=== PATIENT | female | born 1970 | race Caucasian/White ===

== ENCOUNTER 2016-11-05 10:06 | Inpatient (IN) | payer OTHER ==
[2016-11-05 10:55] LABS: Hematocrit 45 % (35-47); Hemoglobin 14.8 g/dl (12.0-16.0); Mean Corpuscular HGB Conc 33 g/dl (31-36); Mean Corpuscular Hemoglobin 28 pg (27-31); Mean Corpuscular Volume 84 fL (80-97); Mean Platelet Volume 9 um3 (7.4-10.4); Red Blood Count 5.38 10^6/ul (4.0-5.4); Red Cell Distribution Width 14 % (10.5-15); White Blood Count 7.6 10^3/ul (3.5-10.8)
[2016-11-05 11:10] LABS: Albumin 3.9 g/dL (3.2-5.2); BUN/Creatinine Ratio 14.3 (8-20); EGFR African American 115.4 (>60); EGFR Non-African American 89.7 (>60); Potassium 4.4 mmol/L (3.5-5.0); Total Bilirubin 0.4 mg/dL (0.2-1.0); Total Protein 6.9 g/dL (6.4-8.9)
[2016-11-05] MEDS: NS 0.9% 1000 ML* 2,000 ML IV ONE ×2 (11:30→15:43)
--- NOTE | 2016-11-05 12:58 | RAD ---
INDICATION: Right facial droop and right lower extremity weakness. COMPARISON: There are no prior studies available for comparison. TECHNIQUE: Sagittal T1, axial T1, T2, susceptibility, FLAIR and diffusion weighted images were obtained. FINDINGS: The ventricles, cisterns and sulci appear to be within normal limits. No significant focal abnormality or mass effect is seen. No areas of restricted diffusion are present. There is no evidence for infarct or hemorrhage. The visualized portion of the paranasal sinuses and mastoid air cells appear clear with the exception of a small 8 mm mucous retention cyst or polyp within the right maxillary sinus. IMPRESSION: NEGATIVE EXAM.
[2016-11-05] MEDS ORDERED: Artificial Tear OPHTH.OINT* 3.5 GM RIGHT EYE PRN (13:56)
[2016-11-05 14:22] LABS: C Reactive Protein 1.36 mg/L (< 5.00)
--- NOTE | 2016-11-05 14:49 | ED ---
Samira Pepe Rebecca, scribed for Hiram Alicea MD on 11/05/16 at 1029 . Neurological HPI - HPI Summary HPI Summary: Pt is a 46 y/o F who presents to ED c/o R-sided facial drooping and numbness. 1.5 days ago she began experiencing tongue numbness and yesterday evening the L- side of her face became "funky". This morning, the R side of her face began drooping. Sx have been constant since onset. Sx aggravated and alleviated by nothing. She additionally c/o difficulty winking the R eye, slight difficulty articulating words and trouble eating (dribbling). States that her R eye was watering this morning which she attributed to allergies. 30 minutes prior to arrival she began experiencing RLE weakness, stating it feels as thought she doesn't "have as good of control of it" as compared to the LLE. Denies DU, loss of vision, eye dryness, ear pain, throat pain and abdominal pain. No Hx of tick bites. Pt is L-hand dominant. PMHx fibromyalgia and migraines. SHx no smoking. FHx stroke (grandfather). PCP is Dr. earl. - History of Current Complaint Stated Complaint: FACIAL DROOPING/NUMBNESS Time Seen by Provider: 11/05/16 10:12 Hx Obtained From: Patient Hx Last Menstrual Period: 02/25/15 Onset/Duration: Sudden Onset, Started days ago - yesterday Timing: Constant Neurological Deficit Location: Facial - R-sided drooping and numbness Character: Impaired Speech - difficulty articulating words Aggravating: Nothing Alleviating: Nothing Associated Signs and Symptoms: Positive: Unsteady Gait - RLE weakness, Impaired Speech - Difficulty articulating words. Negative: Visual Changes, Headache - Allergy/Home Medications Allergies/Adverse Reactions: Allergies Allergy/AdvReac Type Severity Reaction Status Date / Time Sulfa Drugs Allergy Intermediate Rash And Verified 09/03/16 16:45 Itching Flurbiprofen [From Ansaid] Allergy See Comment Verified 09/03/16 16:45 PMH/Surg Hx/FS Hx/Imm Hx Endocrine/Hematology History: Denies: Hx Diabetes, Hx Thyroid Disease Cardiovascular History: Reports: Hx Hypertension - off and on Denies: Hx Pacemaker/ICD Respiratory History: Reports: Hx Asthma Denies: Hx Chronic Obstructive Pulmonary Disease (COPD) GI History: Reports: Hx Ulcer Musculoskeletal History: Reports: Hx Fibromyalgia Sensory History: Denies: Hx Hearing Aid Neurological History: Reports: Hx Migraine Psychiatric History: Denies: Hx Panic Disorder - Cancer History Hx Chemotherapy: No Hx Radiation Therapy: No - Surgical History Surgery Procedure, Year, and Place: Bilateral Breast Reduction 2000, Laparotomy for PID at age 16, Laparoscopies for endometriosis and scar tissue from prior surgery; Infectious Disease History: Denies: Hx Hepatitis, Hx Human Immunodeficiency Virus (HIV), History Other Infectious Disease - Family History Known Family History: Positive: Diabetes, Other - Stroke (grandfather) Negative: Cardiac Disease - Social History Alcohol Use: None Substance Use Type: Reports: None Smoking Status (MU): Never Smoked Tobacco Review of Systems Positive: Other - eye watering (secondary to allergies); denies eye dryness Positive: Other - Tongue numbness. Negative: Sore Throat, Ear Ache Negative: Abdominal Pain Positive: Other - RLE weakness Neurological: Other - R-sided facial droop, difficulty articulating words and winking the R eye, difficulty eating (dribbling) Negative: Headache All Other Systems Reviewed And Are Negative: Yes Physical Exam - Summary Physical Exam Summary: The patient is well-nourished in no acute distress and in no acute pain. The skin is warm and dry and skin color reflects adequate perfusion. HEENT: The head is normocephalic and atraumatic. Ptosis of the R eye. The pupils are equal and reactive. Weakness in the R eyelid. Visual acuity intact. The conjunctivae are clear and without drainage. Nares are patent and without drainage. Mouth reveals moist mucous membranes and the throat is without erythema and exudate. Tongue is midline. The external ears are intact. The ear canals are patent and without drainage. The tympanic membranes are intact. Neck is supple with full range of motion and non-tender. There are no carotid bruits. There is no neck vein distension. Respiratory: Chest is non-tender. Lungs are clear to auscultation and breath sounds are symmetrical and equal. Cardiovascular: Hear is regular rate and rhythm. There is no murmur or rub auscultated. There is no peripheral edema and pulses are symmetrical and equal. Abdomen: The abdomen is soft and non-tender. There are normal bowel sounds heard in all four quadrants and there is no organomegaly palpated. Musculoskeletal: There is no back pain noted. Extremities are non-tender with full range of motion. There is good capillary refill. There is no peripheral edema or calf tenderness elicited. Questionable weakness in the RLE compared to the LLE. Negative Babinski. Difficulty walking heel to toe. Neurological: Patient is alert and oriented to person, place and time. The patient has symmetrical motor strength in all four extremities. Cranial nerves are grossly intact. Deep tendon reflexes are symmetrical and equal in all four extremities. R facial droop. Unfurling of the R forehead. No pronator drift of the upper extremities. No drifting of the lower extremities. Heel to sharma test was good. No sensory deficits. Psychiatric: The patient has an appropriate affect and does not exhibit any anxiety or depression. Triage Information Reviewed: Yes Vital Signs On Initial Exam: Initial Vitals Temp Pulse Resp BP Pulse Ox 98.0 F 85 16 141/93 97 11/05/16 10:17 11/05/16 10:17 11/05/16 10:17 11/05/16 10:17 11/05/16 10:17 Vital Signs Reviewed: Yes Diagnostics - Vital Signs Vital Signs Temp Pulse Resp BP Pulse Ox 11/05/16 11:08 79 20 161/113 96 11/05/16 10:17 98.0 F 85 16 141/93 97 - Laboratory Lab Results: Lab Results 11/05/16 11/05/16 11/05/16 Range/Units 10:45 10:45 10:45 WBC 7.6 (3.5-10.8) 10^3/ul RBC 5.38 (4.0-5.4) 10^6/ul Hgb 14.8 (12.0-16.0) g/dl Hct 45 (35-47) % MCV 84 (80-97) fL MCH 28 (27-31) pg MCHC 33 (31-36) g/dl RDW 14 (10.5-15) % Plt Count 299 (150-450) 10^3/ul MPV 9 (7.4-10.4) um3 Neut % (Auto) 59.3 (38-83) % Lymph % (Auto) 26.1 (25-47) % Mcduffie % (Auto) 8.7 (1-9) % Eos % (Auto) 4.5 (0-6) % Baso % (Auto) 1.4 (0-2) % Absolute Neuts (auto) 4.5 (1.5-7.7) 10^3/ul Absolute Lymphs (auto) 2.0 (1.0-4.8) 10^3/ul Absolute Monos (auto) 0.7 (0-0.8) 10^3/ul Absolute Eos (auto) 0.3 (0-0.6) 10^3/ul Absolute Basos (auto) 0.1 (0-0.2) 10^3/ul Absolute Nucleated RBC 0 10^3/ul Nucleated RBC % 0.1 INR (Anticoag Therapy) 0.89 (0.89-1.11) Sodium 136 (133-145) mmol/L Potassium 4.4 (3.5-5.0) mmol/L Chloride 106 (101-111) mmol/L Carbon Dioxide 24 (22-32) mmol/L Anion Gap 6 (2-11) mmol/L BUN 10 (6-24) mg/dL Creatinine 0.70 (0.51-0.95) mg/dL Est GFR ( Amer) 115.4 (>60) Est GFR (Non-Af Amer) 89.7 (>60) BUN/Creatinine Ratio 14.3 (8-20) Glucose 119 H (70-100) mg/dL Lactic Acid (0.5-2.0) mmol/L Calcium 9.0 (8.6-10.3) mg/dL Total Bilirubin 0.40 (0.2-1.0) mg/dL AST 18 (13-39) U/L ALT 11 (7-52) U/L Alkaline Phosphatase 82 (34-104) U/L Troponin I 0.00 (<0.04) ng/mL C-Reactive Protein 1.36 (< 5.00) mg/L Total Protein 6.9 (6.4-8.9) g/dL Albumin 3.9 (3.2-5.2) g/dL Globulin 3.0 (2-4) g/dL Albumin/Globulin Ratio 1.3 (1-3) 11/05/16 Range/Units 10:45 WBC (3.5-10.8) 10^3/ul RBC (4.0-5.4) 10^6/ul Hgb (12.0-16.0) g/dl Hct (35-47) % MCV (80-97) fL MCH (27-31) pg MCHC (31-36) g/dl RDW (10.5-15) % Plt Count (150-450) 10^3/ul MPV (7.4-10.4) um3 Neut % (Auto) (38-83) % Lymph % (Auto) (25-47) % Mcduffie % (Auto) (1-9) % Eos % (Auto) (0-6) % Baso % (Auto) (0-2) % Absolute Neuts (auto) (1.5-7.7) 10^3/ul Absolute Lymphs (auto) (1.0-4.8) 10^3/ul Absolute Monos (auto) (0-0.8) 10^3/ul Absolute Eos (auto) (0-0.6) 10^3/ul Absolute Basos (auto) (0-0.2) 10^3/ul Absolute Nucleated RBC 10^3/ul Nucleated RBC % INR (Anticoag Therapy) (0.89-1.11) Sodium (133-145) mmol/L Potassium (3.5-5.0) mmol/L Chloride (101-111) mmol/L Carbon Dioxide (22-32) mmol/L Anion Gap (2-11) mmol/L BUN (6-24) mg/dL Creatinine (0.51-0.95) mg/dL Est GFR ( Amer) (>60) Est GFR (Non-Af Amer) (>60) BUN/Creatinine Ratio (8-20) Glucose (70-100) mg/dL Lactic Acid 2.1 H* (0.5-2.0) mmol/L Calcium (8.6-10.3) mg/dL Total Bilirubin (0.2-1.0) mg/dL AST (13-39) U/L ALT (7-52) U/L Alkaline Phosphatase (34-104) U/L Troponin I (<0.04) ng/mL C-Reactive Protein (< 5.00) mg/L Total Protein (6.4-8.9) g/dL Albumin (3.2-5.2) g/dL Globulin (2-4) g/dL Albumin/Globulin Ratio (1-3) Result Diagrams: 11/05/16 10:45 11/05/16 10:45 Lab Statement: Any lab studies that have been ordered have been reviewed, and results considered in the medical decision making process. - Radiology Brain MRI Xray Interpretation: No Acute Changes Radiology Interpretation Completed By: Radiologist - EKG 1257 Cardiac Rate: NL - 84 bpm EKG Rhythm: Sinus Rhythm - Normal axis EKG Interpretation: Poor R-wave progression, no STEMI NIH Scale - NIH Scale Level of Consciousness: Alert/Keenly Responsive Ask Patient the Month and His/Her Age: Both Correct Ask Pt to Open/Close Eyes and Facility Maintenance Manager/Release Non-Paretic Hand: Both Correctly Best Gaze (Only Horizontal Eye Movement): Normal Visual Field Testing: No Visual Loss Facial Paresis-Pt to Smile & Close Eyes or Grimace Symmetry: Normal/Symmetrical Motor Function - Right Arm: No Drift-Holds 10 Seconds Motor Function - Left Arm: No Drift-Holds 10 Seconds Motor Function - Right Leg: No Drift-Holds 10 Seconds Motor Function - Left Leg: No Drift-Holds 10 Seconds Limb Ataxia-Must be out of Proportion to Weakness Present: Absent Sensory (Use Pinprick to Test Arms/Legs/Trunk/Face): Normal Best Language (Describe Picture, Name Items): Some Loss Dysarthria (Read Several Words): Normal Extinction and Inattention: No Abnormality Total Score: 1 Re-Evaluation - Re-Evaluation First Eval Re-Evaluation Time: 10:43 Change: Unchanged Comment: Told her that we are doing an MRI. Course/Dx - Course Assessment/Plan: MDM: Pt is a 46 y/o F who presents to ED with a CC of R-sided facial droop for 1 day. She additionally c/o difficulty articulating words, difficulty eating and winking the R eye, tongue numbness and RLE weakness. Denies DU, loss of vision, eye dryness, ear pain, throat pain and abdominal pain. Discussed pt care with Dr. Smith, neurologist, who advised that an MRI be done to r/o stroke and MS. MRI reveals a negative exam. EKG at [address] Smith evaluated pt in the ED at 1345 and stated that pt needs to be admitted. Discussed care of pt with Dr. Khushboo Trevino who advised that the pt be admitted by the hospitalist. Talked to Dr. Sevilla at 1445 who agrees to evaluate pt for admission. Pt will be admitted. She is agreeable to this plan. - Differential Dx Differential Diagnoses Neuro: Positive: John's Palsy, Cerebrovascular Accident, Transient Ischemic Attack, Other - Multiple Sclerosis, Guillan [place] syndrome - Diagnoses Provider Diagnoses: Weakness Is Visit Related: No - Physician Notifications Discussed Care of Patient With: Dr. Smith, neurologist, who advised that pt have MRI to r/o stroke and MS. Dr. Smith evaluated the pt in the ED at 1345 who advised that pt be admitted. Dr. Khushboo Trevino who advised that the pt be admitted by the hospitalist. Talked to Dr. Sevilla at 1445 who agrees to evaluate pt for admission. Time Discussed With Above Provider: 10:34 Discharge - Discharge Plan Condition: Good Disposition: ADMITTED TO [facility] Referrals: Eitan Earl MD [Primary Care Provider] - The documentation as recorded by the Samira peters Rebecca accurately reflects the service I personally performed and the decisions made by me, Hiram Alicea MD.
[2016-11-05 15:59] LABS: Urine Bilirubin Negative (Negative); Urine Glucose Negative (Negative); Urine Nitrite Negative (Negative)
[2016-11-05] MEDS ORDERED: NS 0.9% 1000 ML* 1,000 ML IV SCH (16:30)
[2016-11-05] MEDS ORDERED: Acetaminophen TAB* 325 MG PO PRN (17:27)
[2016-11-05] MEDS ORDERED: diPHENhydraMINE PO* 25 MG PO ONE (18:00)
[2016-11-05 18:16] LABS: HDL Cholesterol 59.5 mg/dL
[2016-11-05] MEDS ORDERED: IMMUNE GLOBULIN IV SCH (18:30)
[2016-11-05] MEDS ORDERED: OCTAGAM IV SCH (18:30)
[2016-11-05] MEDS: NS 0.9% 1000 ML* 1,000 ML IV SCH (18:40)
--- NOTE | 2016-11-05 21:28 | CONS ---
CONSULTATION REPORT: DATE OF CONSULT: 11/05/2016. PATIENT OF: Dr. Alicea and Dr. Eitan Dejesus. HISTORY OF PRESENT ILLNESS: This is a 46-year-old woman I am asked to evaluate for John's palsy and possible gait disturbance. 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 She has had no recent flu or fevers or exposure to Lyme disease. Two days ago, she developed some decreased taste in the right side of her tongue, which is now on both sides. Yesterday, she developed right-sided facial weakness. This morning, she developed little bit of weakness in the right leg and slight unsteadiness, which has been stable throughout today. There has been no sensory changes, no back problems, no headaches, no visual symptoms. PAST SURGICAL HISTORY: There is no surgical history. MEDICATIONS: Medicines at home include: 1. Cymbalta possibly 90 mg a day. 2. She is not taking Flexeril currently. FAMILY HISTORY: Noncontributory other than in an aunt who has Guillain-[place]. SOCIAL HISTORY: She does not smoke, drink, or use drugs. REVIEW OF SYSTEMS: Negative in all 14 spheres as in HPI. PHYSICAL EXAM: Temperature 98, pulse 79, respirations 20, blood pressure 161/ 113. She is alert and oriented with normal speech and comprehension. Cranial nerves II through XII are intact other than a right upper motor neuron facial weakness. She could not wrinkle her forehead as well on the right as on the left. She could close both eyes, but the right less slow than left and she had some tearing. Facial sensation was intact. Fundi were benign. Motor exam revealed normal tone. Strength was 5/5 other than trace to -5/5 strength in the right dorsiflexion. She had a slightly unsteady gait and her Romberg was slightly unsteady, but did not fall with feet close together. Sensation was intact to light touch. Vibration and reflexes were 1 and equal with clearly present ankle jerks. Toes were downgoing. Neck was supple. Chest clear. Cardiovascular: Regular rate and rhythm. Abdomen: Soft with positive bowel sounds. DIAGNOSTIC STUDIES/LAB DATA: I reviewed her MRI scan, which was normal. Her EKG was normal. Her CBC was normal. INR was normal. CMP was normal other than a glucose of 119 , lactate of 2.1. PLAN: I discussed with the patient and her family as well as Dr. Alicea that it is too soon to be sure what her diagnosis is. 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 Her reflexes are still intact and her symptoms affect predominantly the right leg and she has no sensory findings. At this point, it is too early that EMG and LP would be unlikely to be abnormal even if this was Guillain-[place], so we will be admitting for observation. She should have VERONICA, Lyme titers checked as well and she should be on neuro checks and a cardiac rn. If there is progression, depending on how she progresses, if it is in the near future, we may empirically need to treat her with IVIG. I discussed this with her. If it evolves over longer period of time, we might be able to document objectively with lab findings on nerve conduction and LP that she has an inflammatory polyneuropathy. Thank you for sharing her case. [id number]/[facility] #: [id number] DILLAN
[2016-11-05] MEDS: Heparin VIAL(*) 5000 UNITS/ML VIAL (FIVE THOUSAND) SUBCUT SCH (22:29)
--- NOTE | 2016-11-06 00:21 | HP ---
HISTORY AND PHYSICAL: DATE OF ADMISSION: 11/05/16 PROVIDER: Nithin Saez NP ATTENDING PHYSICIAN: Dr. Gala Fernandes* (report dictated by Nithin Saez NP). PRIMARY CARE PROVIDER: Dr. Dejesus. CHIEF COMPLAINT: Right-sided facial droop and right lower extremity weakness. HISTORY OF PRESENT ILLNESS: Ms. Elizabeth is a 46-year-old female with a past medical history of fibromyalgia and migraines who presents to the emergency department with complaints of right-sided facial droop, numbness. She reports a day and a half ago, she began experiencing tongue numbness and last night noted her left face became "funny." This morning, she noted right-sided facial droop and difficulty closing her right eye, some difficulty eating, and felt to have trouble articulating her words. Approximately 30 to 45 minutes before she came to the emergency department, she noted that her right lower extremity felt "weak." She denies numbness or tingling in her left lower extremity but just states that she is having difficulty controlling her right lower extremity. The patient was seen in consultation by neurologist, Dr. Smith, in the emergency department, who recommended that the patient undergo a brain MRI and which she did, which showed a negative MRI of the brain. Due to the patient's John's palsy in combination with right lower extremity and noted right footdrop , Dr. 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 Hospitalist service was asked to evaluate the patient for admission. On evaluation of the patient in the emergency department, which was approximately 2 hours after the neurologist saw the patient, the patient's symptoms had increased with increased right lower extremity weakness and per the patient, she felt that her right-sided facial droop was worse. I ambulated the patient in the emergency department and she could not ambulate without holding on to me which was a change from when Dr. Smith saw the patient. There is a concern for Gutierrez Fuentes variant of Guillain-[place] and the patient will be admitted to the ICU. The patient reports approximately a week ago, she had a "GI bug" with diarrhea but no nausea or vomiting. The patient reports these symptoms have resolved, and she has been feeling better but has continued to feel weak the last several days. She currently denies any difficulty swallowing, shortness of breath, chest pain. Denies vision changes, headache. The patient reports that at her baseline, she is very functional. 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 She reports due to her fibromyalgia, she is gluten free. She denies tobacco abuse or alcohol use. PAST MEDICAL HISTORY: 1. Fibromyalgia. 2. Migraines. 3. Depression. HOME MEDICATIONS: 1. Valerian root 1 capsule daily. 2. Cymbalta 90 mg p.o. daily. 3. Flexeril 10 mg p.o. b.i.d. p.r.n. Medications need to be confirmed. ALLERGIES: SULFA DRUGS and FLURBIPROFEN. FAMILY HISTORY: The patient's grandfather has a history of CVA. She reports strong family history of breast cancer. SOCIAL HISTORY: Denies history of tobacco abuse. No alcohol use in 7 years. 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 She lives with her boyfriend, José Lizama , who is her healthcare proxy. She has two teenage sons. REVIEW OF SYSTEMS: A 14-point review of systems was performed. All the pertinent positives and negatives are mentioned in the history of present illness. All remaining systems are negative. PHYSICAL EXAMINATION GENERAL: A 46-year-old obese female, sitting up in the emergency department stretcher, in no acute distress. Alert and oriented x3. Appropriate to situation. VITAL SIGNS: Temperature 98.0, heart rate 95, respirations 18, O2 sat 97% on room air, blood pressure 141/93. HEENT: Head is normocephalic, atraumatic. Pupils are equal and reactive to light. Oropharynx is clear. Moist mucous membranes. Good dentition. No oropharyngeal edema or erythema noted. NECK: No cervical or supraclavicular lymphadenopathy. Neck is supple. RESPIRATORY: No accessory muscle use. Lungs are clear to auscultation bilaterally. Good aeration throughout. CARDIAC: S1, S2. No murmurs, rubs, or gallops appreciated. No lower extremity edema noted, 2+ DP pulses bilaterally. ABDOMEN: Soft, nontender, nondistended. Normal bowel sounds x4. MUSCULOSKELETAL: No clubbing or cyanosis is noted. Full range of motion in all extremities, but right lower extremity has limited range of motion due to how the patient is able to control her lower leg. NEURO: The patient has noted right facial droop. Tongue is midline. No pronator drift. Extraocular movements intact. Hand hospice clinical manager are equal bilaterally. Right lower extremity strength is 2/5 and left lower extremity strength is 3/5. Reflexes are intact. On ambulation, the patient has noted right lower extremity weakness and difficulty controlling her right leg as well as bearing weight on her right leg. Noted right footdrop. PSYCH: Alert and oriented x3, appropriate to situation. SKIN: No rashes, lesions, or open wounds noted. DIAGNOSTIC STUDIES/LAB DATA: WBC is 7.6, Hgb 14.8, Hct 45, MCV 84, MCH 28, MCHC 33, RDW 14, platelet count 299. INR 0.89. Sodium 136, potassium 4.4, chloride 106, carbon dioxide 24, anion gap 6, BUN 10, creatinine 0.70, glucose 119, lactic acid 2.1, calcium 9.0. Total bilirubin 0.40, AST 18, ALT 11, alkaline phosphatase 82. Troponin 0.01. C-reactive protein 1.36., albumin 3.9. Urinalysis: Negative. Brain MRI, impression: Negative exam. EKG: Sinus rhythm with a rate of 84. No acute ischemic changes noted. ASSESSMENT AND PLAN: Ms. Elizabeth is a 46-year-old female with a past medical history of fibromyalgia and migraines, who presents to the emergency department with complaints of right-sided facial droop and facial numbness along with right lower extremity weakness. 1. Right lower extremity weakness and right facial droop. There is concern for Gutierrez Fuentes variant of Guillain-[place]rest[place]. The patient was seen earlier in the emergency department by the neurologist and when I evaluated the patient in the emergency department, it was evident that she had an increase in right lower extremity weakness. I spoke with Dr. Smith who returned to the emergency department and reevaluated the patient and has concern for an increase in her right lower extremity weakness and now has some left-sided lower extremity weakness as well. Recommendation from Dr. Smith, neurologist , is to give IVIG and the patient will be in to the ICU. The patient will be premedicated with Benadryl and Tylenol prior to the IVIG. Lyme serology and VERONICA had been sent. Neuro checks. Tele monitoring for arrhythmias, close monitoring in the ICU for concern for decompensation. The patient may benefit from a spinal tap in a couple of days, per Neurology, it is too early at this time. Brain MRI was negative, ruling out cerebrovascular accident or demyelinating disease. Neurology will continue to follow. Bedside swallowing eval. Bladder scan q.8 hours. 2. Depression. Continue Cymbalta. 3. DVT prophylaxis. Heparin subcu. 4. Code status. Full code. The patient's boyfriend, José Lizama, is the healthcare proxy. His number is [phone]. 5. Disposition. Inpatient to ICU. TIME SPENT: Approximately 75 minutes was spent on this admission. This case was discussed with neurologist, Dr. Smith, as well as attending physician, Dr. Fernandes, who agree with the plan of care. NITHIN SAEZ, JUANITO [id number]/[facility] #: [id number] DILLAN
[2016-11-06] MEDS ORDERED: Ibuprofen TAB* 600 MG PO ONE (02:15)
[2016-11-06] MEDS ORDERED: Ibuprofen TAB* 600 MG ONE (02:30)
[2016-11-06] MEDS: Heparin VIAL(*) 5000 UNITS/ML VIAL (FIVE THOUSAND) SUBCUT SCH ×4 (05:16→21:57)
[2016-11-06 05:44] LABS: Hematocrit 39 % (35-47); Mean Corpuscular HGB Conc 34 g/dl (31-36); Mean Corpuscular Hemoglobin 28 pg (27-31); Mean Corpuscular Volume 83 fL (80-97); Mean Platelet Volume 9 um3 (7.4-10.4); Red Blood Count 4.66 10^6/ul (4.0-5.4); Red Cell Distribution Width 15 % (10.5-15); White Blood Count 6.6 10^3/ul (3.5-10.8)
[2016-11-06 05:58] LABS: BUN/Creatinine Ratio 12.1 (8-20); Calcium 7.5 mg/dL (8.6-10.3); EGFR African American 143.3 (>60); EGFR Non-African American 111.4 (>60); Potassium 3.6 mmol/L (3.5-5.0)
[2016-11-06] MEDS: NS 0.9% 1000 ML* 1,000 ML IV SCH (06:28)
--- NOTE | 2016-11-06 08:47 | PN ---
Subjective - Subjective Reason for Note: Progress Note History: History from the patient, Dr. Smith and the admitting H and P. Netite Terry is a 46 year left handed white female. 3 week ago she had some sweats at night for 2 - 3 nights 2 weeks ago her had severe gastroenteritis, and the patient also had a milder case that was self limiting 3 days ago her felipe felt "weird" as if she had burned it 2 days ago left side of her face felt as though it was in spasm and worsened during the morning. She noted right sided facial palsy \\yesterday: Right leg weaker - dragging behind her and felt instability Legs wanted to buckle. She had a headache last night - occipital to temples 5/10. No photophobia/ phonophobia. Some nausea. Different from her usual migraine. No neck stiffness Numbness right face. No travel history. Lyme - she [place] in [place]. She had a dog tick bite. No rashes. 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 Uses well water Pets - goats/sheep. Active Problems: Active Problems Progressive focal motor weakness (Acute) M62.81 Right-sided John's palsy (Acute) G51.0 Dysthymia (Chronic) F34.1 Fibromyalgia (Chronic) M79.7 History of gastric ulcer (Chronic) Z87.19 Hypermobility syndrome (Chronic) M35.7 Left handedness (Chronic) [id number] Obesity (BMI 35.0-39.9 without comorbidity) (Chronic) E66.9 Polycystic ovary syndrome (Chronic) E28.2 Current Medications: Current Medications Acetaminophen (Tylenol Tab*) 650 mg PO Q6H PRN PRN Reason: FEVER/PAIN Artificial Tears (Lacrilube Oint*) 1 applic RIGHT EYE Q4H PRN PRN Reason: DRY EYE Heparin Sodium (Porcine) (Heparin Vial(*)) 5,000 units SUBCUT Q8HR CHAD Last Admin: 11/06/16 05:16 Dose: Not Given Immune Globulin 40 gm/ IV (Solution) 800 mls @ 0 mls/hr IV Q24H CHAD; Per Protocol PRN Reason: Protocol Stop: 11/09/16 18:31 Last Admin: 11/05/16 19:48 Dose: 60 mls/hr Sodium Chloride (Ns 0.9% 1000 Ml*) 1,000 mls @ 75 mls/hr IV PER RATE CHAD Last Admin: 11/06/16 06:28 Dose: 75 mls/hr - Review of Systems Constitutional Symptoms: No: Fever, Night Sweats Dermatology: Rash: No Eyes: Negative: Change in Vision, Double Vision, Eye Pain Pulmonary: Negative: Cough, Sputum, Hemoptysis, Respiratory Distress Cardiology: Negative: Chest Pain, Shortness of Breath, Palpitations, Swelling of Ankles Gastroenterology: Positive: Nausea - yesterday evening/resolved Negative: Constipation, Change in Bowel Habits Genital - Urinary: Positive: Polyuria Neurology: Positive: Headache, Change in Walking, Numbness\\Paresthesiae - right face, Unexplained Weakness Negative: Change in Vision, Diplopia, Dizziness, Change in Balancing, Change in Coordination, Change in Memory, Hx of Stroke\\TIA, Hx of Seizures Home Medications: Home Medications Medication Instructions Recorded Confirmed Type DULoxetine DR CAP* [Cymbalta CAP*] 90 mg PO DAILY 03/20/15 11/05/16 History Cyclobenzaprine TAB* [Flexeril 10 mg PO BID PRN 09/21/16 11/05/16 History TAB*] Valerian Root (Bulk) [Valerian 1 pow XX 09/21/16 History Root] Allergies: Allergies Allergy/AdvReac Type Severity Reaction Status Date / Time Sulfa Drugs Allergy Intermediate Rash And Verified 09/03/16 16:45 Itching Flurbiprofen [From Ansaid] Allergy See Comment Verified 09/03/16 16:45 Objective - Vital Signs Vital Signs: Vital Signs 11/05/16 11/05/16 11/05/16 17:50 18:15 18:18 Temperature 100.1 F Pulse Rate 89 84 86 Respiratory 18 17 19 Rate Blood Pressure 160/90 160/105 (mmHg) O2 Sat by Pulse 95 96 97 Oximetry 11/05/16 11/05/16 11/05/16 18:30 18:45 19:00 Temperature Pulse Rate 87 85 91 Respiratory 14 21 20 Rate Blood Pressure 150/84 158/96 152/88 (mmHg) O2 Sat by Pulse 96 96 96 Oximetry 11/05/16 11/05/16 11/05/16 19:15 19:30 19:37 Temperature 99.2 F Pulse Rate 90 84 Respiratory 21 16 Rate Blood Pressure 137/112 143/90 (mmHg) O2 Sat by Pulse 97 98 Oximetry 11/05/16 11/05/16 11/05/16 19:45 20:00 20:15 Temperature Pulse Rate 85 86 88 Respiratory 19 18 18 Rate Blood Pressure 148/101 152/90 148/85 (mmHg) O2 Sat by Pulse 98 97 98 Oximetry 11/05/16 11/05/16 11/05/16 20:30 20:45 21:00 Temperature Pulse Rate 86 86 94 Respiratory 19 17 19 Rate Blood Pressure 147/88 126/76 149/88 (mmHg) O2 Sat by Pulse 96 97 97 Oximetry 11/05/16 11/05/16 11/05/16 21:15 21:30 21:45 Temperature Pulse Rate 89 100 99 Respiratory 20 21 19 Rate Blood Pressure 139/83 158/87 154/83 (mmHg) O2 Sat by Pulse 96 96 96 Oximetry 11/05/16 11/05/16 11/05/16 22:00 22:15 22:29 Temperature Pulse Rate 94 91 Respiratory 21 21 20 Rate Blood Pressure 146/85 140/84 (mmHg) O2 Sat by Pulse 95 96 Oximetry 11/05/16 11/05/16 11/05/16 22:30 22:45 23:00 Temperature Pulse Rate 89 88 88 Respiratory 19 19 20 Rate Blood Pressure 140/83 137/83 140/77 (mmHg) O2 Sat by Pulse 96 96 96 Oximetry 11/05/16 11/05/16 11/05/16 23:15 23:30 23:45 Temperature 98.5 F Pulse Rate 91 91 85 Respiratory 19 20 9 Rate Blood Pressure 139/80 128/84 142/79 (mmHg) O2 Sat by Pulse 95 96 98 Oximetry 11/06/16 11/06/16 11/06/16 00:00 00:01 00:15 Temperature Pulse Rate 89 87 84 Respiratory 17 19 17 Rate Blood Pressure 155/92 157/89 (mmHg) O2 Sat by Pulse 97 97 96 Oximetry 11/06/16 11/06/16 11/06/16 00:30 00:45 01:00 Temperature Pulse Rate 89 91 91 Respiratory 16 17 18 Rate Blood Pressure 151/95 136/75 156/87 (mmHg) O2 Sat by Pulse 96 95 96 Oximetry 11/06/16 11/06/16 11/06/16 02:00 03:00 03:43 Temperature 99.6 F Pulse Rate 95 85 Respiratory 25 18 Rate Blood Pressure 154/106 151/86 (mmHg) O2 Sat by Pulse 97 96 Oximetry 11/06/16 11/06/16 11/06/16 04:00 05:00 05:10 Temperature Pulse Rate 82 93 83 Respiratory 17 21 19 Rate Blood Pressure 152/98 162/99 (mmHg) O2 Sat by Pulse 96 97 96 Oximetry 11/06/16 11/06/16 06:00 08:00 Temperature 98.0 F Pulse Rate 83 Respiratory 19 Rate Blood Pressure 156/97 (mmHg) O2 Sat by Pulse 95 Oximetry - Intake and Output Intake and Output: Intake & Output 11/03/16 11/04/16 11/05/16 11/06/16 11:59 11:59 11:59 11:59 Intake Total 1923 Output Total 1475 Balance 448 Weight 241 lb 6.499 oz Intake: IVPB 873 NS (0.9%) 873 Medicated IV 800 IGG 800 Oral 250 Output: Urine 1475 ADLs: Meal Record Start: 11/05/16 17: 18 Freq: 09,13,18 Status: Active Document 11/05/16 21:00 [id number] (Rec: 11/05/16 21:08 [id number] ICU-C16) Intake and Output Start: 11/05/16 17: 18 Freq: 06,14,22 Status: Active Document 11/05/16 19:45 [id number] (Rec: 11/05/16 22:27 [id number] ICU-C16) Document 11/05/16 21:30 [id number] (Rec: 11/05/16 21:31 [id number] [facility] [place]) Document 11/05/16 22:15 [id number] (Rec: 11/05/16 22:28 [id number] ICU-C16) Document 11/06/16 01:17 [id number] (Rec: 11/06/16 01:17 [id number] ICU-C16) Document 11/06/16 05:20 [id number] (Rec: 11/06/16 05:20 [id number] [facility] [place]DC[facility]) Document 11/06/16 07:07 [id number] (Rec: 11/06/16 07:07 [id number] ICU-C16) - Physical Exam General: No Anemia, No Jaundice, No Clubbing Eye Exam: bilateral: PERRLA - no dilatation. Reduced direct/consensual light response, Normal Fundi, EOMI Skin: Normal: Rash Throat/Oropharyx Exam: Bilateral: Normal -: No Tremor, No Goiter Endocrine: Yes Central Obesity, No Acromegaly, No Vitiligo, No Acanthosis nigricans, No Violaceious striae, No Ralston Syndrome, No Buccal pigmenatation Lungs and Chest: Yes: Chest Expansion Full, Chest Expansion Symetrica, Percussion Note Resonant, Vessicular Breath Sounds. No: Crackles, Wheezes Heart Rate and Rhythm: Regular JVP: Not Elevated Additional Cardiovascular: Yes: Normal Heart Sounds. No: Heart Murmur, Pedal Edema Abdominal Exam: Yes: Soft, Bowel Sounds Present. No: Distention, Abdominal Mass , Splenomegaly - Extremities Posterior Tibial Pulse: Bilateral Normal Dorsalis Pedis Pulses: Bilateral Normal Cranial Nerves II-XII Intact: No - right John's palsy. Normal sensation to tissue Limbs: Normal Tone, Normal Coordination, Normal Sensation - to tissue, Abnormal Power - right elbow flexion/extension, paleontological helper 4/5. 4/5 right hip flexion, normal extension. right knee flexion extension 4/5, bilateral ankle dorsiflexion 3/6, eversion right 3/6. , Abnormal Gait - Can't weight bear on right leg. Reflexes: Bilateral: Biceps - reduced, Triceps - reduced, Supinator - reduced, Knee - normal, Ankle - normal, Plantar - downgoing - Neuro Orientation: A/O x3 Psychiatric: Normal Speech: Normal Results - Results Lab Results: Laboratory Results - last 24 hr 11/06/16 11/06/16 05:19 05:19 WBC 6.6 RBC 4.66 Hgb 13.0 Hct 39 MCV 83 MCH 28 MCHC 34 RDW 15 Plt Count 269 MPV 9 Neut % (Auto) 61.8 Lymph % (Auto) 22.1 L Ritchie % (Auto) 10.4 H Eos % (Auto) 4.4 Baso % (Auto) 1.3 Absolute Neuts (auto) 4.1 Absolute Lymphs (auto) 1.5 Absolute Monos (auto) 0.7 Absolute Eos (auto) 0.3 Absolute Basos (auto) 0.1 Absolute Nucleated RBC 0 Nucleated RBC % 0 Sodium 132 L Potassium 3.6 Chloride 108 Carbon Dioxide 22 Anion Gap 2 BUN 7 Creatinine 0.58 Est GFR ( Amer) 143.3 Est GFR (Non-Af Amer) 111.4 BUN/Creatinine Ratio 12.1 Glucose 96 Calcium 7.5 L Radiology Results: Patient Name: NETTIE TERRY Medical Record#: [id number] Ordering Physician: Hiram Alicea DO Acct. #: [id number] : 1970 Age: 46 Sex: F Location: EMERGENCY DEPARTMENT Exam Date: 11/05/16 1032 ADM Status: REG ER Order Information: MRI BRAIN W/O Accession Number: [id number] CPT: 85117 INDICATION: Right facial droop and right lower extremity weakness. COMPARISON: There are no prior studies available for comparison. TECHNIQUE: Sagittal T1, axial T1, T2, susceptibility, FLAIR and diffusion weighted images were obtained. FINDINGS: The ventricles, cisterns and sulci appear to be within normal limits. No significant focal abnormality or mass effect is seen. No areas of restricted diffusion are present. There is no evidence for infarct or hemorrhage. The visualized portion of the paranasal sinuses and mastoid air cells appear clear with the exception of a small 8 mm mucous retention cyst or polyp within the right maxillary sinus. IMPRESSION: NEGATIVE EXAM. <Electronically signed by Vidal Wick MD in OV> 11/05/16 1255 Dictated By: Vidal Wick MD Dictated Date/Time: 11/05/16 1255 Transcribed Date/Time: 11/05/16 1231 Copy to: CC:Eitan Dejesus MD; Hiram Alicea DO Imaging - [facility] - [place] [facility] - [facility] [address] [address] ph [phone]) ph ([phone]) ph ([phone]) 1 of 1 Assessment - Problem List Assessment: Patient Problems Progressive focal motor weakness (Acute) Right-sided John's palsy (Acute) Dysthymia (Chronic) Fibromyalgia (Chronic) History of gastric ulcer (Chronic) Hypermobility syndrome (Chronic) Left handedness (Chronic) Obesity (BMI 35.0-39.9 without comorbidity) (Chronic) Polycystic ovary syndrome (Chronic) Plan: Progressive focal motor weakness (Acute)/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 Other possibilities in the differential diagnosis discussed with Dr. Smith: Lyme, botulinism. I will treat with IV ceftriaxone 2 gram IV qdaily whilst awaiting results of Lyme serology. No steroids at the moment per Dr. Smith. She has progressed less rapidly overnight than over yesterday afternoon. She requires an ICU bed to avoid missing progression to involve respiratory muscles. I will order a LP - she is needle phobic. Dysthymia (Chronic) treat as per usual with duloxetine 120 mg qhs Fibromyalgia (Chronic) not exacerbated History of gastric ulcer (Chronic) secondary diagnosis Hypermobility syndrome (Chronic) secondary diagnosis Left handedness (Chronic) noted Obesity (BMI 35.0-39.9 without comorbidity) (Chronic) secondary diagnosis Polycystic ovary syndrome (Chronic) secondary diagnosis 1 hour of face-face with patient and organization of care.
[2016-11-06] MEDS ORDERED: fentaNYL* 50 MCG/ML 5 ML VIAL (250 MCG VIAL) ONE (11:10)
[2016-11-06] MEDS ORDERED: KETAMINE HCL* 50 MG/ML 10 ML VIAL ONE (11:10)
[2016-11-06] MEDS ORDERED: Lidocaine 2% PF* 10 ML AMP ONE (11:10)
[2016-11-06] MEDS ORDERED: Midazolam* 1 MG/ML 10 ML VIAL (10 MG) ONE (11:10)
[2016-11-06] MEDS: cefTRIAXone(*) 2 GM in NS 0.9% 100 ML* 100 ML IVPB SCH (11:44)
[2016-11-06] MEDS: Ondansetron INJ* 2 MG/ML VIAL IV PRN (11:45)
--- NOTE | 2016-11-06 11:53 | PN ---
Progress Note - Progress Note Note: Anesthesia LUMBAR PUNCTURE. We were asked to do LP for r/o Guillan-Archbold. Progressive weakness following viral infection. MRI of brain nl. PMH of fibromyalgia and opiod abuse in remission ALL: sula flurbiprofen Alert, obvious right facial drop with weakness in legs especially right. BP elevated diastolic about 100. patient VERY anxious has severe needle phobia. Obese Given pt's phobia and body habitus along with nl brain MRI I feel it is best/ easiest to do her sitting, thus no opening pressure. I described the LP, risks and benefits along with IV sedation with pt. All questions answered no promises made. The EMR and MAR were reviewed. Consent, sitting chloroprep airdry. Versed 7mg IV. At about L 3-4 skin local 25 gauge pencan to SAS first try, clear CSF, no paresthesia. 20ml fluid to lab. no complications.
[2016-11-06 12:44] LABS: CSF Glucose 64 mg/dL (40-70)
[2016-11-06 13:20] LABS: Body Fluid Appearance Clear; Body Fluid Total Cells Counted 25
[2016-11-06 13:21] LABS: BF RBC Count #1 0; BF RBC Count #2 0; BF WBC Count #1 1; BF WBC Count #2 0; Body Fluid WBC 1 /mcL; RBC counts within 6%? Yes; WBC counts within 15%? Yes
--- NOTE | 2016-11-06 15:24 | RAD ---
INDICATION: Worsening right lower extremity weakness COMPARISON: None TECHNIQUE: Coronal hair preparer, sagittal T1, inversion recovery, T2, and axial T1, T2 images were acquired. FINDINGS: The spinal cord terminates at the L1 level. There are no intrinsic abnormalities of the visualized cord. The lower thoracic and lumbar vertebrae are normally aligned. Vertebral body height is adequately maintained and bony signal is within normal limits. There is reduction of normal fluid signal intensity in L3/L4 intervertebral disc. The remaining visualized discs are appropriate in signal and all levels maintain adequate height. Axial view images: Less otherwise specified below there is no significant central canal stenosis or neural foraminal stenosis. L3-L4: Mild broad-based intervertebral disc protrusion combines with facet arthropathy and mild thickening of the ligamentum flavum causing mild right neural foraminal stenosis. L4-L5: Very mild disc protrusion eccentric towards the left combines with mild facet arthropathy to cause very mild left-sided neural foraminal stenosis. L5-S1: There is no significant central canal or neural foraminal stenoses. IMPRESSION: Mild degenerative changes as described above.
[2016-11-06] MEDS: Naproxen TAB* 250 MG PO PRN ×2 (15:26→22:29)
[2016-11-06] MEDS: OCTAGAM IV SCH (16:07)
[2016-11-06] MEDS: IMMUNE GLOBULIN IV SCH (16:07)
[2016-11-06] MEDS: DULoxetine DR CAP* 60 MG CAP.DR PO SCH (20:29)
[2016-11-06] MEDS: LORazepam INJ* 2 MG/ML 1 ML VIAL IV PRN (23:03)
[2016-11-07] MEDS ORDERED: LORazepam INJ* 2 MG/ML 1 ML VIAL IV PUSH ONE (00:09)
[2016-11-07] MEDS: LORazepam INJ* 2 MG/ML 1 ML VIAL IV PRN ×3 (00:25→20:11)
--- NOTE | 2016-11-07 02:06 | PN ---
PROGRESS NOTE FOLLOWUP: DATE OF FOLLOWUP/DICTATION: 11/06/16 PATIENT OF: Dr. Dejesus. HISTORY: I saw Perla last evening at around 5:00 and reevaluated. She continued to have intact reflexes in her ankles, but her gait was substantially changed. She needed 2-person assist and was more unsteady. She also had slight weakness in her left foot. Because of this, I discussed the pros and cons beginning empiric treatment for presumed Guillain-Union with her and we started that along with the Hospitalist and she was admitted to the ICU. She had a slight headache with the IVIG, but otherwise tolerated it well and she says she feels a little numb on the right side of her face today, but has no double vision. There is no numbness or tingling in her feet. She says she feels slightly more off balance, but no clear change in strength. She is having Lacri-Lube as well as the IVIG. PHYSICAL EXAMINATION: Temperature 98, pulse 83, respirations 19, blood pressure 156/97. She is alert and oriented with normal speech and comprehension. Cranial nerves II through XII were intact other than a right facial weakness, which is unchanged since yesterday. Left side of her face may be slightly weak. She closes her left eye firmly, but I can meet slightly less resistance when I try to open it than I did yesterday. Strength in her upper extremities is 5/5 in her legs. She has 4/5 dorsiflexion in the right foot and 5/-5 in the left foot. This is similar to what she had last evening. She needs more assistance in walking at this point. She needs 2-person assist and can walk just a few steps and moves her right leg worse than her left. Sensation intact to light touch. Vibration reflexes were 1 with one ankle jerks , downgoing toes. Neck was supple. Chest: Clear. Cardiovascular: Regular rate and rhythm. Abdomen is soft with positive bowel sounds. LABORATORY DATA: CBC from today was normal. BNP was normal other than a sodium of 132, calcium was 7.5 today. IMPRESSION: I asked her about sonny and whether she could have exposure to botulism. She has had home prepared canned goods in the past, but nothing in the past month or two. I discussed with her and Dr. Dejesus that the rate of progression and for weakness in her gait disorder is much slower over the past 18 hours since I have last seen her then from the first 3 or 4 hours when I had seen her initially in the ER. However, there is still worsening. I will be sending off studies for botulinum, but I do not think that this is an issue. Her speech is intact, there are no visual symptoms and I think that most likely this is still an early Guillain-Union without clear sensory symptoms or true reflex changes at this point. I will check a lumbar MRI scan as well and I discussed getting a spinal tap in the near future with her and Dr. Dejesus. I would prefer to get it even if it meant repeating after a few days as this could be negative early on. However, she is extremely reluctant to have a spinal tap and says that she has a needle phobia, but appears to be agreeable to have it on a one-time basis. We may need to reevaluate depending on her clinical course and the plan is to continue the IVIG. Dr. Dejesus will be managing her medically and will be observing for cardiac issues as well as bladder dysfunction. [id number] #: [id number] MTDD
[2016-11-07 05:45] LABS: Hematocrit 41 % (35-47); Hemoglobin 13.4 g/dl (12.0-16.0); Mean Corpuscular HGB Conc 33 g/dl (31-36); Mean Corpuscular Hemoglobin 28 pg (27-31); Mean Corpuscular Volume 84 fL (80-97); Mean Platelet Volume 9 um3 (7.4-10.4); Red Blood Count 4.82 10^6/ul (4.0-5.4); Red Cell Distribution Width 14 % (10.5-15); White Blood Count 5.7 10^3/ul (3.5-10.8)
[2016-11-07 05:58] LABS: BUN/Creatinine Ratio 9.5 (8-20); C Reactive Protein 1.37 mg/L (< 5.00); Calcium 8.1 mg/dL (8.6-10.3); EGFR African American 130.3 (>60); EGFR Non-African American 101.3 (>60); Potassium 3.6 mmol/L (3.5-5.0)
[2016-11-07] MEDS: cefTRIAXone(*) 2 GM in NS 0.9% 100 ML* 100 ML IVPB SCH (10:13)
[2016-11-07] MEDS: Ondansetron INJ* 2 MG/ML VIAL IV PRN (10:24)
--- NOTE | 2016-11-07 10:41 | PN ---
Subjective - Subjective Reason for Note: Progress Note History: She continues to have a 5/10 headache that was not relieved by oral naproxen, she is avoiding opioids. Her right side facial weakness if anything is greater. She tried sitting in a chair, but felt unstable. Her weakness is either the same, or slightly greater. No problems with aspiration or coughing. Active Problems: Active Problems Headache (Acute) R51 Progressive focal motor weakness (Acute) M62.81 Right-sided John's palsy (Acute) G51.0 Dysthymia (Chronic) F34.1 Fibromyalgia (Chronic) M79.7 History of gastric ulcer (Chronic) Z87.19 Hypermobility syndrome (Chronic) M35.7 Left handedness (Chronic) [id number] Obesity (BMI 35.0-39.9 without comorbidity) (Chronic) E66.9 Polycystic ovary syndrome (Chronic) E28.2 Current Medications: Current Medications Acetaminophen (Tylenol Tab*) 650 mg PO Q6H PRN PRN Reason: FEVER/PAIN Artificial Tears (Lacrilube Oint*) 1 applic RIGHT EYE Q4H PRN PRN Reason: DRY EYE Duloxetine HCl (Cymbalta Cap*) 120 mg PO 2000 CHAD Last Admin: 11/06/16 20:29 Dose: 120 mg Heparin Sodium (Porcine) (Heparin Vial(*)) 5,000 units SUBCUT Q8HR CHAD Last Admin: 11/06/16 21:57 Dose: Not Given Ceftriaxone Sodium 2 gm/ (Sodium Chloride) 100 mls @ 200 mls/hr IVPB Q24H CHAD Last Admin: 11/07/16 10:13 Dose: 200 mls/hr Immune Globulin 40 gm/ IV (Solution) 800 mls @ 0 mls/hr IV Q22H CHAD; Per Protocol PRN Reason: Protocol Stop: 11/09/16 10:31 Last Admin: 11/06/16 16:07 Dose: 60 mls/hr Lorazepam (Ativan Inj*) 0.5 mg IV Q4H PRN PRN Reason: AGITATION/ANXIETY Last Admin: 11/07/16 00:25 Dose: 0.5 mg Naproxen (Naprosyn Tab*) 500 mg PO BID PRN PRN Reason: HEADACHE Last Admin: 11/06/16 22:29 Dose: 500 mg Ondansetron HCl (Zofran Inj*) 4 mg IV Q6H PRN PRN Reason: NAUSEA Last Admin: 11/07/16 10:24 Dose: 4 mg Home Medications: Home Medications Medication Instructions Recorded Confirmed Type DULoxetine CAP* [Cymbalta CAP*] 90 mg PO DAILY 03/20/15 11/05/16 History Cyclobenzaprine TAB* [Flexeril 10 mg PO BID PRN 09/21/16 11/05/16 History TAB*] Valerian Root (Bulk) [Valerian 1 pow XX 09/21/16 History Root] Allergies: Allergies Allergy/AdvReac Type Severity Reaction Status Date / Time Sulfa Drugs Allergy Intermediate Rash And Verified 09/03/16 16:45 Itching Flurbiprofen [From Ansaid] Allergy See Comment Verified 09/03/16 16:45 Objective - Vital Signs Vital Signs: Vital Signs 11/06/16 11/06/16 11/06/16 11:00 11:27 11:30 Temperature Pulse Rate 92 99 94 Respiratory 16 16 21 Rate Blood Pressure 166/106 157/103 164/113 (mmHg) O2 Sat by Pulse 95 96 92 Oximetry 11/06/16 11/06/16 11/06/16 11:40 11:50 11:52 Temperature 98.4 F Pulse Rate 94 90 Respiratory 22 16 Rate Blood Pressure 138/91 151/81 (mmHg) O2 Sat by Pulse 97 93 Oximetry 11/06/16 11/06/16 11/06/16 12:00 12:15 12:30 Temperature Pulse Rate 90 90 82 Respiratory 17 13 21 Rate Blood Pressure 139/92 145/100 134/82 (mmHg) O2 Sat by Pulse 97 97 95 Oximetry 11/06/16 11/06/16 11/06/16 12:45 13:00 13:02 Temperature Pulse Rate 83 Respiratory 18 18 Rate Blood Pressure 106/55 119/100 (mmHg) O2 Sat by Pulse 96 Oximetry 11/06/16 11/06/16 11/06/16 13:16 14:00 14:49 Temperature Pulse Rate 90 Respiratory 15 17 Rate Blood Pressure 148/86 141/92 (mmHg) O2 Sat by Pulse 96 Oximetry 11/06/16 11/06/16 11/06/16 14:51 15:00 15:15 Temperature Pulse Rate 83 85 87 Respiratory 20 15 16 Rate Blood Pressure 160/91 140/95 (mmHg) O2 Sat by Pulse 95 99 98 Oximetry 11/06/16 11/06/16 11/06/16 15:18 15:30 15:45 Temperature 98.0 F Pulse Rate 86 80 Respiratory 18 17 Rate Blood Pressure 155/88 156/99 (mmHg) O2 Sat by Pulse 97 98 Oximetry 11/06/16 11/06/16 11/06/16 16:00 16:15 16:44 Temperature Pulse Rate 80 78 Respiratory 18 16 18 Rate Blood Pressure 158/129 146/93 (mmHg) O2 Sat by Pulse 96 96 Oximetry 11/06/16 11/06/16 11/06/16 17:00 18:00 19:00 Temperature Pulse Rate 80 87 86 Respiratory 18 17 17 Rate Blood Pressure 152/103 130/99 148/88 (mmHg) O2 Sat by Pulse 95 95 98 Oximetry 11/06/16 11/06/16 11/06/16 20:00 21:00 22:00 Temperature 99.1 F Pulse Rate 85 81 80 Respiratory 18 17 21 Rate Blood Pressure 146/89 147/82 130/99 (mmHg) O2 Sat by Pulse 98 96 95 Oximetry 11/06/16 11/06/16 11/06/16 22:17 23:00 23:03 Temperature Pulse Rate 80 79 Respiratory 20 18 20 Rate Blood Pressure 145/83 (mmHg) O2 Sat by Pulse 96 96 Oximetry 11/06/16 11/07/16 11/07/16 23:53 00:00 00:01 Temperature 98.2 F Pulse Rate 84 83 Respiratory 18 18 Rate Blood Pressure 160/121 (mmHg) O2 Sat by Pulse 95 95 Oximetry 11/07/16 11/07/16 11/07/16 00:25 01:00 01:30 Temperature Pulse Rate 86 86 Respiratory 20 17 16 Rate Blood Pressure 137/77 (mmHg) O2 Sat by Pulse 94 94 Oximetry 11/07/16 11/07/16 11/07/16 02:00 02:30 03:00 Temperature Pulse Rate 81 83 Respiratory 18 16 Rate Blood Pressure 143/83 144/84 (mmHg) O2 Sat by Pulse 95 94 Oximetry 11/07/16 11/07/16 11/07/16 03:30 03:45 03:58 Temperature 97.9 F Pulse Rate 81 Respiratory 16 16 Rate Blood Pressure (mmHg) O2 Sat by Pulse 95 Oximetry 11/07/16 11/07/16 11/07/16 04:00 04:30 05:00 Temperature Pulse Rate 86 83 81 Respiratory 16 14 16 Rate Blood Pressure 151/87 140/90 (mmHg) O2 Sat by Pulse 95 95 94 Oximetry 11/07/16 11/07/16 11/07/16 05:30 06:00 06:30 Temperature Pulse Rate 86 79 75 Respiratory 18 16 Rate Blood Pressure 148/83 (mmHg) O2 Sat by Pulse 95 97 94 Oximetry 11/07/16 11/07/16 11/07/16 07:00 07:18 07:30 Temperature 98.1 F Pulse Rate 81 81 Respiratory 19 15 Rate Blood Pressure 146/93 (mmHg) O2 Sat by Pulse 96 95 Oximetry 11/07/16 11/07/16 11/07/16 08:00 08:30 09:00 Temperature Pulse Rate 88 80 89 Respiratory 18 17 18 Rate Blood Pressure 167/90 124/87 (mmHg) O2 Sat by Pulse 95 96 96 Oximetry 11/07/16 11/07/16 09:30 10:00 Temperature Pulse Rate 85 80 Respiratory 16 16 Rate Blood Pressure 109/94 (mmHg) O2 Sat by Pulse 96 95 Oximetry - Intake and Output Intake and Output: Intake & Output 11/04/16 11/05/16 11/06/16 11/07/16 11:59 11:59 11:59 11:59 Intake Total 2243 3200 Output Total 1975 4275 Balance 268 -1075 Weight 241 lb 6.499 oz 230 lb 2.601 oz Intake: IV Fluids 314 NS (0.9%) 314 IVPB 873 NS (0.9%) 873 Medicated IV 800 796 IGG 800 796 Oral 570 2090 Output: Urine 1974 4275 Other: Estimated Stool Amount Small ADLs: Meal Record Start: 11/05/16 17: 18 Freq: 09,13,18 Status: Active Document 11/05/16 21:00 [id number] (Rec: 11/05/16 21:08 [id number] ICU-C16) Document 11/06/16 09:38 [id number] (Rec: 11/06/16 09:38 [id number] ICU-C16) Document 11/06/16 13:00 [id number] (Rec: 11/06/16 14:06 [id number] ICU-C16) Document 11/06/16 18:00 [id number] (Rec: 11/06/16 19:25 [id number] ICU-C25) Document 11/07/16 09:00 [id number] (Rec: 11/07/16 09:07 [id number] ICU-C10) Intake and Output Start: 11/05/16 17: 18 Freq: 06,14,22 Status: Active Document 11/05/16 19:45 [id number] (Rec: 11/05/16 22:27 [id number] ICU-C16) Document 11/05/16 21:30 [id number] (Rec: 11/05/16 21:31 [id number] CMC-RDC2) Document 11/05/16 22:15 [id number] (Rec: 11/05/16 22:28 [id number] ICU-C16) Document 11/06/16 01:17 [id number] (Rec: 11/06/16 01:17 [id number] ICU-C16) Document 11/06/16 05:20 [id number] (Rec: 11/06/16 05:20 [id number] CMC-RDC2) Document 11/06/16 07:07 [id number] (Rec: 11/06/16 07:07 [id number] ICU-C16) Document 11/06/16 09:38 [id number] (Rec: 11/06/16 09:38 [id number] ICU-C16) Document 11/06/16 14:00 [id number] (Rec: 11/06/16 14:07 [id number] ICU-C16) Document 11/06/16 14:39 [id number] (Rec: 11/06/16 14:39 [id number] ICU-C11) Document 11/06/16 16:37 [id number] (Rec: 11/06/16 16:38 [id number] ICU-C11) Document 11/06/16 18:08 [id number] (Rec: 11/06/16 18:08 [id number] ICU-C16) Document 11/06/16 19:25 [id number] (Rec: 11/06/16 19:25 [id number] ICU-C25) Document 11/06/16 22:00 [id number] (Rec: 11/06/16 22:16 [id number] ICU-C12) Document 11/07/16 05:00 [id number] (Rec: 11/07/16 05:49 [id number] ICU-C15) - Physical Exam General Physical Exam Comment: Complete right John's palsy, left face no palsy. Arms: Right arm elbow flexion, extension, director of academic support 4/5, left 5/5. Legs: right left. hip extension 4/5 4.5/5. knee flexion 4/5 4.5/5. Knee extension 4/5 4.5/5. ankle dorsiflexion 3/5 3.5/5. eversion ankle 4/5 4/5 General: No Cyanosis, No Anemia, No Jaundice, No Lymphadenopathy, No Clubbing Eye Exam: bilateral: EOMI Skin: Normal: Rash Lungs and Chest: Yes: Chest Expansion Full, Chest Expansion Symetrica, Percussion Note Resonant, Vessicular Breath Sounds. No: Crackles, Wheezes Heart Rate and Rhythm: Regular JVP: Not Elevated Additional Cardiovascular: Yes: Normal Heart Sounds. No: Heart Murmur, Pedal Edema Abdominal Exam: Yes: Soft, Bowel Sounds Present. No: Distention, Abdominal Mass , Hepatomegaly, Splenomegaly - Extremities Cranial Nerves II-XII Intact: No - Right John's palsy Limbs: Normal Power - see above, Normal Tone - Neuro Orientation: A/O x3 Speech: Normal Results - Results Lab Results: Laboratory Results - last 24 hr 11/06/16 11/06/16 11/07/16 11:40 11:40 05:15 WBC 5.7 RBC 4.82 Hgb 13.4 Hct 41 MCV 84 MCH 28 MCHC 33 RDW 14 Plt Count 262 MPV 9 Neut % (Auto) 62.6 Lymph % (Auto) 20.1 L [place] % (Auto) 9.6 H Eos % (Auto) 6.6 H Baso % (Auto) 1.1 Absolute Neuts (auto) 3.6 Absolute Lymphs (auto) 1.1 Absolute Monos (auto) 0.5 Absolute Eos (auto) 0.4 Absolute Basos (auto) 0.1 Absolute Nucleated RBC 0 Nucleated RBC % 0 Sodium Potassium Chloride Carbon Dioxide Anion Gap BUN Creatinine Est GFR ( Amer) Est GFR (Non-Af Amer) BUN/Creatinine Ratio Glucose Calcium C-Reactive Protein Fluid Source Cerebral spinal Fluid Volume 4 Fluid Color Colorless Fluid Appearance Clear Fluid WBC 1 Fluid RBC 0 Fluid Tot Cell Count 25 Fluid Neutrophils Not Reportable Fluid Lymphocytes 88 Fluid Monocytes 12 Fluid Other Cells 1 Fluid Cell Count Rvw By CSF Cell Count Tube # 4 CSF Glucose 64 CSF Total Protein 35 11/07/16 05:15 WBC RBC Hgb Hct MCV MCH MCHC RDW Plt Count MPV Neut % (Auto) Lymph % (Auto) [place] % (Auto) Eos % (Auto) Baso % (Auto) Absolute Neuts (auto) Absolute Lymphs (auto) Absolute Monos (auto) Absolute Eos (auto) Absolute Basos (auto) Absolute Nucleated RBC Nucleated RBC % Sodium 132 L Potassium 3.6 Chloride 103 Carbon Dioxide 26 Anion Gap 3 BUN 6 Creatinine 0.63 Est GFR ( Amer) 130.3 Est GFR (Non-Af Amer) 101.3 BUN/Creatinine Ratio 9.5 Glucose 94 Calcium 8.1 L C-Reactive Protein 1.37 Fluid Source Fluid Volume Fluid Color Fluid Appearance Fluid WBC Fluid RBC Fluid Tot Cell Count Fluid Neutrophils Fluid Lymphocytes Fluid Monocytes Fluid Other Cells Fluid Cell Count Rvw By CSF Cell Count Tube # CSF Glucose CSF Total Protein Assessment - Problem List Assessment: Patient Problems Headache (Acute) Progressive focal motor weakness (Acute) Right-sided John's palsy (Acute) Dysthymia (Chronic) Fibromyalgia (Chronic) History of gastric ulcer (Chronic) Hypermobility syndrome (Chronic) Left handedness (Chronic) Obesity (BMI 35.0-39.9 without comorbidity) (Chronic) Polycystic ovary syndrome (Chronic) Plan: Progressive focal motor weakness (Acute)Right-sided John's palsy (Acute) Lyme negative - d/c ceftriaxone. The CSF was not revealing. 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 She is either the same or subtly more weak today - not much difference. Her airway is fine. I think we need to progress her PT/OT. Headache - this is ongoing. No nuchal stiffness. I will try IV toradol Dysthymia (Chronic) in good humor Fibromyalgia (Chronic) not a problem at present History of gastric ulcer (Chronic) inactive Hypermobility syndrome (Chronic) secondary diagnosis Left handedness (Chronic) Obesity (BMI 35.0-39.9 without comorbidity) (Chronic) secondary diagnosis Polycystic ovary syndrome (Chronic) secondary diagnosis. I discussed the above with the patient and she agrees with the management
[2016-11-07] MEDS ORDERED: Ketorolac INJ* 30 MG/ML 1 ML VIAL IV PUSH ONE (11:02)
[2016-11-07] MEDS: Naproxen TAB* 250 MG PO PRN ×2 (13:31→20:16)
[2016-11-07] MEDS: Heparin VIAL(*) 5000 UNITS/ML VIAL (FIVE THOUSAND) SUBCUT SCH ×2 (13:34→23:15)
[2016-11-07] MEDS: IMMUNE GLOBULIN IV SCH (14:36)
[2016-11-07] MEDS: OCTAGAM IV SCH (14:36)
--- NOTE | 2016-11-07 14:56 | PN ---
PROGRESS NOTE: DATE OF SERVICE/DICTATION: 11/06/16 Perla feels her strength is unchanged this afternoon. Her spinal tap did have minimal protein cell counts. MRI scan did not show any abnormality, showed some disk disease, but no explanations for her leg symptoms. Her exam remains unchanged from this morning other than her reflexes on her right ankle is trace at this point. The weakness in her feet, as described previously, is unchanged. She will continue to get her IVIG for presumed Guillain-[place] and i have called Dr. Finley, at [facility] to review the case due to its atypical features and he feels, based on the history and my description of the exam, that a presumptive treatment for Guillain [place] is the most appropriate course at this time, that is what will happen. [id number]/[facility] #: [id number] DILLAN
[2016-11-07 15:40] LABS: HSV 1 PCR, CSF Negative (Negative); HSV 2 PCR, CSF Negative (Negative)
[2016-11-07 17:41] LABS: CSF VDRL Negative (Negative)
[2016-11-07] MEDS: DULoxetine DR CAP* 60 MG CAP.DR PO SCH (20:10)
[2016-11-08] MEDS: LORazepam INJ* 2 MG/ML 1 ML VIAL IV PRN ×3 (00:26→17:47)
[2016-11-08] MEDS: Heparin VIAL(*) 5000 UNITS/ML VIAL (FIVE THOUSAND) SUBCUT SCH (05:14)
[2016-11-08] MEDS ORDERED: SUMAtriptan TAB* 50 MG PO ONE (11:00)
[2016-11-08] MEDS: IMMUNE GLOBULIN IV SCH (12:09)
[2016-11-08] MEDS: OCTAGAM IV SCH (12:09)
[2016-11-08] MEDS ORDERED: SUMAtriptan TAB* 50 MG PO PRN (13:00)
[2016-11-08] MEDS: Naproxen TAB* 250 MG PO PRN (19:30)
[2016-11-08] MEDS: DULoxetine DR CAP* 60 MG CAP.DR PO SCH (21:08)
[2016-11-09] MEDS: LORazepam INJ* 2 MG/ML 1 ML VIAL IV PRN ×2 (03:21→11:42)
--- NOTE | 2016-11-09 09:41 | PN ---
Subjective - Subjective Reason for Note: Progress Note History: She continues to have a 5/10 occipital/posterior cranial headache. This is associated with mild nausea. So far, naproxen, ibuprofen, ketorolac, sumatriptan, acetaminophen have failred. Lorazepam has worked - but this is not a solution. She doesn't want opioids. Her weakness has remained the same. She has no respiratory symptoms. Swallowing has been fine aside from one occasion when her throat seemed to tighten. She has had a bowel movement last night. She had polyuria at first and some double micturition, however, this has stopped when we stopped the IVF. I spoke with the PT - she is limited by her fibromyalgia and hypermobility syndrome, but she is walking a little better. The PT thinks she is a great candidate for PMRU. 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 Dysthymia (Chronic) F34.1 Fibromyalgia (Chronic) M79.7 History of gastric ulcer (Chronic) Z87.19 Hypermobility syndrome (Chronic) M35.7 Left handedness (Chronic) [id number] Obesity (BMI 35.0-39.9 without comorbidity) (Chronic) E66.9 Polycystic ovary syndrome (Chronic) E28.2 Current Medications: Current Medications Artificial Tears (Lacrilube Oint*) 1 applic RIGHT EYE Q4H PRN PRN Reason: DRY EYE Last Admin: 11/07/16 22:56 Dose: 1 top.gel Duloxetine HCl (Cymbalta Cap*) 120 mg PO 2000 CHAD Last Admin: 11/08/16 21:08 Dose: 120 mg Immune Globulin 40 gm/ IV (Solution) 800 mls @ 0 mls/hr IV Q22H CHAD; Per Protocol PRN Reason: Protocol Stop: 11/09/16 10:31 Last Admin: 11/08/16 12:09 Dose: 60 mls/hr Lorazepam (Ativan Inj*) 0.5 mg IV Q4H PRN PRN Reason: AGITATION/ANXIETY Last Admin: 11/09/16 03:21 Dose: 0.5 mg Naproxen (Naprosyn Tab*) 500 mg PO BID PRN PRN Reason: HEADACHE Last Admin: 11/08/16 19:30 Dose: 500 mg Ondansetron HCl (Zofran Inj*) 4 mg IV Q6H PRN PRN Reason: NAUSEA Last Admin: 11/07/16 10:24 Dose: 4 mg Home Medications: Home Medications Medication Instructions Recorded Confirmed Type DULoxetine DR CAP* [Cymbalta CAP*] 90 mg PO DAILY 03/20/15 11/05/16 History Cyclobenzaprine TAB* [Flexeril 10 mg PO BID PRN 09/21/16 11/05/16 History TAB*] Valerian Root (Bulk) [Valerian 1 pow XX 09/21/16 History Root] Allergies: Allergies Allergy/AdvReac Type Severity Reaction Status Date / Time Sulfa Drugs Allergy Intermediate Rash And Verified 09/03/16 16:45 Itching Flurbiprofen [From Ansaid] Allergy See Comment Verified 09/03/16 16:45 Objective - Vital Signs Vital Signs: Vital Signs 11/08/16 11/08/16 11/08/16 10:00 10:30 11:00 Temperature Pulse Rate 92 88 92 Respiratory 15 17 20 Rate Blood Pressure 139/88 142/100 (mmHg) O2 Sat by Pulse 97 96 96 Oximetry 11/08/16 11/08/16 11/08/16 11:08 11:30 12:00 Temperature 99 F Pulse Rate 91 87 Respiratory 16 16 Rate Blood Pressure 146/85 (mmHg) O2 Sat by Pulse 95 94 Oximetry 11/08/16 11/08/16 11/08/16 12:17 12:30 13:00 Temperature Pulse Rate 89 Respiratory 18 19 16 Rate Blood Pressure 135/101 (mmHg) O2 Sat by Pulse 96 Oximetry 11/08/16 11/08/16 11/08/16 13:30 14:00 14:58 Temperature Pulse Rate 95 95 Respiratory 22 16 16 Rate Blood Pressure (mmHg) O2 Sat by Pulse 97 98 Oximetry 11/08/16 11/08/16 11/08/16 15:00 15:30 16:00 Temperature 98.5 F Pulse Rate 85 88 90 Respiratory 16 15 20 Rate Blood Pressure (mmHg) O2 Sat by Pulse 95 95 97 Oximetry 11/08/16 11/08/16 11/08/16 16:22 16:26 16:30 Temperature Pulse Rate 88 87 Respiratory 18 20 19 Rate Blood Pressure 132/88 (mmHg) O2 Sat by Pulse 96 96 Oximetry 11/08/16 11/08/16 11/08/16 17:00 17:06 17:30 Temperature Pulse Rate 96 Respiratory 16 20 21 Rate Blood Pressure (mmHg) O2 Sat by Pulse 97 Oximetry 11/08/16 11/08/16 11/08/16 17:42 17:47 18:00 Temperature Pulse Rate 95 91 Respiratory 15 17 18 Rate Blood Pressure 146/89 125/86 (mmHg) O2 Sat by Pulse 96 96 Oximetry 11/08/16 11/08/16 11/08/16 19:00 19:37 20:00 Temperature 100.9 F Pulse Rate 88 87 Respiratory 17 18 Rate Blood Pressure 139/89 141/96 (mmHg) O2 Sat by Pulse 96 96 Oximetry 11/08/16 11/08/16 11/08/16 21:00 22:00 23:00 Temperature Pulse Rate 88 81 81 Respiratory 18 16 19 Rate Blood Pressure 142/95 143/92 145/91 (mmHg) O2 Sat by Pulse 96 95 96 Oximetry 11/09/16 11/09/16 11/09/16 00:00 00:01 01:00 Temperature 99 F Pulse Rate 80 80 Respiratory 14 15 15 Rate Blood Pressure 139/82 140/83 (mmHg) O2 Sat by Pulse 95 95 Oximetry 11/09/16 11/09/16 11/09/16 02:00 03:00 03:21 Temperature Pulse Rate 72 89 Respiratory 18 18 16 Rate Blood Pressure 137/89 123/92 (mmHg) O2 Sat by Pulse 96 98 Oximetry 11/09/16 11/09/16 11/09/16 03:43 04:00 05:00 Temperature 98.6 F Pulse Rate 78 Respiratory 15 16 Rate Blood Pressure 125/90 (mmHg) O2 Sat by Pulse 96 Oximetry 11/09/16 11/09/16 11/09/16 05:01 06:00 07:00 Temperature Pulse Rate 81 81 89 Respiratory 15 16 18 Rate Blood Pressure 141/80 127/84 144/92 (mmHg) O2 Sat by Pulse 97 96 95 Oximetry 11/09/16 11/09/16 11/09/16 07:24 08:00 08:05 Temperature 99.3 F Pulse Rate 89 Respiratory 16 17 Rate Blood Pressure (mmHg) O2 Sat by Pulse 96 Oximetry - Intake and Output Intake and Output: Intake & Output 11/06/16 11/07/16 11/08/16 11/09/16 11:59 11:59 11:59 11:59 Intake Total 2243 3200 1060 1696 Output Total 19745 1765 1650 Balance 881 -7607 -438 46 Weight 241 lb 6.499 oz 230 lb 2.601 oz 238 lb 15.697 oz 232 lb 2.348 oz Intake: IV Fluids 314 NS (0.9%) 314 IVPB 873 NS (0.9%) 873 Medicated IV 800 796 716 IGG 800 796 716 Oral 570 2090 1060 980 Output: Urine 1974 4274 1765 1650 Other: Estimated Stool Amount Small # Voids 1 ADLs: Meal Record Start: 11/05/16 17: 18 Freq: ,13,18 Status: Active Document 11/05/16 21:00 [id number] (Rec: 11/05/16 21:08 [id number] ICU-C16) Document 11/06/16 09:38 [id number] (Rec: 11/06/16 09:38 [id number] ICU-C16) Document 11/06/16 13:00 [id number] (Rec: 11/06/16 14:06 NYZ3503 ICU-C16) Document 11/06/16 18:00 [id number] (Rec: 11/06/16 19:25 [id number] ICU-C25) Document 11/07/16 09:00 [id number] (Rec: 11/07/16 09:07 [id number] ICU-C10) Document 11/07/16 13:00 [id number] (Rec: 11/07/16 13:40 [id number] ICU-C10) Document 11/07/16 18:00 [id number] (Rec: 11/07/16 18:34 [id number] ICU-C16) Document 11/08/16 09:00 [id number] (Rec: 11/08/16 10:00 HHL7793 ICU-C14) Document 11/08/16 13:00 [id number] (Rec: 11/08/16 13:52 [id number] ICU-C14) Document 11/08/16 18:57 [id number] (Rec: 11/08/16 18:58 WIG8599 ICU-C16) Document 11/09/16 09:00 [id number] (Rec: 11/09/16 09:32 [id number] ICU-C14) Intake and Output Start: 11/05/16 17: 18 Freq: 06,14,22 Status: Active Document 11/05/16 19:45 [id number] (Rec: 11/05/16 22:27 QKJ5199 ICU-C16) Document 11/05/16 21:30 [id number] (Rec: 11/05/16 21:31 [id number] CMC-RDC2) Document 11/05/16 22:15 [id number] (Rec: 11/05/16 22:28 HYO0556 ICU-C16) Document 11/06/16 01:17 [id number] (Rec: 11/06/16 01:17 ZSL2595 ICU-C16) Document 11/06/16 05:20 [id number] (Rec: 11/06/16 05:20 ICW9910 CMC-RDC2) Document 11/06/16 07:07 [id number] (Rec: 11/06/16 07:07 [id number] ICU-C16) Document 11/06/16 09:38 [id number] (Rec: 11/06/16 09:38 KDA6505 ICU-C16) Document 11/06/16 14:00 [id number] (Rec: 11/06/16 14:07 [id number] ICU-C16) Document 11/06/16 14:39 [id number] (Rec: 11/06/16 14:39 [id number] ICU-C11) Document 11/06/16 16:37 UYL1909 (Rec: 11/06/16 16:38 [id number] ICU-C11) Document 11/06/16 18:08 [id number] (Rec: 11/06/16 18:08 [id number] ICU-C16) Document 11/06/16 19:25 [id number] (Rec: 11/06/16 19:25 MSL8416 ICU-C25) Document 11/06/16 22:00 YKC6148 (Rec: 11/06/16 22:16 KAQ0640 ICU-C12) Document 11/07/16 05:00 [id number] (Rec: 11/07/16 05:49 [id number] ICU-C15) Document 11/07/16 17:30 ZDP9305 (Rec: 11/07/16 17:30 [id number] ICU-C16) Document 11/07/16 18:55 [id number] (Rec: 11/07/16 18:55 RPU0067 ICU-C16) Document 11/07/16 19:00 [id number] (Rec: 11/08/16 01:33 [id number] ICU-C10) Document 11/08/16 06:00 [id number] (Rec: 11/08/16 06:08 [id number] ICU-C14) Document 11/08/16 07:09 [id number] (Rec: 11/08/16 07:10 HEE7572 ICU-C10) Document 11/08/16 10:54 YFE0514 (Rec: 11/08/16 10:54 IND0179 ICU-C15) Document 11/08/16 14:00 GXA1199 (Rec: 11/08/16 14:06 JKV5528 ICU-C16) Document 11/08/16 18:58 HWF1950 (Rec: 11/08/16 18:59 [id number] ICU-C16) Document 11/08/16 19:20 KHU1966 (Rec: 11/08/16 19:20 LCR6702 ICU-C16) Document 11/08/16 21:26 [id number] (Rec: 11/08/16 21:26 [id number] ICU-C16) Document 11/09/16 03:04 [id number] (Rec: 11/09/16 03:05 [id number] ICU-C10) - Physical Exam General: No Cyanosis, No Anemia, No Jaundice, No Lymphadenopathy, No Clubbing Eye Exam: bilateral: EOMI - normal Lungs and Chest: Yes: Chest Expansion Full, Chest Expansion Symetrica, Percussion Note Resonant, Vessicular Breath Sounds. No: Wheezes Heart Rate and Rhythm: Regular Additional Cardiovascular: Yes: Normal Heart Sounds. No: Heart Murmur, Pedal Edema Abdominal Exam: Yes: Soft. No: Distention, Abdominal Mass, Abdominal Tenderness - Extremities Cranial Nerves II-XII Intact: No - Right John's palsy Limbs: Normal Tone, Normal Coordination, Abnormal Power - right arm and leg weaker than left, Both ankles weak. Assessment - Problem List Assessment: Patient Problems Guillain Law syndrome (Acute) Headache (Acute) Progressive focal motor weakness (Acute) Right-sided John's palsy (Acute) Dysthymia (Chronic) Fibromyalgia (Chronic) History of gastric ulcer (Chronic) Hypermobility syndrome (Chronic) Left handedness (Chronic) Obesity (BMI 35.0-39.9 without comorbidity) (Chronic) Polycystic ovary syndrome (Chronic) Plan: Guillain Law syndrome (Acute) Progressive focal motor weakness (Acute) Right- sided John's palsy (Acute) She is receiving her last dose of IVIG. She has not had any further progression of weakness. Her respiratory function is conserved. Headache (Acute) This continues and defies all treatment aside from benzodiazepines. She states it is different from her chronic migraines. She is prepared to put up with it as she declines opioids and muscle relaxants are contraindicated with GBS Dysthymia (Chronic) She is coping well Fibromyalgia (Chronic) Hypermobility syndrome (Chronic) She is limited by her shoulders/knees and hips. She states they sublux and also cause her pain. History of gastric ulcer (Chronic) inactive Left handedness (Chronic) Obesity (BMI 35.0-39.9 without comorbidity) (Chronic) Polycystic ovary syndrome (Chronic) secondary diagnosis I recommend that we transfer her to a general medical bed after her last dose of IVIG. I will ask for a PMRU consult as I think she is a good candidate for inpatient rehab given her complex comorbidities (hypermobility syndrome/ fibromyalgia). I discussed the plan with the patient and she agrees with this plan
[2016-11-09] MEDS: Naproxen TAB* 250 MG PO PRN ×2 (10:12→20:43)
[2016-11-09] MEDS: OCTAGAM IV SCH (10:15)
[2016-11-09] MEDS: IMMUNE GLOBULIN IV SCH (10:15)
--- NOTE | 2016-11-09 11:14 | PN ---
Progress Note - Progress Note Note: Discussion of anticoagulation to prevent DVT/PE. She declines injections of heparin. I discussed the rationale. She would accept oral anticoagulant. I will give her the regimen given for xarelto post hip or knee surgery: 10 mg qdaily. She agrees to this.
[2016-11-09] MEDS: Rivaroxaban TAB(*) 10 MG PO SCH (12:15)
[2016-11-09] MEDS ORDERED: SUMAtriptan TAB* 50 MG PO ONE (14:00)
[2016-11-09] MEDS: DULoxetine DR CAP* 60 MG CAP.DR PO SCH (20:38)
--- NOTE | 2016-11-09 23:08 | PN ---
PROGRESS NOTE: DATE OF FOLLOWUP/DICTATION: 11/09/15 PATIENT OF: Dr. Dejesus. 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 Dr. Ocasio was covering this weekend and since we last saw her on Wednesday, she has not had any major worsening in any of her symptoms. She still has no sensory impairment other than in her face and her John's palsy is unchanged. She is still able to walk with assistance. She has had no bladder complaints, no headache and is tolerating the IVIG well. She is on her last day of IVIG and she remains on her Cymbalta and she is getting Lacri-Lube to her right eye. PHYSICAL EXAMINATION: Temperature 97.7, pulse 92, respirations 15, blood pressure 148/99. She is alert and oriented with normal speech and comprehension. Cranial nerves II through XII are intact other than her right lower motor neuron facial weakness, which is unchanged. Strength in her arms 5/ 5 today, her legs are 5/5 other than dorsiflexion 4/5 in her right foot, 5-/5 in her left. She is able to get up out of bed and she is able to sit up in bed and move her legs in bed much easier than she did on Wednesday. She is able to stand and take some steps with one person assist, but drags her right leg. This is slightly better than on Wednesday. Chest: Clear. Cardiovascular: Regular rate and rhythm. Abdomen is soft. LABORATORY DATA: Her botulinum toxin never got done because I spoke to the [facility] and they would have had to open up the lab and it was an unlikely process. Her Lyme titers were negative. 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 She is on her last day and she may still get further improvement from the treatments but will most likely need rehab. She is refusing shots for DVT prophylaxis and Dr. Dejesus is going to prescribe stockings. If she is willing in the next few days' time may obtain baseline nerve conduction EMG on her and I discussed the overall prognosis with her. [id number]/[facility] #: [id number] MTDD
[2016-11-10] MEDS: Naproxen TAB* 250 MG PO PRN ×2 (05:06→22:40)
[2016-11-10] MEDS: Rivaroxaban TAB(*) 10 MG PO SCH (08:29)
--- NOTE | 2016-11-10 08:31 | PN ---
Subjective - Subjective Reason for Note: Discharge Note History: She continues to have pain. Now it is on the side of her John's palsy over the ear and surrounding that area. She was able to use the commode twice in the night - she requires assistance. She has had no breathing problems or bladder problems 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 Dysthymia (Chronic) F34.1 Fibromyalgia (Chronic) M79.7 History of gastric ulcer (Chronic) Z87.19 Hypermobility syndrome (Chronic) M35.7 Left handedness (Chronic) [id number] Obesity (BMI 35.0-39.9 without comorbidity) (Chronic) E66.9 Polycystic ovary syndrome (Chronic) E28.2 Current Medications: Current Medications Artificial Tears (Lacrilube Oint*) 1 applic RIGHT EYE Q4H PRN PRN Reason: DRY EYE Last Admin: 11/07/16 22:56 Dose: 1 top.gel Duloxetine HCl (Cymbalta Cap*) 120 mg PO 1999 [facility] Last Admin: 11/09/16 20:38 Dose: 120 mg Lorazepam (Ativan Inj*) 0.5 mg IV Q4H PRN PRN Reason: AGITATION/ANXIETY Last Admin: 11/09/16 11:42 Dose: 0.5 mg Naproxen (Naprosyn Tab*) 500 mg PO BID PRN PRN Reason: HEADACHE Last Admin: 11/10/16 05:06 Dose: 500 mg Ondansetron HCl (Zofran Inj*) 4 mg IV Q6H PRN PRN Reason: NAUSEA Last Admin: 11/07/16 10:24 Dose: 4 mg Rivaroxaban (Xarelto(*)) 10 mg PO DAILY [facility] Last Admin: 11/09/16 12:15 Dose: 10 mg Home Medications: Home Medications Medication Instructions Recorded Confirmed Type DULoxetine DR HIGHTOWER* [Cymbalta CAP*] 90 mg PO DAILY 03/20/15 11/05/16 History Cyclobenzaprine TAB* [Flexeril 10 mg PO BID PRN 09/21/16 11/05/16 History TAB*] Valerian Root (Bulk) [Valerian 1 pow XX 09/21/16 History Root] Allergies: Allergies Allergy/AdvReac Type Severity Reaction Status Date / Time Sulfa Drugs Allergy Intermediate Rash And Verified 09/03/16 16:45 Itching Flurbiprofen [From Ansaid] Allergy See Comment Verified 09/03/16 16:45 Objective - Vital Signs Vital Signs: Vital Signs 11/09/16 11/09/16 11/09/16 09:00 09:53 10:00 Temperature Pulse Rate 100 93 Respiratory 18 15 Rate Blood Pressure 148/99 138/88 (mmHg) O2 Sat by Pulse 96 96 Oximetry 11/09/16 11/09/16 11/09/16 10:20 10:22 10:30 Temperature 97.7 F Pulse Rate 96 Respiratory Rate Blood Pressure 139/90 149/95 (mmHg) O2 Sat by Pulse 97 Oximetry 11/09/16 11/09/16 11/09/16 10:45 11:00 11:12 Temperature 98.1 F 97.9 F 98 F Pulse Rate 92 89 Respiratory 15 Rate Blood Pressure 134/87 143/94 (mmHg) O2 Sat by Pulse 96 96 Oximetry 11/09/16 11/09/16 11/09/16 11:15 11:17 11:30 Temperature 97.9 F 98 F Pulse Rate 89 88 Respiratory Rate Blood Pressure 142/95 148/96 (mmHg) O2 Sat by Pulse 97 96 Oximetry 11/09/16 11/09/16 11/09/16 11:42 11:45 12:00 Temperature 97.9 F Pulse Rate 92 93 Respiratory 18 16 Rate Blood Pressure 150/99 150/101 (mmHg) O2 Sat by Pulse 96 96 Oximetry 11/09/16 11/09/16 11/09/16 12:15 12:30 12:45 Temperature Pulse Rate 93 91 95 Respiratory Rate Blood Pressure 149/86 147/101 142/106 (mmHg) O2 Sat by Pulse 95 96 96 Oximetry 11/09/16 11/09/16 11/09/16 13:00 13:15 13:30 Temperature Pulse Rate 98 100 95 Respiratory Rate Blood Pressure 146/94 163/94 141/86 (mmHg) O2 Sat by Pulse 96 96 95 Oximetry 11/09/16 11/09/16 11/09/16 13:38 13:45 14:00 Temperature Pulse Rate 97 93 Respiratory 18 Rate Blood Pressure 143/94 146/100 (mmHg) O2 Sat by Pulse 96 97 Oximetry 11/09/16 11/09/16 11/09/16 14:14 14:15 14:30 Temperature Pulse Rate 101 99 Respiratory 16 Rate Blood Pressure 154/95 141/98 (mmHg) O2 Sat by Pulse 97 98 Oximetry 11/09/16 11/09/16 11/09/16 15:08 15:22 19:37 Temperature 97.0 F 97 F 98.1 F Pulse Rate 93 93 91 Respiratory 18 18 18 Rate Blood Pressure 143/96 143/96 138/96 (mmHg) O2 Sat by Pulse 96 98 97 Oximetry 11/09/16 11/09/16 11/10/16 20:00 23:33 04:24 Temperature 97.6 F 97.6 F Pulse Rate 89 86 Respiratory 16 16 16 Rate Blood Pressure 149/85 138/62 (mmHg) O2 Sat by Pulse 97 97 Oximetry 11/10/16 08:10 Temperature 97.2 F Pulse Rate 84 Respiratory 17 Rate Blood Pressure 148/94 (mmHg) O2 Sat by Pulse 93 Oximetry - Intake and Output Intake and Output: Intake & Output 11/07/16 11/08/16 11/09/16 11/10/16 11:59 11:59 11:59 11:59 Intake Total 3200 1060 1696 1533 Output Total 4275 1765 1650 1100 Balance -1075 -705 46 433 Weight 230 lb 2.601 oz 238 lb 15.697 oz 232 lb 2.348 oz Intake: IV Fluids 314 NS (0.9%) 314 Medicated IV 796 716 783 IGG 796 716 783 Oral 2090 1060 980 750 Output: Urine 4275 1765 1650 1100 Other: Estimated Void Medium # Bowel Movements 0 Estimated Stool Amount Small # Voids 1 1 ADLs: Meal Record Start: 11/05/16 17: 18 Freq: 09,13,18 Status: Complete Document 11/05/16 21:00 [id number] (Rec: 11/05/16 21:08 [id number] ICU-C16) Document 11/06/16 09:38 BPJ1714 (Rec: 11/06/16 09:38 [id number] ICU-C16) Document 11/06/16 13:00 [id number] (Rec: 11/06/16 14:06 [id number] ICU-C16) Document 11/06/16 18:00 [id number] (Rec: 11/06/16 19:25 CRU4040 ICU-C25) Document 11/07/16 09:00 [id number] (Rec: 11/07/16 09:07 XRI2262 ICU-C10) Document 11/07/16 13:00 JGQ1594 (Rec: 11/07/16 13:40 SHR2069 ICU-C10) Document 11/07/16 18:00 OSM3755 (Rec: 11/07/16 18:34 RMG3115 ICU-C16) Document 11/08/16 09:00 ZOI6969 (Rec: 11/08/16 10:00 VHB2033 ICU-C14) Document 11/08/16 13:00 MHV2053 (Rec: 11/08/16 13:52 MMH6938 ICU-C14) Document 11/08/16 18:57 [id number] (Rec: 11/08/16 18:58 LBE7521 ICU-C16) Document 11/09/16 09:00 MQR3794 (Rec: 11/09/16 09:32 OBO5994 ICU-C14) ADLs: Meal Record Start: 11/09/16 12: 02 Freq: DAILY@0900,1400,1800 Status: Active Created 11/09/16 12:02 [id number] (Rec: 11/09/16 12:02 AXQ0514 ICU-M02) Document 11/09/16 18:00 GDO1422 (Rec: 11/09/16 19:41 GVY1178 MED-C11) Intake and Output Start: 11/05/16 17: 18 Freq: 06,14,22 Status: Complete Document 11/05/16 19:45 [id number] (Rec: 11/05/16 22:27 UME2823 ICU-C16) Document 11/05/16 21:30 KLI6654 (Rec: 11/05/16 21:31 HHC5223 [facility]-RDC2) Document 11/05/16 22:15 YCM4118 (Rec: 11/05/16 22:28 PWX3445 ICU-C16) Document 11/06/16 01:17 IPX1158 (Rec: 11/06/16 01:17 XOP4212 ICU-C16) Document 11/06/16 05:20 VZL9030 (Rec: 11/06/16 05:20 LSQ5802 [facility]-RDC2) Document 11/06/16 07:07 GHZ7550 (Rec: 11/06/16 07:07 RYZ6109 ICU-C16) Document 11/06/16 09:38 WXC0950 (Rec: 11/06/16 09:38 [id number] ICU-C16) Document 11/06/16 14:00 OLM7384 (Rec: 11/06/16 14:07 MXB5934 ICU-C16) Document 11/06/16 14:39 RTW6257 (Rec: 11/06/16 14:39 GVI6776 ICU-C11) Document 11/06/16 16:37 GBR9887 (Rec: 11/06/16 16:38 ENO5986 ICU-C11) Document 11/06/16 18:08 OPH9185 (Rec: 11/06/16 18:08 GYF0146 ICU-C16) Document 11/06/16 19:25 DZR7623 (Rec: 11/06/16 19:25 TQF8904 ICU-C25) Document 11/06/16 22:00 HYS1045 (Rec: 11/06/16 22:16 EWD7853 ICU-C12) Document 11/07/16 05:00 GRX5830 (Rec: 11/07/16 05:49 LKD0245 ICU-C15) Document 11/07/16 17:30 MJX0636 (Rec: 11/07/16 17:30 [id number] ICU-C16) Document 11/07/16 18:55 BPY9672 (Rec: 11/07/16 18:55 WMH8555 ICU-C16) Document 11/07/16 19:00 CPD8598 (Rec: 11/08/16 01:33 RVF2394 ICU-C10) Document 11/08/16 06:00 KVC7814 (Rec: 11/08/16 06:08 ZPQ4045 ICU-C14) Document 11/08/16 07:09 LCJ8673 (Rec: 11/08/16 07:10 FYQ4708 ICU-C10) Document 11/08/16 10:54 RFM9440 (Rec: 11/08/16 10:54 BGD5124 ICU-C15) Document 11/08/16 14:00 QGK1123 (Rec: 11/08/16 14:06 KVI1257 ICU-C16) Document 11/08/16 18:58 EEJ3826 (Rec: 11/08/16 18:59 IWE5657 ICU-C16) Document 11/08/16 19:20 CRG5193 (Rec: 11/08/16 19:20 GJZ2897 ICU-C16) Document 11/08/16 21:26 COG3424 (Rec: 11/08/16 21:26 EPO6659 ICU-C16) Document 11/09/16 03:04 MSW6893 (Rec: 11/09/16 03:05 MLU6108 ICU-C10) Intake and Output Start: 11/09/16 12: 02 Freq: DAILY@0600,1400,2200 Status: Active Created 11/09/16 12:02 RYC1615 (Rec: 11/09/16 12:02 LKB8890 ICU-M02) Document 11/09/16 22:00 KPQ8698 (Rec: 11/09/16 22:54 BSD0034 MED-C11) Document 11/09/16 22:55 [id number] (Rec: 11/09/16 22:56 JOS9616 MED-C11) Document 11/10/16 06:00 VNS8985 (Rec: 11/10/16 06:12 EIQ4059 MEDL-C01) - Physical Exam General: No Cyanosis, No Anemia, No Jaundice, No Clubbing Eye Exam: bilateral: EOMI Skin: Normal: Rash Lungs and Chest: Yes: Chest Expansion Full, Chest Expansion Symetrica, Percussion Note Resonant, Vessicular Breath Sounds. No: Crackles, Wheezes Heart Rate and Rhythm: Regular [place] Beat: Non Displaced Additional Cardiovascular: Yes: Normal Heart Sounds. No: Heart Murmur, Pedal Edema Abdominal Exam: Yes: Soft, Bowel Sounds Present. No: Distention, Abdominal Tenderness - Extremities Cranial Nerves II-XII Intact: No - right John's palsy Limbs: Abnormal Power - no change from yesterday, Abnormal Tone - Neuro Orientation: A/O x3 Speech: Normal Assessment - Problem List Assessment: Patient Problems Guillain Law syndrome (Acute) Headache (Acute) Progressive focal motor weakness (Acute) Right-sided John's palsy (Acute) Dysthymia (Chronic) Fibromyalgia (Chronic) History of gastric ulcer (Chronic) Hypermobility syndrome (Chronic) Left handedness (Chronic) Obesity (BMI 35.0-39.9 without comorbidity) (Chronic) Polycystic ovary syndrome (Chronic) Plan: Guillain Law syndrome (Acute) This has stabilized. She requires rehabilitation. She has completed her 5 days of IVIG Headache (Acute) I examined her right ear - TM is fine. This may be due to her inflammed facial nerve. Trial of gabapentin 100 mg qid Progressive focal motor weakness (Acute) ongoing Right-sided John's palsy (Acute) ongoing Dysthymia (Chronic) stable Fibromyalgia (Chronic) a complicating factor for rehab History of gastric ulcer (Chronic) Hypermobility syndrome (Chronic) a complicating factor for rehab Left handedness (Chronic) Obesity (BMI 35.0-39.9 without comorbidity) (Chronic) Polycystic ovary syndrome (Chronic) She will be accepted by [facility] if her insurance agrees to coverage
[2016-11-10] MEDS ORDERED: diPHENhydraMINE PO* 50 MG PO PRN (09:40)
[2016-11-10] MEDS: Gabapentin CAP(*) 100 MG PO SCH ×3 (09:45→20:33)
[2016-11-10] MEDS: DULoxetine DR CAP* 60 MG CAP.DR PO SCH (20:08)
--- NOTE | 2016-11-10 23:42 | DS ---
DISCHARGE SUMMARY: DATE OF ADMISSION: 11/05/16 DATE OF DISCHARGE: Contingent on acceptance by [facility], most likely 11/10/16. DISCHARGE DIAGNOSES: 1. Guillain-Davenport syndrome. 2. Right John's palsy. 3. Weakness in the limbs and trunk. 4. Headache. COMORBIDITIES: 1. Fibromyalgia and hypermobility syndrome. 2. Obesity. 3. Dysthymia. 4. Polycystic ovary syndrome. HISTORY: Perla Elizabeth is a 46-year-old left-handed white female. Her presentation is documented in Zofia Mitchell's admitting history and physical and also an initial consultation by Dr. Jasiel Smith both of which are part of the electronic medical record. In short, she presented to the emergency room with right-sided facial droop, some numbness in her face, and increasing difficulty controlling her legs. PHYSICAL EXAMINATION: Temperature 98 degrees Fahrenheit, heart rate 95, respirations 18, oxygen saturation 97%, blood pressure 141/93. Cardiovascular System: Pulse is regular. Heart sounds are normal. No added sounds or murmurs. No edema. Respiratory System: Her chest was clear. Abdomen: Benign. Nervous System: Right facial nerve palsy. Tongue midline. No pronator drift. Extraocular movements intact and tamper operator were equal. Right upper extremity strength 2/5. Left lower extremity 3/5. Reflex is intact. She had a right lower extremity weakness and difficulty controlling her right leg. INITIAL INVESTIGATION: White count 7.6, hemoglobin 14.8, hematocrit 45, MCV 84 , platelets 299. INR 0.89. Chemistry was within normal limits. LFTs within normal limits. Troponin I 0.01. CRP 1.836. There was progression of her neurological status over the period of time she was observed in the emergency room and hence was admitted to the ICU. CONSULTATION: Jasiel Smith's neurological consultation on 11/05/16 and subsequent progress notes are part of the electronic medical record. His initial concern was for Guillain-Davenport syndrome with John's palsy on the right and some gait abnormalities. In view of the progression, he suggested treating with IVIG. She was checked for Lyme and also for SLE. She was managed from the ICU in case of any problems with respiration. INVESTIGATIONS: Imagin11/05/16, brain MRI, negative exam. 11/06/16, lumbar spinal MRI, mild degenerative changes. Lumbar puncture, 11/06/16, total cells 25, lymphocytes 88%, monocytes 12%, CSF, glucose 64, total protein 35, VDRL negative. HSV-1 by PCR negative; herpes virus 2 negative by PCR. Lyme serology was negative. Culture and Gram stain were both negative. HOSPITAL COURSE: She had a developed a headache during her hospital stay. We were unable to control this despite the use of different forms of NSAIDs, sumatriptan given that she has a history of migraines. She declined opioids. Lorazepam appeared to help. Her neurological status stabilized. She never developed compromise of her respiration and her forced vital capacity remained stable. We were able to transfer to her regular medical bed on the penultimate day in the hospital. On the day of discharge, the headache now focuses over the right side of the head particularly around her ear. She states it is a 5/10, but can go up to 8/ 10. She has no other major symptoms aside from her weakness and her right John's palsy. REVIEW OF SYSTEMS: She has had no fevers or sweats. Cardiovascular System: No chest pain, shortness of breath, palpitations or ankle swelling. Respiratory System: No productive cough or hemoptysis, no aspiration. Gastrointestinal System: No anorexia, nausea, vomiting, problems with swallowing. She has had no bowel problems. Genitourinary System: No problems with urinary retention, hesitancy or urgency. Nervous System: Headache as above. No vision. No diplopia. No other changes. Weakness, she is still having problems with weakness in her legs and transferring. She also has weakness of her right arm, greater than her left arm. PHYSICAL EXAMINATION: On the day of discharge, vital signs: Temperature 97.2, heart rate 84, respirations 17, oxygen saturation on room air 93%, blood pressure 148/94. She is warm and well-perfused. She is alert and oriented. Cardiovascular System: Pulses regular. Normal character and volume. Venous pressure not elevated. Heart sounds normal. No added sounds. No murmurs. No pedal edema. No carotid bruits. Respiratory system: Her chest is clear. Abdomen: No distension, masses, tenderness or organomegaly. Nervous System: Cranial nerves II through XII, she has a right John's palsy. Speech is normal. Arms and legs: She is left- handed. She has weakness of the right arm greater than her left arm when she is approximately on the right side 4/5. Legs : Some variable effort; however, she has weakness both sides, greater on the right than the left. Again, 4 to 4+ for hip flexion, knee flexion and extension and bilaterally, ankle dorsiflexion was 4. Eversion was 3+ on the right and 4 on the left. She has no sensory changes. ASSESSMENT AND PLAN: 1. Guillain-Davenport syndrome presenting with right John's palsy and progressive weakness in her legs and arms. This appears to have stabilized. The underlying diagnosis is clinical. She has not yet had any nerve conduction studies. The John's palsy on the right side remain dense. We have ruled out usual infectious causes. The CSF was obtained early with the problem and was negative , which is often the case with Guillain-Davenport syndrome. She has been followed for this by Dr. Smith. At this point, she is stable enough for rehab. However, she is not yet safe for discharge home. 2. Headache. I have started on the therapeutic trial of gabapentin 100 mg 3 times a day. She declines opioids. 3. Anticoagulation during hospitalization. She declined subcutaneous heparin. I have therefore treated with Xarelto 10 mg daily, which is the same protocol used for prevention of deep venous thromboses after hip or knee surgery. 4. Hypermobility syndrome/fibromyalgia. These are both potential barriers that require special attention during her rehabilitation. 5. Obesity. This is a longstanding issue. DISCHARGE MEDICATIONS: 1. Artificial Tears right eye every 4 hours as needed. 2. Duloxetine 120 mg q.h.s. 3. Gabapentin 100 mg t.i.d. 4. Naproxen 500 mg p.o. b.i.d. p.r.n. for pain. 5. Rivaroxaban 10 mg daily while she is mostly staying in bed, this could be stopped as needed. CC: Dr. Jasiel Smith; RU* [id number]/[facility] #: [id number] [facility]
--- NOTE | 2016-11-11 02:21 | PN ---
NEUROLOGICAL FOLLOWUP: DATE OF VISIT/DICTATION: 11/10/16 PATIENT OF: Dr. Dejesus.* HISTORY: Perla feels stronger today and she is moving better. There has been no change in her face. She is status post completion of her IVIG as of yesterday. In addition to her Cymbalta, she is now on Neurontin 100 t.i.d. for some facial pain and on Xarelto for DVT prophylaxis. PHYSICAL EXAMINATION: On exam, temperature 98, pulse 89, respirations 16, blood pressure 144/100. She is alert and oriented with normal speech and comprehension. Cranial nerves II through XII are abnormal for her right facial weakness. Strength in her upper extremities is full and her legs, she has 5-/5 dorsiflexion bilaterally with good strength elsewhere. Reflexes were intact. She was able to get out of bed on her own. She needed just light touch of her left hand to steady herself and she took a few steps. She led with her left foot and had decreased right leg strength on gait testing. Chest clear. Cardiovascular: Regular rate and rhythm. Abdomen: Soft and positive bowel sounds. IMPRESSION: Perla continues to improve following her probable Guillain-Bradshaw and I agree with rehab course and the Neurontin. We will be checking nerve conduction study and EMG discussed this with her. [id number]/[facility] #: [id number] DILLAN
--- NOTE | 2016-11-11 07:54 | PN ---
Subjective - Subjective Reason for Note: Discharge Note History: She is waiting for [employer] to approve her stay on [facility] for rehabilitation. She continues to have pain over her right ear/face. She has had a slight response to gabapentin, but would like to increase the dose. She had an allergic reaction on the palms of her hands yesterday - she thinks it is a contact dermatitis, but is unable to identify the allergen. Benadryl helped and it has mostly gone today. Her stability has improved, but "I walk like Eric". She doesn't feel safe. 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 Dysthymia (Chronic) F34.1 Fibromyalgia (Chronic) M79.7 History of gastric ulcer (Chronic) Z87.19 Hypermobility syndrome (Chronic) M35.7 Left handedness (Chronic) [id number] Obesity (BMI 35.0-39.9 without comorbidity) (Chronic) E66.9 Polycystic ovary syndrome (Chronic) E28.2 Current Medications: Current Medications Artificial Tears (Lacrilube Oint*) 1 applic RIGHT EYE Q4H PRN PRN Reason: DRY EYE Last Admin: 11/07/16 22:56 Dose: 1 top.gel Diphenhydramine HCl (Benadryl Po*) 50 mg PO Q12H PRN PRN Reason: ITCHING, ALLERGIC RXN Last Admin: 11/10/16 09:46 Dose: 50 mg Duloxetine HCl (Cymbalta Cap*) 120 mg PO 2000 [facility] Last Admin: 11/10/16 20:08 Dose: 120 mg Gabapentin (Neurontin Cap(*)) 100 mg PO TID [facility] Last Admin: 11/10/16 20:33 Dose: 100 mg Naproxen (Naprosyn Tab*) 500 mg PO BID PRN PRN Reason: HEADACHE Last Admin: 11/10/16 22:40 Dose: 500 mg Rivaroxaban (Xarelto(*)) 10 mg PO DAILY [facility] Last Admin: 11/10/16 08:29 Dose: 10 mg Home Medications: Home Medications Medication Instructions Recorded Confirmed Type DULoxetine DR CAP* [Cymbalta CAP*] 90 mg PO DAILY 03/20/15 11/05/16 History Cyclobenzaprine TAB* [Flexeril 10 mg PO BID PRN 09/21/16 11/05/16 History TAB*] Valerian Root (Bulk) [Valerian 1 pow XX 09/21/16 History Root] Allergies: Allergies Allergy/AdvReac Type Severity Reaction Status Date / Time Sulfa Drugs Allergy Intermediate Rash And Verified 09/03/16 16:45 Itching Flurbiprofen [From Ansaid] Allergy See Comment Verified 09/03/16 16:45 Objective - Vital Signs Vital Signs: Vital Signs 11/10/16 11/10/16 11/10/16 08:00 08:10 09:45 Temperature 97.2 F Pulse Rate 84 Respiratory 18 17 16 Rate Blood Pressure 148/94 (mmHg) O2 Sat by Pulse 93 Oximetry 11/10/16 11/10/16 11/10/16 09:46 11:15 11:45 Temperature 98.0 F Pulse Rate 89 Respiratory 16 17 16 Rate Blood Pressure 144/100 (mmHg) O2 Sat by Pulse 93 Oximetry 11/10/16 11/10/16 11/10/16 14:58 15:29 16:58 Temperature 97.8 F Pulse Rate 95 Respiratory 16 18 16 Rate Blood Pressure 105/62 (mmHg) O2 Sat by Pulse 98 Oximetry 11/10/16 11/10/16 11/10/16 19:10 20:00 20:33 Temperature 98.1 F Pulse Rate 88 Respiratory 16 16 16 Rate Blood Pressure 134/81 (mmHg) O2 Sat by Pulse 93 Oximetry 11/10/16 11/11/16 11/11/16 22:33 00:09 06:40 Temperature 98.3 F 97.6 F Pulse Rate 90 78 Respiratory 17 18 18 Rate Blood Pressure 130/83 140/71 (mmHg) O2 Sat by Pulse 99 98 Oximetry - Intake and Output Intake and Output: Intake & Output 11/08/16 11/09/16 11/10/16 11/11/16 11:59 11:59 11:59 11:59 Intake Total 1060 1696 2413 400 Output Total 1765 1650 1400 1400 Balance -584 78 4656 -1000 Weight 238 lb 15.697 oz 232 lb 2.348 oz Intake: Medicated IV 716 783 IGG 716 783 Oral 8216 736 3464 400 Output: Urine 1765 1650 1400 1400 Other: Estimated Void Medium # Bowel Movements 0 0 # Voids 1 1 0 ADLs: Meal Record Start: 11/05/16 17: 18 Freq: 09,13,18 Status: Complete Document 11/05/16 21:00 [id number] (Rec: 11/05/16 21:08 [id number] ICU-C16) Document 11/06/16 09:38 [id number] (Rec: 11/06/16 09:38 [id number] ICU-C16) Document 11/06/16 13:00 QBK1304 (Rec: 11/06/16 14:06 OLW0710 ICU-C16) Document 11/06/16 18:00 EJQ9529 (Rec: 11/06/16 19:25 CZP0048 ICU-C25) Document 11/07/16 09:00 CXK6631 (Rec: 11/07/16 09:07 UWM9517 ICU-C10) Document 11/07/16 13:00 BSA1726 (Rec: 11/07/16 13:40 NMZ8557 ICU-C10) Document 11/07/16 18:00 GWR2702 (Rec: 11/07/16 18:34 CGG5975 ICU-C16) Document 11/08/16 09:00 FPH6227 (Rec: 11/08/16 10:00 ZEM8774 ICU-C14) Document 11/08/16 13:00 BKS8714 (Rec: 11/08/16 13:52 QHM7405 ICU-C14) Document 11/08/16 18:57 GUT0551 (Rec: 11/08/16 18:58 XVO6002 ICU-C16) Document 11/09/16 09:00 RYC5015 (Rec: 11/09/16 09:32 JXA3830 ICU-C14) ADLs: Meal Record Start: 11/09/16 12: 02 Freq: DAILY@0900,1400,1800 Status: Active Created 11/09/16 12:02 KOV9785 (Rec: 11/09/16 12:02 PKO5588 ICU-M02) Document 11/09/16 18:00 DFA6654 (Rec: 11/09/16 19:41 QJM3006 MED-C11) Document 11/10/16 09:00 EWK1845 (Rec: 01/03/17 09:18 XOH1732 MED-C09) Document 11/10/16 13:39 OEW3500 (Rec: 11/10/16 13:42 DWP2493 MED-C09) Document 11/10/16 18:00 CSO5435 (Rec: 11/10/16 18:24 IZP9888 MED-C09) Intake and Output Start: 11/05/16 17: 18 Freq: 06,14,22 Status: Complete Document 11/05/16 19:45 OEA3044 (Rec: 11/05/16 22:27 WVH1819 ICU-C16) Document 11/05/16 21:30 YMW6638 (Rec: 11/05/16 21:31 BQY1419 [facility]-RDC2) Document 11/05/16 22:15 XDS0380 (Rec: 11/05/16 22:28 RTT6615 ICU-C16) Document 11/06/16 01:17 FEN6113 (Rec: 11/06/16 01:17 ZPZ7622 ICU-C16) Document 11/06/16 05:20 IOY9633 (Rec: 11/06/16 05:20 [id number] [facility]-RDC2) Document 11/06/16 07:07 ATN8623 (Rec: 11/06/16 07:07 [id number] ICU-C16) Document 11/06/16 09:38 GFZ3673 (Rec: 11/06/16 09:38 SOO2668 ICU-C16) Document 11/06/16 14:00 VJC2554 (Rec: 11/06/16 14:07 GUR8449 ICU-C16) Document 11/06/16 14:39 TZV0883 (Rec: 11/06/16 14:39 KGV4686 ICU-C11) Document 11/06/16 16:37 FPQ4862 (Rec: 11/06/16 16:38 TGT3760 ICU-C11) Document 11/06/16 18:08 IAQ1305 (Rec: 11/06/16 18:08 QMX0447 ICU-C16) Document 11/06/16 19:25 ENO8085 (Rec: 11/06/16 19:25 WMS4631 ICU-C25) Document 11/06/16 22:00 OUH1508 (Rec: 11/06/16 22:16 NPM9029 ICU-C12) Document 11/07/16 05:00 QXA0208 (Rec: 11/07/16 05:49 KLD7494 ICU-C15) Document 11/07/16 17:30 RXQ6276 (Rec: 11/07/16 17:30 ZVH8979 ICU-C16) Document 11/07/16 18:55 WPX1717 (Rec: 11/07/16 18:55 UOE5311 ICU-C16) Document 11/07/16 19:00 XYS8398 (Rec: 11/08/16 01:33 SKN2877 ICU-C10) Document 11/08/16 06:00 CWG6575 (Rec: 11/08/16 06:08 NWV5309 ICU-C14) Document 11/08/16 07:09 IJW2423 (Rec: 11/08/16 07:10 MLB8061 ICU-C10) Document 11/08/16 10:54 VYW0649 (Rec: 11/08/16 10:54 OVI2410 ICU-C15) Document 11/08/16 14:00 UPU8241 (Rec: 11/08/16 14:06 YUZ6924 ICU-C16) Document 11/08/16 18:58 ZHO6942 (Rec: 11/08/16 18:59 FJG4262 ICU-C16) Document 11/08/16 19:20 QUP0198 (Rec: 11/08/16 19:20 CKF2655 ICU-C16) Document 11/08/16 21:26 SUM4310 (Rec: 11/08/16 21:26 CMK8564 ICU-C16) Document 11/09/16 03:04 MXX0577 (Rec: 11/09/16 03:05 KFB6173 ICU-C10) Intake and Output Start: 11/09/16 12: 02 Freq: DAILY@0600,1400,2200 Status: Active Created 11/09/16 12:02 SFA3711 (Rec: 11/09/16 12:02 HXW6848 ICU-M02) Document 11/09/16 22:00 EFF4062 (Rec: 11/09/16 22:54 OBV0664 MED-C11) Document 11/09/16 22:55 CYX9282 (Rec: 11/09/16 22:56 PZO7774 MED-C11) Document 11/10/16 06:00 HYC8269 (Rec: 11/10/16 06:12 BYC8963 MEDL-C01) Document 11/10/16 10:41 DVV7119 (Rec: 11/10/16 10:41 CDW8292 MED-C09) Document 11/10/16 22:00 WOZ2342 (Rec: 11/10/16 22:23 VLY1858 MED-C09) Document 11/11/16 06:00 XCT9615 (Rec: 11/11/16 06:06 TIO3702 MEDL-C01) - Physical Exam General: No Cyanosis, No Anemia, No Jaundice, No Lymphadenopathy, No Clubbing Lungs and Chest: Yes: Chest Expansion Full, Chest Expansion Symetrica, Percussion Note Resonant, Vessicular Breath Sounds. No: Crackles, Wheezes Heart Rate and Rhythm: Normal Additional Cardiovascular: Yes: Normal Heart Sounds. No: Heart Murmur, Pedal Edema Abdominal Exam: Yes: Soft, Bowel Sounds Present. No: Distention, Abdominal Tenderness - Extremities Cranial Nerves II-XII Intact: No - right John's palsy Limbs: Abnormal Power - Slight improvement in arms and legs, Abnormal Tone - Neuro Orientation: A/O x3 Speech: Normal Assessment - Problem List Assessment: Patient Problems Guillain Law syndrome (Acute) Headache (Acute) Progressive focal motor weakness (Acute) Right-sided John's palsy (Acute) Dysthymia (Chronic) Fibromyalgia (Chronic) History of gastric ulcer (Chronic) Hypermobility syndrome (Chronic) Left handedness (Chronic) Obesity (BMI 35.0-39.9 without comorbidity) (Chronic) Polycystic ovary syndrome (Chronic) Plan: Guillain Law syndrome (Acute) She is improving, but very slowly. She requires rehabilitation. Headache (Acute) I discussed pain control. She found some benefit with gabapentin. She would like to increase gabapentin to 200 mg qid. I note that she previously took pregabilin and this made her "high" - she is very wary about potential addictive adverse effects. Progressive focal motor weakness (Acute) This is now stable Right-sided John's palsy (Acute) Remains dense Dysthymia (Chronic) stable mood Fibromyalgia (Chronic) This may be the cause of her right sided facial/head pain. She is also using a TENS unit History of gastric ulcer (Chronic) inactive Hypermobility syndrome (Chronic) secondary diagnosis Left handedness (Chronic) Obesity (BMI 35.0-39.9 without comorbidity) (Chronic) secondary diagnosis Polycystic ovary syndrome (Chronic) Secondary diagnosis She is ready for discharge to either [facility] or SNF for acute rehab
[2016-11-11] MEDS: Gabapentin CAP(*) 100 MG PO SCH ×4 (09:04→20:17)
[2016-11-11] MEDS: Rivaroxaban TAB(*) 10 MG PO SCH (09:04)
[2016-11-11] MEDS: Naproxen TAB* 250 MG PO PRN (19:40)
[2016-11-11] MEDS: DULoxetine DR CAP* 60 MG CAP.DR PO SCH (20:16)
[2016-11-12] MEDS: Naproxen TAB* 250 MG PO PRN (04:46)
[2016-11-12] MEDS: Gabapentin CAP(*) 100 MG PO SCH (08:00)
--- NOTE | 2016-11-12 08:02 | PN ---
Subjective - Subjective Reason for Note: Discharge Note History: She continues to have right sided, luis manuel-auricular pain. This was severe and she is requiring gabapentin. She also had some massage and this helped her get some sleep last night. She has some small, painful ulcers on the inside of her lower lip. She made progress with PT yesterday and was able to walk to the bathroom and back with a RW. 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 Dysthymia (Chronic) F34.1 Fibromyalgia (Chronic) M79.7 History of gastric ulcer (Chronic) Z87.19 Hypermobility syndrome (Chronic) M35.7 Left handedness (Chronic) [id number] Obesity (BMI 35.0-39.9 without comorbidity) (Chronic) E66.9 Polycystic ovary syndrome (Chronic) E28.2 Current Medications: Current Medications Artificial Tears (Lacrilube Oint*) 1 applic RIGHT EYE Q4H PRN PRN Reason: DRY EYE Last Admin: 11/07/16 22:56 Dose: 1 top.gel Diphenhydramine HCl (Benadryl Po*) 50 mg PO Q12H PRN PRN Reason: ITCHING, ALLERGIC RXN Last Admin: 11/10/16 09:46 Dose: 50 mg Duloxetine HCl (Cymbalta Cap*) 120 mg PO 2000 [facility] Last Admin: 11/11/16 20:16 Dose: 120 mg Gabapentin (Neurontin Cap(*)) 200 mg PO QID [facility] Last Admin: 11/11/16 20:17 Dose: 200 mg Naproxen (Naprosyn Tab*) 500 mg PO BID PRN PRN Reason: HEADACHE Last Admin: 11/12/16 04:46 Dose: 500 mg Rivaroxaban (Xarelto(*)) 10 mg PO DAILY [facility] Last Admin: 11/11/16 09:04 Dose: 10 mg Home Medications: Home Medications Medication Instructions Recorded Confirmed Type DULoxetine DR CAP* [Cymbalta CAP*] 90 mg PO DAILY 03/20/15 11/05/16 History Cyclobenzaprine TAB* [Flexeril 10 mg PO BID PRN 09/21/16 11/05/16 History TAB*] Valerian Root (Bulk) [Valerian 1 pow XX 09/21/16 History Root] Allergies: Allergies Allergy/AdvReac Type Severity Reaction Status Date / Time Sulfa Drugs Allergy Intermediate Rash And Verified 09/03/16 16:45 Itching Flurbiprofen [From Ansaid] Allergy See Comment Verified 09/03/16 16:45 Objective - Vital Signs Vital Signs: Vital Signs 11/11/16 11/11/16 11/11/16 08:00 09:04 11:04 Temperature Pulse Rate Respiratory 16 18 18 Rate Blood Pressure (mmHg) O2 Sat by Pulse Oximetry 11/11/16 11/11/16 11/11/16 13:49 15:47 15:49 Temperature 98.8 F Pulse Rate 85 Respiratory 16 16 18 Rate Blood Pressure 140/81 (mmHg) O2 Sat by Pulse 96 Oximetry 11/11/16 11/11/16 11/11/16 17:37 19:37 19:54 Temperature Pulse Rate Respiratory 18 17 17 Rate Blood Pressure (mmHg) O2 Sat by Pulse Oximetry 11/11/16 11/11/16 11/11/16 20:17 22:17 23:53 Temperature 97.8 F Pulse Rate 83 Respiratory 17 16 16 Rate Blood Pressure 143/84 (mmHg) O2 Sat by Pulse 97 Oximetry - Intake and Output Intake and Output: Intake & Output 11/09/16 11/10/16 11/11/16 11/12/16 11:59 11:59 11:59 11:59 Intake Total 1696 2413 400 880 Output Total 1650 1400 1400 2700 Balance 46 1013 -1000 -1820 Weight 232 lb 2.348 oz Intake: Medicated IV 716 783 IGG 716 783 Oral 980 1630 400 880 Output: Urine 1650 1400 1400 2700 Other: Estimated Void Medium Large # Bowel Movements 0 0 0 # Voids 1 0 4 ADLs: Meal Record Start: 11/05/16 17: 18 Freq: ,, Status: Complete Document 11/05/16 21:00 [id number] (Rec: 11/05/16 21:08 [id number] ICU-C16) Document 11/06/16 09:38 COE2382 (Rec: 11/06/16 09:38 KZB2145 ICU-C16) Document 11/06/16 13:00 CBZ7594 (Rec: 11/06/16 14:06 KJN0948 ICU-C16) Document 11/06/16 18:00 FLA2846 (Rec: 11/06/16 19:25 EXD0292 ICU-C25) Document 11/07/16 09:00 PWK9589 (Rec: 11/07/16 09:07 KJY9764 ICU-C10) Document 11/07/16 13:00 DRE6122 (Rec: 11/07/16 13:40 KZW5267 ICU-C10) Document 11/07/16 18:00 RPU6267 (Rec: 11/07/16 18:34 MOO8469 ICU-C16) Document 11/08/16 09:00 EIA1084 (Rec: 11/08/16 10:00 DXL8743 ICU-C14) Document 11/08/16 13:00 RMM1222 (Rec: 11/08/16 13:52 SIN9269 ICU-C14) Document 11/08/16 18:57 CDN6206 (Rec: 11/08/16 18:58 VBT2497 ICU-C16) Document 11/09/16 09:00 WMG2870 (Rec: 11/09/16 09:32 BPJ5153 ICU-C14) ADLs: Meal Record Start: 11/09/16 12: 02 Freq: DAILY@0900,1400,1800 Status: Active Created 11/09/16 12:02 IDD7832 (Rec: 11/09/16 12:02 ZXJ8305 ICU-M02) Document 11/09/16 18:00 ATD2820 (Rec: 11/09/16 19:41 NSZ9704 MED-C11) Document 11/10/16 09:00 SOK8084 (Rec: 11/10/16 09:18 ZQN6511 MED-C09) Document 11/10/16 13:39 RPX1836 (Rec: 11/10/16 13:42 DHI8930 MED-C09) Document 11/10/16 18:00 UMS2827 (Rec: 11/10/16 18:24 APE3015 MED-C09) Document 11/11/16 09:00 OFN1184 (Rec: 11/11/16 10:56 QZQ5946 MED-C11) Document 11/11/16 13:56 PYZ5284 (Rec: 11/11/16 13:57 IWU5335 MED-C11) Document 11/11/16 18:00 UUX0436 (Rec: 11/11/16 19:15 MYA1962 MED-C09) Intake and Output Start: 11/05/16 17: 18 Freq: 06,14,22 Status: Complete Document 11/05/16 19:45 IDR1842 (Rec: 11/05/16 22:27 DZW1638 ICU-C16) Document 11/05/16 21:30 UZB0013 (Rec: 11/05/16 21:31 DLR6340 [facility]-RDC2) Document 11/05/16 22:15 YBX7493 (Rec: 11/05/16 22:28 JXN6017 ICU-C16) Document 11/06/16 01:17 ZVD7971 (Rec: 11/06/16 01:17 RKD6078 ICU-C16) Document 11/06/16 05:20 WNT6687 (Rec: 11/06/16 05:20 BUT8633 [facility]-RDC2) Document 11/06/16 07:07 WHG2641 (Rec: 11/06/16 07:07 KTY3057 ICU-C16) Document 11/06/16 09:38 UPW3067 (Rec: 11/06/16 09:38 QFM6890 ICU-C16) Document 11/06/16 14:00 UKC9600 (Rec: 11/06/16 14:07 SRS4342 ICU-C16) Document 11/06/16 14:39 FVM8073 (Rec: 11/06/16 14:39 NHA8094 ICU-C11) Document 11/06/16 16:37 FVK6741 (Rec: 11/06/16 16:38 OEE5815 ICU-C11) Document 11/06/16 18:08 LJH4985 (Rec: 11/06/16 18:08 OXX3497 ICU-C16) Document 11/06/16 19:25 JZS3434 (Rec: 11/06/16 19:25 FNA7535 ICU-C25) Document 11/06/16 22:00 ISA5019 (Rec: 11/06/16 22:16 EKW4769 ICU-C12) Document 11/07/16 05:00 GGS1227 (Rec: 11/07/16 05:49 CTI4981 ICU-C15) Document 11/07/16 17:30 HYF7637 (Rec: 11/07/16 17:30 DWZ6020 ICU-C16) Document 11/07/16 18:55 FVC3601 (Rec: 11/07/16 18:55 ITL5803 ICU-C16) Document 11/07/16 19:00 FXP4303 (Rec: 11/08/16 01:33 RVJ5225 ICU-C10) Document 11/08/16 06:00 BJT3402 (Rec: 11/08/16 06:08 PEL8190 ICU-C14) Document 11/08/16 07:09 RLO8716 (Rec: 11/08/16 07:10 BXE0498 ICU-C10) Document 11/08/16 10:54 XOR1052 (Rec: 11/08/16 10:54 UQL1614 ICU-C15) Document 11/08/16 14:00 WTB9552 (Rec: 11/08/16 14:06 BNU8976 ICU-C16) Document 11/08/16 18:58 ZZW7180 (Rec: 11/08/16 18:59 QCC4507 ICU-C16) Document 11/08/16 19:20 IKI6850 (Rec: 11/08/16 19:20 RNA3210 ICU-C16) Document 11/08/16 21:26 ACJ8264 (Rec: 11/08/16 21:26 WBC0312 ICU-C16) Document 11/09/16 03:04 JEP2945 (Rec: 11/09/16 03:05 CLO3551 ICU-C10) Intake and Output Start: 11/09/16 12: 02 Freq: DAILY@0600,1400,2200 Status: Active Created 11/09/16 12:02 ZHW7064 (Rec: 11/09/16 12:02 SDY5750 ICU-M02) Document 11/09/16 22:00 HJN0579 (Rec: 11/09/16 22:54 MDV1748 MED-C11) Document 11/09/16 22:55 OMA9897 (Rec: 11/09/16 22:56 LOV2664 MED-C11) Document 11/10/16 06:00 DCQ7314 (Rec: 11/10/16 06:12 ZYA3304 MEDL-C01) Document 11/10/16 10:41 DVA2025 (Rec: 11/10/16 10:41 PCJ9644 MED-C09) Document 11/10/16 22:00 KUL8000 (Rec: 11/10/16 22:23 QSZ9348 MED-C09) Document 11/11/16 06:00 XYZ1147 (Rec: 11/11/16 06:06 KGL8785 MEDL-C01) Document 11/11/16 13:56 ZOR0834 (Rec: 11/11/16 13:57 RFJ2341 MED-C11) Document 11/11/16 21:44 MKF8038 (Rec: 11/11/16 21:44 HCP8134 MED-C09) Document 11/12/16 05:32 DFL0356 (Rec: 11/12/16 05:34 EFS5346 MED-C42) - Physical Exam General Physical Exam Comment: She has 2 aphthous ulcers on her inner lower lip. General: No Cyanosis, No Anemia, No Jaundice, No Clubbing Lungs and Chest: Yes: Chest Expansion Full, Chest Expansion Symetrica, Percussion Note Resonant, Vessicular Breath Sounds. No: Crackles, Wheezes Heart Rate and Rhythm: Regular JVP: Not Elevated Additional Cardiovascular: Yes: Normal Heart Sounds. No: Heart Murmur, Pedal Edema Abdominal Exam: Yes: Soft, Bowel Sounds Present. No: Distention, Abdominal Tenderness - Extremities Cranial Nerves II-XII Intact: No - complete right John's palsy Limbs: Normal Tone, Normal Coordination, Abnormal Power - She has variable effort, but her strength is a little improved - Neuro Orientation: A/O x3 Speech: Normal Assessment - Problem List Assessment: Patient Problems Aphthous ulcer (Acute) Guillain Law syndrome (Acute) Headache (Acute) Progressive focal motor weakness (Acute) Right-sided John's palsy (Acute) Dysthymia (Chronic) Fibromyalgia (Chronic) History of gastric ulcer (Chronic) Hypermobility syndrome (Chronic) Left handedness (Chronic) Obesity (BMI 35.0-39.9 without comorbidity) (Chronic) Polycystic ovary syndrome (Chronic) Plan: Guillain Law syndrome (Acute) Progressive focal motor weakness (Acute)Right- sided John's palsy (Acute) Her condition has stabilized and she may be making some gains in strength. Her PT report was positive yesterday. Headache (Acute) She continues to have right facial pain. I will increase the gabapentin to 300 mg tid and 600 mg qhs Aphthous ulcer (Acute) She was concerned these were cold sores, but they have a typical appearance of canker sores. I will prescribe topical triamcinolone Dysthymia (Chronic) secondary diagnosis Fibromyalgia (Chronic) secondary diagnosis History of gastric ulcer (Chronic) secondary diagnosis Hypermobility syndrome (Chronic) secondary diagnosis Left handedness (Chronic) Obesity (BMI 35.0-39.9 without comorbidity) (Chronic) Polycystic ovary syndrome (Chronic) secondary diagnosis She is ready for discharge to [facility] when [employer] makes a decision on insurance.
[2016-11-12] MEDS: Rivaroxaban TAB(*) 10 MG PO SCH (08:04)
[2016-11-12] MEDS: Gabapentin CAP(*) 300 MG PO SCH ×2 (08:22→12:13)
[2016-11-12] MEDS: TRIAMCINOLONE 0.1% TOPICAL SCH ×2 (11:11→12:13)
[2016-11-12 14:44] VITALS: BP 141/94
--- NOTE | 2016-11-12 15:59 | PN ---
PROGRESS NOTE: DATE: 11/11/2016. PATIENT OF: Dr. Dejesus.* HISTORY: Perla has no new complaints and she feels her walking is somewhat steady and she is able to use a walker to get the bathroom. They are figuring out whether she should go to rehab inpatient here or to a [place] [facility]. PHYSICAL EXAMINATION: Temperature 97.6, pulse 78, respirations 16, blood pressure 140/71. Her facial palsy on the right is unchanged. Chest: Clear. Cardiovascular: Regular rate and rhythm. Abdomen: Soft, positive bowel sounds. She is able to stand unsurely but independently for brief periods and she can take steps one-person assist and is able to move her right leg more independently than she has recently and looks better today than she has. ASSESSMENT AND PLAN: She is also very apprehensive about getting nerve conduction study. I have spoken to the microbiological lab technician in front of her and we will attempt this but we will go slow and stop immediately if she is unable to tolerate and she is aware of that and aware that it will be useful to get baseline study of her nerves. I am pleased with how she is progressing. [id number]/CPS #: [id number] MTDD
[2016-11-12] MEDS ORDERED: Gabapentin CAP(*) 300 MG PO SCH (21:00)
--- NOTE | 2016-11-13 09:40 | PN ---
NEUROLOGIC FOLLOWUP: DATE: 11/12/2016. PATIENT OF: Dr. Dejesus.* HISTORY: This is a 46-year-old woman who has presumed Guillain-[place]. Clinically, she feels she is moving better and is regaining strength. She has no headaches or other symptoms. She will be going to rehab soon. MEDICATIONS: Unchanged and include: 1. Lacri-Lube. 2. Cymbalta 120 a day. 3. Neurontin 300 three times a day with 600 mg at bedtime. 4. Xarelto 10 mg daily. PHYSICAL EXAMINATION: Temperature of 97.8, pulse 83, respirations 18, blood pressure 143/84. She is alert and oriented with normal speech and comprehension. Cranial nerves II through XII are intact other than her right facial palsy, which is unchanged. Strength is 5/5 other than dorsiflexion in both feet at 5-/5. There is some collapsing weakness in her right leg today. Gait is improved. She seems more steady on her feet, although still unsteady, needed a walker. She is able to lead with her right a leg little bit better than yesterday. Reflexes are 2 and equal. DIAGNOSTIC STUDIES: EMG nerve conduction study is being done. IMPRESSION AND PLAN: This is a patient with presumed Guillain-[place], slowly improving, and will be going to rehab and the EMG will be completed. [id number]/CPS #: [id number] MTDD
== END 2016-11-12 15:10 | DRG 96 ==
LOC: ED 10:06 → ICU 16:56 → MED 11-09 09:46
PROVIDERS: ADMIT Internal Medicine; ATTEND Internal Medicine
DX: G61.0 Guillain-Barre syndrome (principal); F32.9 Major depressive disorder, single episode, unspecified; M79.7 Fibromyalgia; G43.909 Migraine, unspecified, not intractable, without status migrainosus; Z82.3 Family history of stroke; Z88.2 Allergy status to sulfonamides; Z88.8 Allergy status to other drugs, medicaments and biological substances; Z83.3 Family history of diabetes mellitus; G51.0 Bell's palsy; Z87.19 Personal history of other diseases of the digestive system; E66.9 Obesity, unspecified; Z68.35 Body mass index [BMI] 35.0-35.9, adult; E28.2 Polycystic ovarian syndrome; F34.1 Dysthymic disorder; M35.7 Hypermobility syndrome; R51 Headache; L23.9 Allergic contact dermatitis, unspecified cause; K12.0 Recurrent oral aphthae; M51.26 Other intervertebral disc displacement, lumbar region
CPT/HCPCS: 36415; 70551; 72148; 80048; 80053; 80061; 81003; 82945; 83516; 83605; 83615; 84157; 84484; 85025; 85610; 86038; 86140; 86592; 86618; 87070; 87205; 87529; 89051; 93005; 94150; 94760; 95912; A9270-GY; J0696; J1568; J1644; J1885; J2001; J2060; J2250; J2405; J3010

== ENCOUNTER 2016-11-12 14:38 | Inpatient (IN) | payer OTHER ==
[2016-11-12] MEDS ORDERED: Acetaminophen TAB* 325 MG PO PRN (16:33)
[2016-11-12] MEDS ORDERED: Magnesium Hydroxide LIQ* 30 ML UDC PO PRN (16:33)
[2016-11-12] MEDS ORDERED: Senna TAB PO PRN (16:33)
[2016-11-12] MEDS ORDERED: Artificial Tear OPHTH.OINT* 3.5 GM RIGHT EYE PRN (16:47)
[2016-11-12] MEDS ORDERED: Gabapentin CAP(*) 300 MG PO ONE (18:45)
[2016-11-12] MEDS: Methocarbamol TAB* 500 MG PO PRN (20:07)
[2016-11-12] MEDS: DULoxetine DR CAP* 60 MG CAP.DR PO SCH (20:09)
[2016-11-12] MEDS: Docusate CAP* 100 MG PO SCH (20:12)
[2016-11-12] MEDS: diPHENhydraMINE PO* 25 MG PO PRN (20:15)
[2016-11-12] MEDS: Gabapentin CAP(*) 300 MG PO SCH (21:25)
--- NOTE | 2016-11-13 02:24 | HP ---
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 HISTORY OF ILLNESS: Perla Elizabeth is a 46-year-old female. She has a past medical history significant for fibromyalgia. In the past, she was treated with high-dose opioids and Lyrica for that. She became addicted to both the opioids and the Lyrica. She does not take either one. She tries to avoid both opioids as well as Lyrica. She will not take tramadol. About 2-1/2 to 3 weeks ago, her partner had a GI bug. She also suffered from the GI bug, but did not have symptoms as severe. On November 03, she felt that her tongue felt funny. She felt like she had burnt her tongue on something. Over the course of the next 36 hours, the patient felt like her face was spasming and then she began to have trouble moving her right leg. When she had trouble moving the right leg , she came to the emergency room. In the emergency room, she had what appeared to be a John palsy. She had an MRI of her brain, which was negative. She was seen by the neurologist, Dr. Smith. Due to the combination of her right leg weakness and the John palsy, he was concerned that she might have Guillain- [place]. While in the emergency room, the patient's weakness seemed to progress. Dr. Smith saw her again and ordered IVIG treatments. The patient was admitted to the Intensive care unit. She was checked for Lyme and also for lupus. She did not develop any problems with respiration. She did have a spinal tap, which was not consistent with Guillain-[place]. Her herpes virus was negative by PCR. The patient developed significant facial pain during her rehab stay. She was tried on NSAIDs and migraine medication. She did not wish to take opioid. She was put on Neurontin. The patient had a persistent right- sided facial weakness and right leg weakness. It was felt that she had physical therapy and occupational therapy needs. She did not have swallowing difficulties. She is now being admitted for inpatient rehab, so she might return to independent living. Of note, the patient did not wish to get DVT prophylaxis with a needle, so she was started on Xarelto. PAST MEDICAL HISTORY: Significant for the aforementioned fibromyalgia. She has a history of opioid addiction as well. She had migraine headaches, but has not had one in many many years. CURRENT MEDICATIONS: Include: 1. Gabapentin. 2. She is also on Lacri-Lube as needed. 3. Xarelto for DVT prophylaxis. 4. Bowel medications. 5. NSAIDs. ALLERGIES: SULFA DRUGS and FLURBIPROFEN. SOCIAL HISTORY: She is a nonsmoker and nondrinker. She lives with her significant other in a one-blue house. 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 REVIEW OF SYSTEMS: The patient reports no current shortness of breath or chest pain. PHYSICAL EXAMINATION VITAL SIGNS: The patient's temperature is 97.9, blood pressure is 156/95, pulse is 88, and respirations are 18. HEENT: She has a noticeable right VII nerve palsy. Her extraocular movements appear to be intact. She had some nystagmus with upward gaze. NECK: Supple. LUNGS: Sounded clear to auscultation bilaterally. HEART: Sounds regular. S1 and S2 are audible. ABDOMEN: Soft and nontender. EXTREMITIES: She may have had slightly decreased tone in her lower extremities. Given her history of hypomobility; however, this was slightly difficult to test. NEUROLOGIC: She is awake, alert, and oriented. Her speech was slightly dysarthric. Her muscle strength appeared to be 5/5 in the upper extremities. Right lower extremity was about 3+/5. Left lower extremity appeared to be 4+/5. FUNCTIONAL EXAM: She transferred with contact-guard to min assist. ASSESSMENT: Guillain-[place] syndrome, status post IVIG. PLAN: Integrate her into a comprehensive and therapeutic rehab program with the following goals: 1. Physical Therapy will work with the patient. They are going to work on functional transfer training and ambulation training with a walker. Wheelchair mobility as necessary. 2. Occupational Therapy will see the patient and work on her activities of daily living including toileting and toilet transfers. 3. Xarelto for DVT prophylaxis. 4. For her facial pain, we may consider stopping her Neurontin as it does not seem to be effective. We may try her on carbamazepine or oxcarbazepine. We are also going to try a muscle relaxer as the symptoms she is describing are muscle tension- type symptoms. She does not like Flexeril, so we will try Robaxin. She might require baclofen. 5. Her bowels will be regulated. 6. Advanced directives: She is a full code. 7. Social Service will be closely involved to make sure that any services and equipment that the patient requires are in place prior to discharge. 8. Continue Cymbalta for fibromyalgia. 9. Continue Lacri-Lube to right eye as needed. 10. Home with appropriate services. ESTIMATED LENGTH OF STAY: Two weeks. [id number]/CPS #: [id number] DILLAN
[2016-11-13 06:40] LABS: Hematocrit 42 % (35-47); Mean Corpuscular HGB Conc 33 g/dl (31-36); Mean Corpuscular Hemoglobin 28 pg (27-31); Mean Corpuscular Volume 84 fL (80-97); Mean Platelet Volume 9 um3 (7.4-10.4); Red Blood Count 5.01 10^6/ul (4.0-5.4); Red Cell Distribution Width 14 % (10.5-15); White Blood Count 5.7 10^3/ul (3.5-10.8)
[2016-11-13 06:53] LABS: Albumin 3.2 g/dL (3.2-5.2); BUN/Creatinine Ratio 22.4 (8-20); EGFR African American 104.9 (>60); EGFR Non-African American 81.6 (>60); Globulin 5.4 g/dL (2-4); Potassium 4.3 mmol/L (3.5-5.0); Total Bilirubin 0.3 mg/dL (0.2-1.0); Total Protein 8.6 g/dL (6.4-8.9)
[2016-11-13] MEDS: diPHENhydraMINE PO* 25 MG PO PRN ×2 (07:01→17:51)
[2016-11-13] MEDS: Rivaroxaban TAB(*) 10 MG PO SCH (08:56)
[2016-11-13] MEDS: Gabapentin CAP(*) 300 MG PO SCH ×4 (08:56→20:16)
[2016-11-13] MEDS: Docusate CAP* 100 MG PO SCH ×2 (08:59→20:17)
--- NOTE | 2016-11-13 12:39 | PMRUTEAM ---
PMRU: Goals Current Status: Nursing: Current Status Skin Deviations [mouth] Wound Skin Deviations [Bilateral Rash - possible scabies Hand] Skin Deviation Description [ bit inside lower lip, multiple mouth sores inside mouth] cheeks Skin Deviation Description [ palms of hands. benadryl for itching Bilateral Hand] Physical Therapy: Current Status Bed Mobility Assistance Supervision Transfer Moblility Assistance Contact Guard Assist,Min Assist Ambulation Assistance Min Assist Ambulation Assistive Devices Rolling Walker 10ft Occupational Therapy: Current Status Upper Body Dressing Independent Lower Body Dressing Supervision,Contact Guard Assist Bathing Contact Guard Assist Toileting Supervision,Contact Guard Assist Toilet Transfer Contact Guard Assist Shower Transfer Contact Guard Assist Eating Independent Goals: Occupational Therapy: Initial Goals Goals to be Completed in (Days 3-5 ) Upper Body Bathing Routine Independent Lower Body Bathing Routine Modified Independent with Upper Body Dressing Routine Independent Lower Body Dressing Routine Modified Independent with Toilet Hygeine and Clothing Modified Independent with Management Routine Toilet Transfer Routine Modified Independent with Step-In Shower Transfer Independent Routine Functional Transfers for ADL Modified Independent with Grooming Routine Independent Feeding Routine Independent PHYSICAL THERAPY GOALS - MODIFIED INDEPENDENT BED MOBILITY, TRANSFERS, AMBULATION 150FT WITH ROLLING WALKER, 10 STAIRS WITH HAND RAIL Care Plan: Care Plan Coping/Psych-Improve/Maintain Start: 11/13/16 09:55 Freq: QSHIFT Status: Active Target: Activity Type Activity Date Activity User E-Sign Co-Sign Detail Recorded Client Recorded Date Recorded By Document 11/13/16 09:57 [id number] 11/13/16 10:01 [id number] 11/13/16 09:57 PMRU Outcome: Coping/Psychosocial Coping Outcome/Goals Verbalization of Acceptance of Rehab Admit Verbalization of Sense of Control Over Health Status Utilization of Appropriate Problem Solving Techniques Willingness to Participate in Treatment Plan and Basic Needs Psychosocial Outcome/Goals Maintain/ Improve Emotional Health Demonstrates Knowledge of Healthy Coping Mechanisms Available Cooperate/ Participate in Plan Progression Toward Outcome/Goals - Progressing Coping Progression Toward Outcome/Goals - Progressing Psychosocial DVT Prophylaxis- Improve/Maintain Start: 11/13/16 09:55 Freq: QSHIFT Status: Active Target: Activity Type Activity Date Activity User E-Sign Co-Sign Detail Recorded Client Recorded Date Recorded By Document 11/13/16 09:57 [id number] 11/13/16 10:01 [id number] 11/13/16 09:57 PMRU Outcome: DVT Prophylaxis Outcome/Goals Remains Free of DVT Complies with DVT Prophylaxis /Treatment Demonstrates Knowledge of DVT Prevention/ Treatment Progression Toward Outcome/Goals Progressing Discharge Planning - Improve/Maintain Start: 11/12/16 20:22 Freq: QSHIFT Status: Active Target: Activity Type Activity Date Activity User E-Sign Co-Sign Detail Recorded Client Recorded Date Recorded By Document 11/13/16 04:00 [id number] 11/13/16 06:31 [id number] 11/13/16 04:00 PMRU Outcome: Discharge Planning Update Patient Family No Outcome/Goals Demonstrates Understanding of Discharge Plan Progression Toward Outcome/Goals Progressing Education-Improve/Maintain Start: 11/13/16 09:55 Freq: QSHIFT Status: Active Target: Activity Type Activity Date Activity User E-Sign Co-Sign Detail Recorded Client Recorded Date Recorded By Document 11/13/16 09:57 [id number] 11/13/16 10:01 [id number] 11/13/16 09:57 PMRU Outcome: Education Outcome/Goals Demonstrate/ Verbalize Understanding of Written Discharge Instructions Demonstrates Skills Encourage Questions Progression Toward Outcome/Goals Progressing /GI-Improve/Maintain Start: 11/12/16 20:22 Freq: QSHIFT Status: Active Target: Activity Type Activity Date Activity User E-Sign Co-Sign Detail Recorded Client Recorded Date Recorded By Document 11/13/16 09:57 [id number] 11/13/16 10:01 [id number] 11/13/16 09:57 PMRU Outcome: Genitourinary/ Gastrointestinal Genitourinary- Outcome/Goals Maintain/ Achieve Urinary Continence Maintain/ Achieve Adequate Urinary Output Remain Free of Hospital- Acquired UTI Gastrointestinal-Outcome/Goals Maintain/ Achieve Bowel Regularity in Accordance with Pt's Baseline Prevent Constipation Laxatives as Ordered Progression Toward Outcome/Goals - Progressing Progression Toward Outcome/Goals - GI Progressing Genitourinary- Outcome/Goals Met Maintain/ Achieve Urinary Continence Remain Free of Hospital- Acquired UTI Medication Administration Start: 11/13/16 09:55 Freq: QSHIFT Status: Active Target: Activity Type Activity Date Activity User E-Sign Co-Sign Detail Recorded Client Recorded Date Recorded By Document 11/13/16 09:57 [id number] 11/13/16 10:01 [id number] 11/13/16 09:57 PMRU Outcome: Medication Administration Assess Patient Knowledge/Teach Med Yes Education for all Meds Outcome/Goals Patient Independent with Medication Administration at Home Demonstrates Understanding Progression Towards Outcome/Goals Progressing Is Patient Going Home on Lovenox? No Pain/Comfort- Improve/Maintain Start: 11/12/16 20:22 Freq: QSHIFT Status: Active Target: Activity Type Activity Date Activity User E-Sign Co-Sign Detail Recorded Client Recorded Date Recorded By Document 11/13/16 09:57 [id number] 11/13/16 10:01 [id number] 11/13/16 09:57 PMRU Outcome: Pain/Comfort Outcome/Goals Demonstrates Knowledge and Use of Available Comfort Measures Achieves Acceptable Comfort/Pain Level as Determined by Patient/Condit Maintain Comfort Level Allowing Patient to Fully Participate in Rehab Progression Toward Outcome/Goals Progressing Outcome/Goals Met Demonstrates Knowledge and Use of Available Comfort Measures Achieves Acceptable Comfort/Pain Level as Determined by Patient/Condit Safety- Improve/Maintain Start: 11/12/16 20:22 Freq: QSHIFT Status: Active Target: Activity Type Activity Date Activity User E-Sign Co-Sign Detail Recorded Client Recorded Date Recorded By Document 11/13/16 09:57 [id number] 11/13/16 10:01 [id number] 11/13/16 09:57 PMRU Outcome: Safety Outcome/Goals Remain Free of Injury or Harm Cooperates with Safety Measures for Least Restrictive Environment Prevent Falls/ Injury Progression Toward Outcome/Goals Progressing Outcome/Goals Met Cooperates with Safety Measures for Least Restrictive Environment Medicine Note: Length of Stay: [1 WEEK] Anticipated Discharge Destination: HOME Tentative Discharge Date: [11/20/16] Discharged to: [HOME]
[2016-11-13] MEDS: Methocarbamol TAB* 500 MG PO PRN ×2 (14:18→20:14)
--- NOTE | 2016-11-13 20:04 | CONS ---
CONSULTATION REPORT: DATE OF CONSULT: 11/13/16 REQUESTING PHYSICIAN: Dr. Guajardo. CONSULTING SERVICE: Infectious Disease. REASON FOR CONSULT: Hand rash. IMPRESSION: 1. Three days of pruritic rash on bilateral palms of the hands that includes the interspace of the fingers. There is no linear burrows I see, but the differential diagnosis does include scabies, drug reaction has been considered, as has a viral exanthem. She did have a viral illness a couple of weeks before admission, which was due to a Guillain-[place] syndrome. It seems a little bit unusual to have the viral exanthem so far after the viral illness, though that is possible. I think a drug rash is less likely as it is rather focal and it does not look like a typical fixed drug reaction. 2. Guillain-[place] syndrome. RECOMMENDATIONS: Ivermectin 21 mg x1, to see if he is improving. That would also confirm the diagnosis. I discussed a punch biopsy with her but she is adamant that she would not have that due to her fear of needles and procedures. HISTORY OF PRESENT ILLNESS: This is a 46-year-old woman with a recent viral illness that included diarrhea and then admitted to the hospital with weakness and a John's palsy, she came to the hospital on 11/05/16. 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 She had a lumbar puncture on 11/06/16 that showed 1 white cell, 90% lymphocytes, glucose 64, protein 35, VDRL negative, HSV 1 and 2 PCR negative, Lyme serology was negative. She had IVIG treatment. She is on the rehab floor, on physical therapy. For the last 3 days she has had rash on bilateral hands. It has been itchy, there is a number of pin points. She has had some Benadryl which helps the itching a little bit, but still quite impressive itching. It has not been on other parts of her body. She has had ulcer on her right lower lip and soreness of her tongue. The rash is between the digits as well. Has not noticed anything on the soles of her feet. She has had no fevers, chills or sweats in the last few days. She had no travel or sick contacts. No one at home has had the same rash. There are goats and other animals at home. PAST MEDICAL HISTORY: 1. Fibromyalgia. 2. Migraine headaches. 3. Depression. MEDICATIONS: 1. Tylenol. 2. Duloxetine. 3. Docusate. 4. Gabapentin. 5. Methocarbamol. 6. Naproxen. 7. Rivaroxaban. 8. Senna. 9. Benadryl. ALLERGIES: SULFA and FLURBIPROFEN. FAMILY HISTORY: No recurrent infections. SOCIAL HISTORY: She lives outside [place] with her family. Number of animals at home include goats and sheep. No travel, no sick contacts. REVIEW OF SYSTEMS: All negative except as noted above. PHYSICAL EXAM: Vital Signs: Temperature is 98.3, heart rate 60, respiratory rate 16, blood pressure 143/92. General: She is awake and in no distress. HEENT: Pupils equal and reactive to light without conjunctival hemorrhage. Oropharynx: She has mild erythema of the tongue. There is a mild angular cheilosis. There is a 2 mm right lower inner lip ulcer with mild surrounding erythema. Neck: Supple without nuchal rigidity. Skin: There is no rash except for the bilateral palms and between the fingers, where there are erythematous papules less than a millimeter in size, multiple, nonblanching. There is crusting on a couple of them. No burrows. Abdomen: Soft, nontender, nondistended. Heart: Regular rate and rhythm. Lungs: Clear to auscultation bilaterally. Neurologically, she has bilateral lower extremities weakness and is currently having physical therapy. DIAGNOSTIC STUDIES/LAB DATA: White blood cell count 5, hemoglobin 14, platelets 290, creatinine 0.7, ALT 13. Please see impressions and recommendations outlined above, which I have discussed with Dr. Guajardo. Thanks for asking me to see Ms. Elizabeth in consultation. [id number]/[facility] #: [id number] DILLAN
[2016-11-13] MEDS: Ramipril CAP* 5 MG PO SCH (20:16)
[2016-11-13] MEDS: DULoxetine DR CAP* 60 MG CAP.DR PO SCH (20:16)
[2016-11-14] MEDS: Naproxen TAB* 250 MG PO PRN ×2 (00:01→23:15)
[2016-11-14] MEDS: Gabapentin CAP(*) 300 MG PO SCH ×4 (07:57→20:55)
[2016-11-14] MEDS: Ramipril CAP* 5 MG PO SCH (07:57)
[2016-11-14] MEDS: Rivaroxaban TAB(*) 10 MG PO SCH (07:57)
[2016-11-14] MEDS: diPHENhydraMINE PO* 25 MG PO PRN ×2 (07:57→16:17)
[2016-11-14] MEDS: Docusate CAP* 100 MG PO SCH ×2 (08:06→20:56)
[2016-11-14] MEDS ORDERED: Chlorhexidine MOUTHWASH 0.12%* 15 ML UDC SWISH SPIT ONE (10:30)
[2016-11-14] MEDS ORDERED: IVERMECTIN 3 MG PO ONE (12:00)
[2016-11-14] MEDS: Methocarbamol TAB* 500 MG PO PRN ×2 (14:03→20:59)
[2016-11-14] MEDS: DULoxetine DR CAP* 60 MG CAP.DR PO SCH (20:55)
[2016-11-15] MEDS: Methocarbamol TAB* 500 MG PO PRN ×2 (06:01→20:55)
[2016-11-15] MEDS: Gabapentin CAP(*) 300 MG PO SCH ×4 (08:55→20:56)
[2016-11-15] MEDS: Ramipril CAP* 5 MG PO SCH (08:56)
[2016-11-15] MEDS: Rivaroxaban TAB(*) 10 MG PO SCH (08:56)
[2016-11-15] MEDS: Docusate CAP* 100 MG PO SCH ×2 (08:56→21:22)
[2016-11-15] MEDS: Naproxen TAB* 250 MG PO PRN ×2 (11:51→23:49)
[2016-11-15] MEDS ORDERED: Calcium Carbonate CHEW TAB* 500 MG (TUMS) PO PRN (17:44)
[2016-11-15] MEDS: DULoxetine DR CAP* 60 MG CAP.DR PO SCH (20:55)
[2016-11-16] MEDS: Methocarbamol TAB* 500 MG PO PRN ×3 (04:48→20:59)
[2016-11-16] MEDS: Rivaroxaban TAB(*) 10 MG PO SCH (08:09)
[2016-11-16] MEDS: Ramipril CAP* 5 MG PO SCH (08:09)
[2016-11-16] MEDS: Gabapentin CAP(*) 300 MG PO SCH ×3 (08:09→20:58)
[2016-11-16] MEDS: Docusate CAP* 100 MG PO SCH ×2 (08:10→19:41)
--- NOTE | 2016-11-16 10:30 | PN ---
Progress Note - Progress Note SOAP: Subjective: DOS: 11/16/16 CC: rash HPI: 46 yo woman admitted with GB syndrome now on PMRU for physical therapy. Mid last week developed itchy rash on hands included space between fingers and palms, then couple patches behind ears. Very itchy. Benadryl did not help. She declined a punch biopsy. Had ivermectin on Wednesday. Itching and rash much improved. Objective: [] Vital Signs Temp 36.6 C 11/16/16 04:52 Pulse 73 11/16/16 04:52 Resp 20 11/16/16 08:09 BP 138/92 11/16/16 04:52 Pulse Ox 99 11/16/16 04:52 Intake & Output 11/15/16 11/16/16 11/16/16 18:59 06:59 18:59 Intake Total 600 Output Total 0 Balance 600 0 Intake: Oral 600 Output: # Incontinent Voids 0 Other: Estimated Void Medium Medium Estimated Stool Amount Medium # Voids 1 2 Gen:AAOx3 HEENT:PERRL, MMM NEck:Supple Heart:RRR no murmur Lungs:CTA BL Abd:+ BS NTND soft Skin: both palms 1-2 pinpoint macules on each hand Assessment: 1. rash, bilateral hands including between fingers; response to ivermectin, suspect scabies Plan: 1. follow symptoms, will sign off, please call if return of rash
[2016-11-16] MEDS: Naproxen TAB* 250 MG PO PRN (12:09)
[2016-11-16] MEDS ORDERED: Gabapentin CAP(*) 300 MG PO SCH ×2 (14:00→20:00)
[2016-11-16] MEDS: DULoxetine DR CAP* 60 MG CAP.DR PO SCH (20:58)
[2016-11-17] MEDS: Methocarbamol TAB* 500 MG PO PRN ×3 (01:23→16:48)
[2016-11-17] MEDS: Naproxen TAB* 250 MG PO PRN ×2 (06:13→21:08)
[2016-11-17] MEDS: Ramipril CAP* 5 MG PO SCH (09:32)
[2016-11-17] MEDS: Gabapentin CAP(*) 300 MG PO SCH ×3 (09:33→21:07)
[2016-11-17] MEDS: Rivaroxaban TAB(*) 10 MG PO SCH (09:34)
[2016-11-17] MEDS: Docusate CAP* 100 MG PO SCH ×2 (09:34→19:05)
--- NOTE | 2016-11-17 13:04 | PMRUTEAM ---
PMRU: Goals Current Status: Nursing: Current Status Skin Deviations [mouth] Blister Skin Deviations [Bilateral Rash Posterior Ear] Skin Deviations [Right Rash Anterior Hip] Skin Deviations [Bilateral Rash Hand] Skin Deviation Description [ cancer sore mouth] Skin Deviation Description [ Healing Bilateral Posterior Ear] Skin Deviation Description [ healing Right Anterior Hip] Skin Deviation Description [ healing Bilateral Hand] Bladder Current Status Independent, continent Bowel Current Status Independent, continent, refuses Bowel medications Last BM 11/15/2016 Nutrition Current Status Adequate Medication Current Status Routine Neurontin, PRN Robaxin and Naproxen given per MD order for pain/spasms- pain/spasms do not get worse but pt states she does not get much relief from medications Aware of medications she is taking Physical Therapy: Current Status Bed Mobility Assistance Independent Transfer Moblility Assistance Supervision Transfer/Bed Mobility None Recommended Devices Ambulation Assistance Supervision,Contact Guard Assist Ambulation Assistive Devices Platform Walker Number of Feet Patient 90' Ambulated Stairs Assistance Not Tested Manual Wheelchair Control/ Bilateral UE's Technique Wheelchair Propulsion Ability Independent Wheelchair Distance (ft) 150' Occupational Therapy: Current Status Upper Body Dressing Independent Lower Body Dressing Ind with Adaptive Equip Bathing Ind with Adaptive Equip,Supervision Toileting Ind with Adaptive Equip Toilet Transfer Ind with Adaptive Equip Shower Transfer Ind with Adaptive Equip,Supervision Eating Independent Rec Therapy: Current Status Summary of Assessment and Patient is euthymic and bright during our Clinical Impression interactions. Patient typically has visitors during RT time and has multiple leisure activities in her room - games, cards, felting activity. Patient endorsed struggling with "depression and anxiety for the last 5 years." Information on coping skills and relaxation techniques were offered but patient politely declined stating "I feel I do pretty well with coping." Treatment Goals Patient will engage in recreation and leisure activities while on the unit. Treatment Plan Provide and encourage involvement in RT services. Social Work: Current Status Discharge Plan Return home with home care svs and family support Potential for Family Training pt's is supportive and involved Anticipated Discharge Home Destination Discharge With home care svs and family support Nutrition: Current Status Monitoring nutrition assessment pending. She appears to be eating well (100% of meals); prefers a gluten-free , dairy-free diet. Initial goals as outlined below. Goals: Physical Therapy: Initial Goals Bed Mobility Assistance Independent Transfer Mobility Assistance Independent Transfer/Bed Mobility Rolling Walker Recommended Devices Ambulation Independent Ambulation Recommended Devices Rolling Walker Ambulation Distance 150 Stairs Assistance Independent Stair Recommended Devices Two Rails Number of Stairs 10 Physical Therapy: Updated Goals Bed Mobility Assistance Independent Transfer Mobility Assistance Independent Transfer/Bed Mobility None,Platform Walker Recommended Devices Ambulation Assistance Independent Ambulation Assistive Devices Platform Walker Ambulation Distance (ft) 150' Wheelchair Propulsion Ability Independent Wheelchair Distance (ft) 150' Stairs Assistance Independent Stairs Recommended Devices Two Rails Number of Stairs 10 Home Exercise Program Independent Assistance Occupational Therapy: Initial Goals Goals to be Completed in (Days 3-5 ) Upper Body Bathing Routine Independent Lower Body Bathing Routine Modified Independent with Upper Body Dressing Routine Independent Lower Body Dressing Routine Modified Independent with Toilet Hygeine and Clothing Modified Independent with Management Routine Toilet Transfer Routine Modified Independent with Step-In Shower Transfer Independent Routine Functional Transfers for ADL Modified Independent with Grooming Routine Independent Feeding Routine Independent Nursing: Goals Bladder Goal Independent, continent Nutrition Goal Adequate Medication Goal Independent Nutrition: Goals Intervention Goals 1. adequate po intake to preserve lean body mass without add'l wt gain 2. pt will be served menu items appropriate for her self-imposed limitations 3. regulated bowel pattern; no c/o constipation or diarrhea Social Work: Goals Discharge Plan Return home with home care svs and family support Potential for Family Training pt's is supportive and involved Anticipated Discharge Home Destination Discharge With home care svs and family support Occupational Therapy: Updated Goals Light Housekeeping Tasks Minimal Contact Assist Care Plan: Care Plan Coping/Psych-Improve/Maintain Start: 11/13/16 09:55 Freq: DAILY Status: Active Target: Activity Type Activity Date Activity User E-Sign Co-Sign Detail Recorded Client Recorded Date Recorded By Document 11/17/16 00:39 [id number] 11/17/16 00:41 [id number] 11/17/16 00:39 PMRU Outcome: Coping/Psychosocial Coping Outcome/Goals Verbalization of Acceptance of Rehab Admit Verbalization of Sense of Control Over Health Status Utilization of Appropriate Problem Solving Techniques Willingness to Participate in Treatment Plan and Basic Needs Psychosocial Outcome/Goals Maintain/ Improve Emotional Health Demonstrates Knowledge of Healthy Coping Mechanisms Available Cooperate/ Participate in Plan Progression Toward Outcome/Goals - Progressing Coping Progression Toward Outcome/Goals - Progressing Psychosocial DVT Prophylaxis- Improve/Maintain Start: 11/13/16 09:55 Freq: DAILY Status: Active Target: Activity Type Activity Date Activity User E-Sign Co-Sign Detail Recorded Client Recorded Date Recorded By Document 11/17/16 00:39 [id number] 11/17/16 00:41 [id number] 11/17/16 00:39 PMRU Outcome: DVT Prophylaxis Outcome/Goals Remains Free of DVT Complies with DVT Prophylaxis /Treatment Demonstrates Knowledge of DVT Prevention/ Treatment Progression Toward Outcome/Goals Progressing Discharge Planning - Improve/Maintain Start: 11/12/16 20:22 Freq: DAILY Status: Active Target: Activity Type Activity Date Activity User E-Sign Co-Sign Detail Recorded Client Recorded Date Recorded By Document 11/15/16 22:20 [id number] 11/15/16 22:22 [id number] 11/15/16 22:20 PMRU Outcome: Discharge Planning Update Patient Family No Outcome/Goals Demonstrates Understanding of Discharge Plan Progression Toward Outcome/Goals Progressing Education-Improve/Maintain Start: 11/13/16 09:55 Freq: DAILY Status: Active Target: Activity Type Activity Date Activity User E-Sign Co-Sign Detail Recorded Client Recorded Date Recorded By Document 11/17/16 00:39 [id number] 11/17/16 00:41 [id number] 11/17/16 00:39 PMRU Outcome: Education Outcome/Goals Demonstrate/ Verbalize Understanding of Written Discharge Instructions Demonstrates Skills Encourage Questions Progression Toward Outcome/Goals Progressing /GI-Improve/Maintain Start: 11/12/16 20:22 Freq: DAILY Status: Active Target: Activity Type Activity Date Activity User E-Sign Co-Sign Detail Recorded Client Recorded Date Recorded By Document 11/17/16 00:39 [id number] 11/17/16 00:41 [id number] 11/17/16 00:39 PMRU Outcome: Genitourinary/ Gastrointestinal Genitourinary- Outcome/Goals Maintain/ Achieve Urinary Continence Maintain/ Achieve Adequate Urinary Output Remain Free of Hospital- Acquired UTI Gastrointestinal-Outcome/Goals Maintain/ Achieve Bowel Regularity in Accordance with Pt's Baseline Remain Free of Emesis Prevent Constipation Laxatives as Ordered Progression Toward Outcome/Goals - Progressing Progression Toward Outcome/Goals - GI Progressing Genitourinary- Outcome/Goals Met Maintain/ Achieve Urinary Continence Remain Free of Hospital- Acquired UTI Medication Administration Start: 11/13/16 09:55 Freq: DAILY Status: Complete Target: Activity Type Activity Date Activity User E-Sign Co-Sign Detail Recorded Client Recorded Date Recorded By Document 11/17/16 00:39 [id number] 11/17/16 00:41 [id number] 11/17/16 00:39 PMRU Outcome: Medication Administration Assess Patient Knowledge/Teach Med Yes Education for all Meds Outcome/Goals Patient Independent with Medication Administration at Home Demonstrates Understanding Progression Towards Outcome/Goals Progressing Outcome/Goals Met Patient Independent with Medication Administration at Home Demonstrates Understanding Is Patient Going Home on Lovenox? No Mobility- Improve/Maintain Start: 11/12/16 20:22 Freq: DAILY Status: Active Target: Activity Type Activity Date Activity User E-Sign Co-Sign Detail Recorded Client Recorded Date Recorded By Document 11/16/16 12:17 [id number] 11/16/16 12:17 [id number] 11/16/16 12:17 PMRU Outcome: Mobility Physical Therapy Evaluation and Yes Treatment Activity OOB with Assistance Yes WBAT Yes Assistance Yes Patient to be seen 5x/wk for 60-120 min/ Therex day for: Mobility Training Gait Training W/C Mobility Balance Outcome/Goals Maintain/ Achieve Baseline Mobility Status Improve Mobility Status Demonstrates Proper Use of Assistive Devices Free from Complications of Immobility Progression Toward Outcome/Goals Progressing Bed Mobility Yes: Independent Transfers Yes: independent with RW Gait x ft Yes: independent with RW 150' W/C Mobility x ft Yes: independent 150 ' Up/Down Stairs Yes: independent ascent/descent 10 stairs with 2 rail Pain/Comfort- Improve/Maintain Start: 11/12/16 20:22 Freq: DAILY Status: Active Target: Activity Type Activity Date Activity User E-Sign Co-Sign Detail Recorded Client Recorded Date Recorded By Document 11/17/16 00:39 [id number] 11/17/16 00:41 [id number] 11/17/16 00:39 PMRU Outcome: Pain/Comfort Outcome/Goals Demonstrates Knowledge and Use of Available Comfort Measures Achieves Acceptable Comfort/Pain Level as Determined by Patient/Condit Maintain Comfort Level Allowing Patient to Fully Participate in Rehab Progression Toward Outcome/Goals Progressing Outcome/Goals Met Demonstrates Knowledge and Use of Available Comfort Measures Achieves Acceptable Comfort/Pain Level as Determined by Patient/Condit Safety- Improve/Maintain Start: 11/12/16 20:22 Freq: DAILY Status: Complete Target: Activity Type Activity Date Activity User E-Sign Co-Sign Detail Recorded Client Recorded Date Recorded By Document 11/17/16 00:39 [id number] 11/17/16 00:41 [id number] 11/17/16 00:39 PMRU Outcome: Safety Outcome/Goals Remain Free of Injury or Harm Cooperates with Safety Measures for Least Restrictive Environment Prevent Falls/ Injury Progression Toward Outcome/Goals Progressing Medicine Note: Length of Stay: 3 days Anticipated Discharge Destination: Home Tentative Discharge Date: 11/20/16 Discharged to: Home
[2016-11-17] MEDS: DULoxetine DR CAP* 60 MG CAP.DR PO SCH (21:07)
[2016-11-18] MEDS: Methocarbamol TAB* 500 MG PO PRN ×2 (06:45→16:05)
[2016-11-18] MEDS: Ramipril CAP* 5 MG PO SCH (08:41)
[2016-11-18] MEDS: Rivaroxaban TAB(*) 10 MG PO SCH (08:42)
[2016-11-18] MEDS: Gabapentin CAP(*) 300 MG PO SCH ×3 (08:42→20:53)
[2016-11-18] MEDS: Naproxen TAB* 250 MG PO PRN ×2 (08:57→20:53)
[2016-11-18] MEDS: Docusate CAP* 100 MG PO SCH ×2 (08:57→20:48)
[2016-11-18] MEDS ORDERED: LORazepam TAB(*) 0.5 MG PO ONE (18:01)
[2016-11-18] MEDS: DULoxetine DR CAP* 60 MG CAP.DR PO SCH (20:53)
[2016-11-19] MEDS: Docusate CAP* 100 MG PO SCH ×2 (09:08→20:15)
[2016-11-19] MEDS: Gabapentin CAP(*) 300 MG PO SCH ×3 (09:09→20:30)
[2016-11-19] MEDS: Ramipril CAP* 5 MG PO SCH (09:10)
[2016-11-19] MEDS: Rivaroxaban TAB(*) 10 MG PO SCH (09:11)
[2016-11-19] MEDS: Methocarbamol TAB* 500 MG PO PRN ×2 (14:15→20:30)
[2016-11-19] MEDS: LORazepam TAB(*) 0.5 MG PO PRN (17:45)
[2016-11-19 19:51] LABS: Hematocrit 43 % (35-47); Hemoglobin 13.9 g/dl (12.0-16.0); Mean Corpuscular HGB Conc 33 g/dl (31-36); Mean Corpuscular Hemoglobin 28 pg (27-31); Mean Corpuscular Volume 84 fL (80-97); Mean Platelet Volume 9 um3 (7.4-10.4); Red Blood Count 5.07 10^6/ul (4.0-5.4); Red Cell Distribution Width 14 % (10.5-15); White Blood Count 7.5 10^3/ul (3.5-10.8)
[2016-11-19 20:05] LABS: Albumin 3.5 g/dL (3.2-5.2); EGFR African American 106.5 (>60); EGFR Non-African American 82.8 (>60); Globulin 4.2 g/dL (2-4); Potassium 4.2 mmol/L (3.5-5.0); Total Bilirubin 0.3 mg/dL (0.2-1.0); Total Protein 7.7 g/dL (6.4-8.9)
[2016-11-19] MEDS: DULoxetine DR CAP* 60 MG CAP.DR PO SCH (20:14)
--- NOTE | 2016-11-19 21:45 | CONS ---
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 Broussard called me because she was having more discomfort in her right side of her face last night. Discharge is planned for tomorrow and she feels stressed and her walking has been worse today according to the physical therapist. She was doing quite well yesterday. MEDICATIONS: Include: 1. Lacri-Lube. 2. Xarelto 10 mg daily. 3. Altace 5 mg daily. 4. Naprosyn 500 q.12 hours p.r.n. 5. Robaxin 750 t.i.d. p.r.n. 6. Gabapentin 600 t.i.d. 7. Cymbalta 120 daily. PHYSICAL EXAM: Vital signs: Temperature 98.5, pulse 84, respirations 16, blood pressure 136/85. She is alert and oriented with normal speech and comprehension. She appeared somewhat cheerful. Cranial nerves II through XII are intact other than her right John's palsy, which is unchanged from before. Strength in the upper extremity is 5/5. There is some decreased strength, which appeared somewhat give away, right more than left but on the right, at her strongest she was 5-/5. On the left, she appeared to have full strength. She appeared scare when trying to walk and she could lead with her left, but would very slowly bring her right along. Reflexes were 1+. Chest clear. Cardiovascular, regular rate and rhythm without murmur. Abdomen is soft with positive bowel sounds. ASSESSMENT: Her Lyme titers have been negative. Her MRI scan have been negative on admission but we are going to be repeating. It is possible that she could have central demyelinating disease as part of her disease that could have been missed on early scan. I think that this is unlikely, but conceivable and so we will be checking this. I think that some of her symptoms in her legs may be in part due to stress, but we will continue to follow as necessary. Thank you for sharing her case. [id number]/[facility] #: [id number] [place]ILLAN
[2016-11-20] MEDS: Naproxen TAB* 250 MG PO PRN ×2 (00:21→12:31)
[2016-11-20] MEDS: LORazepam TAB(*) 0.5 MG PO PRN (00:22)
[2016-11-20] MEDS: Methocarbamol TAB* 500 MG PO PRN ×2 (03:31→12:32)
[2016-11-20 06:12] VITALS: BP 129/80
[2016-11-20] MEDS ORDERED: Gadoteridol* (CONTRAST) 279.3 MG/ML 10 ML IV ONE (07:11)
--- NOTE | 2016-11-20 08:15 | RAD ---
HISTORY: Increasing right-sided weakness COMPARISONS: November 05, 2016 TECHNIQUE: The following sequences were obtained of the head: Sagittal FLAIR images, axial T2-weighted images, axial FLAIR images, axial susceptibility weighted images, axial T1-weighted images. Additionally, axial diffusion-weighted images were obtained with calculated apparent diffusion coefficients. Additionally, sagittal, coronal, and axial T1-weighted images were obtained after contrast enhancement with a gadolinium-based intravenous contrast agent. FINDINGS: HEMORRHAGE/INFARCT: There is no hemorrhage or acute infarct. MASSES/SHIFT: There is no mass or shift. EXTRA-AXIAL SPACES/MENINGES: There are no extra-axial fluid collections. SULCI AND VENTRICLES: The sulci and ventricles are normal in size and position for the patient's stated age. CEREBRUM: There are no focal parenchymal abnormalities. BRAINSTEM: There are no focal parenchymal abnormalities. CEREBELLUM: There are no focal parenchymal abnormalities. The cerebellar tonsils are normal in size and position. SELLA: The sella is normal. PINEAL: The pineal region is clear. CP ANGLE/TEMPORAL BONES: The labyrinthine structures are grossly normal. VESSELS: Normal flow-voids are noted within the visualized vertebral vasculature. DIFFUSION ABNORMALITIES: There are no diffusion abnormalities. PARANASAL SINUSES/MASTOIDS: The paranasal sinuses are clear. ORBITS: The orbits are unremarkable. BONES AND SOFT TISSUE: No bone or soft tissue abnormalities are noted. OTHER: There is no abnormal enhancement. IMPRESSION: NORMAL BRAIN. NO ABNORMAL ENHANCEMENT.
[2016-11-20] MEDS: Gabapentin CAP(*) 300 MG PO SCH (08:39)
[2016-11-20] MEDS: Ramipril CAP* 5 MG PO SCH (08:39)
[2016-11-20] MEDS: Rivaroxaban TAB(*) 10 MG PO SCH (08:39)
[2016-11-20] MEDS: Docusate CAP* 100 MG PO SCH (08:39)
--- NOTE | 2016-11-20 21:33 | DS ---
CC: Dr. Dejesus; Dr. Smith REHABILITATION DISCHARGE SUMMARY: DATE OF ADMISSION: 11/12/16 DATE OF DISCHARGE: 11/20/16 PRIMARY CARE PROVIDER: Dr. Dejesus. NEUROLOGIST: Dr. Smith. REASON FOR ADMISSION: Guillain-[place] syndrome. HISTORY OF PRESENT ILLNESS: For full details of her acute hospitalization leading up to her admission, please see the note dictated by Dr. Broussard on 03/24. HOSPITAL COURSE: During her time on the PMRU, she was noted to have an itchy rash in the palms of her hands and also some areas behind her ears and on her buttocks. She was seen by Infectious Disease and it was felt that this possibly was scabies. The patient refused to have any skin scrapings or punch biopsy and so was treated empirically with ivermectin with resolution of the symptoms and rash. She had elevated blood pressure, which was also part of her past medical history but was not currently on any medications. After consultation with her primary care provider, she was started on ramipril 10 mg daily with improvement. She was titrated up on gabapentin to treat some neck and neuropathic pain mostly around her head and neck area. She was also given methocarbamol on an as needed basis with improvement. On 11/18/16, she felt that her body was twitching and she was having jerking type movements and was having difficulty moving her right side. She was seen by Dr. Smith and MRI of the brain was ordered. She actually got better after receiving Ativan. The MRI was ultimately done on 11/20/16 and was normal. Her symptoms normalized and on the day of discharge, she was independent with mobility and self-care. She participated well with physical therapy. At the time of discharge, she was independent with bed mobility, transfers with or without an assistive device, and ambulation for 150 feet using bilateral forearm platform walker. She is independent climbing 12 stairs with no rails. She has a home exercise program with illustrated copy. She also participated with occupational therapy and at the time of this discharge is independent eating and bathing, although it is recommended the first 2 or 3 showers be supervised. She is independent with dressing in a seated position and can stand with a supportive surface in front of her if needed. She is independent with toileting and toilet hygiene. She is independent at a wheelchair level for home management and cooking. She can stand for short periods of time at a counter as tolerated. She should have some assistance with washing dishes. DISCHARGE MEDICATIONS: 1. Acetaminophen 650 mg q.6 hours p.r.n. 2. Artificial tears Lacri-Lube apply to the right eye q.4 hours p.r.n. 3. Tums 1000 mg p.o. 4 times a day p.r.n. 4. Colace 100 mg b.i.d. 5. Cymbalta 120 mg q.p.m. 6. Gabapentin 600 mg t.i.d. 7. Ativan 0.5 mg q.8 hours p.r.n. anxiety. She was only given 10 tablets as she needs further treatment. She is to get that from her primary care provider. 8. Methocarbamol 750 mg t.i.d. p.r.n. muscle spasm. 9. Naproxen 500 mg p.o. q.12 hours p.r.n. 10. ramipril 5mg p.o. daily. 11. Senna 2 tablets p.o. q.h.s. p.r.n. constipation. DISCHARGE CONDITION: Good. DISCHARGE DISPOSITION: Home with family support. 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 2. Fibromyalgia. 3. John's palsy. 4. Hypertension. 5. Scabies. FOLLOWUP: 1. A referral has been sent for [facility] for retirement, physical therapy and occupational therapy. 2. She is to follow up with Dr. Dejesus and Dr. Smith in 1 to 2 weeks. 3. She was given a work note until at least 12/07/16, pending those evaluations. She has been advised not to drive until she is cleared by a physician. [id number]/[facility] #: [id number] [facility]
== END 2016-11-20 11:00 | disposition home or self-care (01) | DRG 96 ==
LOC: PMRU 15:48
PROVIDERS: ADMIT Physical Medicine & Rehabilitation; ATTEND Physical Medicine & Rehabilitation
PROC: F07Z5ZZ Bed Mobility Treatment (ICD-10-PCS; principal; 2016-11-12)
PROC: F07Z8ZZ Transfer Training Treatment (ICD-10-PCS; 2016-11-12)
PROC: F07Z9ZZ Gait Training/Functional Ambulation Treatment (ICD-10-PCS; 2016-11-12)
PROC: F07Z4ZZ Wheelchair Mobility Treatment (ICD-10-PCS; 2016-11-12)
PROC: F08Z0ZZ Bathing/Showering Techniques Treatment (ICD-10-PCS; 2016-11-12)
PROC: F08Z1ZZ Dressing Techniques Treatment (ICD-10-PCS; 2016-11-12)
PROC: F08Z3ZZ Feeding/Eating Treatment (ICD-10-PCS; 2016-11-12)
DX: G61.0 Guillain-Barre syndrome (principal); I10 Essential (primary) hypertension; B86 Scabies; G51.0 Bell's palsy; E55.9 Vitamin D deficiency, unspecified; M79.7 Fibromyalgia; K12.0 Recurrent oral aphthae; Z88.6 Allergy status to analgesic agent; Z88.2 Allergy status to sulfonamides
CPT/HCPCS: 36415; 70553; 80053; 85025; A9270-GY; A9579

== ENCOUNTER 2017-03-29 07:34 | Emergency (ER) | payer OTHER ==
[2017-03-29 08:15] VITALS: BP 123/82
--- NOTE | 2017-03-29 09:14 | RAD ---
Indication: Posterior LEFT knee pain following injury. Comparison: September 24, 2016 Technique: LEFT knee: AP, tunnel, lateral, sunrise views. Report: Mild osteophytosis. No significant joint space narrowing evident. Small suprapatellar joint effusion. Negative for fracture or malalignment. Unremarkable soft tissue contours. IMPRESSION: 1. Small suprapatellar joint effusion similar to the prior exam. 2. Negative for fracture. 3. Kellgren and Cristobal grade 1 osteoarthritis.
--- NOTE | 2017-03-29 09:58 | UC ---
Joon Pepe Salem, scribed for CorinnaJasiel herron MD on 03/29/17 at 0833 . Lower Extremity/Ankle HPI - HPI Summary HPI Summary: In Room note: Patient is a 46 y/o female who presents to the with left knee pain since yesterday. Pt developed Guillain Quincy at the end of October 2016. She reports it was mostly localized facially and in her right leg, but resolved. She states she was walking yesterday, heard a snapping, and experienced pain on the medial and back side of her left knee. Pain is worse with bending and use of the LLE. She describes the pain as a 7/10 aching pain. Pt denies any recent trauma to the knee, but reports sitting in a car for an extended period of time. note: VSS. Bp slightly elevated, secondary probably to pain, 7/10 pain, left knee, nonsmoker; fibromyalgia, IT syndrome, Guillain Quincy, January 2017 physical therapy for Guillain Quincy and balance problems. XRAY shows osteoarthritic changes mild in the hips, MRI confirm osteoarthritis of the right hip. Hx of asthma. Nurses note: pt has guillian berre' syndrome. 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 Yesterday, she was in the car for some time and after she started to walk and the left knee gave out and she heard a "snap". pt states she has a bakers cyst on the back of the left knee as well. - History of Current Complaint Chief Complaint: UCLowerExtremity Stated Complaint: KNEE INJURY Time Seen by Provider: 03/29/17 08:04 Hx Obtained From: Patient Hx Last Menstrual Period: 03/17/17 Onset/Duration: Gradual Onset, Lasting Days, Still Present Pain Intensity: 7 Pain Scale Used: 0-10 Numeric Aggravating Factor(s): Standing, Ambulation Alleviating Factor(s): Rest Able to Bear Weight: No - Allergies/Home Medications Allergies/Adverse Reactions: Allergies Allergy/AdvReac Type Severity Reaction Status Date / Time Sulfa Drugs Allergy Intermediate Rash And Verified 03/29/17 08:16 Itching Flurbiprofen [From Ansaid] Allergy See Comment Verified 03/29/17 08:16 Home Medications: Home Medications celeCOXIB CAP* [CeleBREX CAP*] 200 mg PO DAILY 03/29/17 [History Confirmed 03/29] PMH/Surg Hx/FS Hx/Imm Hx Endocrine History Of: Denies: Diabetes, Thyroid Disease Cardiovascular History Of: Reports: Hypertension - off and on Denies: Cardiac Disorders, Pacemaker/ICD Respiratory History Of: Reports: Asthma - PRN inhalers Denies: COPD GI/ History Of: Reports: Ulcer Neurological History Of: Reports: Migraine Denies: TIA, Seizures Psychological History Of: Reports: Anxiety, Depression Cancer History Of: Denies: Breast Cancer - Surgical History Surgical History: Yes Surgery Procedure, Year, and Place: BILAT BREAST REDUCTION 2000;. LAPAROTOMY FOR PID AGE 16;. LAPROSCOPIC FOR ENDOMETRIOSIS AND SCAR TISSUE; - Family History Known Family History: Positive: Hypertension, Diabetes, Other - Stroke ( grandfather), Breast CA. Negative: Cardiac Disease - Social History Alcohol Use: None Substance Use Type: None Smoking Status (MU): Never Smoked Tobacco - Immunization History Most Recent Influenza Vaccination: never Most Recent Tetanus Shot: 2007 Most Recent Pneumonia Vaccination: never Review of Systems Constitutional: Negative Musculoskeletal: Other: - Left knee pain. All Other Systems Reviewed And Are Negative: Yes Physical Exam Triage Information Reviewed: Yes Appearance: Well-Appearing, Pain Distress, Obese Vital Signs: Initial Vital Signs Temp 98.3 F 03/29/17 08:09 Resp 20 03/29/17 08:09 BP 123/82 03/29/17 08:09 Pulse Ox 97 03/29/17 08:09 Vital Signs Reviewed: Yes Eyes: Positive: Conjunctiva Clear ENT: Positive: Hearing grossly normal, Pharynx normal, TMs normal. Negative: Muffled/hoarse voice Neck: Positive: Supple, No Lymphadenopathy Respiratory: Positive: Chest non-tender, Lungs clear, Normal breath sounds, No respiratory distress Cardiovascular: Positive: RRR, No Murmur Abdomen Description: Positive: Nontender, No Organomegaly, Soft Bowel Sounds: Positive: Present Musculoskeletal: Positive: Other: - WALKS WITH A LIMB. LEFT KNEE: NO SIGNIFICANT INFRAPATELLAR SWELLING, SLIGHT FULLNESS TO MEDIAL ASPECT OF PATELLA. NEGATIVE ANTERIOR DRAWER SIGN. NO GROSS INSTABILITY, ACHILLES TENDON INTACT. MILD DISCOMFORT LATERALLY. NO JOINT LINE TENDERNESS OVER MEDIAL MENISCUS. DISCOMFORT OVER POSTERIOR HAMSTRING TENDONS MEDIALLY AND DISCOMFORT IN AREA OF THE PES ANSERINE BURSA. THERE IS PAIN TO PALPATION APPROXIMATELY 8CM INFERIOR TO THE MEDIAL PATELLA ON THE TIBIA. Neurological: Positive: Alert Psychological: Positive: Age Appropriate Behavior Skin: Negative: rashes Diagnostics - Radiology LEFT KNEE Radiology Interpretation Completed By: Radiologist - IMPRESSION: 1. Small suprapatellar joint effusion similar to the prior exam. 2. Negative for fracture. 3. Kellgren and Cristobal grade 1 osteoarthritis. Re-Evaluation - Re-Evaluation First Eval Re-Evaluation Time: 09:31 Comment: Informed pt of imaging result and of plan. Lower Extremity Course/Dx - Course Course Of Treatment: Medications have been included in the original chart and reviewed. Differential dx: fracture vs soft tissue injury vs bursitis. I discussed with pt her arthritis and that this I probably soft tissue injury. Medial collateral ligament, bursa medially, pes anserinus pain syndrome. In any case, she will use an immobilizer and heat and follow up with a probable MRI and tx as needed. Patient is Urgent/Emergent. BP elevated due to current condition w/o HTN in PMH. - Differential Dx/Diagnosis Provider Diagnoses: Fibromyalgia. Left knee pain: soft tissue injury (medial collateral ligament, hamstrings, other), medial bursitis. Discharge - Discharge Plan Condition: Stable Disposition: HOME Patient Education Materials: Knee Bursitis (ED), Hamstring Injury (ED) Referrals: Eitan Dejesus MD [Primary Care Provider] - Additional Instructions: Thank you for helping us improve patient care by filling out the My Point Survey. WE DISCUSSED: This is a soft tissue injury (ligament or hamstring) or bursitis. These are treated similarly. Rest, heat, restrict activity. MRI as you have planned. Physical therapy. Further evaluation and treatment as needed. Re check at any time for any questions or concerns. The documentation as recorded by the Joon peters Salem accurately reflects the service I personally performed and the decisions made by me, Jasiel Rosenberg MD.
== END 2017-03-29 10:01 | disposition home or self-care (01) ==
LOC: UCEAST 07:34
DX: M79.7 Fibromyalgia (principal); G61.0 Guillain-Barre syndrome; M70.52 Other bursitis of knee, left knee; M71.22 Synovial cyst of popliteal space [Baker], left knee; I10 Essential (primary) hypertension; J45.909 Unspecified asthma, uncomplicated; G43.909 Migraine, unspecified, not intractable, without status migrainosus; F41.9 Anxiety disorder, unspecified; F32.9 Major depressive disorder, single episode, unspecified; Z88.3 Allergy status to other anti-infective agents; Z79.1 Long term (current) use of non-steroidal anti-inflammatories (NSAID)
CPT/HCPCS: 99212; G0463

== ENCOUNTER → 2017-04-03 09:00 | Emergency (ER) | payer OTHER ==
--- NOTE | 2017-04-03 09:31 | ED ---
Lower Extremity - HPI Summary HPI Summary: 47F presents with left knee pain for a week. She was walking when she felt a pop in the medial aspect of her left knee. She states the knee feels unstable. She denies any previous injury to the knee. she has been taking celexa for the pain. She states over the past 3 days the pain has been getting worst. She has an MRI set for Wednesday. She saw dr mcleod for follow up for ortho. She has been using a cane and a brace on the knee. She was on prednisone but stopped it three days ago. - History of Current Complaint Chief Complaint: EDExtremityLower Stated Complaint: LEFT KNEE PAIN Time Seen by Provider: 04/03/17 09:10 Hx Last Menstrual Period: 03/17/17 Pain Intensity: 5 - Allergies/Home Medications Allergies/Adverse Reactions: Allergies Allergy/AdvReac Type Severity Reaction Status Date / Time [place] Flavor Allergy Severe Swelling Verified 04/03/17 09:09 Of Face,Lips,& Throat Sulfa Drugs Allergy Intermediate Rash And Verified 04/03/17 09:09 Itching Flurbiprofen [From Ansaid] Allergy See Comment Verified 04/03/17 09:09 PMH/Surg Hx/FS Hx/Imm Hx Endocrine/Hematology History: Denies: Hx Diabetes, Hx Thyroid Disease, Hx Anemia Cardiovascular History: Reports: Hx Hypertension - off and on - ON MEDS Denies: Hx Pacemaker/ICD Respiratory History: Reports: Hx Asthma - PRN inhalers Denies: Hx Chronic Obstructive Pulmonary Disease (COPD) GI History: Reports: Hx Ulcer Denies: Hx Jaundice History: Denies: Hx Renal Disease Musculoskeletal History: Reports: Hx Fibromyalgia, Other Musculoskeletal History - carpal tunnel to both wrist, bilat elbows Sensory History: Reports: Hx Contacts or Glasses - reading Denies: Hx Hearing Aid Opthamlomology History: Reports: Hx Contacts or Glasses - reading Neurological History: Reports: Hx Headaches, Hx Migraine, Other Neuro Impairments/Disorders - FIBROMIALGIA Denies: Hx Seizures, Hx Transient Ischemic Attacks (TIA) Psychiatric History: Reports: Hx Anxiety, Hx Depression Denies: Hx Panic Disorder - Cancer History Hx Chemotherapy: No Hx Radiation Therapy: No - Surgical History Surgery Procedure, Year, and Place: BILAT BREAST REDUCTION 2000;. LAPAROTOMY FOR PID AGE 16;. LAPROSCOPIC FOR ENDOMETRIOSIS AND SCAR TISSUE; Infectious Disease History: No Infectious Disease History: Denies: Hx Hepatitis, Hx Human Immunodeficiency Virus (HIV), History Other Infectious Disease, Traveled Outside the [place] in Last 30 Days - Family History Known Family History: Positive: Hypertension, Diabetes, Other - Stroke ( grandfather), Breast CA. Negative: Cardiac Disease - Social History Alcohol Use: None Substance Use Type: Reports: None Smoking Status (MU): Never Smoked Tobacco Review of Systems Negative: Fever Negative: Chest Pain Negative: Shortness Of Breath Positive: Myalgia - knee pain All Other Systems Reviewed And Are Negative: Yes Physical Exam Triage Information Reviewed: Yes Vital Signs On Initial Exam: Initial Vitals Temp Pulse Resp BP Pulse Ox 97.2 F 91 18 136/86 99 04/03/17 09:01 04/03/17 09:01 04/03/17 09:01 04/03/17 09:01 04/03/17 09:01 Vital Signs Reviewed: Yes Appearance: Positive: Well-Appearing Skin: Positive: Warm, Dry Head/Face: Positive: Normal Head/Face Inspection Eyes: Positive: Normal, Conjunctiva Clear Respiratory/Lung Sounds: Positive: Clear to Auscultation, Breath Sounds Present Cardiovascular: Positive: Normal, RRR Musculoskeletal: Positive: Limited @ - knee due to pain, Other - good pulses, capillary refill < 2 secs, tender over medial aspect of knee Diagnostics - Vital Signs Vital Signs Temp Pulse Resp BP Pulse Ox 04/03/17 09:01 97.2 F 91 18 136/86 99 - Laboratory Lab Statement: Any lab studies that have been ordered have been reviewed, and results considered in the medical decision making process. Lower Extremity Course/Dx - Course Course Of Treatment: 47F presents with left knee pain for a week. felt give out a week ago. has Mri scheduled for wednesday which discussed can not do today. has tenderness on medial aspect so suspect MCL or mensicus injury. discussed will restart prednisone packet. patient understands and agrees with plan - Diagnoses Differential Diagnosis/HQI/PQRI: Positive: Fracture (Closed), Sprain, Strain Provider Diagnoses: Left knee pain Discharge - Discharge Plan Condition: Good Disposition: HOME Prescriptions: Methylprednisolone [Medrol Dosepak 4 MG*] 4 mg PO .SEE ALEXIS INSTRUCTION #1 packet Patient Education Materials: Knee Pain (ED) Referrals: Eitan Dejesus MD [Primary Care Provider] - Additional Instructions: Follow directions on package for Medrol pack Use Celexa as prescribed ice area, keep brace on area, keep off joint as much as possible Follow up with ortho as scheduled Return to ED if develop any new or worsening symptoms
[2017-04-03 10:17] VITALS: BP 125/92
== END | disposition home or self-care (01) ==
LOC: ED 09:00
DX: M25.562 Pain in left knee (principal); Z88.2 Allergy status to sulfonamides; M79.7 Fibromyalgia
CPT/HCPCS: 99282

== ENCOUNTER 2017-04-20 11:20 | Day surgery (SDC) | payer OTHER ==
[~2017-04-20 11:20] MED LIST: Buffered Lidocaine 0.9% SYRIN* 5 ML/SYR SYRINGE INTRADERM ONE
[2017-04-20] MEDS ORDERED: Buffered Lidocaine 0.9% SYRIN* 5 ML/SYR SYRINGE ONE (11:21)
[2017-04-20] MEDS ORDERED: ceFAZolin 2 GM PREMIX(*) 2 GM/50 ML BAG IVPB ONE (11:21)
[2017-04-20 11:48] LABS: Manual Entry Verification HAN0055; UR Preg Internal Control QC Line Present
[2017-04-20] MEDS ORDERED: EPINEPHrine AMP 1 MG/ML ONE (12:21)
[2017-04-20] MEDS ORDERED: methylPREDNISolone ACETATE 80* 80 MG/ML 1 ML VIAL ONE (12:21)
[2017-04-20] MEDS ORDERED: Bupivacaine 0.5% SDV PF* 30 ML VIAL ONE (12:22)
[2017-04-20] MEDS ORDERED: Midazolam* 1 MG/ML 5 ML VIAL (5 MG) ONE (12:56)
[2017-04-20] MEDS ORDERED: Metoclopramide IV* 5 MG/ML 2 ML VIAL ONE (12:56)
[2017-04-20] MEDS ORDERED: Scopolamine 1.5 mg* PATCH ONE (12:57)
[2017-04-20] MEDS ORDERED: Propofol* 10 MG/ML 20 ML BTL IV PUSH ONE (13:47)
[2017-04-20] MEDS ORDERED: Dexamethasone IV* 4 MG/ML 1 ML (4 MG) ONE (13:47)
[2017-04-20] MEDS ORDERED: fentaNYL* 50 MCG/ML 2 ML VIAL (100 MCG VIAL) ONE ×3 (13:47→15:08)
[2017-04-20] MEDS ORDERED: DiMENhydriNATE IV* 50 MG/ML VIAL IV PUSH PRN (14:44)
[2017-04-20] MEDS ORDERED: oxyCODONE/Acetamin 5/325 MG* TAB PO PRN (14:44)
[2017-04-20] MEDS ORDERED: HYDROcodone/ACETAMIN 5-325 MG* 1 TAB PO PRN (14:44)
[2017-04-20] MEDS ORDERED: Ondansetron INJ* 2 MG/ML VIAL IV PRN (14:44)
[2017-04-20] MEDS ORDERED: Ketorolac INJ* 30 MG/ML 1 ML VIAL ONE (14:45)
[2017-04-20] MEDS ORDERED: Ondansetron INJ* 2 MG/ML VIAL ONE (14:45)
[2017-04-20] MEDS: fentaNYL* 50 MCG/ML 2 ML VIAL (100 MCG VIAL) IV PRN ×4 (15:08→15:32)
[2017-04-20] MEDS ORDERED: HYDROmorphone* 1 MG/ML 1 ML SYR ONE (15:20)
[2017-04-20] MEDS: HYDROmorphone* 1 MG/ML 1 ML SYR IV PRN ×5 (15:22→15:48)
[2017-04-20] MEDS ORDERED: HYDROcodone/ACETAMIN 5-325 MG* 1 TAB ONE (16:15)
[2017-04-20 16:52] VITALS: BP 130/97
--- NOTE | 2017-04-21 04:31 | OP ---
DATE OF OPERATION: 04/20/17 [facility] DATE OF : 68 ATTENDING SURGEON: Luci Hancock MD SERVICE TRANSFORMER REPAIR SUPERVISOR: BANDAR Putnam. Landen Nel did help throughout the procedure with preparation of the leg, instrument manipulation, manipulation of the leg and wound closure. ANESTHESIOLOGIST: Dr. Kim. ANESTHESIA: General. PRE-OP DIAGNOSES: Left knee medial meniscal tear, osteoarthritis. POST-OP DIAGNOSES: Left knee medial meniscal tear, severe tricompartmental osteoarthritis. OPERATIVE PROCEDURE: Left knee arthroscopy with partial medial meniscectomy, patellofemoral chondroplasty, lateral chondroplasty. ESTIMATED BLOOD LOSS: Less than 25 cc. COMPLICATIONS: None. SPECIMEN: None. BRIEF HISTORY/INDICATIONS: Ms. Elizabeth is a 47-year-old female with a twisting injury to her left knee several months ago. Since that time, she has failed conservative treatment with the use of the cane, intra-articular injection, anti - inflammatories and physical therapy. MRI confirmed a medial meniscal tear. Mild to moderate arthritic changes were noted on plain x-rays and MRI as well. The patient and I discussed the risks and benefits of arthroscopy with partial medial meniscectomy, possible chondroplasty, possible synovectomy. She understood that arthritic pain would continue in the future, but she wished to proceed with the arthroscopy. Informed consent was obtained from the patient. She understood the risks and procedure included, but were not limited to bleeding, infection, damage to nearby structures, continued pain, need for further surgery, stroke, heart attack, blood clot and . She wished to proceed. INTRAOPERATIVE FINDINGS: Intraoperatively, the patient was noted to have a complex type tear of the posterior one third of the medial meniscus involving the white-red zone. She was noted to have severe grade 3 and 4 Outerbridge cartilage changes in all 3 compartments with cartilage flapping along the medial femoral condyle, lateral femoral condyle and patellofemoral compartment. DESCRIPTION OF PROCEDURE: Ms. Elizabeth was identified in the preanesthesia unit. Her left lower extremity was marked as the correct operative side. Informed consent was signed and placed in the chart. The patient was taken to the operating room and placed under general anesthesia. Left lower extremity was prepped and draped in the usual sterile fashion. Preop time-out was made to correctly identify the patient's side and site. Appropriate perioperative antibiotics were given within 1 hour of incision. A standard 0.5 cm anterolateral portal was made with a 15 blade. Trocar was introduced. Light and water sources were turned on. There was immediate visualization of the suprapatellar pouch. A tour of the knee joint was performed. Patellofemoral compartment had exposed subchondral bone along the medial and lateral patellar facet as well as along the trochlear groove. These were grade 3 and 4 Outerbridge cartilage changes, which were severe. Medial gutter showed no loose body. There were some synovitis. Medial compartment showed large amount of cartilage flapping and exposed subchondral bone along the medial femoral condyle. This was grade 3 and 4 Outerbridge cartilage changes. A posterior medial meniscus tear was visualized. ACL appeared to be intact. Knee was placed in a figure-of- four position and there was no obvious lateral meniscal tear. There was a large amount of cartilage flapping and exposed subchondral bone along the lateral femoral condyle. Lateral gutters showed no loose body or plica. Under direct visualization, a medial portal incision was made. Shaver and radiofrequency ablation wand were increased to reduce some soft tissue anteriorly for better visualization. A straight biter was used to perform partial medial meniscectomy in the white-red zone of the posterior portion of the medial meniscus. This was a complex type degenerative tear involving the posterior one-third of the medial meniscus. Shaver was used and a smooth border was obtained. Radiofrequency ablation wand was used to perform chondroplasty along the medial femoral condyle, patellar facets, trochlear groove and the lateral femoral condyle. Any cartilage flaps or tears were smoothed at the edges. The shaver was placed in the suprapatellar pouch and the knee was copiously irrigated with sterile saline. All instruments were carefully removed. Incisions were closed with 3-0 nylon suture. Intra-articular injection of 80 mg of Depo- Medrol and 6 cc 0.25% Marcaine was placed in the knee joint. Sterile Xeroform, 4x4s, and Webril were placed over the incisions. Pa wrap and cold pack were placed over this. Anesthesia was reversed without difficulty. She was taken to the PACU in stable condition. Intended weightbearing will be weightbearing as tolerated. Intended DVT prophylaxis will be aspirin. [id number]/[facility] #: [id number] [facility]
== END 2017-04-20 16:54 | disposition home or self-care (01) ==
LOC: OR 11:20
PROVIDERS: ATTEND Orthopaedic Surgery Adult Reconstructive Orthopaedic Surgery
DX: S83.249A Other tear of medial meniscus, current injury, unspecified knee, initial encounter (principal); X50.0XXA Overexertion from strenuous movement or load, initial encounter; Y92.9 Unspecified place or not applicable; M17.12 Unilateral primary osteoarthritis, left knee; J45.909 Unspecified asthma, uncomplicated; Z68.36 Body mass index [BMI] 36.0-36.9, adult; F41.8 Other specified anxiety disorders
CPT/HCPCS: 81025; A9270-GY; J0171; J0690; J1040; J1100; J1170; J1885; J2250; J2405; J2704; J3010

== ENCOUNTER 2017-12-16 09:40 | Day surgery (SDC) | payer OTHER ==
[~2017-12-16 09:40] MED LIST changes: +DiMENhydriNATE IV* 50 MG/ML VIAL IV PUSH PRN; +Famotidine IV* 10 MG/ML 2 ML (20 mg) IV ONE; +Morphine INJ* 2 MG/ML 1 ML CARPUJECT IV PRN; +Naloxone* 0.4 MG/ML 1 ML VIAL IV PRN; +PROCHLORPERAZINE INJ 5 MG/ML 2 ML VIAL IV PRN; +Scopolamine 1.5 mg* PATCH TRANSDERM ONE; +oxyCODONE/Acetamin 5/325 MG* TAB PO PRN
[2017-12-16] MEDS ORDERED: ceFAZolin 2 GM PREMIX (*) 0 GM/0 ML BAG IVPB ONE (09:53)
[2017-12-16] MEDS ORDERED: Famotidine IV* 10 MG/ML 2 ML (20 mg) ONE (09:53)
[2017-12-16] MEDS ORDERED: Scopolamine 1.5 mg* PATCH ONE ×2 (09:53→12:58)
[2017-12-16] MEDS ORDERED: Buffered Lidocaine 0.9% SYRIN* 5 ML/SYR SYRINGE ONE (09:53)
[2017-12-16] MEDS ORDERED: fentaNYL* 50 MCG/ML 2 ML VIAL (100 MCG VIAL) ONE ×2 (09:57→14:10)
[2017-12-16] MEDS ORDERED: Midazolam* 1 MG/ML 10 ML VIAL (10 MG) ONE (09:57)
[2017-12-16] MEDS ORDERED: KETAMINE HCL* 50 MG/ML 10 ML VIAL ONE (09:57)
[2017-12-16] MEDS ORDERED: ceFAZolin 2 GM PREMIX (*) 2 GM/50 ML BAG IVPB ONE (10:56)
[2017-12-16] MEDS ORDERED: Gabapentin CAP(*) 300 MG ONE (10:57)
[2017-12-16] MEDS ORDERED: Lidocaine 2% PF * 5 ML VIAL ONE ×2 (11:05→12:58)
[2017-12-16] MEDS ORDERED: Lidocaine 1% INJ* 10 MG/ML 30 ML SDV ONE (11:05)
[2017-12-16] MEDS ORDERED: Triamcinolone Acetonide* 40 MG/ML 1 ML VIAL ONE (11:05)
[2017-12-16] MEDS ORDERED: PREMIX* 0 ML with Acetaminophen IV 1GM/100ML * 1,000 MG IVPB ONE ×2 (11:30)
[2017-12-16] MEDS ORDERED: Ondansetron INJ* 2 MG/ML VIAL ONE (12:58)
[2017-12-16] MEDS ORDERED: EPHEDrine (Pressors)* 50 MG/ML VIAL ONE (12:58)
[2017-12-16] MEDS ORDERED: Dexamethasone IV* 4 MG/ML 1 ML (4 MG) ONE (12:58)
[2017-12-16] MEDS ORDERED: Propofol* 10 MG/ML 20 ML BTL IV PUSH ONE (12:58)
[2017-12-16] MEDS ORDERED: Ketorolac INJ* 30 MG/ML 1 ML VIAL ONE (12:58)
[2017-12-16] MEDS ORDERED: Phenylephrine INJ* 10 MG/ML 1 ML VIAL (10 MG) ONE (12:58)
[2017-12-16] MEDS ORDERED: Bupivacaine 0.25% SDV* 30 ML ONE (12:58)
[2017-12-16] MEDS ORDERED: PROCHLORPERAZINE INJ 5 MG/ML 2 ML VIAL ONE (12:58)
[2017-12-16] MEDS ORDERED: Lidocaine 2% PF* 10 ML AMP ONE (12:58)
[2017-12-16] MEDS: fentaNYL* 50 MCG/ML 2 ML VIAL (100 MCG VIAL) IV PRN ×2 (14:13→14:23)
--- NOTE | 2017-12-16 14:16 | OP ---
Operative Report - Blank - Operative Report Date of Operation: 12/16/17 Note: PATIENT: Javad Lizama DATE OF : 1970 DATE OF SURGERY: 12/16/2017 SURGEON: Chavez El MD IDEA WORKER: BANDAR Mora, whos assistance was necessary for positioning, retraction, help with instrumentation, and closure. 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 Left knee osteoarthritis. 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 Left knee osteoarthritis. OPERATION: 1. Right 5th metatarsal fracture open reduction and internal fixation. 2. Autogenous bone grafting of the fracture with right iliac crest bone graft. 3. Left knee intraarticular corticosteroid injection ANESTHESIA: GETA + popliteal nerve block IMPLANTS: Arthrex 4.5mm Rojo Fracture Screw, 50 mm in length. TOURNIQUET TIME: none SPECIMENS: none ESTIMATED BLOOD LOSS: minimal COMPLICATIONS: none STATUS: Stable from the operating room to the recovery room and then home. INDICATIONS FOR PROCEDURE: Javad has a painful right 5th metatarsal nonunion as well as left knee osteoarthritis. Both operative and non operative treatment alternatives were reviewed. Further, the nature and risks of surgery were reviewed in careful detail, in the office as well as the pre-operative holding area. Our discussions regarding the risks of surgery included, but were not limited to, infection, wound problems, nerve injury, neuroma, RSD, persistent symptoms, blood clot, nonunion, malunion, hardware failure, failure of the surgery, and even the remote chance of catastrophic complication, including loss of limb. DESCRIPTION OF PROCEDURE: The patient was seen in the preoperative holding unit and informed written consent was obtained. The appropriate extremity was marked. The patient was then brought to the operating room and carefully positioned on the operating room table. Anesthesia was induced. All bony prominences were padded with great care. A chlorhexidine based pre-scrub was performed followed by a chloraprep prep and drape in standard sterile fashion. A surgical safety pause was then conducted in which we confirmed the appropriate patient, extremity, planned procedure, availability of equipment, indication and administration of prophylactic antibiotics, and DVT prophylaxis in the form of a compression boot on the non-surgical extremity. the left knee was prepped with chloraprep and a 22-gauge needle was used to inject a mixture of 40 mg of Kenalog and 4cc of 2% lidocaine into the left knee joint through the standard anterolateral knee. Arthroscopy portal. There is no resistance to flow. The injection site was cleaned and covered with a sterile bandage afterwards. I then turned my attention to the right foot. I began by fluoroscopically identifying the course of the fifth metatarsal. I then made an approximately 1cm incision in line with the fifth metatarsal, approximately 2cm proximal to the base. I carefully spread down to the base of the fifth metatarsal with great care taken to protect the branches of the sural nerve. I then placed a guidewire that was intramedullary that was carefully positioned along the course of the fifth metatarsal. I confirmed the position of the guidewire utilizing multiple views. The depth of the guidewire was measured. I then overdrilled the guidewire utilizing a 3.5mm cannulated drill. I used a drill sleeve to protect the soft tissues throughout the procedure. I then removed the drill and tapped. The tap had great purchase. I again measured the length of the screw from the tap. I then removed the tap and guidewire and placed the solid 4.5mm screw. This had excellent purchase and an excellent bite on the fifth metatarsal. The wound was then copiously irrigated and closed in layers utilizing 3-0 Monocryl and 3-0 nylon suture. Attention was then turned to the right iliac crest which had been previously prepped and draped in a standard fashion. A small amount of Marcaine with epinephrine was placed in the subcutaneous tissues and then also used to anesthetize the periosteum and the soft tissues over the ASIS. Just posterior to the ASIS, a small stab incision using a 15 blade was made. A Jamshidi needle was then advanced being careful to stay centered on the iliac crest. This was advanced slowly and carefully through the superior cortex of the crest between the inner and outer tables of bone. Once this area had been reached, a heparinized syringe was used to remove 3cc of bone marrow aspirate. The stylet was then removed from the Jamshidi needle and multiple cores on bone graft were harvested from the iliac crest. The incision site for the bone graft was then copiously irrigated and closed in layers utilizing 3-0 Monocryl and 3-0 nylon. A sterile dressing was applied. Fluoroscopy was then utilized to make a 1cm incision at the fracture site. Blunt dissection was carried down to the fracture site while limiting periosteal stripping of the bone. Sclerotic fracture margins were excised. The bone graft mixed with bone marrow aspirate was then packed into the fracture site. The wound was then closed in layers utilizing 3-0 Monocryl and 3 -0 nylon. Final fluoroscopic images were obtained. A sterile dressing was then applied followed by a splint with the ankle in neutral position. The patient was then awakened from anesthesia and transferred to the recovery room in stable condition. There were no complications. All needle and sponge counts were correct at the end of the case. ATTESTATION: I attest I was present and scrubbed and performed the critical portions of the procedure myself. POSTOPERATIVE PLAN: The patient will remain [id number] for an anticipated duration of six weeks. Follow up will be in two weeks for likely suture removal and Steri-Strip application. We will plan to transition the patient into a tall Aircast boot at two weeks, and may begin gentle active range of motion of the ankle, avoiding inversion.
[2017-12-16 15:09] VITALS: BP 125/81
--- NOTE | 2017-12-16 17:39 | RAD ---
INDICATION: Right fifth metacarpal ORIF, S 92.354A COMPARISONS: December 10, 2017 TECHNIQUE: Fluoroscopy was provided for a surgical procedure. Total fluoroscopy time is: 144.9 seconds FINDINGS: Spot images demonstrate internal fixation of the right fifth metatarsal. IMPRESSION: FLUOROSCOPY WAS PROVIDED FOR A SURGICAL PROCEDURE CPT II Codes: 6045F
[2017-12-19] MEDS ORDERED: Scopolamine PATCH Remove* 1 NOTE MISC PATCH OFF ONE (06:00)
== END 2017-12-16 15:30 | disposition home or self-care (01) ==
LOC: OR 09:40
PROVIDERS: ATTEND Orthopaedic Surgery
DX: S92.351K Displaced fracture of fifth metatarsal bone, right foot, subsequent encounter for fracture with nonunion (principal); M17.12 Unilateral primary osteoarthritis, left knee; J45.909 Unspecified asthma, uncomplicated; G47.33 Obstructive sleep apnea (adult) (pediatric); F41.9 Anxiety disorder, unspecified; E66.01 Morbid (severe) obesity due to excess calories; W55 Contact with other mammals; Y92.79 Other farm location as the place of occurrence of the external cause
CPT/HCPCS: 76000; 81025; A9270-GY; C1713; J0690; J0780; J1100; J1885; J2001; J2250; J2405; J2704; J3010; J3301

== ENCOUNTER 2018-04-21 08:36 | Inpatient (IN) | payer OTHER ==
--- NOTE | 2018-04-08 21:36 | HP ---
AMENDED REPORT NOW INCLUDES COSIGNER DESIGNATION - ESIGNED BEFORE ADJUSTMENT HISTORY AND PHYSICAL: DATE OF SURGERY: 04/21/18 DATE OF OFFICE VISIT: 04/08/18 PRIMARY CARE PHYSICIAN: Eitan Dejesus MD SURGEON: Luci Hancock MD * (DICTATED BY BANDAR RITCHIE) PROCEDURE: Left total knee arthroplasty. CHIEF COMPLAINT: Left knee pain. HISTORY OF PRESENT ILLNESS: Ms. Lizama is a 48-year-old female with continued complaints of left knee pain. X-rays show [id number] arthritis in the medial compartment. She has failed conservative management and elected to proceed with a left total knee arthroplasty, which is scheduled for 04/21/[address] Hancock. PAST MEDICAL HISTORY: 1. Fibromyalgia. 2. Depression. 3. Anxiety. 4. Asthma. 5. Sleep apnea. 6. History of drug addiction. PAST SURGICAL HISTORY: 1. Left knee arthroscopy. 2. Bilateral breast reduction. 3. Laparotomy. 4. Laparoscopy. 5. ORIF of the right metatarsal. CURRENT MEDICATIONS: 1. Lidocaine patches as needed. 2. Cymbalta 120 mg daily. 3. Valerian root 100 mg 2 capsules as needed. 4. Ventolin inhaler as needed. 5. Methocarbamol 750 mg 3 times a day as needed. 6. Celebrex 200 mg twice a day. ALLERGIES: SULFA ANTIBIOTICS. FAMILY HISTORY: Coronary artery disease, cancer, and stroke. SOCIAL HISTORY: She is a 48-year-old female. She lives with her partner and son. She does not smoke, use drugs, or alcohol. REVIEW OF SYSTEMS: A complete 14-point review of systems was reviewed with the patient and negative for history of DVT, PE, hepatitis, HIV, or anesthesia problems. PHYSICAL EXAMINATION GENERAL: She is well developed, well nourished, in no acute distress. VITAL SIGNS: She stands 5 feet 7 inches tall, weighs 215 pounds. Her blood pressure is 118/78 and heart rate is 88. HEENT: Normocephalic, atraumatic. NECK: Supple. No palpable lymph nodes. PULMONARY: The lungs are clear to auscultation bilaterally. CARDIO: Regular rate and rhythm. Strong S1, S2. ABDOMEN: Soft, nontender, nondistended. NEUROLOGICAL: She is alert and oriented x3. Cranial nerves II through XII are intact. MUSCULOSKELETAL: Left lower extremity, the skin is intact. There are no open wounds or abrasions. There is a moderate joint effusion of the left knee. She has some tenderness along the medial joint line. Positive Apley's. 10 to 120 degrees of flexion with patellofemoral crepitus. 5/5 lower extremity strength. 2+ dorsalis pedis pulses and intact sensation. ASSESSMENT AND PLAN: Ms. Lizama is a 48-year-old female with continued complaints of left knee pain. X-rays confirm [id number] arthritis in the medial compartment. She has elected to proceed with a left total knee arthroplasty, which is scheduled for 04/21/[address] Hancock discussed the risks and benefits of the surgery at today's visit and all of her questions were answered. She will follow up with Dr. Hancock in 2 weeks after the surgery. BADNAR RITCHIE [id number]/[facility] #: [id number] DILLAN
[~2018-04-21 08:36] MED LIST changes: +Dexamethasone IV* 4 MG/ML 1 ML (4 MG) IV SLOW PU ONE; -DiMENhydriNATE IV* 50 MG/ML VIAL IV PUSH PRN; +Gabapentin CAP(*) 300 MG PO ONE; -Morphine INJ* 2 MG/ML 1 ML CARPUJECT IV PRN; -Naloxone* 0.4 MG/ML 1 ML VIAL IV PRN; -PROCHLORPERAZINE INJ 5 MG/ML 2 ML VIAL IV PRN; -Scopolamine 1.5 mg* PATCH TRANSDERM ONE; +celeCOXIB CAP* 200 MG PO ONE; -oxyCODONE/Acetamin 5/325 MG* TAB PO PRN
[2018-04-21] MEDS ORDERED: celeCOXIB CAP* 100 MG ONE (08:40)
[2018-04-21] MEDS ORDERED: Famotidine IV* 10 MG/ML 2 ML (20 mg) ONE (08:40)
[2018-04-21] MEDS ORDERED: Dexamethasone IV* 4 MG/ML 1 ML (4 MG) ONE (08:40)
[2018-04-21] MEDS ORDERED: ceFAZolin 2 GM PREMIX (*) 2 GM/50 ML BAG IVPB ONE (08:41)
[2018-04-21] MEDS ORDERED: Buffered Lidocaine 0.9% SYRIN* 5 ML/SYR SYRINGE ONE (08:41)
[2018-04-21] MEDS ORDERED: Gabapentin CAP(*) 300 MG ONE (08:41)
[2018-04-21] MEDS ORDERED: NS 0.9% IV ONE (10:00)
[2018-04-21] MEDS ORDERED: TRANEXAMIC ACID IV ONE (10:00)
[2018-04-21] MEDS ORDERED: Midazolam* 1 MG/ML 5 ML VIAL (5 MG) ONE (10:19)
[2018-04-21] MEDS ORDERED: fentaNYL* 50 MCG/ML 2 ML VIAL (100 MCG VIAL) ONE ×5 (10:19→14:55)
[2018-04-21] MEDS ORDERED: ROPIVACAINE 5 MG/ML 30 ML BTL (0.5%) ONE (10:31)
[2018-04-21] MEDS ORDERED: Bupivacaine 0.5% SDV PF* 30ML VIAL ONE (11:00)
[2018-04-21] MEDS ORDERED: Lidocaine 2% PF * 5 ML VIAL ONE (11:11)
[2018-04-21] MEDS ORDERED: Propofol* 10 MG/ML 20 ML BTL IV PUSH ONE (11:11)
[2018-04-21] MEDS ORDERED: KETAMINE HCL* 50 MG/ML 10 ML VIAL ONE (11:29)
[2018-04-21] MEDS ORDERED: Scopolamine 1.5 mg* PATCH TRANSDERM PRN (12:23)
[2018-04-21] MEDS ORDERED: oxyCODONE TAB* 5 MG TAB PO PRN (12:23)
[2018-04-21] MEDS ORDERED: Naloxone* 0.4 MG/ML 1 ML VIAL IV PRN (12:23)
[2018-04-21] MEDS ORDERED: Ondansetron INJ* 2 MG/ML VIAL IV PRN ×2 (12:23→13:50)
[2018-04-21] MEDS ORDERED: Acetaminophen IV 1GM/100ML * 1,000 MG/100 ML VIAL IVPB ONE (12:23)
[2018-04-21] MEDS ORDERED: Morphine INJ* 2 MG/ML 1 ML CARPUJECT IV PRN (12:23)
[2018-04-21] MEDS ORDERED: Labetalol IV* 5 MG/ML 20 ML VIAL ONE (12:25)
[2018-04-21] MEDS ORDERED: DiMENhydriNATE IV* 50 MG/ML VIAL ONE (12:47)
[2018-04-21] MEDS ORDERED: Magnesium Hydroxide LIQ* 30 ML UDC PO PRN (13:50)
[2018-04-21] MEDS ORDERED: Ondansetron TAB* 4 MG PO PRN (13:50)
[2018-04-21] MEDS ORDERED: diPHENhydraMINE IV* 50 MG/ML 1 ml VIAL (BENADRYL) IV PRN (13:50)
[2018-04-21] MEDS ORDERED: Polyethylene Glycol 3350* 17 GM PACKET PO PRN (13:50)
[2018-04-21] MEDS ORDERED: Bisacodyl SUPP* 10 MG SUPP PR PRN (13:50)
[2018-04-21] MEDS ORDERED: Acetaminophen IV 1GM/100ML * 100 ML ONE (14:06)
[2018-04-21] MEDS: fentaNYL* 50 MCG/ML 2 ML VIAL (100 MCG VIAL) IV PRN ×3 (14:09→15:16)
[2018-04-21] MEDS ORDERED: oxyCODONE TAB* 5 MG TAB ONE (14:55)
--- NOTE | 2018-04-21 15:11 | RAD ---
HISTORY: s/p left TKA COMPARISONS: March 11, 2018 VIEWS: 2, Frontal and lateral views of the left knee FINDINGS: BONE DENSITY: Normal. BONES: The patient is status post left knee arthroplasty. There is no hardware failure or osteolysis. JOINTS: The patient is status post left knee arthroplasty ALIGNMENT: There is no dislocation. SOFT TISSUES: There is post surgical change to the soft tissue. OTHER FINDINGS: None. IMPRESSION: STATUS POST LEFT KNEE ARTHROPLASTY.
[2018-04-21] MEDS: Cyclobenzaprine TAB* 10 MG PO PRN ×2 (17:59→22:43)
[2018-04-21] MEDS: Morphine VIAL* 4 MG/ML VIAL (1 ml vial) IV PRN ×2 (18:06→22:11)
[2018-04-21] MEDS: ceFAZolin 1 GM in Dextrose (*) 1 GM/50 ML BAG IVPB SCH (20:03)
[2018-04-21] MEDS: oxyCODONE TAB* 5 MG TAB PO PRN (20:15)
[2018-04-21] MEDS: Acetaminophen IV 1GM/100ML * 100 ML IVPB SCH (20:39)
[2018-04-21] MEDS: Aspirin TAB* 325 MG PO SCH (22:11)
[2018-04-21] MEDS: Docusate CAP* 100 MG PO SCH (22:11)
[2018-04-21] MEDS: Magnesium Hydroxide LIQ* 30 ML UDC PO SCH (22:11)
[2018-04-22] MEDS: oxyCODONE TAB* 5 MG TAB PO PRN ×6 (00:16→21:38)
[2018-04-22] MEDS: Morphine VIAL* 4 MG/ML VIAL (1 ml vial) IV PRN ×5 (01:42→23:57)
[2018-04-22] MEDS: Acetaminophen IV 1GM/100ML * 100 ML IVPB SCH ×3 (02:32→14:37)
[2018-04-22] MEDS: ceFAZolin 1 GM in Dextrose (*) 1 GM/50 ML BAG IVPB SCH ×2 (04:09→12:32)
[2018-04-22 06:05] LABS: Hematocrit 24 % (35-47); Mean Platelet Volume 8.9 um3 (7.4-10.4); Platelet Count 258 10^3/ul (150-450)
[2018-04-22] MEDS: Cyclobenzaprine TAB* 10 MG PO PRN ×3 (06:13→23:07)
[2018-04-22 06:19] LABS: EGFR Non-African American 86.1 (>60)
[2018-04-22] MEDS: DULoxetine DR CAP* 60 MG CAP.DR PO SCH (07:47)
[2018-04-22] MEDS: Docusate CAP* 100 MG PO SCH ×2 (07:47→19:40)
[2018-04-22] MEDS: Magnesium Hydroxide LIQ* 30 ML UDC PO SCH ×2 (07:47→19:41)
[2018-04-22] MEDS: Morphine TAB Extended Release (*) 30 MG TAB.ER PO SCH ×2 (07:47→19:41)
[2018-04-22] MEDS: Aspirin TAB* 325 MG PO SCH ×2 (07:47→19:40)
[2018-04-22] MEDS: celeCOXIB CAP* 100 MG PO SCH ×2 (07:47→19:40)
--- NOTE | 2018-04-22 12:48 | PN ---
Progress Note - Progress Note Date of Service: 04/22/18 SOAP: Subjective: 48 y/o female s/p L TKA by DR. Marc 04/21/2018. Patient feeling well, fatigued , working well with PT< pain controlled with current regimen. VSS, mild hypotension, afebrile overnight. Objective: General- Well appearing, NAD, AO resting in chair comfortably, MSK- LLE- DF/PF = b/l, PT 2+, negative homans sign, dressing intact, no drainage , no induration, erythema above, below dressing. Vital Signs Temp 98.2 F 04/22/18 07:27 Pulse 82 04/22/18 07:27 Resp 16 04/22/18 12:32 BP 113/69 04/22/18 07:27 Pulse Ox 95 04/22/18 08:00 Intake & Output 04/21/18 04/22/18 04/22/18 18:59 06:59 18:59 Intake Total 1550 2368 Output Total 600 1075 100 Balance 950 1293 -100 Weight 92.986 kg Intake: IV Fluids 1550 1218 ABX - CEFAZOLIN 53 LR 1550 965 Ofirmev 200 Oral 1150 Output: Urine 100 Mcbride 600 1075 Other: # Bowel Movements 0 Estimated Blood Loss 100 Comment Assessment: Stable 48 y/o female s/p L TKA by DR. Marc 04/21/2018. Plan: - DVT prophylaxis- ASA BID only - Continue PT/ OT - Follow up with Dr. Hancock within 10-14 days - H&H - stable - post-op IV ABX - Completed. - Possible D/C to home tomorrow, VNS set up Aspirin (Aspirin Tab*) 325 mg PO BID [facility] Last Admin: 04/22/18 07:47 Dose: 325 mg Bisacodyl (Dulcolax Supp*) 10 mg IA DAILY PRN PRN Reason: constipation Celecoxib (Celebrex Cap*) 100 mg PO BID [facility] Last Admin: 04/22/18 07:47 Dose: 100 mg Cyclobenzaprine HCl (Flexeril Tab*) 10 mg PO TID PRN PRN Reason: SPASMS Last Admin: 04/22/18 06:13 Dose: 10 mg Diphenhydramine HCl (Benadryl Iv*) 12.5 mg IV Q6H PRN PRN Reason: PRURITIS Docusate Sodium (Colace Cap*) 100 mg PO BID [facility] Last Admin: 04/22/18 07:47 Dose: 100 mg Duloxetine HCl (Cymbalta Cap*) 120 mg PO DAILY [facility] Last Admin: 04/22/18 07:47 Dose: 120 mg Acetaminophen (Ofirmev*) 100 mls @ 400 mls/hr IVPB Q6H [facility] PRN Reason: As Directed Stop: 04/22/18 19:59 Last Admin: 04/22/18 07:46 Dose: 400 mls/hr Lactated Ringer's (Lactated Ringers 1000 Ml Bag*) 1,000 mls @ 100 mls/hr IV PER RATE [facility] Last Admin: 04/22/18 04:16 Dose: 100 mls/hr Lactulose (Lactulose*) 30 ml PO Q6H PRN PRN Reason: constipation Magnesium Hydroxide (Milk Of Magnesia Liq*) 30 ml PO BID [facility] Last Admin: 04/22/18 07:47 Dose: 30 ml Magnesium Hydroxide (Milk Of Magnesia Liq*) 30 ml PO Q6H PRN PRN Reason: constipation Morphine Sulfate (Morphine Vial*) 2 mg IV Q2H PRN PRN Reason: PAIN Last Admin: 04/22/18 06:49 Dose: 2 mg Morphine Sulfate (Ms Contin(*)) 30 mg PO Q12H [facility] Last Admin: 04/22/18 07:47 Dose: 30 mg Ondansetron HCl (Zofran Inj*) 4 mg IV Q6H PRN PRN Reason: nausea Ondansetron HCl (Zofran Tab*) 4 mg PO Q6H PRN PRN Reason: NAUSEA Oxycodone HCl (Roxycodone Tab*) 10 mg PO Q4H PRN PRN Reason: PAIN - MODERATE TO SEVERE Last Admin: 04/22/18 12:32 Dose: 10 mg Pharmacy Profile Note (Scopolamine Patch Remove*) 1 note PATCH OFF Q72H ONE Stop: 04/24/18 12:25 Polyethylene Glycol/Electrolytes (Miralax*) 17 gm PO DAILY PRN PRN Reason: Constipation Scopolamine (Transderm-Scop 1.5 Mg Patch*) 1 patch TRANSDERM Q72H PRN PRN Reason: Nausea/Vomiting
[2018-04-23] MEDS ORDERED: HYDROmorphone INJ* 2 MG/ML CARPUJECT SYRINGE IV PRN (00:10)
[2018-04-23] MEDS: Ketorolac INJ* 15 MG/ML 1 ML VIAL IV PUSH PRN ×3 (00:38→18:08)
[2018-04-23] MEDS: oxyCODONE TAB* 5 MG TAB PO PRN ×5 (01:40→22:08)
--- NOTE | 2018-04-23 02:44 | OP ---
OPERATIVE REPORT: DATE OF OPERATION: 04/21/18 DATE OF : 68 SURGEON: Luci Hancock MD [employer] [place] ATTORNEY: BANDAR Diaz Ms. did help throughout the procedure with preparation of the leg, wound retraction, manipul ation of the knee and wound closure. ANESTHESIOLOGIST: Dr. Ortiz. ANESTHESIA: General with adductor nerve block. PRE-OP DIAGNOSIS: Severe end-stage degenerative osteoarthritis of the left knee joint. POST-OP DIAGNOSIS: Severe end-stage degenerative osteoarthritis of the left knee joint. OPERATIVE PROCEDURE: Left total knee arthroplasty. TOURNIQUET TIME: 48 minutes. COMPLICATIONS: None. ESTIMATED BLOOD LOSS: 200 cc. HARDWARE USED: This is cemented [employer] total knee arthroplasty hardware. Two packages of S implex bone cement were used. For the femur, a size 3 left posterior stabilized Legion Oxinium femor al component. For the tibia, a size 3 left Kala II tibial baseplate. For the insert, an 11-mm si ze 3/4 Kala II posterior stabilized articular insert. For the patella, a size 29 3-peg all poly p atella with 7.5 thickness. BRIEF HISTORY/INDICATIONS: Ms. Lizama is a 48-year-old female with years of increasingly severe left knee pain. The patient failed conservative treatment with the anti-inflammatories, pain medica tion, intraarticular injections, and physical therapy. Radiographs showed [id number] arthritis. D ue to continued pain and decreased quality of life, she elected to proceed with left total knee arthr oplasty. Informed consent was obtained from the patient. She understood the risks of the surgery included, bu t were not limited to, bleeding, infection, damage to nearby structures, continued pain, need for fur ther surgery, intraoperative fracture, nerve palsy, hardware failure or loosening, knee stiffness, lo ss of motion, stroke, heart attack, blood clot, and . She wished to proceed. INTRAOPERATIVE FINDINGS: Intraoperatively, the patient was noted to have severe tricompartmental ful l thickness loss of cartilage. DESCRIPTION OF PROCEDURE: Ms. Lizama was identified in the preanesthesia unit. Her left lower extremity was marked as the correct operative side. Informed consent was signed and placed in the art. The patient was taken to the operating room and placed under general anesthesia. A Mcbride aleksandra ter was placed. A tourniquet was placed on the left thigh. Left lower extremity was prepped and aubrie ped in the usual sterile fashion. Preop time-out was made to correctly identify the patient, side, a nd site. Appropriate perioperative antibiotics were given within 1 hour of incision. Tourniquet was inflated and total tourniquet time for this procedure was 48 minutes. A midline incis ion was made with a 10 blade and carried down to the extensor mechanism. A new 10 blade was used to make a standard medial parapatellar arthrotomy. The patella was subluxed laterally. Electrocautery was used to subperiosteally elevate the soft tissue off the superomedial tibia to the mid sagittal pl ane. The knee was flexed up. Anterior horn of the lateral meniscus and ACL were sharply released. A drill was used to enter the distal femur. Intramedullary distal femoral cutting guide was pinned on the distal femur. Oscillating saw was used to make the distal femoral cut. Next, the external rotat ion guide was pinned on the distal femur and the distal femur was sized to a size 3. Size 3 multi-cu tting jig was pinned on the distal femur. The oscillating saw was used to make the appropriate 4 rosa mfer cuts. The PCL was completely released. The tibia was subluxed anteriorly. Extramedullary tibial cutting gu chris was pinned on the proximal tibia. Oscillating saw was used to make the proximal tibial cut perpe ndicular to the mechanical axis of the tibia. The bone was carefully removed. The knee was brought out into full extension. Spacer block had excellent fit with the knee in full extension. There was good medial and lateral ligamentous balancing. Flexion and extension gaps were well balanced. The k nee was flexed up. Lamina icing machine operator was placed both medially and laterally. Any remaining meniscus w as carefully removed using electrocautery. A curved osteotome was used to remove any posterior osteop hytes. A tibial tray and drop jelani were placed to once again ensure satisfactory tibial cut and this was confirmed. A size 3 left femoral trial was impacted on to the distal femur and had excellent fit. The box for t he posterior stabilized implant was prepared using a reamer and box cut osteotome. A size 3 tibial t ray trial with an 11-mm insert trial was placed and the knee was taken through a range of motion. Th e knee had full extension to 130 degrees of flexion with satisfactory patellofemoral tracking. The p atella was everted. 7 mm of patellar bone and cartilage were carefully removed using an oscillating saw. The patella was sized to a size 29. Three peg holes were drilled through the size 29 guide. A 29 trial patella with 7.5 thickness was placed and the knee was taken through range of motion. Ther e was satisfactory patellofemoral tracking. All trials were carefully removed. Proximal tibia was s ized to a size 3. Proximal tibia was prepared using a size 3 keel punch. All bony cut surfaces were copiously irrigated with sterile saline and dried. Final implants were cemented into place starting with the tibia, followed by the femur, and last the patella. An 11-mm insert trial was placed and the knee was brought out into full extension. The dannielle rniquet was turned down at 48 minutes. Electrocautery was used to obtain meticulous hemostasis. The knee was copiously irrigated with sterile saline. This cement was allowed to fully cure. Once the c ement had fully cured, the insert trial was removed. Any excess cement was removed from around the c apsule and hardware. Final insert chosen was an 11-mm Kala II posterior stabilized size 3/4. Thi s was locked into position on the tibial tray. Stability of the insert was checked and rechecked and noted to be stable. The knee was once again copiously irrigated with sterile saline. The extensor mechanism was closed u sing interrupted #1 Vicryl. The rest of the incision was closed in a layered fashion using 0 and 2-0 Vicryl. Skin was closed using running 3-0 nylon suture. Sterile Xeroform, 4x4s, and Webril were us ed to cover the incision. Pa wrap and cold pack were placed over this. The patient's anesthesia wa s reversed without difficulty. She was taken to the PACU in stable condition. Intended weightbearing will be weightbearing as tolerated. Intended DVT prophylaxis will be Coumadin with a Lovenox bridge . [id number]/[facility] #: [id number]
[2018-04-23 05:59] LABS: Hematocrit 27 % (35-47); Hemoglobin 8.7 g/dl (12.0-16.0); Mean Platelet Volume 9.1 um3 (7.4-10.4); Platelet Count 272 10^3/ul (150-450)
[2018-04-23] MEDS: Morphine TAB Extended Release (*) 30 MG TAB.ER PO SCH ×2 (07:46→20:14)
[2018-04-23] MEDS: Cyclobenzaprine TAB* 10 MG PO PRN ×3 (07:46→21:57)
[2018-04-23] MEDS: Aspirin TAB* 325 MG PO SCH ×2 (07:46→21:56)
[2018-04-23] MEDS: Docusate CAP* 100 MG PO SCH ×2 (07:47→21:57)
[2018-04-23] MEDS: Magnesium Hydroxide LIQ* 30 ML UDC PO SCH ×2 (07:47→21:55)
[2018-04-23] MEDS: celeCOXIB CAP* 100 MG PO SCH ×2 (07:48→21:56)
[2018-04-23] MEDS: DULoxetine DR CAP* 60 MG CAP.DR PO SCH (07:49)
--- NOTE | 2018-04-23 09:51 | PN ---
Progress Note - Progress Note Date of Service: 04/23/18 SOAP: Subjective: 48 y/o female s/p L TKA by DR. Hancock on 04/21/2018. Patient feeling well, fatigued, working well with PT. She states that pain is somewhat controlled with current regimen and would like to stay another night in order to have better pain control today. Denies any chest pain, SOB, numbness or tingling, nausea or vomiting. Objective: General- Well appearing, NAD, AO resting in chair comfortably, MSK- LLE- DF/PF = b/l, PT 2+, negative homans sign, dressing was changed today, incision is clean,dry and intact with no drainage or erythema. Vital Signs Temp 97.6 F 04/23/18 03:43 Pulse 87 04/23/18 03:43 Resp 16 04/23/18 07:48 BP 126/74 04/23/18 03:43 Pulse Ox 99 04/23/18 07:12 Intake & Output 04/22/18 04/23/18 04/23/18 18:59 06:59 18:59 Intake Total 920 480 180 Output Total 100 250 150 Balance 820 230 30 Intake: Oral 920 480 180 Output: Urine 100 250 150 Other: Estimated Void Medium # Voids 1 Assessment: Stable 48 y/o female s/p L TKA by DR. Marc 04/21/2018. Plan: - DVT prophylaxis- ASA BID only - Continue PT/ OT - Follow up with Dr. Hancock within 10-14 days - H&H - stable - Possible D/C to home tomorrow at 1200, VNS set up
[2018-04-24] MEDS: Ketorolac INJ* 15 MG/ML 1 ML VIAL IV PUSH PRN ×2 (00:25→10:18)
[2018-04-24] MEDS: oxyCODONE TAB* 5 MG TAB PO PRN ×2 (02:00→07:12)
[2018-04-24 05:47] LABS: Hematocrit 24 % (35-47); Hemoglobin 8.1 g/dl (12.0-16.0); Mean Platelet Volume 9.2 um3 (7.4-10.4); Platelet Count 281 10^3/ul (150-450)
[2018-04-24] MEDS: Magnesium Hydroxide LIQ* 30 ML UDC PO SCH (07:12)
[2018-04-24] MEDS: Docusate CAP* 100 MG PO SCH (07:12)
[2018-04-24] MEDS: Aspirin TAB* 325 MG PO SCH (07:12)
[2018-04-24] MEDS: Morphine TAB Extended Release (*) 30 MG TAB.ER PO SCH (07:12)
[2018-04-24] MEDS: DULoxetine DR CAP* 60 MG CAP.DR PO SCH (07:13)
[2018-04-24 08:50] VITALS: BP 112/74
--- NOTE | 2018-04-24 09:41 | PN ---
Progress Note - Progress Note Date of Service: 04/24/18 SOAP: Subjective: 48 y/o female s/p L TKA by DR. Hancock on 04/21/2018. Patient feeling well, working well with PT. She states that pain is better controlled with current regimen and would like to go home today. Denies any chest pain, SOB, numbness or tingling, nausea or vomiting. Objective: General- Well appearing, NAD, AO resting in chair comfortably, MSK- LLE- DF/PF = b/l, PT 2+, negative homans sign, dressing is clean,dry and intact with no drainage or erythema. Vital Signs Temp 98.3 F 04/24/18 07:36 Pulse 83 04/24/18 07:36 Resp 16 04/24/18 08:00 BP 112/74 04/24/18 07:36 Pulse Ox 98 04/24/18 08:00 Intake & Output 04/23/18 04/24/18 04/24/18 18:59 06:59 18:59 Intake Total 380 400 120 Output Total 350 325 300 Balance 30 75 -180 Intake: Oral 380 400 120 Output: Urine 350 325 300 Other: Estimated Void Small # Voids 1 Assessment: Stable 48 y/o female s/p L TKA by DR. Marc 04/21/2018. Plan: - DVT prophylaxis- ASA BID only - Continue PT/ OT - Follow up with Dr. Hancock within 10-14 days - H&H - stable -DC home today
[2018-04-24] MEDS: Cyclobenzaprine TAB* 10 MG PO PRN (09:54)
[2018-04-24] MEDS ORDERED: Scopolamine PATCH Remove* 1 NOTE MISC PATCH OFF ONE (12:24)
--- NOTE | 2018-04-25 23:02 | DS ---
DISCHARGE SUMMARY: DATE OF ADMISSION: 04/21/18 DATE OF DISCHARGE: 04/24/18 PROVIDER: Luci Hancock MD * (DICTATED BY BANDAR HARRISON) ADMITTING DIAGNOSES: Left total knee arthroplasty. CONSULTATIONS: Physical Therapy, Occupational Therapy. HISTORY OF PRESENT ILLNESS: Ms. Lizama is a 48-year-old female with continued complaints of left knee pain. X-rays show zrdm-[id number]-[id number] arthritis in the medial compartment. She has failed conservative management and elected to proceed with a left total knee arthroplasty, which was performed on 04/21/[address] Hancock. HOSPITAL COURSE: The patient was admitted to [facility] on 04/21/18 and underwent a left total knee arthroplasty with no complication. The patient recovered briefly in the postanesthesia care unit and was then transferred to the short-stay surgical unit in stable condition. On postop day #1, the patient 's H and H was 8.0 and 24. Dressing was clean dry and intact. She was neurovascularly intact. She could demonstrate dorsiflex and plantar flex with good strength. The patient was able to get out of bed for physical therapy. Pain was controlled with oral pain medication. On postop day #2, the urinary catheter was discontinued and the patient was able to void without difficulty. Incision was found to be benign with minimal drainage. No erythema or warmth. The patient's H and H was 8.7 and 27. Pain was well-controlled with oral pain medication. The patient was able to ambulate with use of rolling walker and assistance. The patient's pain was well-controlled and was found to be stable for discharge. Throughout the hospital course, the vital signs remained stable and the patient was afebrile. DISCHARGE CONDITION: Good. DISCHARGE MEDICATIONS: 1. Percocet 5/325. 2. Aspirin 325. HOME MEDICATIONS: 1. Lidocaine patch as needed. 2. Cymbalta 120 mg daily. 3. Valerian root 100 mg 2 caps as needed. 4. Ventolin inhaler as needed. 5. Methocarbamol 750 mg 3 times a day. 6. Celebrex 200 mg twice a day, to be held. DISCHARGE INSTRUCTIONS: Weightbearing as tolerated. Wound Care: Okay to shower on postop day #3. No bathing, swimming or submerging the wound. Use gentle soap and pat dry. Cover with gauze, Pa wrap or tape. Call orthopedic office for increased drainage, redness, increased pain or fever. Go to the ER with shortness of breath or chest pain. Diet: Regular diet. Increase fluids and fiber to prevent constipation. Continue to use stool softeners. Call office if no bowel motion in 48 hours. Continue physical therapy and occupational therapy, exercises as shown. Visiting home nurses to do wound check. Visiting home nurses to draw blood work for INR on Wednesday and . Aspirin 325 b.i.d. x30 days for DVT prevention. Pain control with oxycodone 5 mg take 1 or 2 every 4 to 6 hours as needed for pain. Antibiotics required prior to any dental work. Followup with Dr. Luci Hancock within 10 to 14 days. Call for an appointment. BANDAR HARRISON [id number]/[facility] #: [id number] DILLAN
== END 2018-04-24 10:45 | disposition home health service (06) | DRG 470 ==
LOC: AA 08:36 → SSU 13:50
PROVIDERS: ADMIT Orthopaedic Surgery Adult Reconstructive Orthopaedic Surgery; ATTEND Orthopaedic Surgery Adult Reconstructive Orthopaedic Surgery
PROC: 0SRD069 Replacement of Left Knee Joint with Oxidized Zirconium on Polyethylene Synthetic Substitute, Cemented, Open Approach (ICD-10-PCS; principal; 2018-04-21 11:00)
DX: M17.12 Unilateral primary osteoarthritis, left knee (principal); G61.0 Guillain-Barre syndrome; M79.7 Fibromyalgia; F32.9 Major depressive disorder, single episode, unspecified; F41.9 Anxiety disorder, unspecified; J45.909 Unspecified asthma, uncomplicated; G62.9 Polyneuropathy, unspecified; M16.10 Unilateral primary osteoarthritis, unspecified hip; G51.0 Bell's palsy; M25.462 Effusion, left knee; G47.33 Obstructive sleep apnea (adult) (pediatric); E66.9 Obesity, unspecified; N80.0 Endometriosis of uterus; M35.7 Hypermobility syndrome; M25.762 Osteophyte, left knee; F40.8 Other phobic anxiety disorders; E28.2 Polycystic ovarian syndrome; Z87.11 Personal history of peptic ulcer disease; Z88.2 Allergy status to sulfonamides; Z82.49 Family history of ischemic heart disease and other diseases of the circulatory system; Z82.3 Family history of stroke; Z80.9 Family history of malignant neoplasm, unspecified; Z91.011 Allergy to milk products; Z91.018 Allergy to other foods; Z68.32 Body mass index [BMI] 32.0-32.9, adult; Z87.891 Personal history of nicotine dependence; Z79.82 Long term (current) use of aspirin
CPT/HCPCS: 36415; 80048; 81025; 85014; 85018; 85049; 88305; 88311; A9270-GY; C1776; J0690; J1100; J1170; J1240; J1885; J2250; J2270; J2704; J2795; J3010

== ENCOUNTER 2018-05-12 16:30 | Emergency (ER) | payer OTHER ==
[2018-05-12] MEDS ORDERED: NS 0.9% 1000 ML* 1,000 ML IV ONE (16:56)
[2018-05-12] MEDS ORDERED: Ondansetron INJ* 2 MG/ML VIAL IV ONE (16:56)
[2018-05-12] MEDS ORDERED: Morphine VIAL* 4 MG/ML VIAL (1 ml vial) IV ONE (16:56)
[2018-05-12 17:19] LABS: ABS Basophils 0 10^3/ul (0-0.2); ABS Eosinophils 0.3 10^3/ul (0-0.6); ABS Lymphocytes 1.7 10^3/ul (1.0-4.8); ABS Monocytes 0.6 10^3/ul (0-0.8); ABS Neutrophils 3.8 10^3/ul (1.5-7.7); ABS Nucleated RBC 0 10^3/ul; Eosinophil % 5.3 % (0-6); Hematocrit 28 % (35-47); Hemoglobin 8.8 g/dl (12.0-16.0); Lymphocyte % 26.4 % (25-47); Mean Corpuscular HGB Conc 32 g/dl (31-36); Mean Corpuscular Hemoglobin 25 pg (27-31); Mean Corpuscular Volume 78 fL (80-97); Mean Platelet Volume 7.8 um3 (7.4-10.4); Nucleated Red Blood Cells % 0; Platelet Count 571 10^3/ul (150-450); Red Blood Count 3.56 10^6/ul (4.00-5.40); Red Cell Distribution Width 16 % (10.5-15); White Blood Count 6.5 10^3/ul (3.5-10.8)
[2018-05-12 17:23] LABS: INR 0.99 (0.77-1.02)
[2018-05-12 17:36] LABS: EGFR Non-African American 84.7 (>60)
--- NOTE | 2018-05-12 18:27 | RAD ---
INDICATION: Left knee pain 3 weeks status post left TKA COMPARISON: Preoperative knee radiograph dated March 11, 2018 TECHNIQUE: 4 view radiograph of the left knee. FINDINGS: There has been a mild increase in the degree of subcutaneous induration overlying the knee. The left knee prosthesis is anatomically aligned. The visualized bones are well-corticated and properly aligned. The joint spaces are properly maintained. There is a small joint effusion. There is no acute fracture, dislocation or other focal bony abnormality. IMPRESSION: 1. Anatomic alignment of left knee prostheses. 2. Small joint effusion and mild increase in degree of subcutaneous induration. If the patient's symptoms persist, follow-up imaging is recommended.
[2018-05-12] MEDS ORDERED: oxyCODONE TAB* 5 MG TAB PO ONE (19:08)
[2018-05-12] MEDS ORDERED: Cephalexin CAP* 500 MG PO ONE (19:56)
[2018-05-12 20:17] VITALS: BP 110/78
--- NOTE | 2018-05-12 20:57 | ED ---
Patricia Pepe Edward, scribed for Rohan Ordoñez MD on 05/12/18 at 1658 . Lower Extremity - HPI Summary HPI Summary: 48 y/o female presents to the ED c/o severe L knee pain starting yesterday at site of incision s/p sx. Pain aggravated with movement, lifting or extension of L leg or bending of L knee. Sx L knee replacement. Pt on Oxy, last taken at 13: 00. - History of Current Complaint Chief Complaint: EDExtremityLower Stated Complaint: LT KNEE PAIN Time Seen by Provider: 05/12/18 16:50 Hx Obtained From: Patient Hx Last Menstrual Period: 03/17/17 Mechanism Of Injury: Incised Onset/Duration: Days Pain Intensity: 5 Pain Scale Used: 0-10 Numeric Location: Is Discrete @ - L knee Associated Signs And Symptoms: Positive: Knee Pain Aggravating Factor(s): Other - "activation of L leg muscles", bending of L knee Alleviating Factor(s): Rest - Allergies/Home Medications Allergies/Adverse Reactions: Allergies Allergy/AdvReac Type Severity Reaction Status Date / Time casey flavor Allergy Severe Swelling Verified 05/12/18 16:40 Of Face,Lips,& Throat Sulfa (Sulfonamide Allergy Intermediate Rash And Verified 05/12/18 16:40 Antibiotics) Itching, throat closes PMH/Surg Hx/FS Hx/Imm Hx Previously Healthy: No Endocrine/Hematology History: Denies: Hx Diabetes, Hx Thyroid Disease, Hx Anemia Cardiovascular History: Reports: Hx Hypertension - off and on - ON MEDICATION FOR Denies: Hx Pacemaker/ICD, Other Cardiovascular Problems/Disorders Respiratory History: Reports: Hx Asthma - PRN inhalers, will bring, Hx Sleep Apnea Denies: Hx Chronic Obstructive Pulmonary Disease (COPD), Other Respiratory Problems/Disorders GI History: Reports: Hx Ulcer Denies: Hx Jaundice, Other GI Disorders History: Denies: Hx Renal Disease Musculoskeletal History: Reports: Hx Arthritis - osteo, Hx Bursitis - hips, knees elbows, Hx Fibromyalgia, Other Musculoskeletal History - , itbs hypermobility Sensory History: Reports: Hx Contacts or Glasses - reading glasses Denies: Hx Hearing Aid Opthamlomology History: Reports: Hx Contacts or Glasses - reading glasses Neurological History: Reports: Hx Headaches, Hx Migraine, Other Neuro Impairments/Disorders - FIBROMYALGIA Denies: Hx Seizures, Hx Transient Ischemic Attacks (TIA) Psychiatric History: Reports: Hx Anxiety - on meds, Hx Depression - on meds Denies: Hx Panic Disorder - Cancer History Hx Chemotherapy: No Hx Radiation Therapy: No - Surgical History Surgery Procedure, Year, and Place: BILAT BREAST REDUCTION 2000;[place]. LAPAROTOMY FOR PID AGE 16;. LAPROSCOPIC FOR ENDOMETRIOSIS AND SCAR TISSUE x3 1988 and 1992. LEFT KNEE ARTHROSCOPY, 04/20/17, [facility] [place]. right foot fx, 12/2017, [facility] [place] Hx Anesthesia Reactions: Yes - nausea Infectious Disease History: No Infectious Disease History: Reports: Hx Tuberculosis - always tests positive for tb Denies: Hx Hepatitis, Hx Human Immunodeficiency Virus (HIV), History Other Infectious Disease, Traveled Outside the [place] in Last 30 Days - Family History Known Family History: Positive: Hypertension, Diabetes, Other - Stroke ( grandfather), Breast CA. 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 Hx Tobacco Use: Yes Smoking Status (MU): Former Smoker Amount Used/How Often: 1 PACK PER WEEK X 4-5 YEARS Have You Smoked in the Last Year: No Review of Systems Constitutional: Negative Eyes: Negative ENT: Negative Cardiovascular: Negative Respiratory: Negative Gastrointestinal: Negative Genitourinary: Negative Positive: Decreased ROM - L knee, Other - L knee pain Skin: Negative Neurological: Negative Psychological: Normal All Other Systems Reviewed And Are Negative: Yes Physical Exam Triage Information Reviewed: Yes Vital Signs On Initial Exam: Initial Vitals Temp Pulse Resp BP Pulse Ox 97.7 F 90 16 107/75 100 05/12/18 16:35 05/12/18 16:35 05/12/18 16:35 05/12/18 16:35 05/12/18 16:35 Vital Signs Reviewed: Yes Appearance: Positive: Well-Appearing, No Pain Distress Skin: Positive: Warm, Skin Color Reflects Adequate Perfusion, Dry Head/Face: Positive: Normal Head/Face Inspection Eyes: Positive: EOMI, AMADEO ENT: Positive: Normal ENT inspection Neck: Positive: Supple, Nontender Respiratory/Lung Sounds: Positive: Clear to Auscultation, Breath Sounds Present Cardiovascular: Positive: RRR Abdomen Description: Positive: Nontender, Soft Bowel Sounds: Positive: Present Musculoskeletal: Positive: Normal, Strength/ROM Intact Neurological: Positive: Sensory/Motor Intact, Alert, Oriented to Person Place, Time Psychiatric: Positive: Affect/Mood Appropriate Diagnostics - Vital Signs Vital Signs Temp Pulse Resp BP Pulse Ox 05/12/18 16:35 97.7 F 90 16 107/75 100 - Laboratory Lab Results: Lab Results 05/12/18 05/12/18 05/12/18 Range/Units 17:13 17:13 17:13 WBC 6.5 (3.5-10.8) 10^3/ul RBC 3.56 L (4.00-5.40) 10^6/ul Hgb 8.8 L (12.0-16.0) g/dl Hct 28 L (35-47) % MCV 78 L (80-97) fL MCH 25 L (27-31) pg MCHC 32 (31-36) g/dl RDW 16 H (10.5-15) % Plt Count 571 H D (150-450) 10^3/ul MPV 7.8 (7.4-10.4) um3 Neut % (Auto) 58.5 (38-83) % Lymph % (Auto) 26.4 (25-47) % [place] % (Auto) 9.5 H (0-7) % Eos % (Auto) 5.3 (0-6) % Baso % (Auto) 0.3 (0-2) % Absolute Neuts (auto) 3.8 (1.5-7.7) 10^3/ul Absolute Lymphs (auto) 1.7 (1.0-4.8) 10^3/ul Absolute Monos (auto) 0.6 (0-0.8) 10^3/ul Absolute Eos (auto) 0.3 (0-0.6) 10^3/ul Absolute Basos (auto) 0 (0-0.2) 10^3/ul Absolute Nucleated RBC 0 10^3/ul Nucleated RBC % 0 INR (Anticoag Therapy) 0.99 (0.77-1.02) Sodium 139 (135-145) mmol/L Potassium 3.9 (3.5-5.0) mmol/L Chloride 106 (101-111) mmol/L Carbon Dioxide 26 (22-32) mmol/L Anion Gap 7 (2-11) mmol/L BUN 17 (6-24) mg/dL Creatinine 0.73 (0.51-0.95) mg/dL Est GFR ( Amer) 102.5 (>60) Est GFR (Non-Af Amer) 84.7 (>60) BUN/Creatinine Ratio 23.3 H (8-20) Glucose 100 (70-100) mg/dL Lactic Acid (0.5-2.0) mmol/L Calcium 9.0 (8.6-10.3) mg/dL Total Bilirubin 0.30 (0.2-1.0) mg/dL AST 16 (13-39) U/L ALT 6 L (7-52) U/L Alkaline Phosphatase 89 (34-104) U/L C-Reactive Protein 11.89 H (<8.01) mg/L Total Protein 6.7 (6.4-8.9) g/dL Albumin 3.6 (3.2-5.2) g/dL Globulin 3.1 (2-4) g/dL Albumin/Globulin Ratio 1.2 (1-3) 05/12/18 Range/Units 17:13 WBC (3.5-10.8) 10^3/ul RBC (4.00-5.40) 10^6/ul Hgb (12.0-16.0) g/dl Hct (35-47) % MCV (80-97) fL MCH (27-31) pg MCHC (31-36) g/dl RDW (10.5-15) % Plt Count (150-450) 10^3/ul MPV (7.4-10.4) um3 Neut % (Auto) (38-83) % Lymph % (Auto) (25-47) % [place] % (Auto) (0-7) % Eos % (Auto) (0-6) % Baso % (Auto) (0-2) % Absolute Neuts (auto) (1.5-7.7) 10^3/ul Absolute Lymphs (auto) (1.0-4.8) 10^3/ul Absolute Monos (auto) (0-0.8) 10^3/ul Absolute Eos (auto) (0-0.6) 10^3/ul Absolute Basos (auto) (0-0.2) 10^3/ul Absolute Nucleated RBC 10^3/ul Nucleated RBC % INR (Anticoag Therapy) (0.77-1.02) Sodium (135-145) mmol/L Potassium (3.5-5.0) mmol/L Chloride (101-111) mmol/L Carbon Dioxide (22-32) mmol/L Anion Gap (2-11) mmol/L BUN (6-24) mg/dL Creatinine (0.51-0.95) mg/dL Est GFR ( Amer) (>60) Est GFR (Non-Af Amer) (>60) BUN/Creatinine Ratio (8-20) Glucose (70-100) mg/dL Lactic Acid 0.7 (0.5-2.0) mmol/L Calcium (8.6-10.3) mg/dL Total Bilirubin (0.2-1.0) mg/dL AST (13-39) U/L ALT (7-52) U/L Alkaline Phosphatase (34-104) U/L C-Reactive Protein (<8.01) mg/L Total Protein (6.4-8.9) g/dL Albumin (3.2-5.2) g/dL Globulin (2-4) g/dL Albumin/Globulin Ratio (1-3) Result Diagrams: 05/12/18 17:13 05/12/18 17:13 Lab Statement: Any lab studies that have been ordered have been reviewed, and results considered in the medical decision making process. - Radiology KNEE XR Xray Interpretation: Positive (See Comments) - 1. Anatomic alignment of left knee prostheses. 2. Small joint effusion and mild increase in degree of subcutaneous induration. If the patient's symptoms persist, follow-up imaging is recommended. Radiology Interpretation Completed By: Radiologist Re-Evaluation - Re-Evaluation 1 Re-Evaluation Time: 19:54 Comment: Discuss test results, plan of care Lower Extremity Course/Dx - Course Course Of Treatment: THE PROXIMAL ASPECT OF THE INCISION HAS MINIMAL LOCALIZED ERYTHEMA. THE REST OF THE KNEE IS NOT ERYTHEMATOUS AND IS WITHOUT CALOR. THE MAIN AREA OF PAIN IS IN THE QUADRICEPS WITH KNEE EXTENSION. DISCUSSED RESULTS WITH THE PATIENT AND FAMILY AND ORTHOPEDICS, DR LOPEZ. THE PLAN IS TO START KEFLEX AND F/U WITH ORTHOPEDICS TOMORROW. RETURN TO ED IF WORSE. - Diagnoses Provider Diagnoses: Left knee pain, Infected surgical wound, Left thigh pain Discharge - Sign-Out/Discharge Documenting (check all that apply): Discharge/Admit/Transfer - Discharge Plan Condition: Stable Disposition: HOME Prescriptions: Cephalexin CAP* [Keflex CAP*] 500 mg PO QID #39 cap Patient Education Materials: Surgical Site Infections (ED), Knee Pain (ED) Referrals: Eitan Dejesus MD [Primary Care Provider] - Luci Hancock MD [Medical Doctor] - Additional Instructions: FOLLOW UP WITH YOUR ORTHOPEDIST TOMORROW, 05/13/18. RETURN TO THE EMERGENCY DEPARTMENT FOR ANY WORSENING OF YOUR CONDITION; PAIN, FEVER, YOU FEEL ILL OR QUESTIONS OR CONCERNS. - Billing Disposition and Condition Condition: STABLE Disposition: Home The documentation as recorded by the Patricia peters Edward accurately reflects the service I personally performed and the decisions made by me, Rohan Ordoñez MD.
== END 2018-05-12 20:15 | disposition home or self-care (01) ==
LOC: ED 16:30
DX: T81.4XXA Infection following a procedure, initial encounter (principal); M25.562 Pain in left knee; M79.652 Pain in left thigh; I10 Essential (primary) hypertension; J45.909 Unspecified asthma, uncomplicated; G47.30 Sleep apnea, unspecified; M79.7 Fibromyalgia; F41.9 Anxiety disorder, unspecified; F32.9 Major depressive disorder, single episode, unspecified; Z87.891 Personal history of nicotine dependence; Y83.8 Other surgical procedures as the cause of abnormal reaction of the patient, or of later complication, without mention of misadventure at the time of the procedure
CPT/HCPCS: 36415; 80053; 83605; 85025; 85610; 86140; 96360; 96374; 96375; 99283; A9270-GY

== ENCOUNTER 2018-05-24 20:43 | Emergency (ER) | payer OTHER ==
[2018-05-24] MEDS ORDERED: oxyCODONE TAB* 5 MG TAB PO ONE (21:16)
--- OUTSIDE RECORDS SUMMARY | 2018-05-24 21:32 | XMS REPORT ---
:1970 External Reference #:[id number] Author Organization [facility] Address [address] [place] [address] [place] [address] Phone [phone] Care Team Providers Name Role Phone Eitan Dejesus MD Primary Care Physician Unavailable Payers Type Date Identification Numbers Payment Provider Subscriber Commercial Expires: Policy Number: [employer] José Van Carlosmeleciolinsey 2016 [id number] PayID: [id number] [address] [place] [address] Commercial Effective: 2016 Policy Number: [employer] Alecia Lizama [id number] Group Number: [id number] [address] PayID: [id number] [place] [address] Commercial Effective: 2017 Policy Number: [facility] Alecia Lizama [id number] Expires: 2019 Group Number: 50% [id number] [place] PayID: [id number] [address] Problems Date Description Provider Status Onset: 03/31/2016 Dyssomnia Elizabeth Rivera DNP, RN, Active 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 Onset: 03/31/2016 Morbid obesity Elizabeth Rivera DNP, YONNY, Active 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 Onset: 03/31/2016 Periodic leg movements of sleep Elizabeth Rivera DNP, RN, Active 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 Onset: 03/31/2016 Disturbance in sleep behavior Elizabeth Rivera DNP, RN, Active 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 Onset: 06/08/2016 REM sleep behavior disorder Elizabeth Rivera DNP, RN, Active 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 Onset: 09/24/2016 Pain in right lower limb Tomi Márquez MD Active Onset: 12/03/2016 Acute infective polyneuritis Jasiel Smith MD Active Onset: 12/03/2016 John's palsy Jasiel Smith MD Active Onset: 02/03/2017 Localized, primary osteoarthritis Luci Hancock M.D. Active of the pelvic region and thigh Onset: 03/31/2017 Sprain of medial collateral Luci Hancock M.D. Active ligament of knee Onset: 03/31/2017 Localized, primary osteoarthritis Luci Hancock M.D. Active Onset: 04/09/2017 Acute meniscal tear, medial, Luci Hancock M.D. Active posterior horn Onset: 08/06/2017 Polyneuropathy Jasiel Smith MD Active Onset: 10/29/2017 Closed fracture of metatarsal Chavez El MD Active bone Onset: 10/29/2017 Vitamin D deficiency Chavez El MD Active Onset: 11/30/2017 Disp fx of 5th metatarsal bone, r Chavez El MD Active ft, 7thG Onset: 05/16/2018 Arthroplasty of knee Luci Hancock M.D. 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 as needed Oxycodone HCL 04/24 Active Capsules 5mg 60cap 1-2 tabs by Luci s mouth every Santi, 6 hours as M.D. needed pain Lidocaine 12/03 Active Patches 5% 60uni apply 1 or 2 R20.8 ts patches 12 Lavern, hours on and M.D. 12 hours off Cymbalta 00 Active 120mg daily Unknown /0000 Valerian Root Active Capsules 100mg 2 capsules Unknown as needed Methocarbamol Active Tablets 750mg Take 1 Tablet 3 Times A Day as Needed For Spasms Celebrex Active Capsules 200mg 1 by mouth Unknown / bid Keflex 05/16 Hx Capsules 500mg 28cap 1 by mouth 4 M25.462 s times a day Santi, - for 7 days M.D. 05/23 Prednisone 12/27 Hx Tablets 10mg 45tab 4 pills for G51.0 s 3 days then Sarah, - 3 pills for MD 03/24 3 days 2 pills for 3 days then 1 pill for 3 days then off Oxycodone HCL 12/16 Hx Tablets 5mg 5tabs 1 tabs by Chavez mouth every Sienna, - 6 hours as 12/27 needed Percocet 05/04 Hx Tablets 5-325mg 8tabs 1tab by Luci mouth every Santi, - 8 hours as M.D. 06/10 needed pain Percocet 04/20 Hx Tablets 5-325mg 8tabs 1tab by Luci mouth every Santi, - 8 hours as M.D. 04/30 needed pain Cane/Wood/Ladies 12/10 [facility] 1unit patient Juanjose CampbellLanden s should use radha Crockettned [place] - cane as M.D. Finish 04/07 needed until follow up appointment. dx dx: g61.0 g51.0 (quad cane) Cane/Wood/Ladies 12/07 [facility] patient Jasiel hand/ should use radha Smithned [place] - cane as MD Finish 04/07 needed until follow up appointment. dx dx: g61.0 g51.0 (quad cane) Cane/Wood/Ladies 12/03 Hx [facility] 1unit patient Juanjose Cruz hand/ s should use Keira, tained [place] - cane as M.D. Finish 12/07 needed until follow up appointment. 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 Prilosec Hx Capsules 20mg 1 by mouth Unknown / DR every day - 09/23 Rhodiola Hx Capsules 300mg Unknown /0000 - 09/23 Vitamin D Hx Tablets 400Unit every day by Unknown / mouth - 09/23 Lorazepam Hx Tablets 0.5mg 10tab take 1 s tablet every Sarah, - 8 hours as 06/10 needed for anxiety Ventolin HFA Hx Aerosol 108(90Bas Inhale 2 Unknown / e) puff By - mcg/Act Inhalation 05/02 Route 4 - 6 Hours as Needed Omeprazole Hx Capsules 20mg Take One Unknown /0000 DR Capsule - Every Day 10/29 Ramipril Hx Capsules 5mg Take One Unknown /0000 Capsule - Every Day 04/07 Medrol Dose Pack Hx Unknown /0000 - 04/30 Gabapentin Hx Capsules 300mg 120ca Take One Jasiel / ps Capsule By Sarah, - Mouth 3 MD 10/29 Times A Day Vital Signs Date Vital Result Comment 05/24/2018 Height 67 inches 5'7" Weight 202.00 lb BP Systolic 109 mmHg BP Diastolic 62 mmHg Respiratory Rate 16 /min Pain Level 2 BMI (Body Mass Index) 31.6 kg/m2 05/16/2018 Height 67 inches 5'7" Heart Rate 79 /min BP Systolic 110 mmHg BP Diastolic 70 mmHg Respiratory Rate 17 /min Body Temperature 98.0 F Pain Level 8 05/02/2018 Height 67 inches 5'7" Weight 215.00 lb BP Systolic Sitting 116 mmHg BP Diastolic Sitting 74 mmHg Respiratory Rate 16 /min Body Temperature 98.0 F Pain Level 4 BMI (Body Mass Index) 33.7 kg/m2 04/08/2018 Height 67 inches 5'7" Weight 215.00 lb Heart Rate 88 /min BP Systolic 118 mmHg BP Diastolic 78 mmHg BMI (Body Mass Index) 33.7 kg/m2 03/25/2018 Height 67 inches 5'7" Weight 202.00 lb Heart Rate 78 /min BP Systolic 126 mmHg BP Diastolic 74 mmHg Respiratory Rate 14 /min Body Temperature 97.5 F Pain Level 3 BMI (Body Mass Index) 31.6 kg/m2 03/11/2018 Height 67 inches 5'7" Weight 203.00 lb Heart Rate 88 /min BP Systolic 132 mmHg BP Diastolic 88 mmHg Respiratory Rate 20 /min Body Temperature 97.4 F Pain Level 6 BMI (Body Mass Index) 31.8 kg/m2 03/03/2018 Height 67 inches 5'7" Heart Rate 82 /min BP Systolic Sitting 112 mmHg BP Diastolic Sitting 74 mmHg Respiratory Rate 14 /min Pain Level 5 02/25/2018 Height 67 inches 5'7" Weight 203.00 lb Heart Rate 68 /min BP Systolic Sitting 106 mmHg BP Diastolic Sitting 75 mmHg Respiratory Rate 18 /min BMI (Body Mass Index) 31.8 kg/m2 01/28/2018 Height 67 inches 5'7" Weight 203.00 lb Respiratory Rate 16 /min Body Temperature 97.6 F Pain Level 0 BMI (Body Mass Index) 31.8 kg/m2 12/31/2017 Height 67 inches 5'7" Weight 203.00 lb per pt Heart Rate 86 /min reg BP Systolic Sitting 140 mmHg Lue BP Diastolic Sitting 82 mmHg Lue Respiratory Rate 16 /min Pain Level 0 BMI (Body Mass Index) 31.8 kg/m2 12/27/2017 Height 67 inches 5'7" Weight 203.00 lb Heart Rate 67 /min BP Systolic 122 mmHg BP Diastolic 76 mmHg Respiratory Rate 14 /min Body Temperature 97.8 F Pain Level 2 BMI (Body Mass Index) 31.8 kg/m2 12/27/2017 Height 67 inches 5'7" Weight 76.00 lb pt in wheelchair BP Systolic 120 mmHg BP Diastolic 76 mmHg BMI (Body Mass Index) 11.9 kg/m2 12/24/2017 Height 67 inches 5'7" Heart Rate 73 /min BP Systolic 122 mmHg BP Diastolic 76 mmHg Body Temperature 98.3 F Pain Level 10 12/20/2017 Height 67 inches 5'7" Weight 214.00 lb Heart Rate 68 /min Respiratory Rate 16 /min Body Temperature 98.3 F Pain Level 1 BMI (Body Mass Index) 33.5 kg/m2 12/10/2017 Height 67 inches 5'7" Weight 214.00 lb Heart Rate 88 /min BP Systolic Sitting 114 mmHg BP Diastolic Sitting 74 mmHg Respiratory Rate 14 /min Pain Level 6 BMI (Body Mass Index) 33.5 kg/m2 12/08/2017 Height 67 inches 5'7" BP Systolic 110 mmHg BP Diastolic 78 mmHg Respiratory Rate 16 /min Body Temperature 98.0 F Pain Level 5 11/30/2017 Height 67 inches 5'7" Weight 205.00 lb Heart Rate 78 /min Respiratory Rate 17 /min Pain Level 1 BMI (Body Mass Index) 32.1 kg/m2 11/10/2017 Height 67 inches 5'7" Weight 205.00 lb per pt Heart Rate 72 /min reg BP Systolic Sitting 110 mmHg Lue, lg cuff BP Diastolic Sitting 80 mmHg Lue, lg cuff Respiratory Rate 16 /min Pain Level 8 left knee BMI (Body Mass Index) 32.1 kg/m2 10/29/2017 Height 67 inches 5'7" Weight 210.00 lb Heart Rate 92 /min BP Systolic Sitting 122 mmHg BP Diastolic Sitting 90 mmHg Body Temperature 98.3 F Pain Level 0 BMI (Body Mass Index) 32.9 kg/m2 08/06/2017 Height 67 inches 5'7" Weight 222.25 lb Heart Rate 78 /min BP Systolic 104 mmHg BP Diastolic 74 mmHg BMI (Body Mass Index) 34.8 kg/m2 06/11/2017 Height 67 inches 5'7" Weight 230.00 lb Heart Rate 72 /min BP Systolic 138 mmHg BP Diastolic 91 mmHg Pain Level 7 BMI (Body Mass Index) 36.0 kg/m2 05/05/2017 Height 67 inches 5'7" Weight 231.00 lb Heart Rate 91 /min BP Systolic 110 mmHg BP Diastolic 67 mmHg Respiratory Rate 18 /min Body Temperature 97.9 F Pain Level 7 BMI (Body Mass Index) 36.2 kg/m2 04/30/2017 Height 67 inches 5'7" Weight 231.00 lb Heart Rate 91 /min BP Systolic Sitting 117 mmHg BP Diastolic Sitting 82 mmHg Body Temperature 98.6 F Pain Level 5 BMI (Body Mass Index) 36.2 kg/m2 04/30/2017 Height 67 inches 5'7" Weight 225.00 lb Heart Rate 87 /min BP Systolic 125 mmHg BP Diastolic 88 mmHg Body Temperature 98.6 F Pain Level 3 BMI (Body Mass Index) 35.2 kg/m2 04/09/2017 Height 67 inches 5'7" Weight 230.00 lb Heart Rate 95 /min BP Systolic 119 mmHg BP Diastolic 75 mmHg Body Temperature 97.8 F Pain Level 7 BMI (Body Mass Index) 36.0 kg/m2 03/31/2017 Height 67 inches 5'7" Weight 228.00 lb BP Systolic 127 mmHg BP Diastolic 72 mmHg Respiratory Rate 15 /min Body Temperature 97.8 F Pain Level 8 BMI (Body Mass Index) 35.7 kg/m2 02/15/2017 Height 67 inches 5'7" Weight 228.00 lb Heart Rate 93 /min BP Systolic 150 mmHg BP Diastolic 102 mmHg Body Temperature 98.8 F Pain Level 6 BMI (Body Mass Index) 35.7 kg/m2 02/03/2017 Height 67 inches 5'7" Weight 246.00 lb Heart Rate 78 /min BP Systolic 140 mmHg BP Diastolic 80 mmHg Respiratory Rate 18 /min Body Temperature 98.2 F Pain Level 5 BMI (Body Mass Index) 38.5 kg/m2 01/05/2017 Height 67 inches 5'7" Weight 245.00 lb Heart Rate 84 /min BP Systolic Sitting 128 mmHg BP Diastolic Sitting 80 mmHg BMI (Body Mass Index) 38.4 kg/m2 12/03/2016 Height 67 inches 5'7" Weight 232.00 lb Heart Rate 84 /min BP Systolic Sitting 104 mmHg BP Diastolic Sitting 80 mmHg Respiratory Rate 14 /min Body Temperature 97.6 F Pain Level 3 BMI (Body Mass Index) 36.3 kg/m2 12/03/2016 Height 67 inches 5'7" Weight 236.00 lb Heart Rate 80 /min BP Systolic Sitting 122 mmHg BP Diastolic Sitting 80 mmHg BMI (Body Mass Index) 37.0 kg/m2 09/24/2016 Height 67 inches 5'7" Weight 226.00 lb Heart Rate 64 /min BP Systolic Sitting 118 mmHg BP Diastolic Sitting 60 mmHg Respiratory Rate 16 /min Pain Level 8 BMI (Body Mass Index) 35.4 kg/m2 06/08/2016 Height 67 inches 5'7" Weight 226.00 lb Heart Rate 91 /min BP Systolic 132 mmHg BP Diastolic 78 mmHg Respiratory Rate 14 /min O2 % BldC Oximetry 96 % BMI (Body Mass Index) 35.4 kg/m2 03/31/2016 Height 67 inches 5'7" Weight 226.00 lb Heart Rate 100 /min BP Systolic 130 mmHg BP Diastolic 76 mmHg Respiratory Rate 14 /min O2 % BldC Oximetry 98 % BMI (Body Mass Index) 35.4 kg/m2 Neck Circumference in inches 15 02/05/2016 Height 67 inches 5'7" Weight 215.00 lb Heart Rate 72 /min BP Systolic Sitting 132 mmHg BP Diastolic Sitting 76 mmHg Respiratory Rate 16 /min Pain Level 5 BMI (Body Mass Index) 33.7 kg/m2 01/24/2016 Height 67 inches 5'7" Weight 215.00 lb Heart Rate 68 /min BP Systolic Sitting 144 mmHg BP Diastolic Sitting 96 mmHg Respiratory Rate 16 /min Pain Level 8 BMI (Body Mass Index) 33.7 kg/m2 11/30/2013 Heart Rate 106 /min BP Systolic 157 mmHg BP Diastolic 107 mmHg BMI (Body Mass Index) 3.2 kg/m2 Results Test Date Test Result H/L Range Note Urinalysis Profile 04/12/2018 Urine Color Yellow Urine Appearance Cloudy Urine Specific Ponce 1.021 1.010-1.030 Urine pH 5.0 5-9 Urine Urobilinogen Negative Negative Urine Ketones Negative Negative Urine Protein Negative Negative Urine Leukocytes Negative Negative Urine Blood Negative Negative * * Negative 1 Urine Nitrite Negative Negative Urine Bilirubin Negative Negative Urine Glucose Negative Negative Inr/Protime 04/12/2018 Inr 0.82 0.77-1.02 Laboratory test finding 04/12/2018 Partial Thrombo Time 33.5 seconds 26.0 -36.3 PTT CBC Auto Diff 04/12/2018 White Blood Count 6.1 10^3/uL 3.5-10.8 Red Blood Count 4.14 10^6/uL 4.0-5.4 Hemoglobin 11.5 g/dL Low 12.0-16.0 Hematocrit 35 % 35-47 Mean Corpuscular Volume 83 fL 80-97 Mean Corpuscular Hemoglobin 28 pg 27-31 Mean Corpuscular HGB Conc 33 g/dL 31-36 Red Cell Distribution Width 14 % 10.5-15 Platelet Count 338 10^3/uL 150-450 Mean Platelet Volume 9.5 um3 7.4-10.4 Abs Neutrophils 3.9 10^3/uL 1.5-7.7 Abs Lymphocytes 1.3 10^3/uL 1.0-4.8 Abs Monocytes 0.5 10^3/uL 0-0.8 Abs Eosinophils 0.3 10^3/uL 0-0.6 Abs Basophils 0.1 10^3/uL 0-0.2 Abs Nucleated RBC 0 10^3/uL Granulocyte % 63.2 % 38-83 Lymphocyte % 21.8 % Low 25-47 Monocyte % 8.9 % High 0-7 Eosinophil % 4.3 % 0-6 Basophil % 1.8 % 0-2 Nucleated Red Blood Cells % 0 Comp Metabolic Panel 04/12/2018 Sodium 140 mmol/L 139-145 Potassium 4.3 mmol/L 3.5-5.0 Chloride 106 mmol/L 101-111 Co2 Carbon Dioxide 27 mmol/L 22-32 Anion Gap 7 mmol/L 2-11 Glucose 81 mg/dL 70-100 Blood Urea Nitrogen 15 mg/dL 6-24 Creatinine 0.60 mg/dL 0.51-0.95 BUN/Creatinine Ratio 25.0 High 8-20 Calcium 8.5 mg/dL Low 8.6-10.3 Total Protein 6.1 g/dL Low 6.4-8.9 Albumin 3.8 g/dL 3.2-5.2 Globulin 2.3 g/dL 2-4 Albumin/Globulin Ratio 1.7 1-3 Total Bilirubin 0.20 mg/dL 0.2-1.0 Alkaline Phosphatase 67 U/L 34-104 Alt 16 U/L 7-52 Ast 30 U/L 13-39 Egfr Non- 106.3 >60 Egfr 136.6 >60 2 Type & Screen 04/12/2018 Patient Blood Type A Positive Antibody Screen NEGATIVE Urine Culture And 04/12/2018 Urine Culture SEE RESULT BELOW 3 Sensitivities Laboratory test finding 12/27/2017 Lyme Disease Serology Negative Negative 4 Laboratory test finding 12/10/2017 Erythrocyte Sed Rate 10 mm/Hr 0-14 C Reactive Protein < 1.00 mg/L < 5.00 5 Hla B27 12/10/2017 Hla B27 Positive 6 Hla B27 Interp See Comment 7 Vitamin B12 And Folate Serum 12/10/2017 Vitamin B12 658 pg/mL 180-914 8 Folic Acid (Folate) 13.20 ng/mL >3.99 Laboratory test finding 12/10/2017 Magnesium 2.0 mg/dL 1.9-2.7 Thyroperoxidase AB 0.59 IU/mL <9 CBC Auto Diff 12/10/2017 White Blood Count 5.9 10^3/uL 3.5-10.8 Red Blood Count 5.06 10^6/uL 4.0-5.4 Hemoglobin 14.8 g/dL 12.0-16.0 Hematocrit 44 % 35-47 Mean Corpuscular Volume 86 fL 80-97 Mean Corpuscular Hemoglobin 29 pg 27-31 Mean Corpuscular HGB Conc 34 g/dL 31-36 Red Cell Distribution Width 15 % 10.5-15 Platelet Count 303 10^3/uL 150-450 Mean Platelet Volume 10 um3 7.4-10.4 Abs Neutrophils 3.5 10^3/uL 1.5-7.7 Abs Lymphocytes 1.6 10^3/uL 1.0-4.8 Abs Monocytes 0.5 10^3/uL 0-0.8 Abs Eosinophils 0.2 10^3/uL 0-0.6 Abs Basophils 0.1 10^3/uL 0-0.2 Abs Nucleated RBC 0 10^3/uL Granulocyte % 59.6 % 38-83 Lymphocyte % 26.7 % 25-47 Monocyte % 8.9 % 1-9 Eosinophil % 3.5 % 0-6 Basophil % 1.3 % 0-2 Nucleated Red Blood Cells % 0.1 Comp Metabolic Panel 12/10/2017 Sodium 137 mmol/L 133-145 Potassium 4.4 mmol/L 3.5-5.0 Chloride 107 mmol/L 101-111 Co2 Carbon Dioxide 24 mmol/L 22-32 Anion Gap 6 mmol/L 2-11 Glucose 91 mg/dL 70-100 Blood Urea Nitrogen 17 mg/dL 6-24 Creatinine 0.56 mg/dL 0.51-0.95 BUN/Creatinine Ratio 30.4 High 8-20 Calcium 8.8 mg/dL 8.6-10.3 Total Protein 6.5 g/dL 6.4-8.9 Albumin 4.1 g/dL 3.2-5.2 Globulin 2.4 g/dL 2-4 Albumin/Globulin Ratio 1.7 1-3 Total Bilirubin 0.30 mg/dL 0.2-1.0 Alkaline Phosphatase 79 U/L 34-104 Alt 6 U/L Low 7-52 Ast 17 U/L 13-39 Egfr Non- 115.5 >60 Egfr 148.6 >60 9 Protein Electrophoresis 12/10/2017 Total Protein(Pep) 6.9 g/dL 6.3 - 7.9 Albumin 3.5 g/dL 3.4-4.7 Alpha-1 Globulin 0.2 g/dL 0.1-0.3 Alpha-2 Globulin 1.0 g/dL 0.6-1.0 Beta Globulin 1.2 g/dL 0.7-1.2 Gamma Globulin 1.1 g/dL 0.6-1.6 Albumin/Globulin Ratio 1.05 Impression See Comment 10 Laboratory test finding 10/29/2017 Vitamin D Total 25(Oh) 17.9 ng/mL Low 20-50 Laboratory test finding 04/28/2017 Uric Acid 5.9 mg/dL 2.3-6.6 Erythrocyte Sed Rate 23 mm/Hr High 0-14 Rheumatoid Factor <15 IU/mL <15 11 Anti Nuclear Antibody 0.3 U 12 Laboratory test finding 04/20/2017 (HCG) Urine Negative Negative 13 1 *Ascorbic acid is present which may interfere with detection of blood. 2 Because ethnic data is not always readily available, this report includes an eGFR for both -Americans and non- Americans. The National Kidney Disease Education Program (NKDEP) does not endorse the use of the MDRD equation for patients that are not between the ages of 18 and 70, are , have extremes of body size, muscle mass, or nutritional status, or are non- or non-. According to the National Kidney Foundation, irrespective of diagnosis, the stage of the disease is based on the level of kidney function: Stage Description GFR(mL/min/1.73 m(2)) 1 Kidney damage with normal or decreased GFR 90 2 Kidney damage with mild decrease in GFR 60-89 3 Moderate decrease in GFR 30-59 4 Severe decrease in GFR 15-29 5 Kidney failure <15 (or dialysis) 3 SEE RESULT BELOW Name: ALECIA LIZAMA : [address]: Luci Hancock MD Acct: [id number] Unit: [id number] AGE: 48 Location: PAT Re04/12/18 SEX: F Status: REG REF SPEC: [id number] SHAWNA: 04/12/18-[address] [facility] [address]: Luci Hancock MD REQ: [id number] RECD: 04/12/18 STATUS: COMP _ SOURCE: URINE SPDESC: ORDERED: Urine Culture QUERIES: Urine Source: Clean Catch Procedure Result Reported Site Urine Culture Final 04/13/18- 1343 ML No growth of clinically significant organisms * - [facility] . END OF REPORT DEPARTMENT OF PATHOLOGY, [address] [place] [address] Ashish Alcocer M.D. Director [facility] # [id number] 4 Serologic response to B. burgdorferi infection is not detected, but cannot rule out early infection during which low or undetectable antibody levels to B. burgdorferi may be present. If clinically indicated, a new serum specimen should be submitted in 7-14 days. Test Performed by: [facility] [address] [place] [address] 5 Acute inflammation: >10.00 6 REFERENCE VALUE Not Applicable 7 HLA-B27 antigen was detected. Approximately 8% of the normal population carries the HLA-B27 antigen. HLA-B27 is present in approximately 89% of patients with ankylosing spondylitis, 79% of patients with Sandee's syndrome and 42% of patients with juvenile rheumatoid arthritis. However, lacking other data, it is not diagnostic for these disorders. This test does not differentiate B27 alleles. i.e. B*27:05, B*27:06, etc. ADDITIONAL INFORMATION Method: Flow Cytometry Performing Laboratory CLIA# [id number] Test Performed by: [facility] - [address] [address] 8 Normal Range 180 to 914 Indeterminate Range 145 to 180 Deficient Range <145 9 Because ethnic data is not always readily available, this report includes an eGFR for both -Americans and non- Americans. The National Kidney Disease Education Program (NKDEP) does not endorse the use of the MDRD equation for patients that are not between the ages of 18 and 70, are , have extremes of body size, muscle mass, or nutritional status, or are non- or non-. According to the National Kidney Foundation, irrespective of diagnosis, the stage of the disease is based on the level of kidney function: Stage Description GFR(mL/min/1.73 m(2)) 1 Kidney damage with normal or decreased GFR 90 2 Kidney damage with mild decrease in GFR 60-89 3 Moderate decrease in GFR 30-59 4 Severe decrease in GFR 15-29 5 Kidney failure <15 (or dialysis) 10 RESULT: No apparent monoclonal protein on serum electrophoresis. Test Performed by: [place] [address] 11 Test Performed by: [address] [address] 12 REFERENCE VALUE <=1.0 (Negative) Test Performed by: [place] [id number] 13 If is still suspected, please repeat test after 48 to 72 hours. This test detects intact HCG only and is indicated for the early detection of . Procedures Date CPT Code Description Status 04/21/2018 36561 TKR Total Knee Replacement Completed 04/21/2018 56372 TKR Total Knee Replacement Completed 04/21/2018 97934 TKR Total Knee Replacement Completed 12/31/2017 61884 Short Leg Cast Completed 12/27/2017 56306 Short Leg Cast Completed 12/24/2017 07553 Short Leg Cast Completed 12/20/2017 88292 Short Leg Cast Completed 12/16/2017 56383 Inject/Drain Joint/Bursa Major W/O US Completed 12/16/2017 Bone Graft, Any Donor Area Major Or Large Completed 12/16/2017 Bone Graft, Any Donor Area Major Or Large Completed 12/16/2017 Bone Graft, Any Donor Area Major Or Large Completed 12/16/2017 30137 Open TX Metatarsal FX,Incl Intl Fixation When Performed Completed 04/20/2017 07125 Arthroscopy,Knee,Meniscectomy Medial Or Lateral Completed 04/20/2017 06117 Arthroscopy,Knee,Meniscectomy Medial Or Lateral Completed 04/20/2017 68945 Arthroscopy,Knee,Meniscectomy Medial Or Lateral Completed 11/12/2016 45666 Nerve Conduction 11-12 Studies Completed 11/12/2016 68405 Needle Electromyography Each Extremity W/Related Completed Paraspinal Areas 05/19/2016 49866 Polysomnography Sleep Staging 4+ Parameters Completed Encounters Type Date Location Provider CPT E/M Dx Office Visit 04/08/2018 [place] [address] S92.354D 12:00p Of [facility] Office Visit 03/25/2018 [place] [address] S92.354D 10:15a Of [facility] Office Visit 03/11/2018 [facility] Services Luci Hancock M.D. 11288 M17.12 9:30a Of C.MFany M25.562 M25.462 Office Visit 03/03/2018 10:20a [facility]ology Services Wesley Puckett 28426 M46.90 Of Christina Rey M79.7 M54.5 Z79.899 Office Visit 02/25/2018 10:15a [facility] [address] G51.0 Office Visit 12/27/2017 10:45a [facility] [address] G51.0 Office Visit 12/10/2017 12:20p [facility] Of [facility] Puckett 10433 M79.7 Christina Rey M54.5 Z79.899 R20.8 M85.89 Office Visit 12/08/2017 10:45a [facility] Of Luci Hancock M.D. 46985 M25.462 C.MLandenALanden M25.562 S83.412A M17.12 Office Visit 11/30/2017 10:00a [place] [address] E55.9 C.M.ALanden S92.351G Office Visit 11/10/2017 11:15a [facility] Of Luci Hancock M.D. 95687 M17.12 C.M.A. M25.462 M25.562 S83.412A Office Visit 10/29/2017 10:30[place] [address] S92.354A Of C.M.A. E55.9 Office Visit 08/06/2017 10:30a [facility] [address] G65.0 G51.0 Office Visit 04/30/2017 9:40a [facility] Puck[place] 94742 M17.12 Of Christina Rey M79.7 S83.412A M54.31 R20.8 M54.5 Z79.899 Office Visit 04/09/2017 11:15a [facility] Of Luci Hancock M.D. 97975 M25.562 C.M.A. M25.462 S83.412D M17.12 S83.241D Office Visit 03/31/2017 9:45a [facility] Of Luci Hancock M.D. 35744 M25.562 C.M.A. M25.462 S83.412A M17.12 Office Visit 02/15/2017 9:15a [facility] Of Luci Hancock M.D. 58645 M25.551 C.M.A. M16.11 M79.7 G61.0 M24.051 Office Visit 02/03/2017 9:15a [facility] Of Luci Hancock M.D. 62145 M25.551 C.M.A. M16.11 M54.31 Office Visit 01/05/2017 10:00a [facility] [address] G61.0 Z79.899 Office Visit 12/03/2016 1:00p [facility] Of Wesley Puckett, 35388 M79.7 Christina Rey G25.81 R21 M62.838 Office Visit 12/03/2016 8:30a [facility] [address] G61.0 G51.0 Office Visit 11/16/2016 10:57a [facility] Vishal Fleming, 10134 R21 Infectious Diseases M.D. Office Visit 11/13/2016 10:55a [facility] Vishal Fleming, 22731 R21 Infectious Diseases M.D. G61.0 Office Visit 11/11/2016 2:25p [facility] [address] G61.0 Office Visit 11/10/2016 2:25p [facility] [address] G61.0 Office Visit 11/09/2016 2:25p [facility] [address] G61.0 Office Visit 11/08/2016 2:24p [facility] [address] G61.0 Office Visit 11/07/2016 2:23p [facility] [address] G61.0 Office Visit 11/06/2016 2:17p [facility] [address] G61.0 Office Visit 11/05/2016 2:16p [facility] [address] G61.0 Office Visit 11/05/2016 7:48a [facility], Zofia Mitchell, 63103 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 M79.605 Office Visit 06/08/2016 11:00a [facility] Elizabeth Rivera, 08587 G47.33 Services Of Christina POTTS RN, 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 G47.52 Office Visit 03/31/2016 9:15a [facility] Elizabeth Rivera, 11615 G47.9 Services Of Christina POTTS RN, 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 G47.50 G47.61 R06.83 Office Visit 02/05/2016 9:30a [facility] Adore Nichols 18605 G56.01 Of C.M.Mell Rey G56.02 G56.22 G56.21 Office Visit 01/24/2016 8:00a [facility] Of Luci Hancock M.D. 42584 M70.61 C.M.A. M70.62 Office Visit 11/30/2013 1:15p [facility] Adore Nichols, 52937 354.0 Miley Rey 354.2 Plan of Care Future Appointment(s):05/30/2018 2:15 pm - Chavez El MD at [facility]05/30/2018 3:00 pm - Luci Hancock M.D. at [facility]05/24/2018 - Alyssa Holley, PAZ47.1 Aftercare following joint replacement surgeryFollow up:Follow up: wednesday with RlhiiJ69.652 Presence of left artificial knee asgwzI09.562 Pain in left knee
--- OUTSIDE RECORDS SUMMARY | 2018-05-24 21:33 | XMS REPORT ---
:1970 External Reference #:[id number] Author Organization [facility] Address [address] [place] [address] [place] [address] Phone [phone] Care Team Providers Name Role Phone Eitan Dejesus MD Primary Care Physician Unavailable Payers Type Date Identification Numbers Payment Provider Subscriber Commercial Expires: Policy Number: [employer] José Van Carlosmeleciolinsey 2016 [id number] PayID: [id number] [address] [place] [address] Commercial Effective: 2016 Policy Number: [employer] Alecia Lizama [id number] Group Number: [id number] [address] PayID: [id number] [place] [address] Commercial Effective: 2017 Policy Number: [facility] Alecia Lizama [id number] Expires: 2019 Group Number: [id number]% [id number] PayID: [id number] [address] Problems Date Description Provider Status Onset: 03/31/2016 Dyssomnia Elizabeth Rivera DNP, RN, Active SPINNER CAP FRAME-BC Onset: 03/31/2016 Morbid obesity Elizabeth Rivera DNP, YONNY, Active [employer]AME-BC Onset: 03/31/2016 Periodic leg movements of sleep Elizabeth Rivera DNP, RN, Active [employer]IN[employer] FRAME-BC Onset: 03/31/2016 Disturbance in sleep behavior Elizabeth Rivera DNP, RN, Active SPINNER CAP FRAME-BC Onset: 06/08/2016 REM sleep behavior disorder Elizabeth Rivera DNP, RN, Active SPINNER CAP FRAME-BC Onset: 09/24/2016 Pain in right lower limb [...] r Chavez El MD Active ft, 7thG Family History Date Family Member(s) Problem(s) Comments [...] Oxycodone HCL 04/24 Active Capsules 5mg 60cap 1 tabs by Luci s mouth every Santi, 6 hours as M.D. needed pain Lidocaine 12/03 Active Patches 5% 60uni apply 1 or 2 R20.8 ts patches 12 Lavern, hours on and M.D. 12 hours off Cymbalta 00 Active 120mg daily Unknown /0000 Valerian Root Active Capsules 100mg 2 capsules Unknown /0000 as needed Methocarbamol Active Tablets 750mg Take 1 Tablet 3 Times A Day as Needed For Spasms Celebrex Active Capsules 200mg 1 by mouth Unknown bid Prednisone 12/27 Hx Tablets 10mg 45tab 4 pills for G51.0 s 3 days then Sarah, - 3 pills for MD 03/24 3 days 2 pills for 3 days then 1 pill for 3 days then off Oxycodone HCL 12/16 Hx Tablets 5mg 5tabs 1 tabs by Chavez mouth every Sienna, - 6 hours as MD 12/27 needed Percocet 05/04 Hx Tablets 5-325mg 8tabs 1tab by Luci mouth every Santi, - 8 hours as M.D. 06/10 needed pain Percocet 04/20 Hx Tablets 5-325mg 8tabs 1tab by Luci mouth every Santi, - 8 hours as M.D. 04/30 needed pain Cane/Wood/Ladies 12/10 Hx [facility] 1unit patient Juanjose CampbellLanden [facility] s should use alka Crockett [place] - cane as M.D. Finish 04/07 needed until follow up appointment. dx dx: g61.0 g51.0 (quad cane) Cane/Wood/Ladies 12/07 Hx [facility] patient Jasiel [facility] should use alka Smith [place] - cane as MD Finish 04/07 needed until follow up appointment. dx dx: g61.0 g51.0 (quad cane) Cane/Wood/Ladies 12/03 Hx [facility] 1unit patient Juanjose CampbellLanden [facility] s should use radha Crockettned [place] - cane as M.D. Finish 12/07 needed until follow up appointment. dx dx: g61.0 g51.0 (quad cane) Skelaxin 09/24 Hx Tablets 800mg 90tab take 1 tab M79.604 Tomi s every 8 Yaseyanira MD - hours prn 12/02 Tramadol HCL 04/14 Hx Tablets 50mg 1-2 tablets every 6 - hours as 09/23 needed Flexeril 02/10 Hx Tablets 10mg 1 by mouth three times - a day as 01/05 Naprosyn 01/23 Hx Tablets 500mg 60tab 1 by mouth M70.61 Bindu /2016 s twice daily Shalonda, - for SUPERVISOR REMELT 09/23 inflammation and pain. Prilosec Hx Capsules 20mg 1 by mouth Unknown / DR every day - 09/23 Rhodiola Hx Capsules 300mg Unknown /0000 - 09/23 Vitamin D Hx Tablets 400Unit every day by Unknown / mouth - 09/23 Lorazepam Hx Tablets 0.5mg 10tab take 1 s tablet every Sarah, - 8 hours as 06/10 needed anxiety Ventolin HFA Hx Aerosol 108(90Bas Inhale 2 / e) puff By - mcg/Act Inhalation 05/02 Route 4 - 6 Hours as Needed Omeprazole Hx Capsules 20mg Take One Unknown / DR Capsule - Every Day 10/29 Ramipril Hx Capsules 5mg Take One Capsule - Every Day 04/07 Medrol Dose Pack Hx Unknown /0000 - 04/30 Gabapentin Hx Capsules 300mg 120ca Take One ps Capsule By Sarah, - Mouth 3 MD 10/29 Times A Day Vital Signs Date Vital Result Comment 05/02/2018 Height 67 inches 5'7" Weight 215.00 [...] Color Yellow Urine Appearance Cloudy Urine Specific [place] 1.021 1.010-1.030 Urine pH 5.0 5-9 Urine [...] (or dialysis) 3 SEE RESULT BELOW Name: BERTRAMALECIA VELA : [address]: Luci Hancock MD Acct: [id number] Unit: [id number] AGE: 48 Location: [facility] Re04/12/18 SEX: F Status: REG REF SPEC: [id number] SHAWNA: 04/12/18-12[address] [facility] DR: Luci Hancock MD REQ: [id number] RECD: 04/12/18 STATUS: COMP _ SOURCE: URINE SPDESC: ORDERED: Urine Culture QUERIES: Urine Source: Clean Catch Procedure Result Reported Site Urine Culture Final 04/13/18- 1343 ML No growth of clinically significant organisms * ML - Main Lab . END OF REPORT DEPARTMENT OF PATHOLOGY, [address] [place] [address] Ashish Alcocer M.D. Director [facility] # [id number] 4 Serologic response to B. burgdorferi infection is not detected, but cannot rule out early infection during which low or undetectable antibody levels to B. burgdorferi may be present. If clinically indicated, a new serum specimen should be submitted in 7-14 days. Test Performed by: [facility] [address] [place] [address] 5 Acute inflammation: >10.00 6 REFERENCE VALUE [...] INFORMATION Method: Flow Cytometry Performing Laboratory CLIA# [id number] Test Performed by: [facility] - [address] [address] 8 Normal Range 180 to 914 Indeterminate [...] protein on serum electrophoresis. Test Performed by: [facility] [address] [place] [address] 11 Test Performed by: [address] [address] 12 REFERENCE VALUE <=1.0 (Negative) Test Performed by: [address] [address] 13 If is still suspected, please repeat test after 48 to 72 hours. This test detects intact HCG only and is indicated for the early detection of . Procedures Date CPT Code Description Status 04/21/2018 04420 TKR Total Knee Replacement Completed 04/21/2018 42188 TKR Total Knee Replacement Completed 04/21/2018 46729 TKR Total Knee Replacement Completed 12/31/2017 81797 Short Leg Cast Completed 12/27/2017 86805 Short Leg Cast Completed 12/24/2017 72346 Short Leg Cast Completed 12/20/2017 72200 Short Leg Cast Completed 12/16/2017 01492 Inject/Drain Joint/Bursa Major W/O US Completed 12/16/201732920 Bone Graft, Any Donor Area Major Or Large Completed 12/16/201793286 Bone Graft, Any Donor Area Major Or Large Completed 12/16/201769392 Bone Graft, Any Donor Area Major Or Large Completed 12/16/2017 35651 Open TX Metatarsal FX,Incl Intl Fixation When Performed Completed 04/20/2017 07592 Arthroscopy,Knee,Meniscectomy Medial Or Lateral Completed 04/20/2017 87029 Arthroscopy,Knee,Meniscectomy Medial Or Lateral Completed 04/20/2017 60306 Arthroscopy,Knee,Meniscectomy Medial Or Lateral Completed 11/12/2016 21958 Nerve Conduction 11-12 Studies Completed 11/12/2016 36934 Needle Electromyography Each Extremity W/Related Completed Paraspinal Areas 05/19/2016 42911 Polysomnography Sleep Staging 4+ Parameters Completed Encounters Type Date Location Provider CPT E/M Dx Office Visit 03/25/2018 [place] [address] S92.354D 10:15a Of C.M.A. Office Visit 03/11/2018 [facility] Luci Hancock M.D. 01711 M17.12 9:30a Of C.M.A. M25.562 M25.462 Office Visit 03/03/2018 10:20a [facility] Wesley Puckett 16489 M46.90 Of Christina Sun79.7 M54.5 Z79.899 Office Visit 02/25/2018 10:15a [facility] [address] G51.0 Office Visit 12/27/2017 10:45a [facility] [address] G51.0 Office Visit 12/10/2017 12:20p [facility] Of Wesley Puckett 83662 M79.7 Christina Rey M54.5 Z79.899 R20.8 M85.89 Office Visit 12/08/2017 10:45a [facility] Of Luci Hancock M.D. 58079 M25.462 C.M.A. M25.562 S83.412A M17.12 Office Visit 11/30/2017 10:00a [facility] [address] E55.9 C.M.A. S92.351G Office Visit 11/10/2017 11:15a [facility] Of Luci Hancock M.D. 11170 M17.12 C.M.A. M25.462 M25.562 S83.412A Office Visit 10/29/2017 10:30[place] [address] S92.354A Of C.M.A. E55.9 Office Visit 08/06/2017 10:30a [facility] [address] G65.0 G51.0 Office Visit 04/30/2017 9:40a [facility] Services Wesley Puckett 15548 M17.12 Of Christina Rey M79.7 S83.412A M54.31 R20.8 M54.5 Z79.899 Office Visit 04/09/2017 11:15a [facility] Of Luci Hancock M.D. 40809 M25.562 C.M.A. M25.462 S83.412D M17.12 S83.241D Office Visit 03/31/2017 9:45a [facility] Luci Hancock M.D. 66991 M25.562 C.M.A. M25.462 S83.412A M17.12 Office Visit 02/15/2017 9:15a [facility] Luci Hancock M.D. 46383 M25.551 C.M.A. M16.11 M79.7 G61.0 M24.051 Office Visit 02/03/2017 9:15a [facility] Luci Hancock M.D. 38026 M25.551 C.M.A. M16.11 M54.31 Office Visit 01/05/2017 10:00a [facility] [address] G61.0 Z79.899 Office Visit 12/03/2016 1:00p [facility] Of Wesley Puckett, 31685 M79.7 Christina Rey G25.81 R21 M62.838 Office Visit 12/03/2016 8:30a [facility] [address] G61.0 G51.0 Office Visit 11/16/2016 10:57a [facility] Vishal Fleming, 26876 R21 Infectious Diseases M.D. Office Visit 11/13/2016 10:55a [facility] Vishal Fleming, 33706 R21 Infectious Diseases M.D. G61.0 Office Visit 11/11/2016 2:25p [facility] [address] G61.0 Office Visit 11/10/2016 2:25p [facility] [address] G61.0 Office Visit 11/09/2016 2:25p [facility] [address] G61.0 Office Visit 11/08/2016 2:24p [facility] [address] G61.0 Office Visit 11/07/2016 2:23p [facility] [address] G61.0 Office Visit 11/06/2016 2:17p [facility] [address] G61.0 Office Visit 11/05/2016 2:16p [facility] [address] G61.0 Office Visit 11/05/2016 7:48a [facility], Zofia Mitchell, 62074 G51.0 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- G47.52 Office Visit 03/31/2016 9:15a [facility] Sleep Elizabeth Rivera 60792 G47.9 Services Of Christina POTTS RN, SPINNER CAP FRAME-NING G47.50 G47.61 R06.83 Office Visit 02/05/2016 9:30a [facility] Adore Nichols 33794 G56.01 Of Miley Rey G56.02 G56.22 G56.21 Office Visit 01/24/2016 8:00a [facility] Of Luci Hancock M.D. 36848 M70.61 CArlette M70.62 Office Visit 11/30/2013 1:15p [facility] Adore Nichols 31936 354.0 Miley Rey 354.2 Plan of Care Future Appointment(s):05/30/2018 2:15 pm - Chavez El MD at [facility]05/30/2018 3:00 pm - Luci Hancock M.D. at [facility]05/02/2018 - Luci Hancock M.D.M25.562 Pain in left kneeNew Therapy:Physical TherapyFollow up:Follow up: 4 bbuzpP95.12 Unilateral primary osteoarthritis, left kneeM25.462 Effusion, left kneeZ47.1 Aftercare following joint replacement surgery
--- OUTSIDE RECORDS SUMMARY | 2018-05-24 21:33 | XMS REPORT ---
:1970 External Reference #:[id number] Author Organization [facility] Address [address] [place] [address] [place] [address] Phone [phone] Care Team Providers Name Role Phone Eitan Dejesus MD Primary Care Physician Unavailable Payers Type Date Identification Numbers Payment Provider Subscriber Commercial Expires: Policy Number: [employer] José Van Carlosmeleciolinsey 2016 [id number] PayID: [id number] [address] [place] [address] Commercial Effective: 2016 Policy Number: [employer] Alecia Lizama [id number] Group Number: [id number] [address] PayID: [id number] [place] [address] Commercial Effective: 2017 Policy Number: [facility] Alecia Lizama [id number] Expires: 2019 Group Number: [id number] PayID: [id number] [address] Problems Date Description Provider Status Onset: 03/31/2016 Dyssomnia Elizabeth Rivera DNP, RN, Active PROCEDURES RN-BC Onset: 03/31/2016 Morbid obesity Elizabeth Rivera DNP, YONNY, Active PROCEDURES RN-BC Onset: 03/31/2016 Periodic leg movements of sleep Elizabeth Rivera DNP, RN, Active PROCEDURES RN-BC Onset: 03/31/2016 Disturbance in sleep behavior Elizabeth Rivera DNP, RN, Active PROCEDURES RN-BC Onset: 06/08/2016 REM sleep behavior disorder Elizabeth Rivera DNP, RN, Active PROCEDURES RN-BC Onset: 09/24/2016 Pain in right lower limb [...] Form Strength Qnty SIG Indications Ordering Provider Keflex 05/16 Active Capsules 500mg 28cap 1 by mouth 4 M25.462 Luci s times a day Santi, for 7 days M.D. Cyclobenzaprine 04/25 Active Tablets 10mg 90tab take 1 tab Luci HCL s by mouth 2-3 Santi, times a day M.D. as needed Oxycodone HCL 04/24 Active Capsules 5mg 60cap 1-2 tabs by Luci s mouth every Santi, 6 hours as M.D. needed pain Lidocaine 12/03 Active Patches 5% 60uni apply 1 or 2 R20.8 ts patches 12 Lavern, hours on and M.D. 12 hours off Cymbalta Active 120mg daily Unknown /0000 Valerian Root Active Capsules 100mg 2 capsules Unknown /0000 as needed Methocarbamol Active Tablets 750mg Take 1 Unknown Tablet 3 Times A Day as Needed For Spasms Celebrex Active Capsules 200mg 1 by mouth Unknown / bid Prednisone 12/27 Hx Tablets 10mg 45tab 4 pills for G51.0 s 3 days then Sarah, - 3 pills for 03/24 3 days 2 pills for 3 [...] as M.D. 04/30 needed pain Cane/Wood/Ladies 12/10 [facility] 1unit patient Juanjose CampbellLanden s should use radha Crockettned Hettick - cane as M.D. Finish 04/07 needed until follow up appointment. dx dx: g61.0 g51.0 (quad cane) Cane/Wood/Ladies 12/07 [facility] patient Jasiel [facility] should use alka Smith Hettick - cane as MD Finish 04/07 needed until follow up appointment. dx dx: g61.0 g51.0 (quad cane) Cane/Wood/Ladies 12/03 Hx [facility] 1unit patient Juanjose Cruz s should use Keira, tained Hettick - cane as M.D. Finish 12/07 needed until follow up appointment. 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 Prilosec Hx Capsules [...] Ramipril Hx Capsules 5mg Take One Unknown / Capsule - Every Day 04/07 Medrol Dose Pack Hx Unknown /0000 - 04/30 Gabapentin Hx Capsules 300mg 120ca Take One ps Capsule By Sarah, - Mouth 3 MD 10/29 Times A Day /2016 Vital Signs Date Vital Result Comment 05/16/2018 Height 67 inches 5'7" Heart Rate [...] Color Yellow Urine Appearance Cloudy Urine Specific Wingate 1.021 1.010-1.030 Urine pH 5.0 5-9 Urine [...] [address]: Luci Hancock MD Acct: [id number] Unit: [id number] AGE: 48 Location: [facility] Re04/12/18 SEX: F Status: REG REF SPEC: [id number] SHAWNA: 04/12/18-[address]: Luci Hancock MD REQ: [id number] RECD: 04/12/18 STATUS: COMP _ SOURCE: URINE SPDESC: ORDERED: Urine Culture QUERIES: Urine Source: Clean Catch Procedure Result Reported Site Urine Culture Final 04/13/18- 1343 ML No growth of clinically significant organisms * - [facility] . END OF REPORT DEPARTMENT OF PATHOLOGY, [address] [place] [address] Ashish Alcocer M.D. Director [facility] # [id number] 4 Serologic response to B. burgdorferi infection is not detected, but cannot rule out early infection during which low or undetectable antibody levels to B. burgdorferi may be present. If clinically indicated, a new serum specimen should be submitted in 7-14 days. Test Performed by: [facility] [address] [place] [address] 5 Acute inflammation: >10.00 6 REFERENCE VALUE [...] INFORMATION Method: Flow Cytometry Performing Laboratory CLIA# [id number] Test Performed by: [facility] - [address] [address] 8 Normal Range 180 to 914 Indeterminate [...] protein on serum electrophoresis. Test Performed by: [address] [address] Test Performed by: [address] [address] 12 REFERENCE VALUE <=1.0 (Negative) Test Performed by: [address] [address] 13 If is still suspected, please repeat test after 48 to 72 hours. This test detects intact HCG only and is indicated for the early detection of . Procedures Date CPT Code Description Status 04/21/2018 46995 TKR Total Knee Replacement Completed 04/21/2018 75751 TKR Total Knee Replacement Completed 04/21/2018 81793 TKR Total Knee Replacement Completed 12/31/2017 77232 Short Leg Cast Completed 12/27/2017 20966 Short Leg Cast Completed 12/24/2017 37787 Short Leg Cast Completed 12/20/2017 82928 Short Leg Cast Completed 12/16/2017 81028 Inject/Drain Joint/Bursa Major W/O US Completed 12/16/2017 Bone Graft, Any Donor Area Major Or Large Completed 12/16/2017 Bone Graft, Any Donor Area Major Or Large Completed 12/16/2017 Bone Graft, Any Donor Area Major Or Large Completed 12/16/2017 08893 Open TX Metatarsal FX,Incl Intl Fixation When Performed Completed 04/20/2017 11795 Arthroscopy,Knee,Meniscectomy Medial Or Lateral Completed 04/20/2017 24948 Arthroscopy,Knee,Meniscectomy Medial Or Lateral Completed 04/20/2017 65488 Arthroscopy,Knee,Meniscectomy Medial Or Lateral Completed 11/12/2016 83969 Nerve Conduction 11-12 Studies Completed 11/12/2016 85376 Needle Electromyography Each Extremity W/Related Completed Paraspinal Areas 05/19/2016 70474 Polysomnography Sleep Staging 4+ Parameters Completed Encounters Type Date Location Provider CPT E/M Dx Office Visit 04/08/2018 [place] [address] S92.354D 12:00p Of [facility] Office Visit 03/25/2018 [place] [address] S92.354D 10:15a Of [facility] Office Visit 03/11/2018 [facility] Luci Hancock M.D. 19982 M17.12 9:30a Of [facility] M25.562 M25.462 Office Visit 03/03/2018 10:20a Rhe[facility]ology Services Wesley Puckett 02688 M46.90 Of Christina Rey M79.7 M54.5 Z79.899 Office Visit 02/25/2018 10:15a [facility] [address] G51.0 Office Visit 12/27/2017 10:45a [facility] [address] G51.0 Office Visit 12/10/2017 12:20p [facility] Of Wesley Puckett 14410 M79.7 Christina Rey M54.5 Z79.899 R20.8 M85.89 Office Visit 12/08/2017 10:45a [facility] Of Luci Hancock M.D. 36952 M25.462 C.M.A. M25.562 S83.412A M17.12 Office Visit 11/30/2017 10:00a [place] [address] E55.9 C.M.A. S92.351G Office Visit 11/10/2017 11:15a [facility] Of Luci Hancock M.D. 06252 M17.12 C.M.A. M25.462 M25.562 S83.412A Office Visit 10/29/2017 10:30[place] [address] S92.354A Of [facility]. E55.9 Office Visit 08/06/2017 10:30a [facility] [address] G65.0 G51.0 Office Visit 04/30/2017 9:40a [facility]ology Services Wesley Puckett, 28878 M17.12 Of Christina Rey M79.7 S83.412A M54.31 R20.8 M54.5 Z79.899 Office Visit 04/09/2017 11:15a [facility] Of Luci Hancock M.D. 49904 M25.562 C.M.A. M25.462 S83.412D M17.12 S83.241D Office Visit 03/31/2017 9:45a [facility] Of Luci Hancock M.D. 25222 M25.562 C.M.A. M25.462 S83.412A M17.12 Office Visit 02/15/2017 9:15a [facility] Of Luci Hancock M.D. 69508 M25.551 C.M.A. M16.11 M79.7 G61.0 M24.051 Office Visit 02/03/2017 9:15a [facility] Of Luci Hancock M.D. 90063 M25.551 C.M.A. M16.11 M54.31 Office Visit 01/05/2017 10:00a [facility] [address] G61.0 Z79.899 Office Visit 12/03/2016 1:00p [facility]ology Services Of Wesley Puckett, 85772 M79.7 [facility] Krissy G25.81 R21 M62.838 Office Visit 12/03/2016 8:30a [facility] [address] G61.0 G51.0 Office Visit 11/16/2016 10:57a [facility] Vishal Fleming, [address]1986 R21 Infectious Diseases M.D. Office Visit 11/13/2016 10:55a [facility] Vishal Fleming, 97267 R21 Infectious Diseases M.D. G61.0 Office Visit 11/11/2016 2:25p [facility] [address] G61.0 Office Visit 11/10/2016 2:25p [facility] [address] G61.0 Office Visit 11/09/2016 2:25p [facility] [address] G61.0 Office Visit 11/08/2016 2:24p [facility] [address] G61.0 Office Visit 11/07/2016 2:23p [facility] [address] G61.0 Office Visit 11/06/2016 2:17p [facility] [address] G61.0 Office Visit 11/05/2016 2:16p [facility] [address] G61.0 Office Visit 11/05/2016 7:48a [facility], Zofia Mitchell, 58291 G51.0 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 M79.605 Office Visit 06/08/2016 11:00a [facility] Elizabeth Rivera 98518 G47.33 Services Of Christina POTTS RN, [facility] G47.52 Office Visit 03/31/2016 9:15a [facility]ology [facility] Sleep Elizabeth Rivera 05908 G47.9 Services Of Christina POTTS RN, [facility] G47.50 G47.61 R06.83 Office Visit 02/05/2016 9:30a [facility]opedic Services Adore Nichols 45034 G56.01 Of C.MFany Rey G56.02 G56.22 G56.21 Office Visit 01/24/2016 8:00a [facility] Of Luci Hancock M.D. 62541 M70.61 C.M.ALanden M70.62 Office Visit 11/30/2013 1:15p [facility] Of Adore Nichols 34368 354.0 C.M.ALanden Rey 354.2 Plan of Care Future Appointment(s):05/24/2018 10:15 am - BANDAR Zuñiga at [facility]05/30/2018 2:15 pm - Chavez El MD at [facility] Of [facility].05/30/2018 3:00 pm - Luci Hancock M.D. at [facility] Of [facility]05/16/2018 - Luci Hancock M.D.M25.462 Effusion, left kneeNew Medication:Keflex 500 mgFollow up:Follow up: 1 weekZ47.1 Aftercare following joint replacement nqhhftnB30.652 Presence of left artificial knee joint
--- NOTE | 2018-05-24 21:39 | ED ---
Lower Extremity - HPI Summary HPI Summary: 48-year-old female presents with left knee pain today. States she is walking and she felt a pull in her left thigh. She states that just had a knee replacement a month ago. No fevers. She seen by the PA today and states that the infection on her incision has been healing well. She has been taking the Keflex. No weakness. He states pain has been severe. 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 She states feels that pulled something. feels that left thigh is more swollen than normal. she was former smoker. - History of Current Complaint Chief Complaint: EDExtremityLower Stated Complaint: LEFT KNEE INJURY Time Seen by Provider: 05/24/18 21:07 Hx Last Menstrual Period: 03/17/17 Pain Intensity: 7 - Allergies/Home Medications Allergies/Adverse Reactions: Allergies Allergy/AdvReac Type Severity Reaction Status Date / Time casey flavor Allergy Severe Swelling Verified 05/12/18 16:40 Of Face,Lips,& Throat Sulfa (Sulfonamide Allergy Intermediate Rash And Verified 05/12/18 16:40 Antibiotics) Itching, throat closes PMH/Surg Hx/FS Hx/Imm Hx Endocrine/Hematology History: Denies: Hx Diabetes, Hx Thyroid Disease, Hx Anemia Cardiovascular History: Reports: Hx Hypertension - off and on - ON MEDICATION FOR Denies: Hx Pacemaker/ICD, Other Cardiovascular Problems/Disorders Respiratory History: Reports: Hx Asthma - PRN inhalers, will bring, Hx Sleep Apnea Denies: Hx Chronic Obstructive Pulmonary Disease (COPD), Other Respiratory Problems/Disorders GI History: Reports: Hx Ulcer Denies: Hx Jaundice, Other GI Disorders History: Denies: Hx Renal Disease Musculoskeletal History: Reports: Hx Arthritis - osteo, Hx Bursitis - hips, knees elbows, Hx Fibromyalgia, Other Musculoskeletal History - , itbs hypermobility Sensory History: Reports: Hx Contacts or Glasses - reading glasses Denies: Hx Hearing Aid Opthamlomology History: Reports: Hx Contacts or Glasses - reading glasses Neurological History: Reports: Hx Headaches, Hx Migraine, Other Neuro Impairments/Disorders - FIBROMYALGIA Denies: Hx Seizures, Hx Transient Ischemic Attacks (TIA) Psychiatric History: Reports: Hx Anxiety - on meds, Hx Depression - on meds Denies: Hx Panic Disorder - Cancer History Hx Chemotherapy: No Hx Radiation Therapy: No - Surgical History Surgery Procedure, Year, and Place: BILAT BREAST REDUCTION 2000;[place]. LAPAROTOMY FOR PID AGE 16;. LAPROSCOPIC FOR ENDOMETRIOSIS AND SCAR TISSUE x3 1988 and 1992. [place] [facility] [place] [facility] [place] Anesthesia Reactions: Yes - nausea Infectious Disease History: No Infectious Disease History: Reports: Hx Tuberculosis - always tests positive for tb Denies: Hx Hepatitis, Hx Human Immunodeficiency Virus (HIV), History Other Infectious Disease, Traveled Outside the [place] in Last 30 Days - Family History Known Family History: Positive: Hypertension, Diabetes, Other - Stroke ( grandfather), Breast CA. Negative: Cardiac Disease - Social History Alcohol Use: None Hx Substance Use: No Substance Use Type: Reports: None Substance Use Comment - Amount & Last Used: recovering opiate addict Hx Tobacco Use: Yes Smoking Status (MU): Former Smoker Amount Used/How Often: 1 PACK PER WEEK X 4-5 YEARS Have You Smoked in the Last Year: No Review of Systems Negative: Fever Negative: Chest Pain Negative: Shortness Of Breath Positive: Myalgia - left leg pain All Other Systems Reviewed And Are Negative: Yes Physical Exam Triage Information Reviewed: Yes Vital Signs On Initial Exam: Initial Vitals Temp Pulse Resp BP Pulse Ox 98.0 F 83 16 129/91 100 05/24/18 20:44 05/24/18 20:44 05/24/18 20:44 05/24/18 20:44 05/24/18 20:44 Vital Signs Reviewed: Yes Appearance: Positive: Well-Appearing Skin: Positive: Warm, Dry, Other - healing laceration with some mild erythema around knee Head/Face: Positive: Normal Head/Face Inspection Eyes: Positive: Normal, Conjunctiva Clear ENT: Positive: Pharynx normal Respiratory/Lung Sounds: Positive: Clear to Auscultation, Breath Sounds Present Cardiovascular: Positive: Normal, RRR Musculoskeletal: Positive: Limited @ - left knee,, Other - tenderness lateral aspect of left thigh, mild edema noted to left knee, joint is not warm to touch , good pulses Neurological: Positive: Normal Psychiatric: Positive: Normal Diagnostics - Vital Signs Vital Signs Temp Pulse Resp BP Pulse Ox 05/24/18 20:46 85 129/91 100 05/24/18 20:44 98.0 F 83 16 129/91 100 - Laboratory Lab Statement: Any lab studies that have been ordered have been reviewed, and results considered in the medical decision making process. - Radiology knee Xray Interpretation: No Acute Changes Radiology Interpretation Completed By: ED Physician - Ultrasound No standard instances Ultrasound Interpretation: No Acute Changes Ultrasound Interpretation Completed By: Radiologist Lower Extremity Course/Dx - Course Course Of Treatment: 48-year-old female presents with left knee pain today. States she is walking and she felt a pull in her left thigh. She states that just had a knee replacement a month ago. No fevers. She seen by the PA today and states that the infection on her incision has been healing well. She has been taking the Keflex. No weakness. He states pain has been severe. 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 She states feels that pulled something. feels that left thigh is more swollen than normal. she was former smoker. On exam tenderness over left thigh. wound some erythema around wound but no streaking. Full range of motion leg with pain. Ultrasound no DVT. x-ray is same as previous. gave immobilizer and will have follow-up with orthopedic. Patient understands agrees with plan. - Diagnoses Differential Diagnosis/HQI/PQRI: Positive: DVT, Septic Arthritis, Sprain, Strain Provider Diagnoses: Left leg pain Discharge - Sign-Out/Discharge Documenting (check all that apply): Patient Departure - Discharge Plan Condition: Good Disposition: HOME Patient Education Materials: Leg Pain (ED) Referrals: Eitan Dejesus MD [Primary Care Provider] - Adore Nichols MD [Medical Doctor] - Additional Instructions: Follow up with ortho Ice, elevate keep off joint as much as possible Take normal pain medication Return to ED if develop any new or worsening symptoms - Billing Disposition and Condition Condition: GOOD Disposition: Home
[2018-05-25 00:12] VITALS: BP 110/66
--- NOTE | 2018-05-25 08:14 | RAD ---
INDICATION: Left knee pain in a woman with a history of left total knee arthroplasty COMPARISON: Most recent comparison the radiograph is dated May 12, 2018 TECHNIQUE: 4 view radiograph of the left knee. FINDINGS: The left knee prosthesis is anatomically aligned. There is no evidence of periprosthetic fracture or loosening. There is no discernible joint effusion. IMPRESSION: No radiographically apparent fracture or dislocation. If the patient's symptoms persist, follow-up imaging is recommended. R0
--- NOTE | 2018-05-25 09:04 | RAD ---
HISTORY: left thigh pain, recent knee replacement COMPARISONS: None relevant TECHNIQUE: Multiple transverse and longitudinal ultrasound images were obtained of the left lower extremity from the level of the common femoral vein inferiorly through to the infrapopliteal veins using grayscale, color Doppler, and spectral Doppler imaging with and without compression and with augmentation. Comparison images were obtained of the contralateral common femoral vein. FINDINGS: VEINS: The venous system of the left lower extremity is compressible throughout its course, with normal flow on color Doppler imaging and normal response to augmentation on spectral Doppler imaging. SOFT TISSUES: Unremarkable. OTHER FINDINGS: There is a 5 x 3.8 x 2.3 cm complicated fluid collection within the popliteal fossa IMPRESSION: 1. NO LEFT LOWER EXTREMITY DEEP VEIN THROMBOSIS 2. 5 CM FLUID COLLECTION WITHIN THE POPLITEAL FOSSA. THE DIFFERENTIAL INCLUDES LIVE'S CYST VERSUS HEMATOMA. R0
== END 2018-05-25 00:12 | disposition home or self-care (01) ==
LOC: ED 20:43
DX: M79.652 Pain in left thigh (principal); I10 Essential (primary) hypertension; J45.909 Unspecified asthma, uncomplicated; F41.9 Anxiety disorder, unspecified; F32.9 Major depressive disorder, single episode, unspecified; Z96.652 Presence of left artificial knee joint; Z88.2 Allergy status to sulfonamides; Z82.49 Family history of ischemic heart disease and other diseases of the circulatory system; Z83.3 Family history of diabetes mellitus; Z82.3 Family history of stroke; Z80.3 Family history of malignant neoplasm of breast; Z87.891 Personal history of nicotine dependence
CPT/HCPCS: 99282; A9270-GY

== ENCOUNTER 2018-06-02 08:57 | Day surgery (SDC) | payer OTHER ==
--- NOTE | 2018-05-30 22:20 | HP ---
HISTORY AND PHYSICAL: DATE OF ADMISSION: 06/02/18 CHIEF COMPLAINT: Left knee pain. HISTORY OF PRESENT ILLNESS: Ms. Lizama is a 48-year-old female who underwent left total knee arthroplasty on 04/11/18, due to severe end-stage arthritis. She initially did well postoperatively. Last week, at approximately her 6-week postop period, she reports that she was walking in her yard when she felt a sudden onset of a ripping sensation and fell to the ground. Since then, she was unable to extend the left total knee arthroplasty and she could do this before. Radiographs showed no obvious fracture or component malalignment. Ultrasound was negative for DVT. She was placed in a knee immobilizer and an MRI was ordered. This did confirm a quadriceps tendon tear superior to the patella. The patient continues to have 3/10 pain in the left knee and inability to extend the knee. She has been in the knee immobilizer with a rolling walker. She feels the right knee is starting to ache because of compensation. PAST MEDICAL HISTORY: Guillain-[place] syndrome, history of opioid abuse, sleep disorder, polyneuritis including John's palsy, polyneuropathy, osteoarthritis, dyssomnia, restless leg syndrome, stress fracture, giardiasis, headache disorder , neuralgia disorder, chronic depression, needle phobia, stress incontinence, fibromyositis, muscle weakness, ulnar nerve entrapment, vitamin D deficiency, gastric ulcer, obesity, carpal tunnel syndrome, polycystic ovaries, endometriosis, conjunctivitis. PAST SURGICAL HISTORY: April 2017, left knee arthroscopy; April 2018, left total knee arthroplasty; breast reduction in 2001; laparoscopy in 1992. CURRENT MEDICATIONS: 1. Cyclobenzaprine 10 mg p.o. q.8 hours p.r.n. for pain. 2. Oxycodone 5 mg 1 to 2 tablets every 6 hours p.r.n. for pain. 3. Cymbalta 120 mg p.o. daily. 4. Valerian root 100 mg 2 capsules p.r.n. 5. Methocarbamol 750 mg 1 tablet q.8 hours for muscle spasms. 6. Celebrex 200 mg p.o. b.i.d. ALLERGIES: SULFA ANTIBIOTICS, KENISHA, MILK PRODUCTS, WHEAT. KENISHA causes a rash. MILK PRODUCTS and WHEAT are not true allergies. FAMILY HISTORY: Maternal breast cancer and paternal diabetes. SOCIAL HISTORY: The patient lives with her partner. 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 [place]. No current tobacco, drug, or alcohol use. Has been walking with a cane or rolling walker. REVIEW OF SYSTEMS: Fourteen systems reviewed with the patient today. Positive for right knee pain, left knee pain, and inability to extend the knee, history of some muscle weakness and muscle pain. She denies fevers, chills, chest pain , shortness of breath. PHYSICAL EXAMINATION GENERAL: The patient is a well-nourished female, no apparent distress, alert and oriented x3, pleasant mood and appropriate affect. Gait: The patient's gait is antalgic. She is in a knee immobilizer on the left. Balance decreased. Single leg stance. Coordination normal. VITAL SIGNS: Height 5 feet 7 inches tall, weight is 202 pounds, BMI of 32, blood pressure 98/60, temperature 98.1, heart rate of 76. HEENT: Atraumatic, normocephalic. Pupils equal and reactive to light. CHEST: Unlabored breathing. Lungs, clear to auscultation in all lung lopez. No wheezes, rubs, or rhonchi. HEART: S1 and S2. No murmurs, rubs, or gallops. ABDOMEN: Soft, nontender, and nondistended. Bowel sounds audible in 4 quadrants. EXTREMITIES: Right lower extremity: The patient's skin is intact. Mild effusion at the knee joint with some tenderness along the medial joint line. 5 to 100 degrees of flexion at the knee with some pain. Distally neurovascularly intact. Left lower extremity: The patient's incision has 2 small areas along the superior incision that continue to heal. No cellulitis. Mild effusion. She cannot actively extend. There is small defect palpable superior to the patella. She flexes to 100 degrees. Distally neurovascularly intact. RADIOGRAPHS: MRI of the left knee is reviewed, which shows a distal quadriceps tendon rupture. There is some metal artifact making complete visualization difficult. ASSESSMENT AND PLAN: Ms. Lizama is a 48-year-old female, 6 weeks status post 04/11/18 left total knee arthroplasty. The patient was walking in her yard when she suffered a left quadriceps tendon rupture. She cannot actively extend the knee. Today, we discussed the risks and benefits of both operative and nonoperative treatment. She would like to proceed with operative repair of the quadriceps tendon in order to give herself the best chance for normal gait in the future. I have contacted Dr. Dejesus, her primary care physician, and he has no medical objections to proceeding with open left quadriceps tendon repair on 06/02/18. The patient will be n.p.o. after midnight. She was recently cleared for surgery and will need no additional workup. This will be an outpatient procedure. The patient and I briefly discussed the risks of surgery. She understands I will need to get a full look at the quadriceps tear before I decide how to repair it. I could use tunnels with suture repair versus suture anchors versus allograft tendon. Until then, the patient will have oxycodone and muscle relaxers for pain. She will be in a knee immobilizer with a rolling walker. [id number]/[facility] #: [id number] DILLAN
[~2018-06-02 08:57] MED LIST changes: +Acetaminophen IV 1GM/100ML * 1,000 MG/100 ML VIAL IVPB ONE; +Acetaminophen IV 1GM/100ML * 100 ML ONE; +Dexamethasone IV* 4 MG/ML 1 ML (4 MG) ONE; +Famotidine IV* 10 MG/ML 2 ML (20 mg) ONE; -Gabapentin CAP(*) 300 MG PO ONE; +ceFAZolin 2 GM PREMIX (*) 2 GM/50 ML BAG IVPB ONE; -celeCOXIB CAP* 200 MG PO ONE
[2018-06-02] MEDS ORDERED: Midazolam* 1 MG/ML 2 ML VIAL (2 MG) ONE ×3 (10:58→12:55)
[2018-06-02] MEDS ORDERED: fentaNYL* 50 MCG/ML 2 ML VIAL (100 MCG VIAL) ONE ×2 (10:58→12:13)
[2018-06-02] MEDS ORDERED: Propofol* 10 MG/ML 20 ML BTL IV PUSH ONE (10:58)
[2018-06-02] MEDS ORDERED: Rocuronium* 10 MG/ML VIAL ONE (10:58)
[2018-06-02] MEDS ORDERED: Lidocaine 2% PF * 5 ML VIAL ONE (10:59)
[2018-06-02] MEDS ORDERED: Ketorolac INJ* 30 MG/ML 1 ML VIAL ONE (11:01)
[2018-06-02] MEDS ORDERED: Ondansetron INJ* 2 MG/ML VIAL ONE (11:01)
[2018-06-02] MEDS ORDERED: HYDROmorphone INJ* 0.5 MG/0.5 ML SYRINGE IV PRN (11:43)
[2018-06-02] MEDS ORDERED: fentaNYL* 50 MCG/ML 2 ML VIAL (100 MCG VIAL) IV PRN (11:43)
[2018-06-02] MEDS ORDERED: Ondansetron INJ* 2 MG/ML VIAL IV PRN (11:43)
[2018-06-02] MEDS ORDERED: oxyCODONE TAB* 5 MG TAB PO PRN (11:43)
[2018-06-02] MEDS ORDERED: HYDROcodone/ACETAMIN 5-325 MG* 1 TAB PO PRN (11:43)
[2018-06-02] MEDS ORDERED: Naloxone* 0.4 MG/ML 1 ML VIAL IV PRN (11:43)
[2018-06-02] MEDS ORDERED: PROCHLORPERAZINE INJ 5 MG/ML 2 ML VIAL IV PRN (11:43)
[2018-06-02] MEDS ORDERED: diPHENhydraMINE IV* 50 MG/ML 1 ml VIAL (BENADRYL) IV PRN (11:43)
[2018-06-02] MEDS ORDERED: Scopolamine 1.5 mg* PATCH ONE (11:44)
[2018-06-02] MEDS ORDERED: KETAMINE HCL* 50 MG/ML 10 ML VIAL ONE (11:57)
[2018-06-02] MEDS ORDERED: HYDROmorphone INJ* 0.5 MG/0.5 ML SYRINGE ONE ×2 (12:11→13:47)
[2018-06-02] MEDS ORDERED: Bupivacaine 0.5% PF 10 ML VIAL INJ ONE (12:58)
[2018-06-02] MEDS ORDERED: Morphine VIAL* 10 MG/ML 1 ML VIAL ONE (13:29)
[2018-06-02] MEDS: Morphine INJ* 2 MG/ML 1 ML CARPUJECT IV PRN ×2 (13:32→13:42)
[2018-06-02] MEDS ORDERED: Diazepam SYRINGE* 5 MG/ML 2 ML SYRINGE (10 MG total) ONE (14:23)
[2018-06-02] MEDS ORDERED: HYDROcodone/ACETAMIN 5-325 MG* 1 TAB ONE (14:44)
[2018-06-02 16:00] VITALS: BP 136/86
--- NOTE | 2018-06-04 02:18 | OP ---
OPERATIVE REPORT: DATE OF OPERATION: 06/02/18. DATE OF : 68. ATTENDING SURGEON: Luci Hancock MD. DINING ROOM HELPER: BANDAR Diaz Ms. did help throughout the procedure with preparation of the leg, wound retraction, manipul ation of the knee, and wound closure. ANESTHESIOLOGIST: Dr. Kovacs. ANESTHESIA: General. PRE-OP DIAGNOSIS: Left quadriceps rupture, status post total knee arthroplasty. POST-OP DIAGNOSIS: Left quadriceps rupture, status post total knee arthroplasty. OPERATIVE PROCEDURE: Left open quadriceps repair. TOURNIQUET TIME: 31 minutes. COMPLICATIONS: None. ESTIMATED BLOOD LOSS: 100 cc. SPECIMEN: None. BRIEF HISTORY/INDICATIONS: Ms. Lizama is a 48-year-old female, who had uncomplicated left total knee arthroplasty on 04/11/18. She did well postoperatively. [place] she felt a sudden ripping sensation in her left knee and fell to the ground. She was diagnosed on MRI wi th a quadriceps tendon tear. We discussed her operative and nonoperative treatment options. She justin cted to undergo open quadriceps tendon repair. Formed consent was obtained from the patient. She un derstood the risks of surgery included, but were not limited to, bleeding, infection, damage to nearb y structures, continued pain, need for further surgery, rerupture of the quad, knee stiffness, stroke , heart attack, blood clot and . She wished to proceed. INTRAOPERATIVE FINDINGS: Intraoperatively, the patient had a massive tear of the entire distal quadr iceps 2 cm proximal to the patella. This was at the musculotendinous junction. She also had massive tearing along her medial and lateral retinaculum. There is no evidence of abnormality of the knee implants. There was hematoma, but no evidence of inf ection. DESCRIPTION OF PROCEDURE: Ms. Lizama was identified in the preanesthesia unit. Her left lower extremity was marked as the correct operative side. Informed consent was signed and placed in the art. The patient was taken to the operating room and placed under general anesthesia. A tourniquet was placed on the left thigh. Left lower extremity was prepped and draped in the usual sterile fashi on. Preop time-out was made to correctly identify the patient's side and site. Appropriate perioperat tierra antibiotics were given within 1 hour of incision. Tourniquet was inflated and total tourniquet time for this procedure was 31 minutes. The patient's p rior midline incision was used and extended 2 cm proximally. Dissection down to the extensor mechani sm showed the massive quadriceps tendon rupture 2 cm proximal to the patella. This was at the muscul otendinous junction. 3 L of sterile saline were used to irrigate the joint and the region of hematom a. Any hematoma or fibrous tissue was cleared away from the rupture site. It was noted that the med ial and lateral retinaculum were severely torn as well. A #5 Ethibond was used to crack out running suture above the patella through the remaining tendon as well as through the musculotendinous junctio n proximally. These loose ends were reapproximated and tied carefully down with a good repair. Medi al and lateral retinaculum tears were also repaired using interrupted #5 Ethibonds. Gentle flexion o f the knee to 45 degrees showed that the repair remains strong without any gapping. Any remaining ov ersewing was performed with #1 Vicryls. The tourniquet was turned down at 31 minutes. The rest of t he incision was closed in a layered fashion using 0 and 2-0 Vicryls. Skin was closed using running 3 -0 Monocryl and Dermabond. Sterile Adaptic, 4x4s, and paper tape were placed over this. Webril and Pa wrap were placed over this. The patient's knee is placed in extension in a knee immobilizer. Mindy car will not bend the knee over the next 3 to 4 weeks. She understands that she will be discharged to home and it is crucial that she does not bend the knee and allows this to heal. She will be weightbe aring as tolerated in the knee immobilizer with a rolling walker with no knee flexion. She will foll ow up in 2 weeks' time for wound check. She will have aspirin for DVT prophylaxis. [id number]/[facility] #: [id number]
[2018-06-05] MEDS ORDERED: Scopolamine PATCH Remove* 1 NOTE MISC PATCH OFF ONE (11:46)
== END 2018-06-02 16:00 | disposition home or self-care (01) ==
LOC: OR 08:57
PROVIDERS: ATTEND Orthopaedic Surgery Adult Reconstructive Orthopaedic Surgery
DX: S76.112A Strain of left quadriceps muscle, fascia and tendon, initial encounter (principal); X50.0XXA Overexertion from strenuous movement or load, initial encounter; Y93.89 Activity, other specified; Y92.73 Farm field as the place of occurrence of the external cause; Z96.652 Presence of left artificial knee joint; Z68.31 Body mass index [BMI] 31.0-31.9, adult; J45.909 Unspecified asthma, uncomplicated; G47.33 Obstructive sleep apnea (adult) (pediatric); Z87.891 Personal history of nicotine dependence; M19.90 Unspecified osteoarthritis, unspecified site; F41.8 Other specified anxiety disorders; F11.11 Opioid abuse, in remission
CPT/HCPCS: 81025; A9270-GY; J0690; J1100; J1170; J1885; J2250; J2270; J2405; J2704; J3010; J3360

== ENCOUNTER → 2019-09-15 | Day surgery (SDC) | payer OTHER ==
--- NOTE | 2019-09-14 14:24 | HP ---
PREOPERATIVE HISTORY AND PHYSICAL: DATE OF ADMISSION/SURGERY: 09/15/19 [facility] DATE OF OFFICE VISIT/ENCOUNTER: 09/11/19 ATTENDING SURGEON: Dr. Adore Nichols.* (DICTATED BY BANDAR SOLER) PROCEDURE: Left wrist carpal tunnel release, ulnar nerve decompression at left elbow. HISTORY OF PRESENT ILLNESS: This is a 49-year-old female. She reports previous addiction to opiates. She says she has been sober for 10 years. She is currently complaining of numbness and tingling in her left hand involving all of her fingers. This has been ongoing for over a year. She had an EMG nerve conduction study, which confirmed carpal tunnel syndrome and cubital tunnel syndrome on the left. The symptoms wake her up from her sleep quite often, and when she rests her elbow on things, it is quite bothersome. She would like to proceed with surgical intervention at this time for both her carpal tunnel and her cubital tunnel syndromes on the left. PAST MEDICAL HISTORY: 1. Asthma. 2. John's palsy. 3. Anxiety/depression. 4. Fibromyalgia. 5. Guillain-Arthur disease. PAST SURGICAL HISTORY: 1. Left total knee arthroplasty. 2. Laparotomy. 3. Breast reduction. 4. Right foot surgery. CURRENT MEDICATIONS: 1. Celebrex 200 mg 1 tab twice a day as needed for pain. 2. Cyclobenzaprine HCl 10 mg 1 tab 2 to 3 times a day as needed. 3. Cymbalta 120 mg daily. 4. Fish oil twice a day. 5. Gabapentin 300 mg 3 times a day. 6. Multivitamin daily. 7. Phytoestrogen 1 tab in the morning and 1 tab in the evening. 8. Pramipexole dihydrochloride 0.25 mg 1 or 2 tabs at bedtime. 9. Quetiapine fumarate 50 mg 3 tabs at bedtime. 10. Turmeric once a day. 11. Valerian root 100 mg 2 tabs as needed. ALLERGIES: SULFA ANTIBIOTICS and mangoes. FAMILY MEDICAL HISTORY: Diabetes and cancer. 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 She is a former smoker. She quit at age 16. She denies recreational drug use and does not drink alcohol. REVIEW OF SYSTEMS: Negative for general, cephalic, cardiovascular, respiratory , GI, , other musculoskeletal, integumentary, endocrine, neurologic, and hematologic symptoms. Infectious Disease: Negative for MRSA, hepatitis C, HIV. PHYSICAL EXAMINATION GENERAL: A well-developed, well-nourished 49-year-old female, in no acute distress. VITAL SIGNS: Height 5 feet 7 inches, weight 193 pounds. Pulse rate 96, blood pressure 132/86. HEENT: Normocephalic, atraumatic. Pupils are equal, round, and reactive to light and accommodation. Extraocular movements are intact. Throat is clear. NECK: Supple. No palpable lymph nodes. PULMONARY: Lungs are clear to auscultation bilaterally. No wheezes, rales, or rhonchi. CARDIOVASCULAR: Regular rate and rhythm. S1, S2. No murmurs, rubs, or gallops. No edema. ABDOMEN: Positive bowel sounds. Soft, nontender. NEUROLOGICAL: Alert and oriented x3. Cranial nerves II through XII are intact. MUSCULOSKELETAL: On exam of her left upper extremity, she has positive Tinel's sign and Phalen's test at the median nerve. She also has positive Tinel's at the ulnar nerve at the elbow. No visible muscle wasting, but weakness with thumb abduction and finger abduction. IMPRESSION: Left carpal tunnel syndrome and cubital tunnel syndrome at the elbow. PLAN: The patient is scheduled to undergo a left wrist carpal tunnel release and an ulnar nerve decompression at the left elbow with Dr. Nichols on 09/15/19. She will return to the office 10 days postop for followup and suture removal. She will plan on using [id number] ibuprofen and/or Tylenol for postoperative pain management. BANDAR SOLER [id number]/[facility] #: [id number] DILLAN
[~2019-09-15] MED LIST changes: -Acetaminophen IV 1GM/100ML * 100 ML ONE; -Buffered Lidocaine 0.9% SYRIN* 5 ML/SYR SYRINGE INTRADERM ONE; +Buffered Lidocaine 1% SYRIN* 1 ML/SYRINGE INTRADERM ONE; -Dexamethasone IV* 4 MG/ML 1 ML (4 MG) IV SLOW PU ONE; -Famotidine IV* 10 MG/ML 2 ML (20 mg) IV ONE; -Famotidine IV* 10 MG/ML 2 ML (20 mg) ONE; +Lactated Ringers 1000 ML Bag* 1,000 ML IV SCH; +Lidocaine 1% INJ* 10 MG/ML 30 ML SDV ONE; +Lidocaine 2% PF * 5 ML VIAL ONE; +Midazolam* 1 MG/ML 2 ML VIAL (2 MG) ONE; +Naloxone* 0.4 MG/ML 1 ML VIAL IV PRN; +Ondansetron INJ* 2 MG/ML VIAL IV PRN; +Propofol* 10 MG/ML 20 ML BTL ONE; +Scopolamine 1.5 mg* PATCH ONE; +Sodium Citrate/Citric Acid* 15 ML UDC ONE; -ceFAZolin 2 GM PREMIX (*) 2 GM/50 ML BAG IVPB ONE; +ceFAZolin 2 GM PREMIX in ORs 2 GM/50 ML BAG ONE; +fentaNYL* 50 MCG/ML 2 ML VIAL (100 MCG VIAL) IV PRN; +fentaNYL* 50 MCG/ML 2 ML VIAL (100 MCG VIAL) ONE
--- NOTE | 2019-09-15 11:32 | OP ---
DATE OF OPERATION: 09/15/19 [facility] DATE OF : 68 SURGEON: Adore Nichols MD VP [employer]: BANDAR Riddle ANESTHESIA: General. PRE-OP DIAGNOSES: Ulnar nerve compression to the left elbow and left carpal tunnel syndrome. POST-OP DIAGNOSES: Ulnar nerve compression to the left elbow and left carpal tunnel syndrome. OPERATIVE PROCEDURE: Left ulnar nerve decompression at the elbow and left carpal tunnel release. ESTIMATED BLOOD LOSS: Zero. TOURNIQUET TIME: 30 minutes. INDICATIONS FOR PROCEDURE: Javad is a 49-year-old woman who has numbness and tingling in her left hand and a positive Tinel sign of the ulnar nerve at the elbow and median nerve at the wrist. She presents for left ulnar nerve decompression of the elbow and left carpal tunnel release. DESCRIPTION OF PROCEDURE: The patient was brought to the operating room, was given a general anesthetic and placed in the supine position on the operating room table with a tourniquet around her left upper arm. Skin of her left upper extremity was prepped and draped in the usual sterile fashion. The hand and forearm were exsanguinated and the tourniquet elevated to 250 mmHg. A longitudinal incision was made in the palm in line with the ring finger. We dissected through the subcutaneous tissue down to the transverse carpal ligament. The ligament was divided sharply with the knife and then more proximally with the scissors. The nerve was dissected free from the surrounding tissue and there is an area of moderate compression at the mid portion of the ligament. The wound was irrigated and the skin edges reapproximated with 4-0 nylon suture. Next a curvilinear incision was made centered between the medial epicondyle and the tip of the olecranon process. We dissected through the subcutaneous tissue down to the ulnar nerve, proximal to the elbow, and then carefully decompressed it several centimeters proximal to the elbow. The medial intermuscular septum was divided with a Bovie. The nerve was then dissected through the cubital tunnel where it was very tight and then into the FCU muscle. The superficial and deep portion of the FCU fascia was incised down into the forearm, completely releasing the nerve. The nerve was in good condition. The wound was irrigated and then the subcutaneous tissue was closed with 3-0 Polysorb and the skin with skin gerard. The wound were dressed with Xeroform, 4x4, Webril, and an Pa wrap. The patient tolerated the procedure well and was brought to the recovery room in good condition. [id number]/[facility] #: [id number] DILLAN
[2019-09-15 11:36] VITALS: BP 119/85
== END | disposition home or self-care (01) ==
LOC: OREAST 09:11
PROVIDERS: ATTEND Orthopaedic Surgery
DX: G56.02 Carpal tunnel syndrome, left upper limb (principal); G56.22 Lesion of ulnar nerve, left upper limb; J45.909 Unspecified asthma, uncomplicated; F41.8 Other specified anxiety disorders; M79.7 Fibromyalgia; G51.0 Bell's palsy
CPT/HCPCS: 81025; A9270-GY; J0690; J1100; J2250; J2704; J3010

== ENCOUNTER 2019-11-04 22:21 | Emergency (ER) | payer OTHER ==
--- NOTE | 2019-11-04 22:47 | ED ---
Lower Extremity - HPI Summary HPI Summary: This pt is a 49 Y/O F presenting to [facility] with a CC of R leg swelling and pain that is radiated a 4/10 in severity. She states that she had a recent R hip surgery in [place] and has had no complications until this morning when she noticed the swelling and pain. She states that the pain is located in her R calf. She denies any CP, SOB, and N/V. She has no aggravating or alleviating factors. She has a PMHx of HTN, asthma, and fibromyalgia. - History of Current Complaint Chief Complaint: EDExtremityLower Stated Complaint: POSS RIGHT LEG BLOOD CLOT PER PT Time Seen by Provider: 11/04/19 22:39 Hx Obtained From: Patient Hx Last Menstrual Period: 03/17/17 Mechanism Of Injury: Unknown Onset of Pain: Immediate Onset/Duration: Days - 1 Severity Initially: Moderate Severity Currently: Moderate Pain Intensity: 4 Pain Scale Used: 0-10 Numeric Timing: Constant Location: Is Discrete @ - R calf Associated Signs And Symptoms: Positive: Negative - SOB, CP, N/V, Swelling, Other Aggravating Factor(s): Nothing Alleviating Factor(s): Nothing - Allergies/Home Medications Allergies/Adverse Reactions: Allergies Allergy/AdvReac Type Severity Reaction Status Date / Time flurbiprofen [From Ansaid] Allergy Severe See Comment Verified 11/04/19 22:29 casey flavor Allergy Severe Swelling Verified 11/04/19 22:29 Of Face,Lips,& Throat Sulfa (Sulfonamide Allergy Severe Rash And Verified 11/04/19 22:29 Antibiotics) Itching, throat closes PMH/Surg Hx/FS Hx/Imm Hx Previously Healthy: Yes Endocrine/Hematology History: Denies: Hx Diabetes, Hx Thyroid Disease, Hx Anemia Cardiovascular History: Reports: Hx Hypertension - off and on - ON MEDICATION FOR Denies: Hx Pacemaker/ICD, Other Cardiovascular Problems/Disorders Respiratory History: Reports: Hx Asthma - mild asthma- had not used inhaler in 3 years, Hx Sleep Apnea Denies: Hx Chronic Obstructive Pulmonary Disease (COPD), Other Respiratory Problems/Disorders GI History: Reports: Hx Ulcer - hx of gastric ulcer, Other GI Disorders - polycystic ovary syndrome Denies: Hx Jaundice History: Denies: Hx Renal Disease Musculoskeletal History: Reports: Hx Arthritis - fibromyalgia, Hx Bursitis - hips, knees elbows, Hx Fibromyalgia, Other Musculoskeletal History - itbs hypermobility Sensory History: Reports: Hx Contacts or Glasses - glasses Denies: Hx Hearing Aid Opthamlomology History: Reports: Hx Contacts or Glasses - glasses Neurological History: Reports: Hx Headaches, Hx Migraine - none in a while, Hx Nerve Disease - fibromyalgia, hx of guiLLain barre' syndrome, Other Neuro Impairments/Disorders - HYPERMOBILITY, [place] Palsy x2 Denies: Hx Seizures, Hx Transient Ischemic Attacks (TIA) Psychiatric History: Reports: Hx Anxiety, Hx Depression Denies: Hx Panic Disorder - Cancer History Hx Chemotherapy: No Hx Radiation Therapy: Yes - Gamma Ray radiation - Surgical History Surgical History: Yes Surgery Procedure, Year, and Place: BILAT BREAST REDUCTION 2000;[place]. LAPAROTOMY FOR PID AGE 16;. LAPROSCOPIC FOR ENDOMETRIOSIS AND SCAR TISSUE x3 1988 and 1992. LEFT KNEE ARTHROSCOPY, 04/20/17, [facility]. right foot fx, 12/2017, [facility]. left total knee arthroplasty 04/2018. LEFT KNEE QUAD TENDON TEAR REPAIR 05/2018. R HIP SURGERY 10/30/19. CARPAL TUNNEL SURGERY 09/15/19 Hx Anesthesia Reactions: Yes - SEVEREthrowing up when waking up after anesthesia -scopalamine patch works - Immunization History Immunizations Up to Date: Yes Infectious Disease History: No Infectious Disease History: Reports: Hx Tuberculosis - always tests positive for tb Denies: Hx Hepatitis, Hx Human Immunodeficiency Virus (HIV), History Other Infectious Disease, Traveled Outside the [place] in Last 30 Days - Family History Known Family History: Positive: Hypertension, Diabetes, Other - Stroke ( grandfather), Breast CA. Negative: Cardiac Disease - Social History Occupation: Employed Part-time Lives: With Family Alcohol Use: None Alcohol Amount: States that she is in recovery Hx Substance Use: Yes Substance Use Type: Reports: Prescribed Substance Use Comment - Amount & Last Used: recovering opiate addict Hx Tobacco Use: Yes Smoking Status (MU): Former Smoker Amount Used/How Often: 1 PACK PER WEEK, Quit 23 years ago Have You Smoked in the Last Year: No Household Exposure: No Review of Systems Negative: Chest Pain Negative: Shortness Of Breath Negative: Vomiting, Nausea Positive: Other - R calf pain Positive: Other - R calf swelling All Other Systems Reviewed And Are Negative: Yes Physical Exam - Summary Physical Exam Summary: Appearance: Well-appearing, Well-nourished, lying in bed comfortably Skin: Warm, dry, no obvious rash Eyes: sclera anicteric, no conjunctival pallor ENT: mucous membranes moist, pharynx appears normal Neck: Supple, nontender Respiratory: Clear to auscultation, no signs of respiratory distress Cardiovascular: Normal S1, S2. No murmurs. Normal distal pulses in tibial and radial bilaterally. Abdomen: Soft, nontender, normal active bowel sounds present Musculoskeletal: Normal, Strength/ROM Intact, R leg is swollen from the thigh down to the foot, no significant erythema or color change Neurological: A&Ox3, awake and alert, mentation is normal, speech is fluent and appropriate Psychiatric: affect is normal, does not appear anxious or depressed Triage Information Reviewed: Yes Vital Signs On Initial Exam: Initial Vitals Temp Pulse Resp BP Pulse Ox 99.2 F 96 18 144/91 97 11/04/19 22:25 11/04/19 22:25 11/04/19 22:25 11/04/19 22:25 11/04/19 22:25 Vital Signs Reviewed: Yes Procedures - Sedation Patient Received Moderate/Deep Sedation with Procedure: No Diagnostics - Vital Signs Vital Signs Temp Pulse Resp BP Pulse Ox 11/04/19 22:38 96.7 F 94 143/81 97 11/04/19 22:25 99.2 F 96 18 144/91 97 - Laboratory Result Diagrams: 11/04/19 22:55 11/04/19 22:55 Lab Statement: Any lab studies that have been ordered have been reviewed, and results considered in the medical decision making process. - Ultrasound Venous Doppler Study Ultrasound Interpretation Completed By: Radiologist Summary of Ultrasound Findings: No evidence for a DVT. ED physician has reviewed this report. Lower Extremity Course/Dx - Course Course Of Treatment: This pt is a 49 Y/O F presenting to [facility] with a CC of R leg swelling and pain that is radiated a 4/10 in severity. She states that she had a recent R hip surgery in [place] and has had no complications until this morning when she noticed the swelling and pain. She states that the pain is located in her R calf. She denies any CP, SOB, and N/V. Her PE fpoudn that she had R leg swelling from her thigh to her foot without significant erythema or color change. Her Venous Doppler Study found that she had No evidence for a DVT. She will be discharged home with a Dx of R leg edema. - Diagnoses Provider Diagnoses: Leg edema, right Discharge ED - Sign-Out/Discharge Documenting (check all that apply): Patient Departure - discharge - Discharge Plan Condition: Good Disposition: HOME Patient Education Materials: Leg Edema (ED) Referrals: Eitan Dejesus MD [Primary Care Provider] - 3 Days (if not improving) Additional Instructions: The US done tonight fortunately did not show any blood clots in the deep veins of the leg. I suspect the swelling is postoperative, related to the obstruction of venous outflow consequent to the surgical procedure. It should improve with time and elevating the leg as much as you can. If things worsen, or don't start to improve after several days, you should have a repeat US done; your regular doctor can arrange that for you. - Billing Disposition and Condition Condition: GOOD Disposition: Home - Attestation Statements Document Initiated by Rey: Yes Documenting Scribe: Vaughn Blair Provider For Whom Rey is Documenting (Include Credential): Gucci Lemus MD Scribe Attestation: IVaughn, scribed for Gucci Lemus MD on 11/05/19 at 0552. Scribe Documentation Reviewed: Yes Provider Attestation: The documentation as recorded by the Vaughn peters accurately reflects the service I personally performed and the decisions made by me, Gucci Lemus MD Status of Scribe Document: Viewed
[2019-11-04 23:02] LABS: ABS Basophils 0.1 10^3/ul (0-0.2); ABS Eosinophils 0.3 10^3/ul (0-0.6); ABS Lymphocytes 1.3 10^3/ul (1.0-4.8); ABS Monocytes 0.5 10^3/ul (0-0.8); ABS Neutrophils 3.1 10^3/ul (1.5-7.7); Eosinophil % 5.5 %; Hematocrit 31 % (35-47); Hemoglobin 10.6 g/dL (12.0-16.0); Lymphocyte % 23.8 %; Mean Corpuscular HGB Conc 34 g/dL (31-36); Mean Corpuscular Hemoglobin 29 pg (27-31); Mean Corpuscular Volume 86 fL (80-97); Mean Platelet Volume 7.6 fL (7.4-10.4); Nucleated Red Blood Cells % 0.1; Platelet Count 374 10^3/uL (150-450); Red Cell Distribution Width 15 % (10-15); White Blood Count 5.3 10^3/uL (3.5-10.8)
[2019-11-04 23:08] LABS: INR 0.97 (0.82-1.09)
[2019-11-04 23:17] LABS: Albumin 3.2 g/dL (3.2-5.2); Albumin/Globulin Ratio 1.1 (1-3); Calcium 8.4 mg/dL (8.6-10.3); EGFR African American 100.5 (>60); EGFR Non-African American 83.1 (>60); Globulin 2.9 g/dL (2-4); Potassium 4.1 mmol/L (3.5-5.0); Total Bilirubin 0.3 mg/dL (0.2-1.0); Total Protein 6.1 g/dL (6.4-8.9)
[2019-11-05 00:18] VITALS: BP 120/83
--- OUTSIDE RECORDS SUMMARY | 2019-11-05 00:23 | XMS REPORT | Continuity of Care Document ---
:1970 External Reference #:[id number] Author Name Adore Nichols M.D. (transmitted by agent of provider Ene Martines) Address [address] [facility] [place] [address] Care Team Providers Name Role Phone Eitan Dejesus MD - Endocrinology, Care Team Information Orchard Sprayer [phone] Diabetes & Metabolism Problems Active Problems Provider Date Dyssomnia Elizabeth Rivera DNP, RN, Onset: 03/31/2016 [employer] Morbid obesity Elizabeth Rivera DNP, RN, Onset: 03/31/2016 [employer]BC Periodic leg movements of sleep Elizabeth Rivera DNP, RN, Onset: 03/31/2016 [employer]-BC Disturbance in sleep behavior Elizabeth Rivera DNP, RN, Onset: 03/31/2016 [employer]-BC REM sleep behavior disorder Elizabeth Rivera DNP, RN, Onset: 06/08/2016 [employer]BC Pain in right lower limb Tomi Márquez MD Onset: 09/24/2016 Acute infective polyneuritis Jasiel Smith MD Onset: 12/03/2016 John's palsy Jasiel Smith MD Onset: 12/03/2016 Localized, primary osteoarthritis of Luci Hancock M.D. Onset: 02/03/2017 the pelvic region and thigh Sprain of medial collateral ligament Luci Hancock M.D. Onset: 03/31/2017 of knee Localized, primary osteoarthritis Luci Hancock M.D. Onset: 03/31/2017 Acute meniscal tear, medial, Luci Hancock M.D. Onset: 04/09/2017 posterior horn Polyneuropathy Jasiel Smith MD Onset: 08/06/2017 Closed fracture of metatarsal bone Chavez El MD Onset: 10/29/2017 Vitamin D deficiency Chavez El MD Onset: 10/29/2017 Displaced fracture of fifth Chavez El MD Onset: 11/30/2017 metatarsal bone, right foot, subsequent encounter for fracture with delayed healing Arthroplasty of knee Luci Hancock M.D. Onset: 05/16/2018 Acquired hallux rigidus Chavez El MD Onset: 08/28/2019 Social History Type Date Description Comments Sex Unknown Smokeless Tobacco Never Used Smokeless Tobacco ETOH Use Never used alcohol Tobacco Use Start: Unknown Patient has never smoked Recreational Drug Use Denies Drug Use Smoking Status Reviewed: 10/25/19 Patient has never smoked Exercise Type/Frequency Exercises regularly Allergies, Adverse Reactions, Alerts Active Allergies Reaction Severity Comments Date Sulfa Antibiotics 11/30/2013 Ba Juice 09/07/2018 Medications Active Medications SIG Qnty Indications Ordering Date Provider Naltrexone HCL 4.5 mg compounded 15gm Wesley Puckett, 10/19/2019 Powder in capsules by M.D. mouth every day Medrol As directed on 1units M54.12 Chavez El, 10/17/2019 4mg TBPK package MD Mason Take 1 tab 20 1tabs Adore Nichols, 09/20/2019 5mg Tablets mins. prior to M.D. appt. time Gabapentin 1 capsule by 90timmy Smith, 09/06/2019 300mg Capsules mouth three times MD a day Celecoxib Take 1 Capsule By 30timmy Puckett, 05/10/2019 200mg Capsules Mouth Twice A Day M.D. as Needed For Pain Cyclobenzaprine HCL Take 1 Tab By 90tabs Wesley Puckett, 04/25/2018 10mg Mouth 2-3 Times A M.D. Tablets Day as Needed Cymbalta daily Unknown 120mg Valerian Root 2 capsules as Unknown 100mg needed Capsules Pramipexole Take 1 Or 2 Unknown Dihydrochloride Tablets By Mouth 0.25mg AT Bedtime Tablets Quetiapine Fumarate 3 tabs at bedtime Unknown 50mg Tablets Phytoestrogen 1 tab in the Unknown morning and 1 tab in the evening Multivitamin Adult 1 by mouth every Unknown day Tablets Fish Oil twice a day Unknown Tumeric once a day Unknown History Medications Suprep Bowel Prep Kit take according to 354ml iMng Monzon 05/10/2019 - the instructions MD Odell 06/29/2019 17.5-3.13-1.6GM/177ML you received, the Solution afternoon before and morning of your procedure. Slow Release Iron take one 30tabs Wesley Lavern, 05/07/2019 - 45mg Tablets ER capsule/tablet M.D. 09/13/2019 daily by mouth Immunizations Description No Information Available Vital Signs Date Vital Result Comment 10/25/2019 1:55pm Height 67 inches 5'7" Weight 198.00 lb Heart Rate 82 /min Respiratory Rate 18 /min Body Temperature 98.2 F Pain Level 4 BMI (Body Mass Index) 31.0 kg/m2 10/21/2019 10:11am Height 67 inches 5'7" Weight 201.00 lb Heart Rate 103 /min BP Systolic Sitting 126 mmHg BP Diastolic Sitting 80 mmHg O2 % BldC Oximetry 97 % BMI (Body Mass Index) 31.5 kg/m2 Neck Circumference in inches 15 Results Test Acquired Date Facility Test Result H/L Range Note Laboratory test 08/11/2019 [facility] Nuclear AB <1:[address] (Marguerite) By Ifa (Negative) [place] [address] Igg [phone] Ammonia 36 mcmol/L Normal 16-53 Ceruloplasmin 26.0 mg/dL 2 Copper, Serum 1.07 g/mL 0.75-1.45 3 Anti Gliadin Igg And Iga 08/11/2019 [facility] Gliadin IgG < 10.0 U [address] [place] [address] [phone] Gliadin IgA <10.0 U 5 Laboratory test 08/11/2019 [facility] Lyme Screen Negative Negative finding [address] W/ [place] [address] WB [phone] Rheumatoid Factor < 10 IU/mL Normal <15 Laboratory test 05/04/2019 [facility] Erythrocyte Sed 21 mm/Hr Normal 0-29 [address] [place] [address] [phone] C Reactive Protein < 1.00 mg/L Normal <8.01 7 TSH (Thyroid Stim Horm) 0.82 mcIU/mL Normal 0.34-5.60 8 CBC Auto 05/04/2019 [facility] White Blood 7.1 10^3/uL Normal 3.5-10.[address] [place] [address] [phone] Red Blood Count 5.15 10^6/uL High 3.70-4.87 Hemoglobin 14.1 g/dL Normal 12.0-16.0 Hematocrit 42 % Normal 35-47 Mean Corpuscular Volume 82 fL Normal 80-97 Mean Corpuscular Hemoglobin 27 pg Normal 27-31 Mean Corpuscular HGB Conc 33 g/dL Normal 31-36 Red Cell Distribution Width 15 % Normal 10-15 Platelet Count 350 10^3/uL Normal 150-450 Mean Platelet Volume 9.2 fL Normal 7.4-10.4 Abs Neutrophils 4.8 10^3/uL Normal 1.5-7.7 Abs Lymphocytes 1.5 10^3/uL Normal 1.0-4.8 Abs Monocytes 0.6 10^3/uL Normal 0-0.8 Abs Eosinophils 0.2 10^3/uL Normal 0-0.6 Abs Basophils 0.1 10^3/uL Normal 0-0.2 Abs Nucleated RBC 0.0 10^3/uL Granulocyte % 67.6 % Lymphocyte % 20.5 % Monocyte % 8.3 % Eosinophil % 2.3 % Basophil % 1.3 % Nucleated Red Blood Cells % 0.1 Comp Metabolic 05/04/2019 [facility] Sodium 140 mmol/L Normal 135-[address] [place] [address] [phone] Potassium 4.4 mmol/L Normal 3.5-5.0 Chloride 107 mmol/L Normal 101-111 Co2 Carbon Dioxide 26 mmol/L Normal 22-32 Anion Gap 7 mmol/L Normal 2-11 Glucose 105 mg/dL High 70-100 Blood Urea Nitrogen 19 mg/dL Normal 6-24 Creatinine 0.79 mg/dL Normal 0.51-0.95 BUN/Creatinine Ratio 24.1 High 8-20 Calcium 9.6 mg/dL Normal 8.6-10.3 Total Protein 7.0 g/dL Normal 6.4-8.9 Albumin 4.2 g/dL Normal 3.2-5.2 Globulin 2.8 g/dL Normal 2-4 Albumin/Globulin Ratio 1.5 Normal 1-3 Total Bilirubin 0.30 mg/dL Normal 0.2-1.0 Alkaline Phosphatase 82 U/L Normal 34-104 Alt 20 U/L Normal 7-52 Ast 36 U/L Normal 13-39 Egfr Non- 77.0 >60 Egfr 93.2 >60 9 Laboratory test 05/04/2019 [facility] Magnesium 2.2 mg/dL Normal 1.9-2.7 10 finding [address] [place] [address] [phone] Iron & Iron 05/04/2019 [facility] Iron 62 g/dL Normal 50- 212 Binding Capacity [address] [place] [address] [phone] Unsaturated Iron Binding < 504 g/dL Total Iron Binding Capacity 519 g/dL High 250-450 Transferrin 371 mg/dL High 203-362 % Iron Saturation 12 % Low 15-55 Laboratory test 05/04/2019 [facility] Ferritin 12.4 ng/mL Normal 11-307 11 finding [address] [place] [address] [phone] Vitamin B12 And 05/04/2019 [facility] Vitamin B12 640 pg/mL Normal 180-914 12 Folate Serum [address] [place] [address] [phone] Folic Acid (Folate) > 20.00 ng/mL >3.99 13 Laboratory test 05/04/2019 [facility] Vitamin D 28.2 ng/mL Normal 20-50 14 finding [address] [facility] Total [address](Oh) [place] [address] [phone] 1 <1:80 (Negative) REFERENCE VALUE <1:80 (Negative) Test Performed by: [facility] [address] [place] [address] Ged Tutor: Rohan Peacock M.D. Ph.D.; IA# [id number] 2 REFERENCE VALUE 20.0 - 51.0 Test Performed by: [facility] [id number] Ged Tutor: Rohan Peacock M.D. Ph.D.; CLIA# [id number] 3 ADDITIONAL INFORMATION This test was developed and its performance characteristics determined by [facility] in a manner consistent with CLIA requirements. This test has not been cleared or approved by the U.S. Food and Drug Administration. Test Performed by: [place] [address] Ged Tutor: Rohan Peacock M.D. Ph.D.; CLIA# [id number] 4 REFERENCE VALUE <20.0 (Negative) Test Performed by: [place] [address] Ged Tutor: Rohan Peacock M.D. Ph.D.; CLIA# [id number] 5 REFERENCE VALUE <20.0 (Negative) 6 Please check labs today 7 Please check labs today 8 Please check labs today 9 Because ethnic data is not always [...] 5 Kidney failure <15 (or dialysis) 10 Please check labs today 11 Please check labs today 12 Normal Range 180 to 914 Indeterminate Range 145 to 180 Deficient Range <145 13 Please check labs today 14 Total 25-Hydroxyvitamin D2 and D3 (25-OH-VitD) <10 ng/mL (severe deficiency) 10-19 ng/mL (mild to moderate deficiency) 20-50 ng/mL (optimum levels) 51-80 ng/mL (increased risk of hypercalciuria) >80 ng/mL (toxicity possible) Procedures Date Code Description Status 09/15/2019 49009 Carpal Tunnel Release Completed 09/15/2019 34040 Carpal Tunnel Release Completed 09/15/2019 55436 Neuroplasty &/Or Transposition; Ulnar Nerve AT Elbow Completed 09/15/2019 66031 Neuroplasty &/Or Transposition; Ulnar Nerve AT Elbow Completed 05/30/2019 71663 Nerve Conduction 07-08 Studies Completed Medical Devices Description No Information Available Encounters Type Date Location Provider Dx Diagnosis Office Visit 10/21/2019 Pulmonology And Jo Sharon, G47.33 Obstructive sleep 10:30a Sleep Services Of apnea (adult) Christina (pediatric) G47.52 REM sleep behavior disorder Office Visit 10/19/2019 10:20a Rheumatology Welsey Puckett M79.7 Fibromyalgia Services Of Christina Rey M54.12 Radiculopathy, cervical region M16.11 Unilateral primary osteoarthritis, right hip G25.81 Restless legs syndrome Office Visit 09/14/2019 10:15a [facility] Jasiel Smith 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 syndrome, bilateral upper limbs G56.23 Lesion of ulnar nerve, bilateral upper limbs Office Visit 05/30/2019 [facility] Tomi Márquez, M17.11 Unilateral primary 11:00a [place] osteoarthritis, [place] right knee Z96.652 Presence of left artificial knee joint Office Visit 05/24/2019 Neurohospitalist Jasiel Smith, G25.81 Restless legs 10:00a Clinic syndrome R20.0 Anesthesia of skin Office Visit 05/03/2019 Rheumatology Wesley M46.90 Unspecified 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 inflammatory spondylopathy, site unspecified M79.7 Fibromyalgia M54.5 Low back pain Z79.899 Other residential (current) drug therapy G25.81 Restless legs syndrome D64.9 Anemia, unspecified E55.9 Vitamin D deficiency, unspecified Office Visit 04/27/2019 9:15a [facility] Sharon Duncan, G56.03 Carpal tunnel at [place] RPA-C syndrome, bilateral upper limbs G56.23 Lesion of ulnar nerve, bilateral upper limbs R20.0 Anesthesia of skin R20.2 Paresthesia of skin Assessments Date Code Description Provider 10/25/2019 G56.22 Lesion of ulnar nerve, left upper limb Adore Nichols M.D. 10/25/2019 G56.02 Carpal tunnel syndrome, left upper limb Adore Nichols M.D. 10/21/2019 G47.33 Obstructive sleep apnea (adult) (pediatric) Jo Herrera MD 10/21/2019 G47.52 REM sleep behavior disorder Jo Herrera MD 10/19/2019 M79.7 Fibromyalgia Wesley Puckett M.D. 10/19/2019 M54.12 Radiculopathy, cervical region Wesley Puckett M.D. 10/19/2019 M16.11 Unilateral primary osteoarthritis, right Wesley Puckett M.D. hip 10/19/2019 G25.81 Restless legs syndrome Wesley Puckett M.D. 10/17/2019 M54.12 Radiculopathy, cervical region Anatoliy Kelley MD 09/25/2019 G56.03 Carpal tunnel syndrome, bilateral upper Adore Nichols M.D. limbs 09/25/2019 G56.23 Lesion of ulnar nerve, bilateral upper Adore Nichols M.D. limbs 09/25/2019 Z48.02 Encounter for removal of sutures Adore Nichols M.D. 09/15/2019 G56.22 Lesion of ulnar nerve, left upper limb Sharon Duncan [facility] 09/15/2019 G56.22 Lesion of ulnar nerve, left upper limb Adore Nichols M.D. 09/15/2019 G56.02 Carpal tunnel syndrome, left upper limb Sharon Duncan [facility] 09/15/2019 G56.02 Carpal tunnel syndrome, left upper limb Adore Nichols M.D. 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 limbs 09/11/2019 G56.23 Lesion of ulnar nerve, bilateral dar Nichols M.D. 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 limbs 06/19/2019 G56.23 Lesion of ulnar nerve, bilateral upper Adore Nichols M.D. limbs 05/30/2019 G56.03 Carpal tunnel syndrome, bilateral upper Jasiel Smith MD limbs 05/30/2019 M17.11 Unilateral primary osteoarthritis, right Tomi Márquez MD knee 05/30/2019 Z96.652 Presence of left artificial knee joint Tomi Márquez MD 05/24/2019 G25.81 Restless legs syndrome Jasiel Smith MD 05/24/2019 R20.0 Anesthesia of skin Jasiel Smith MD 05/03/2019 M46.90 Unspecified inflammatory spondylopathy, Wesley Puckett M.D. site unspecified 05/03/2019 M79.7 Fibromyalgia Wesley Puckett M.D. 05/03/2019 M54.5 Low back pain Wesley Puckett M.D. 05/03/2019 Z79.899 Other residential (current) drug therapy Wesley Puckett M.D. 05/03/2019 G25.81 Restless legs syndrome Wesley Puckett M.D. 05/03/2019 D64.9 Anemia, unspecified Wesley Puckett M.D. 05/03/2019 E55.9 Vitamin D deficiency, unspecified Wesley Puckett M.D. 04/27/2019 G56.03 Carpal tunnel syndrome, bilateral upper Sharon Bitting, RPA-C limbs 04/27/2019 G56.23 Lesion of ulnar nerve, bilateral upper Sharon Bitting, RPA -C limbs 04/27/2019 R20.0 Anesthesia of skin Sharon Bitting, RPA-C 04/27/2019 R20.2 Paresthesia of skin Sharon Bitting, RPA-C Plan of Treatment Future Appointment(s):12/07/2019 10:30 am - Adore Erickson NP at [facility]12/19/2019 10:00 am - Wesley Puckett M.D. at [facility]03/14/2020 1:45 pm - Jasiel Smith MD at [facility]10/25/2019 - Adore Nichols M.D.G56.22 Lesion of ulnar nerve, left upper limbFollow up:Follow up: As jvsazrB40.02 Carpal tunnel syndrome, left upper limbFollow up:postop Functional Status Description No Information Available Mental Status Description No Information Available Referrals Refer to Reason for Referral Status Appt Date Ronnie Chirinos MD right hip OA looking for anterior hip Scheduled 2018 [address] [place] [address] [phone] Jo Herrera MD significant sleep apnea now with memory Created problems - you have seen before but has not tolerated cpap ? alternatives [address] [place] [address] [phone] Ming Bain MD please evaluate patient for screening colonoscopy Sent and to evaluate for GI causes of low iron saturation [address] [place] [address] [phone]
--- OUTSIDE RECORDS SUMMARY | 2019-11-05 00:23 | XMS REPORT | Continuity of Care Document ---
:1970 External Reference #:[id number] Author Name Adore Nichols M.D. (transmitted by agent of provider Cristina Mazariegos) Address [address] [place] [address] [place] [address] Care Team Providers Name Role Phone Eitan Dejesus MD - Endocrinology, Care Team Information Tile Layer Supervisor [phone] Diabetes & Metabolism Problems Active Problems Provider Date Dyssomnia Elizabeth Rivera DNP, RN, Onset: 03/31/2016 MINGLER OPERATOR-BC Morbid obesity Elizabeth Rivera DNP, RN, Onset: 03/31/2016 MINGLER OPERATOR-BC Periodic leg movements of sleep Elizabeth Rivera DNP, RN, Onset: 03/31/2016 MINGLER OPERATOR-BC Disturbance in sleep behavior Elizabeth Rivera DNP, RN, Onset: 03/31/2016 MINGLER OPERATOR-BC REM sleep behavior disorder Elizabeth Rivera DNP, RN, Onset: 06/08/2016 MINGLER OPERATOR-BC Pain in right lower limb Tomi Márquez [...] fracture with delayed healing Arthroplasty of knee uLci Hancock M.D. Onset: 05/16/2018 Acquired hallux rigidus Chavez El MD Onset: 08/28/2019 Social History Type Date Description Comments Sex Unknown Smokeless Tobacco Never Used Smokeless Tobacco ETOH Use Never used alcohol Tobacco Use Start: Unknown Patient has never smoked Recreational Drug Use Denies Drug Use Smoking Status Reviewed: 09/25/19 Patient has never smoked Exercise Type/Frequency Exercises regularly Allergies, Adverse Reactions, Alerts Active Allergies Reaction Severity Comments Date Sulfa Antibiotics 11/30/2013 Diboll Juice 09/07/2018 Medications Active Medications SIG Qnty Indications Ordering Date Provider Valium Take 1 tab 20 1tabs Adore Nichols, 09/20/2019 5mg Tablets mins. prior to M.D. appt. time Gabapentin 1 capsule PO tid 90caps Jasiel Smtih, 09/06/2019 300mg Capsules Celecoxib Take 1 Capsule 30caps Wesley Puckett, 05/10/2019 200mg Capsules By Mouth Twice A M.D. Day as Needed For Pain Cyclobenzaprine HCL Take 1 Tab By 90tabs Wesley Puckett, 04/25/2018 10mg Mouth 2-3 Times M.D. Tablets A Day as Needed Cymbalta daily Unknown 120mg Valerian Root 2 capsules as Unknown 100mg needed Capsules Pramipexole Take 1 Or 2 Unknown Dihydrochloride Tablets By Mouth 0.25mg AT Bedtime Tablets Quetiapine Fumarate 3 tabs at Unknown 50mg bedtime Tablets Phytoestrogen 1 tab in the Unknown morning and 1 tab in the evening Multivitamin Adult 1 by mouth every Unknown Tablets day Fish Oil twice a day Unknown Tumeric once a day Unknown History Medications Suprep Bowel Prep Kit take according to 354ml Ming Monzon 05/10/2019 - the instructions MD Odell 06/29/2019 17.5-3.13-1.6GM/177ML you received, the Solution afternoon before and morning of your procedure. Slow Release Iron take one 30tabs Wesley Puckett, 05/07/2019 - 45mg Tablets ER capsule/tablet M.D. 09/13/2019 daily by mouth Immunizations Description No Information Available Vital Signs Date Vital Result Comment 09/25/2019 9:32am Height 67 inches 5'7" Weight 193.00 lb Heart Rate 84 /min BP Systolic 130 mmHg BP Diastolic 80 mmHg Respiratory Rate 18 /min Body Temperature 98.4 F Pain Level 4 BMI (Body Mass Index) 30.2 kg/m2 09/14/2019 10:39am Height 67 inches 5'7" Weight 193.00 lb Heart Rate 96 /min BP Systolic 132 mmHg BP Diastolic 86 mmHg BMI (Body Mass Index) 30.2 kg/m2 Results Test Acquired Date Facility Test Result H/L Range Note Laboratory test 08/11/2019 [facility] Nuclear AB <1:[address] (Marguerite) By Ifa (Negative) [place] [address] Igg [phone] Ammonia 36 mcmol/L Normal 16-53 Ceruloplasmin 26.0 mg/dL 2 Copper, Serum 1.07 g/mL 0.75-1.45 3 Anti Gliadin Igg And Iga 08/11/2019 [facility] Gliadin IgG < 10.0 U [address] [place] [address] [phone] Gliadin IgA <10.0 U 5 Laboratory test 08/11/2019 [facility] Lyme Screen Negative Negative finding [address] W/ [place] [address] WB [phone] Rheumatoid Factor < 10 IU/mL Normal <15 Laboratory test 05/04/2019 [facility] Erythrocyte Sed 21 mm/Hr Normal 0-29 [address] [place] [address] [phone] C Reactive Protein < 1.00 mg/L Normal <8.01 7 TSH (Thyroid Stim Horm) 0.82 mcIU/mL Normal 0.34-5.60 8 CBC Auto 05/04/2019 [facility] White Blood 7.1 10^3/uL Normal 3.5-10.[address] [place] [address] [phone] Red Blood Count 5.15 10^6/uL High 3.70-4.87 [...] Blood Cells % 0.1 Comp Metabolic 05/04/2019 [facility] Sodium 140 mmol/L Normal 135-[address] [place] [address] [phone] Potassium 4.4 mmol/L Normal 3.5-5.0 Chloride 107 [...] Egfr 93.2 >60 9 Laboratory test 05/04/2019 [facility] Magnesium 2.2 mg/dL Normal 1.9-2.[address] [place] [address] [phone] Iron & Iron 05/04/2019 [facility] Iron 62 g/dL Normal 50- 212 Binding [address] [place] [address] [phone] Unsaturated Iron Binding < 504 g/dL Total Iron Binding Capacity 519 g/dL High 250-450 Transferrin 371 mg/dL High 203-362 % Iron Saturation 12 % Low 15-55 Laboratory test 05/04/2019 [facility] Ferritin 12.4 ng/mL Normal 11-307 [address] [place] [address] [phone] Vitamin B12 And 05/04/2019 [facility] Vitamin B12 640 pg/mL Normal 180-914 12 Folate Serum [address] [place] [address] [phone] Folic Acid (Folate) > 20.00 ng/mL >3.99 13 Laboratory test 05/04/2019 [facility] Vitamin D 28.2 ng/mL Normal 20-50 [address] [place] [address] Total 25(Oh) [place] [address] [phone] 1 <1:80 (Negative) REFERENCE VALUE <1:80 (Negative) Test Performed by: [facility] [address] [place] [address] Cnc Manager: Rohan Peacock M.D. Ph.D.; CLIA# [id number] 2 REFERENCE VALUE 20.0 - 51.0 Test Performed by: [facility] [address] [place] [address] Cnc Manager: Rohan Peacock M.D. Ph.D.; CLIA# [id number] 3 ADDITIONAL INFORMATION This test was developed and its performance characteristics determined by [facility] in a manner consistent with CLIA requirements. This test has not been cleared or approved by the U.S. Food and Drug Administration. Test Performed by: [facility] [place] [address] Cnc Manager: Rohan Peacock M.D. Ph.D.; CLIA# [id number] 4 REFERENCE VALUE <20.0 (Negative) Test Performed by: [facility] [place] [address] Cnc Manager: Rohan Peacock M.D. Ph.D.; CLIA# [id number] 5 REFERENCE VALUE <20.0 (Negative) 6 Please [...] (toxicity possible) Procedures Date Code Description Status 05/30/2019 72636 Nerve Conduction 07-08 Studies Completed Medical Devices Description No Information Available Encounters Type Date Location Provider Dx Diagnosis Office Visit 09/11/2019 [facility] Adore Nichols G56.03 Carpal tunnel 3:00p at [place] syndrome, bilateral upper limbs G56.23 Lesion of ulnar nerve, bilateral upper limbs Office Visit 08/28/2019 1:30p Feliz El M20.21 Hallux rigidus , Orthopedics at right foot [place] Office Visit 08/17/2019 2:15p Feliz Márquez M16.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 syndrome, bilateral upper limbs G56.23 Lesion of ulnar nerve, bilateral upper limbs Office Visit 05/30/2019 Feliz Márquez, M17.11 Unilateral primary 11:00a Orthopedics at osteoarthritis, [place] right knee Z96.652 Presence of left artificial knee joint Office Visit 05/24/2019 [facility] Jasiel Smith, G25.81 Restless legs 10:00a Clinic syndrome R20.0 Anesthesia of skin Office Visit 05/03/2019 Rheumatology Wesley M46.90 Unspecified 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 inflammatory spondylopathy, site unspecified M79.7 Fibromyalgia M54.5 Low back pain Z79.899 Other correction (current) drug therapy G25.81 Restless legs syndrome D64.9 Anemia, unspecified E55.9 Vitamin D deficiency, unspecified Office Visit 04/27/2019 9:15a [facility] Sharon Duncan, G56.03 Carpal tunnel at [place] RPA-C syndrome, bilateral upper limbs G56.23 Lesion of ulnar nerve, bilateral upper limbs R20.0 Anesthesia of skin R20.2 Paresthesia of skin Assessments Date Code Description Provider 09/25/2019 G56.03 Carpal tunnel syndrome, bilateral upper Adore Nichols M.D. limbs 09/25/2019 G56.23 Lesion of ulnar nerve, bilateral upper limbs Adore Nichols M.D. 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 limbs 09/11/2019 G56.23 Lesion of ulnar nerve, bilateral upper limbs Adore Nichols M.D. 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 limbs 06/19/2019 G56.23 Lesion of ulnar nerve, bilateral upper limbs Adore Nichols M.D. 05/30/2019 G56.03 Carpal tunnel syndrome, bilateral upper Jasiel Smith MD limbs 05/30/2019 M17.11 Unilateral primary osteoarthritis, right Tomi Márquez MD knee 05/30/2019 Z96.652 Presence of left artificial knee joint Tomi Márquez MD 05/24/2019 G25.81 Restless legs syndrome Jasiel Smith MD 05/24/2019 R20.0 Anesthesia of skin Jasiel Smith MD 05/03/2019 M46.90 Unspecified inflammatory spondylopathy, site Wesley Puckett M.D. unspecified 05/03/2019 M79.7 Fibromyalgia Wesley Puckett M.D. 05/03/2019 M54.5 Low back pain Wesley Puckett M.D. 05/03/2019 Z79.899 Other correction (current) drug therapy Wesley Puckett M.D. 05/03/2019 G25.81 Restless legs syndrome Wesley Puckett M.D. 05/03/2019 D64.9 Anemia, unspecified Wesley Puckett M.D. 05/03/2019 E55.9 Vitamin D deficiency, unspecified Wesley Puckett M.D. 04/27/2019 G56.03 Carpal tunnel syndrome, bilateral upper Sharon Bitting, RPA-C limbs 04/27/2019 G56.23 Lesion of ulnar nerve, bilateral upper limbs Sharon Bitting, RPA-C 04/27/2019 R20.0 Anesthesia of skin Sharon Bitting, RPA-C 04/27/2019 R20.2 Paresthesia of skin Sharon Bitting, RPA-C Plan of Treatment Future Appointment(s):10/19/2019 1:00 pm - Adore Nichols M.D. at [facility] at [place]703/14/2020 1:45 pm - Jasiel Smith MD at [facility]10/21/2019 10:30 am - Jo Herrera MD at [facility]10/19/2019 10:20 am - Wesley Puckett M.D. at [facility]09/25/2019 - Adore Nichols M.D.G56.03 Carpal tunnel syndrome, bilateral upper limbsFollow up:3 cjlcxJ42.23 Lesion of ulnar nerve, bilateral upper limbs Functional Status Description No Information Available Mental Status Description No Information Available Referrals Refer to Dr Reason for Referral Status Appt Date Ronnie Chirinos MD right hip OA looking for anterior hip Scheduled 2018 [address] [place] [address] [phone] Jo Herrera MD significant sleep apnea now with memory Created 00/00/ 0000 problems - you have seen before but has not tolerated cpap ? alternatives [address] [place] [address] [phone] Ming Bain MD please evaluate patient for screening colonoscopy Sent and to evaluate for GI causes of low iron saturation [address] [place] [address] [phone]
--- OUTSIDE RECORDS SUMMARY | 2019-11-05 00:23 | XMS REPORT | Continuity of Care Document ---
:1970 External Reference #:[id number] Author Name Wesley Puckett M.D. (transmitted by agent of provider Sun Villarreal) Address [address] [place] [address] Care Team Providers Name Role Phone Eitan Dejesus MD - Endocrinology, Care Team Information Insole Filler Diabetes & Metabolism Problems Active Problems Provider Date Dyssomnia Elizabeth Rivera DNP, RN, Onset: 03/31/2016 DIRECTOR BEHAVIORAL HEALTH-BC Morbid obesity Elizabeth Rivera DNP, RN, Onset: 03/31/2016 DIRECTOR BEHAVIORAL HEALTH-BC Periodic leg movements of sleep Elizabeth Rivera DNP, RN, Onset: 03/31/2016 DIRECTOR BEHAVIORAL HEALTH-BC Disturbance in sleep behavior Elizabeth Rivera DNP, RN, Onset: 03/31/2016 DIRECTOR BEHAVIORAL HEALTH-BC REM sleep behavior disorder Elizabeth Rivera DNP, RN, Onset: 06/08/2016 DIRECTOR BEHAVIORAL HEALTH-BC Pain in right lower limb Tomi Márquez [...] Use Denies Drug Use Smoking Status Reviewed: 10/19/19 Patient has never smoked Exercise Type/Frequency Exercises regularly Allergies, Adverse Reactions, Alerts Active Allergies Reaction Severity Comments Date Sulfa Antibiotics 11/30/2013 Ba Juice 09/07/2018 Medications Active Medications SIG Qnty Indications Ordering Date Provider Naltrexone HCL 4.5 mg compounded 15gm Wesley Puckett, 10/19/2019 Powder in capsules by M.DLanden mouth every day Medrol As directed on 1units M54.12 Chavez El, 10/17/2019 4mg TBPK package MD Mason Take 1 tab 20 1tabs Adore Nichols, 09/20/2019 5mg Tablets mins. prior to M.D. appt. time Gabapentin 1 capsule by 90timmy Smith, 09/06/2019 300mg Capsules mouth three times MD a day Celecoxib Take 1 Capsule By gaurav Puckett, 05/10/2019 200mg Capsules Mouth Twice A Day M.D. as Needed For Pain Cyclobenzaprine HCL Take 1 Tab By 90tabrenda Puckett, 04/25/2018 10mg Mouth 2-3 Times A [...] Slow Release Iron take one 30tabs Wesley Puckett 05/07/2019 - 45mg Tablets ER capsule/tablet M.D. 09/13/2019 daily by mouth Immunizations Description No Information Available Vital Signs Date Vital Result Comment 10/19/2019 10:56am Height 67 inches 5'7" Weight 198.00 lb Heart Rate 94 /min BP Systolic Sitting 152 mmHg RT arm (manual) BP Diastolic Sitting 98 mmHg RT arm (manual) Body Temperature 98.6 F Pain Level 6 mostly in shoulder, neck O2 % BldC Oximetry 97 % BMI (Body Mass Index) 31.0 kg/m2 10/17/2019 11:31am Height 67 inches 5'7" Weight 195.00 lb Heart Rate 72 /min BP Systolic 136 mmHg BP Diastolic 84 mmHg Respiratory Rate 14 /min Pain Level 8 BMI (Body Mass Index) 30.5 kg/m2 Results Test Acquired Date Facility Test Result H/L Range Note Laboratory test 08/11/2019 [facility] Nuclear AB <1:80 [address] (Marguerite) By Ifa (Negative) [place] [address] Igg [phone] Ammonia 36 mcmol/L Normal 16-53 Ceruloplasmin 26.0 mg/dL 2 Copper, Serum 1.07 g/mL 0.75-1.45 3 Anti Gliadin Igg And Iga 08/11/2019 [facility] Gliadin IgG < 10.0 U [address] [place] [address] [phone] Gliadin IgA <10.0 U 5 Laboratory test 08/11/2019 [facility] Lyme Screen Negative Negative finding [address] W/ [place] [address] WB [phone] Rheumatoid Factor < 10 IU/mL Normal <15 Laboratory test 05/04/2019 [facility] Erythrocyte Sed 21 mm/Hr Normal 0-29 [address] Rate [place], [place] [address] [phone] C Reactive Protein < 1.00 mg/L Normal <8.01 7 TSH (Thyroid Stim Horm) 0.82 mcIU/mL Normal 0.34-5.60 8 CBC Auto 05/04/2019 [facility] White Blood 7.1 10^3/uL Normal 3.5-10.[address] [place] [address] [phone] Red Blood Count 5.15 10^6/uL High 3.70-4.87 [...] Blood Cells % 0.1 Comp Metabolic 05/04/2019 [facility] Sodium 140 mmol/L Normal 135-[address] [place] [address] [phone] Potassium 4.4 mmol/L Normal 3.5-5.0 Chloride 107 [...] Egfr 93.2 >60 9 Laboratory test 05/04/2019 [facility] Magnesium 2.2 mg/dL Normal 1.9-2.7 10 finding [address] [place] [address] [phone] Iron & Iron 05/04/2019 [facility] Iron 62 g/dL Normal 50- 212 [address] [place] [address] [phone] Unsaturated Iron Binding < 504 g/dL Total Iron Binding Capacity 519 g/dL High 250-450 Transferrin 371 mg/dL High 203-362 % Iron Saturation 12 % Low 15-55 Laboratory test 05/04/2019 [facility] Ferritin 12.4 ng/mL Normal 11-307 11 finding [address] [place] [address] [phone] Vitamin B12 And 05/04/2019 [facility] Vitamin B12 640 pg/mL Normal 180-914 12 Folate Serum [address] [place] [address] [phone] Folic Acid (Folate) > 20.00 ng/mL >3.99 13 Laboratory test 05/04/2019 [facility] Vitamin D 28.2 ng/mL Normal 20-50 14 finding [address] [facility] Total 25(Oh) [place] [address] [phone] 1 <1:80 (Negative) REFERENCE VALUE <1:80 (Negative) Test Performed by: [facility] [address] [place] [address] Crystal Grower: Rohan Peacock M.D. Ph.D.; [facility]# [id number] 2 REFERENCE VALUE 20.0 - 51.0 Test Performed by: [facility] [place] [id number] Crystal Grower: Rohan Peacock M.D. Ph.D.; CLIA# [id number] 3 ADDITIONAL INFORMATION This test was developed and its performance characteristics determined by [facility] in a manner consistent with CLIA requirements. This test has not been cleared or approved by the U.S. Food and Drug Administration. Test Performed by: [facility] [place] [address] Crystal Grower: Rohan Peacock M.D. Ph.D.; CLIA# [id number] 4 REFERENCE VALUE <20.0 (Negative) Test Performed by: [facility] [place] [address] Crystal Grower: Rohan Peacock M.D. Ph.D.; CLIA# [id number] 5 REFERENCE VALUE <20.0 (Negative) 6 Please [...] possible) Procedures Date Code Description Status 09/15/2019 16063 Carpal Tunnel Release Completed 09/15/2019 63032 Carpal Tunnel Release Completed 09/15/2019 00168 Neuroplasty &/Or Transposition; Ulnar Nerve AT Elbow Completed 09/15/2019 11884 Neuroplasty &/Or Transposition; Ulnar Nerve AT Elbow Completed 05/30/2019 43611 Nerve Conduction 07-08 Studies Completed Medical Devices Description No Information Available Encounters Type Date Location Provider Dx Diagnosis Office Visit 09/14/2019 [facility] Jasiel Smith G51.0 John' s palsy 10:15a R41.3 Other amnesia Office Visit 09/11/2019 3:00p [facility] Avitia G56.03 [place] M.[place] 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 syndrome, bilateral upper limbs G56.23 Lesion of ulnar nerve, bilateral upper limbs Office Visit 05/30/2019 [facility]ushant Willi, M17.11 Unilateral primary 11:00a Orthopedics at osteoarthritis, [place] right knee Z96.652 Presence of left artificial knee joint Office Visit 05/24/2019 [facility] Jasiel Smith, G25.81 Restless legs 10:00a Clinic syndrome R20.0 Anesthesia of skin Office Visit 05/03/2019 Rheumatology Wesley M46.90 Unspecified 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 inflammatory spondylopathy, site unspecified M79.7 Fibromyalgia M54.5 Low back pain Z79.899 Other supervisor intermediates (current) drug therapy G25.81 Restless legs syndrome D64.9 Anemia, unspecified E55.9 Vitamin D deficiency, unspecified Office Visit 04/27/2019 9:15a [facility] Sharon Duncan, G56.03 Carpal tunnel at [place] RPA-C syndrome, bilateral upper limbs G56.23 Lesion of ulnar nerve, bilateral upper limbs R20.0 Anesthesia of skin R20.2 Paresthesia of skin Assessments Date Code Description Provider 10/19/2019 M79.7 Fibromyalgia Wesley Puckett M.D. 10/19/2019 [...] Lesion of ulnar nerve, left upper limb RICKEY Riddle 09/15/2019 G56.22 Lesion of ulnar nerve, left upper limb Adore Nichols M.D. 09/15/2019 G56.02 Carpal tunnel syndrome, left upper limb Sharon DuncanTROY 09/15/2019 G56.02 Carpal tunnel syndrome, left upper [...] 06/19/2019 G56.23 Lesion of ulnar nerve, bilateral dar Nichols M.D. limbs 05/30/2019 G56.03 Carpal tunnel [...] M.D. 05/03/2019 M54.5 Low back pain Wesley Pcukett M.D. 05/03/2019 Z79.899 Other assisted (current) drug therapy Wesley Puckett M.D. 05/03/2019 [...] Sharon Bitting, RPA-C Plan of Treatment Future Appointment(s):12/19/2019 10:00 am - Wesley Puckett M.D. at [facility]10/25/2019 1:45 pm - Adore Nichols M.D. at [facility] at Att[place]1103/14/2020 1:45 pm - Jasiel Smith MD at [facility]10/17/2019 - Anatoliy Kelley, MDM54.12 Radiculopathy, cervical regionNew Medication:Medrol 4 mg - As directed on packageNew Xrays:SP Cervical 4+VWS, Ordered: 10/17/19New Therapy:Physical TherapyFollow up:Follow up: With spinal service in 6 weeks Functional Status Description No Information Available Mental Status Description No Information Available Referrals Refer to Reason for Referral Status Appt Date Ronnie Chirinos MD right hip OA looking for anterior hip Scheduled 2018 [address] [place] [address] [phone] Jo Herrera MD significant sleep apnea now with memory Created problems - you have seen before but has not tolerated cpap ? alternatives [address] [place] [address] [phone] Ming Bain MD please evaluate patient for screening colonoscopy Sent and to evaluate for GI causes of low iron saturation [address] [facility] [address] [phone]
--- OUTSIDE RECORDS SUMMARY | 2019-11-05 00:23 | XMS REPORT | Continuity of Care Document ---
:1970 External Reference #:[id number] Author Name Wesley Puckett M.D. (transmitted by agent of provider Sun Villarreal) Address [address] [place] [address] Care Team Providers Name Role Phone Eitan Dejesus MD - Endocrinology, Care Team Information Orderlies Teacher Diabetes & Metabolism Problems Active Problems Provider Date Dyssomnia Elizabeth Rivera DNP, RN, Onset: 03/31/2016 ONLINE BANKING SPECIALIST-BC Morbid obesity Elizabeth Rivera DNP, RN, Onset: 03/31/2016 ONLINE BANKING SPECIALIST-BC Periodic leg movements of sleep Elizabeth Rivera DNP, RN, Onset: 03/31/2016 ONLINE BANKING SPECIALIST-BC Disturbance in sleep behavior Elizabeth Rivera DNP, RN, Onset: 03/31/2016 ONLINE BANKING SPECIALIST-BC REM sleep behavior disorder Elizabeth Rivera DNP, RN, Onset: 06/08/2016 ONLINE BANKING SPECIALIST-BC Pain in right lower limb Tomi Márquez [...] Result H/L Range Note Laboratory test 08/11/2019 [facility] Nuclear AB <1:[address] (Marguerite) By Ifa (Negative) [place] [address] Igg [phone] Ammonia 36 mcmol/L Normal 16-53 Ceruloplasmin 26.0 mg/dL 2 Copper, Serum 1.07 g/mL 0.75-1.45 3 Anti Gliadin Igg And Iga 08/11/2019 [facility] Gliadin IgG < 10.0 U [address] [place] [address] [phone] Gliadin IgA <10.0 U 5 Laboratory test 08/11/2019 [facility] Lyme Screen Negative Negative finding [address] W/ [place] [address] WB [phone] Rheumatoid Factor < 10 IU/mL Normal <15 Laboratory test 05/04/2019 [facility] Erythrocyte Sed 21 mm/Hr Normal 0-29 [address] Rate [place], [place] [address] [phone] C Reactive Protein < 1.00 mg/L Normal <8.01 7 TSH (Thyroid Stim Horm) 0.82 mcIU/mL Normal 0.34-5.60 8 CBC Auto 05/04/2019 [facility] White Blood 7.1 10^3/uL Normal 3.5-10.[address] [place] [address] [phone] Red Blood Count 5.15 10^6/uL High 3.70-4.87 [...] Blood Cells % 0.1 Comp Metabolic 05/04/2019 [facility] Sodium 140 mmol/L Normal 135-[address] [place] [address] [phone] Potassium 4.4 mmol/L Normal 3.5-5.0 Chloride 107 [...] Egfr 93.2 >60 9 Laboratory test 05/04/2019 [facility] Magnesium 2.2 mg/dL Normal 1.9-2.7 10 finding [address] [place] [address] [phone] Iron & Iron 05/04/2019 [facility] Iron 62 g/dL Normal 50- 212 Binding Capacity [address] [place] [address] [phone] Unsaturated Iron Binding < 504 g/dL Total Iron Binding Capacity 519 g/dL High 250-450 Transferrin 371 mg/dL High 203-362 % Iron Saturation 12 % Low 15-55 Laboratory test 05/04/2019 [facility] Ferritin 12.4 ng/mL Normal 11-307 11 finding [address] [place] [address] [phone] Vitamin B12 And 05/04/2019 [facility] Vitamin B12 640 pg/mL Normal 180-914 12 Folate Serum [address] [place] [address] [phone] Folic Acid (Folate) > 20.00 ng/mL >3.99 13 Laboratory test 05/04/2019 [facility] Vitamin D 28.2 ng/mL Normal 20-50 14 finding 101 [facility] Total 25(Oh) [place] [address] [phone] 1 <1:80 (Negative) REFERENCE VALUE <1:80 (Negative) Test Performed by: [facility] [address] [place] [address] Clay Stain Mixer: Rohan Peacock M.D. Ph.D.; [facility]# [id number] 2 REFERENCE VALUE 20.0 - 51.0 Test Performed by: [facility] [place] [id number] Clay Stain Mixer: Rohan Peacock M.D. Ph.D.; CLIA# [id number] 3 ADDITIONAL INFORMATION This test was developed and its performance characteristics determined by [facility] in a manner consistent with CLIA requirements. This test has not been cleared or approved by the U.S. Food and Drug Administration. Test Performed by: [facility] [place] [address] Clay Stain Mixer: Rohan Peacock M.D. Ph.D.; CLIA# [id number] 4 REFERENCE VALUE <20.0 (Negative) Test Performed by: [facility] [place] [address] Clay Stain Mixer: Rohan Peacock M.D. Ph.D.; CLIA# [id number] 5 REFERENCE VALUE <20.0 (Negative) 6 Please [...] possible) Procedures Date Code Description Status 09/15/2019 29998 Carpal Tunnel Release Completed 09/15/2019 62914 Carpal Tunnel Release Completed 09/15/2019 77438 Neuroplasty &/Or Transposition; Ulnar Nerve AT Elbow Completed 09/15/2019 68554 Neuroplasty &/Or Transposition; Ulnar Nerve AT Elbow Completed 05/30/2019 33907 Nerve Conduction 07-08 Studies Completed Medical Devices Description No Information Available Encounters Type Date Location Provider Dx Diagnosis Office Visit 10/19/2019 [facility] Wesley Puckett, M79.7 Fibromyalgia 10:20a Of Christina Rey M54.12 Radiculopathy, cervical region M16.11 Unilateral primary osteoarthritis, right hip G25.81 Restless legs syndrome Office Visit 09/14/2019 10:15a [facility] Jasiel Smith 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 syndrome, bilateral upper limbs G56.23 Lesion of ulnar nerve, bilateral upper limbs Office Visit 05/30/2019 [facility] Tomi Márquez, M17.11 Unilateral primary 11:00a [facility] [place] osteoarthritis, [place] right knee Z96.652 Presence of left artificial knee joint Office Visit 05/24/2019 [facility] Jasiel Smith, G25.81 Restless legs 10:00a Clinic syndrome R20.0 Anesthesia of skin Office Visit 05/03/2019 Rheumatology Wesley M46.90 Unspecified 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 inflammatory spondylopathy, site unspecified M79.7 Fibromyalgia M54.5 Low back pain Z79.899 Other halfway (current) drug therapy G25.81 Restless legs syndrome D64.9 Anemia, unspecified E55.9 Vitamin D deficiency, unspecified Office Visit 04/27/2019 9:15a [facility] Sharon Duncan, G56.03 Carpal tunnel at [place] RPA-C syndrome, bilateral upper limbs G56.23 Lesion [...] of ulnar nerve, left upper limb Sharon Duncan, [facility] 09/15/2019 G56.22 Lesion of ulnar nerve, left upper limb Adore Nichols M.D. 09/15/2019 G56.02 Carpal tunnel syndrome, left upper limb Sharon Duncan, [facility]- 09/15/2019 G56.02 Carpal tunnel syndrome, left upper [...] pain Wesley Puckett M.D. 05/03/2019 Z79.899 Other supervisor intermediates (current) drug therapy Wesley Puckett M.D. 05/03/2019 [...] Wesley Puckett M.D. at [facility]/25/2019 1:45 pm - Adore Nichols M.D. at [facility] at [id number]/14/2020 1:45 pm - Jasiel Smith MD at [facility]10/17/2019 - Anatoliy Kelley, MDM54.12 Radiculopathy, cervical regionNew [...] looking for anterior hip Scheduled 2018 [address] [place] [address] [phone] Jo Herrera MD significant sleep apnea now with memory Created problems - you have seen before but has not tolerated cpap ? alternatives [address] [place] [address] [phone] Ming Bain MD please evaluate patient for screening colonoscopy Sent and to evaluate for GI causes of low iron saturation [address] [place] [address] [phone]
--- OUTSIDE RECORDS SUMMARY | 2019-11-05 00:23 | XMS REPORT | Continuity of Care Document ---
:1970 External Reference #:[id number] Author Name Anatoliy Kelley MD (transmitted by agent of provider Ene Martines) Address [address] [place] [address] Care Team Providers Name Role Phone Eitan Dejesus MD - Endocrinology, Care Team Information Clinical Coordinator Diabetes & Metabolism Problems Active Problems Provider Date Dyssomnia Elizabeth Rivera DNP, RN, Onset: 03/31/2016 FOOT SETTER-BC Morbid obesity Elizabeth Rivera DNP, RN, Onset: 03/31/2016 FOOT SETTER-BC Periodic leg movements of sleep Elizabeth Rivera DNP, RN, Onset: 03/31/2016 FOOT SETTER-BC Disturbance in sleep behavior Elizabeth Rivera DNP, RN, Onset: 03/31/2016 FOOT SETTER-BC REM sleep behavior disorder Elizabeth Rivera DNP, RN, Onset: 06/08/2016 FOOT SETTER-BC Pain in right lower limb Tomi Márquez [...] Use Denies Drug Use Smoking Status Reviewed: 10/17/19 Patient has never smoked Exercise Type/Frequency Exercises regularly Allergies, Adverse Reactions, Alerts Active Allergies Reaction Severity Comments Date Sulfa Antibiotics 11/30/2013 Ba Juice 09/07/2018 Medications Active Medications SIG Qnty Indications Ordering Date Provider Medrol As directed on 1units M54.12 Chavez El, 10/17/2019 4mg TBPK package Valium Take 1 tab 20 1tabs Adore Nichols 09/20/2019 5mg Tablets mins. prior to M.D. appt. time Gabapentin 1 capsule by 90capdarius Smith, 09/06/2019 300mg Capsules mouth three MD times a day Celecoxib Take 1 Capsule 30capdarius Puckett, 05/10/2019 200mg Capsules By Mouth Twice [...] Suprep Bowel Prep Kit take according to 354moshe Monzon 05/10/2019 - the instructions MD Odell 06/29/2019 17.5-3.13-1.6GM/177ML you received, the Solution afternoon before and morning of your procedure. Slow Release Iron take one 30tabs Wesley Puckett, 05/07/2019 - 45mg Tablets ER capsule/tablet M.D. 09/13/2019 daily by mouth Immunizations Description No Information Available Vital Signs Date Vital Result Comment 10/17/2019 11:31am Height 67 inches 5'7" Weight 195.00 lb Heart Rate 72 /min BP Systolic 136 mmHg BP Diastolic 84 mmHg Respiratory Rate 14 /min Pain Level 8 BMI (Body Mass Index) 30.5 kg/m2 09/25/2019 9:32am Height 67 inches 5'7" Weight 193.00 lb Heart Rate 84 /min BP Systolic 130 mmHg BP Diastolic 80 mmHg Respiratory Rate 18 /min Body Temperature 98.4 F Pain Level 4 BMI (Body Mass Index) 30.2 kg/m2 Results Test Acquired Date Facility Test Result H/L Range Note Laboratory test 08/11/2019 [facility] Nuclear AB <1:80 1 finding (Marguerite) By Ifa (Negative) [place] [address] Igg [phone] Ammonia 36 mcmol/L Normal 16-53 Ceruloplasmin 26.0 mg/dL 2 Copper, Serum 1.07 g/mL 0.75-1.45 3 Anti Gliadin Igg And Iga 08/11/2019 [facility] Gliadin IgG < 10.[address] [place] [address] [phone] Gliadin IgA <10.0 U 5 Laboratory test 08/11/2019 [facility] Lyme Screen Negative Negative finding DRIVE W/ [place] [address] WB [phone] Rheumatoid Factor < 10 IU/mL Normal <15 Laboratory test 05/04/2019 [facility] Erythrocyte Sed 21 mm/Hr Normal 0-[address] Rate [place], [place] [address] [phone] C Reactive Protein < 1.00 mg/L Normal <8.01 7 TSH (Thyroid Stim Horm) 0.82 mcIU/mL Normal 0.34-5.60 8 CBC Auto 05/04/2019 [facility] White Blood 7.1 10^3/uL Normal 3.5-10.[address] [place] [address] [phone] Red Blood Count 5.15 10^6/uL High 3.70-4.87 [...] Blood Cells % 0.1 Comp Metabolic 05/04/2019 [facility] Sodium 140 mmol/L Normal 135-[address] [place] [address] [phone] Potassium 4.4 mmol/L Normal 3.5-5.0 Chloride 107 [...] Egfr 93.2 >60 9 Laboratory test 05/04/2019 [facility] Magnesium 2.2 mg/dL Normal 1.9-2.7 10 finding [address] [place] [address] [phone] Iron & Iron 05/04/2019 [facility] Iron 62 g/dL Normal 50- 212 Binding Capacity [address] [place], [place] [address] [phone] Unsaturated Iron Binding < 504 g/dL Total Iron Binding Capacity 519 g/dL High 250-450 Transferrin 371 mg/dL High 203-362 % Iron Saturation 12 % Low 15-55 Laboratory test 05/04/2019 [facility] Ferritin 12.4 ng/mL Normal 11-307 [address] [place] [address] [phone] Vitamin B12 And 05/04/2019 [facility] Vitamin B12 640 pg/mL Normal 180-914 12 Folate Serum [address] [place] [address] [phone] Folic Acid (Folate) > 20.00 ng/mL >3.99 13 Laboratory test 05/04/2019 [facility] Vitamin D 28.2 ng/mL Normal 20-50 14 finding 101 [facility] Total 25(Oh) [place] [address] [phone] 1 <1:80 (Negative) REFERENCE VALUE <1:80 (Negative) Test Performed by: [facility] [address] [place] [address] Binman: Rohan Peacock M.D. Ph.D.; [place]# [id number] 2 REFERENCE VALUE 20.0 - 51.0 Test Performed by: [facility] - [address] [address] Binman: Rohan Peacock M.D. Ph.D.; CLIA# [id number] 3 ADDITIONAL INFORMATION This test was developed and its performance characteristics determined by [facility] in a manner consistent with CLIA requirements. This test has not been cleared or approved by the U.S. Food and Drug Administration. Test Performed by: [facility] [place] [address] Binman: Rohan Peacock M.D. Ph.D.; CLIA# [id number] 4 REFERENCE VALUE <20.0 (Negative) Test Performed by: [facility] [place] [address] Binman: Rohan Peacock M.D. Ph.D.; CLIA# [id number] 5 REFERENCE VALUE <20.0 (Negative) 6 Please [...] possible) Procedures Date Code Description Status 09/15/2019 16721 Carpal Tunnel Release Completed 09/15/2019 41167 Carpal Tunnel Release Completed 09/15/2019 65414 Neuroplasty &/Or Transposition; Ulnar Nerve AT Elbow Completed 09/15/2019 86818 Neuroplasty &/Or Transposition; Ulnar Nerve AT Elbow Completed 05/30/2019 08471 Nerve Conduction - Studies Completed Medical Devices Description No Information Available Encounters Type Date Location Provider Dx Diagnosis Office Visit 09/14/2019 [facility] Jasiel Smith G51.0 John' s palsy 10:15a R41.3 Other amnesia Office Visit 09/11/2019 3:00p [facility] Adore G56.03 Carpal tunnel at Anamaria Nichols M.D. 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 syndrome, bilateral upper limbs G56.23 Lesion of ulnar nerve, bilateral upper limbs Office Visit 05/30/2019 [facility] Márquez, M17.11 Unilateral primary 11:00a Orthopedics at osteoarthritis, [place] right knee Z96.652 Presence of left artificial knee joint Office Visit 05/24/2019 [facility] Jasiel Smith, G25.81 Restless legs 10:00a Clinic syndrome R20.0 Anesthesia of skin Office Visit 05/03/2019 Rheumatology Wesley M46.90 Unspecified 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 inflammatory spondylopathy, site unspecified M79.7 Fibromyalgia M54.5 Low back pain Z79.899 Other skilled nursing (current) drug therapy G25.81 Restless legs syndrome D64.9 Anemia, unspecified E55.9 Vitamin D deficiency, unspecified Office Visit 04/27/2019 9:15a [facility] Sharon Duncan, G56.03 Carpal tunnel at [place] RPA-C syndrome, bilateral upper limbs G56.23 Lesion of ulnar nerve, bilateral upper limbs R20.0 Anesthesia of skin R20.2 Paresthesia of skin Assessments Date Code Description Provider 10/17/2019 M54.12 Radiculopathy, cervical region Anatoliy Kelley [...] G56.02 Carpal tunnel syndrome, left upper limb TROY Riddle 09/15/2019 G56.02 Carpal tunnel syndrome, left upper [...] pain Wesley Puckett M.D. 05/03/2019 Z79.899 Other skilled nursing (current) drug therapy Wesley Puckett M.D. 05/03/2019 [...] 1:00 pm - Adore Nichols M.D. at [facility] at [id number]/14/2020 1:45 pm - Jasiel Smith MD at [facility]10/19/2019 10:20 am - Wesley Puckett M.D. at [facility]10/17/2019 - Anatoliy Kelley, MDM54.12 Radiculopathy, [...] looking for anterior hip Scheduled 2018 [address] [place] [address] [phone] Jo Herrera MD significant sleep apnea now with memory Created problems - you have seen before but has not tolerated cpap ? alternatives [address] [place] [address] [phone] Ming Bain MD please evaluate patient for screening colonoscopy Sent and to evaluate for GI causes of low iron saturation [address] [place] [address] [phone]
--- OUTSIDE RECORDS SUMMARY | 2019-11-05 00:23 | XMS REPORT | Continuity of Care Document ---
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 Problems Active Problems Provider Date Dyssomnia Elizabeth Rivera DNP, RN, Onset: 03/31/2016 CONSERVATION SPECIALIST-BC Morbid obesity Elizabeth Rivera DNP, RN, Onset: 03/31/2016 CONSERVATION SPECIALIST-BC Periodic leg movements of sleep Elizabeth Rivera DNP, RN, Onset: 03/31/2016 CONSERVATION SPECIALIST-BC Disturbance in sleep behavior Elizabeth Rivera DNP, RN, Onset: 03/31/2016 CONSERVATION SPECIALIST-BC REM sleep behavior disorder Elizabeth Rivera DNP, RN, Onset: 06/08/2016 CONSERVATION SPECIALIST-BC Pain in right lower limb Tomi [...] Use Denies Drug Use Smoking Status Reviewed: 10/21/19 Patient has never smoked Exercise Type/Frequency Exercises regularly Allergies, Adverse Reactions, Alerts Active Allergies Reaction Severity Comments Date Sulfa Antibiotics 11/30/2013 [place] Juice 09/07/2018 Medications Active Medications SIG Qnty [...] Available Vital Signs Date Vital Result Comment 10/21/2019 10:11am Height 67 inches 5'7" Weight 201.00 lb Heart Rate 103 /min BP Systolic Sitting 126 mmHg BP Diastolic Sitting 80 mmHg O2 % BldC Oximetry 97 % BMI (Body Mass Index) 31.5 kg/m2 Neck Circumference in inches 15 10/19/2019 10:56am Height 67 inches 5'7" Weight 198.00 lb Heart Rate 94 /min BP Systolic Sitting 152 mmHg RT arm (manual) BP Diastolic Sitting 98 mmHg RT arm (manual) Body Temperature 98.6 F Pain Level 6 mostly in shoulder, neck O2 % BldC Oximetry 97 % BMI (Body Mass Index) 31.0 kg/m2 Results Test Acquired Date Facility Test Result H/L Range Note Laboratory test 08/11/2019 [facility] Nuclear AB <1:[address] (Marguerite) By Ifa (Negative) [place] [address] Igg [phone] Ammonia 36 mcmol/L Normal 16-53 Ceruloplasmin 26.0 mg/dL 2 Copper, Serum 1.07 g/mL 0.75-1.45 3 Anti Gliadin Igg And Iga 08/11/2019 [facility] Gliadin IgG < 10.0 U [address] [place] [address] [phone] Gliadin IgA <10.0 U 5 Laboratory test 08/11/2019 [facility] Lyme Screen Negative Negative finding [address] W/ [place] [address] WB [phone] Rheumatoid Factor < 10 IU/mL Normal <15 Laboratory test 05/04/2019 [facility] Erythrocyte Sed 21 mm/Hr Normal 0-29 [address] Rate [place], [place] [id number] [phone] C Reactive Protein < 1.00 mg/L Normal <8.01 7 TSH (Thyroid Stim Horm) 0.82 mcIU/mL Normal 0.34-5.60 8 CBC Auto 05/04/2019 [facility] White Blood 7.1 10^3/uL Normal 3.5-10.[address] [place] [address] [phone] Red Blood Count 5.15 10^6/uL High 3.70-4.87 [...] Blood Cells % 0.1 Comp Metabolic 05/04/2019 [facility] Sodium 140 mmol/L Normal 135-[address] [place] [address] [phone] Potassium 4.4 mmol/L Normal 3.5-5.0 Chloride 107 [...] Egfr 93.2 >60 9 Laboratory test 05/04/2019 [facility] Magnesium 2.2 mg/dL Normal 1.9-2.7 10 finding [address] [place] [address] [phone] Iron & Iron 05/04/2019 [facility] Iron 62 g/dL Normal 50- 212 Binding Capacity [address] [place] [address] [phone] Unsaturated Iron Binding < 504 g/dL Total Iron Binding Capacity 519 g/dL High 250-450 Transferrin 371 mg/dL High 203-362 % Iron Saturation 12 % Low 15-55 Laboratory test 05/04/2019 [facility] Ferritin 12.4 ng/mL Normal 11-307 [address] [place] [address] [phone] Vitamin B12 And 05/04/2019 [facility] Vitamin B12 640 pg/mL Normal 180-914 12 Folate Serum [address] [place] [address] [phone] Folic Acid (Folate) > 20.00 ng/mL >3.99 13 Laboratory test 05/04/2019 [facility] Vitamin D 28.2 ng/mL Normal 20-50 14 finding 101 [facility] Total 25(Oh) [place] [address] [phone] 1 <1:80 (Negative) REFERENCE VALUE <1:80 (Negative) Test Performed by: [facility] [address] [place] [address] Knowledge Management Consultant: Rohan Peacock M.D. Ph.D.; [facility]# [id number] 2 REFERENCE VALUE 20.0 - 51.0 Test Performed by: [facility] - [address] [address] Knowledge Management Consultant: Rohan Peacock M.D. Ph.D.; CLIA# [id number] 3 ADDITIONAL INFORMATION This test was developed and its performance characteristics determined by [facility] in a manner consistent with CLIA requirements. This test has not been cleared or approved by the U.S. Food and Drug Administration. Test Performed by: [facility] [place] [address] Knowledge Management Consultant: Rohan Peacock M.D. Ph.D.; CLIA# [id number] 4 REFERENCE VALUE <20.0 (Negative) Test Performed by: [facility] [address] Knowledge Management Consultant: Rohan Peacock M.D. Ph.D.; CLIA# [id number] 5 REFERENCE VALUE <20.0 (Negative) 6 Please [...] possible) Procedures Date Code Description Status 09/15/2019 24136 Carpal Tunnel Release Completed 09/15/2019 86457 Carpal Tunnel Release Completed 09/15/2019 52707 Neuroplasty &/Or Transposition; Ulnar Nerve AT Elbow Completed 09/15/2019 21605 Neuroplasty &/Or Transposition; Ulnar Nerve AT Elbow Completed 05/30/2019 15499 Nerve Conduction 07-08 Studies Completed Medical Devices Description No Information Available Encounters Type Date Location Provider Dx Diagnosis Office Visit 10/21/2019 Pulmonology And Jo Herrera G47.33 Obstructive sleep 10:30a Sleep Services Of apnea (adult) Christina (pediatric) G47.52 REM sleep behavior disorder Office Visit 10/19/2019 10:20a Rheumatology Wesley Puckett M79.7 Fibromyalgia Services Of Christina Rey M54.12 Radiculopathy, cervical region M16.11 Unilateral primary osteoarthritis, right hip G25.81 Restless legs syndrome Office Visit 09/14/2019 10:15a [facility] Jasiel Smith 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 G47.30 Sleep apnea, unspecified Office Visit 06/19/2019 11:15a [facility] Adore G56.03 Carpal tunnel at [place] Krissy Nichols syndrome, bilateral upper limbs G56.23 Lesion of ulnar nerve, bilateral upper limbs Office Visit 05/30/2019 [facility] Tomi Márquez, M17.11 Unilateral primary 11:00a Orthopedics at osteoarthritis, [place] right knee Z96.652 Presence of left artificial knee joint Office Visit 05/24/2019 Neurohospitalist Jasiel Smith, G25.81 Restless legs 10:00a Clinic syndrome R20.0 Anesthesia of skin Office Visit 05/03/2019 Rheumatology Wesley M46.90 Unspecified 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 inflammatory spondylopathy, site unspecified M79.7 Fibromyalgia M54.5 Low back pain Z79.899 Other alf (current) drug therapy G25.81 Restless legs syndrome D64.9 Anemia, unspecified E55.9 Vitamin D deficiency, unspecified Office Visit 04/27/2019 9:15a [facility] Sharon Duncan G56.03 Carpal tunnel at [place] RPA-C syndrome, bilateral upper limbs G56.23 Lesion of ulnar nerve, bilateral upper limbs R20.0 Anesthesia of skin R20.2 Paresthesia of skin Assessments Date Code Description Provider 10/21/2019 G47.33 Obstructive sleep apnea (adult) (pediatric) [...] ulnar nerve, left upper limb Sharon Duncan, [facility] 09/15/2019 G56.22 Lesion of ulnar nerve, left upper limb Adore Nichols M.D. 09/15/2019 G56.02 Carpal tunnel syndrome, left upper limb Sharon Duncan, [facility] 09/15/2019 G56.02 Carpal tunnel syndrome, left [...] pain Wesley Puckett M.D. 05/03/2019 Z79.899 Other alf (current) drug therapy Wesley Puckett M.D. 05/03/2019 [...] NP at [facility]12/19/2019 10:00 am - Wesley Puckett M.D. at [facility]10/25/2019 1:45 pm - Adore Nichols M.D. at [facility] at [id number]/14/2020 1:45 pm - Jasiel Smith MD at [facility]10/21/2019 - Jo Herrera MDG47.33 Obstructive sleep apnea (adult) (pediatric)New Orders:Sleep-Homecare, Ordered: Follow up:6 emtdfM39.52 REM sleep behavior disorder Functional Status Description No Information Available Mental Status Description No Information Available Referrals Refer to Reason for Referral Status Appt Date Ronnie Chirinos MD right hip OA looking for anterior hip Scheduled 2018 [address] [place] [address] [phone] Jo Herrera MD significant sleep apnea now with memory Created problems - you have seen before but has not tolerated cpap ? alternatives [address] [place] [address] [phone] Ming Bain MD please evaluate patient for screening colonoscopy Sent and to evaluate for GI causes of low iron saturation [address] [place] [address] [phone]
--- OUTSIDE RECORDS SUMMARY | 2019-11-05 00:24 | XMS REPORT | Continuity of Care Document ---
:1970 External Reference #:[id number] Author Name Adore Nichols M.D. 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 Problems Active Problems Provider Date Dyssomnia Elizabeth Rivera DNP, RN, Onset: 03/31/2016 FISHERIES OFFICER-BC Morbid obesity Elizabeth Rivera DNP, RN, Onset: 03/31/2016 FISHERIES OFFICER-BC Periodic leg movements of sleep Elizabeth Rivera DNP, RN, Onset: 03/31/2016 FISHERIES OFFICER-BC Disturbance in sleep behavior Elizabeth Rivera DNP, RN, Onset: 03/31/2016 FISHERIES OFFICER-BC REM sleep behavior disorder Elizabeth Rivera DNP, RN, Onset: 06/08/2016 FISHERIES OFFICER-BC Pain in right lower limb Tomi Márquez [...] Reaction Severity Comments Date Sulfa Antibiotics 11/30/2013 [place] Juice 09/07/2018 Medications Active Medications SIG Qnty Indications Ordering Date Provider Valium Take 1 tab 20 1tabs Adore Nichols, 09/20/2019 5mg Tablets mins. prior to M.D. appt. time Gabapentin 1 capsule PO tid 90caps Jasiel Smith, 09/06/2019 300mg Capsules Celecoxib Take 1 Capsule [...] Result H/L Range Note Laboratory test 08/11/2019 Nuclear AB <1:[address] (Marguerite) By Ifa (Negative) [place] [address] Igg [phone] Ammonia 36 mcmol/L Normal 16-53 Ceruloplasmin 26.0 mg/dL 2 Copper, Serum 1.07 g/mL 0.75-1.45 3 Anti Gliadin Igg And Iga 08/11/2019 Gliadin IgG < 10.0 U [address] [place] [address] [phone] Gliadin IgA <10.0 U 5 Laboratory test 08/11/2019 Lyme Screen Negative Negative finding [address] W/ [place] [address] WB [phone] Rheumatoid Factor < 10 IU/mL Normal <15 Laboratory test 05/04/2019 Erythrocyte Sed 21 mm/Hr Normal 0-29 [address] [place] [address] [phone] C Reactive Protein < 1.00 mg/L Normal <8.01 7 TSH (Thyroid Stim Horm) 0.82 mcIU/mL Normal 0.34-5.60 8 CBC Auto 05/04/2019 White Blood 7.1 10^3/uL Normal 3.5-10.[address] [place] [address] [phone] Red Blood Count 5.15 10^6/uL High 3.70-4.87 [...] Blood Cells % 0.1 Comp Metabolic 05/04/2019 Sodium 140 mmol/L Normal 135-[address] [place] [address] [phone] Potassium 4.4 mmol/L Normal 3.5-5.0 Chloride 107 [...] Egfr 93.2 >60 9 Laboratory test 05/04/2019 Magnesium 2.2 mg/dL Normal 1.9-2.7 [address] [place] [address] [phone] Iron & Iron 05/04/2019 Iron 62 g/dL Normal 50- 212 Binding Capacity [address] [place] [address] [phone] Unsaturated Iron Binding < 504 g/dL Total Iron Binding Capacity 519 g/dL High 250-450 Transferrin 371 mg/dL High 203-362 % Iron Saturation 12 % Low 15-55 Laboratory test 05/04/2019 Ferritin 12.4 ng/mL Normal 11-307 [address] [place] [address] [phone] Vitamin B12 And 05/04/2019 Vitamin B12 640 pg/mL Normal 180-914 12 Folate Serum [address] [place] [address] [phone] Folic Acid (Folate) > 20.00 ng/mL >3.99 13 Laboratory test 05/04/2019 Vitamin D 28.2 ng/mL Normal 20-50 [address] [place] [address] Total 25(Oh) [place] [address] [phone] 1 <1:80 (Negative) REFERENCE VALUE <1:80 (Negative) Test Performed by: [facility] [address] [place] [address] Customs Opener Verifier Packer: Rohan Peacock M.D. Ph.D.; CLIA# [id number] 2 REFERENCE VALUE 20.0 - 51.0 Test Performed by: [facility] [address] [place] [address] Customs Opener Verifier Packer: Rohan Peacock M.D. Ph.D.; CLIA# [id number] 3 ADDITIONAL INFORMATION This test was developed and its performance characteristics determined by [facility] in a manner consistent with CLIA requirements. This test has not been cleared or approved by the U.S. Food and Drug Administration. Test Performed by: [facility] [address] Customs Opener Verifier Packer: Rohan Peacock M.D. Ph.D.; CLIA# [id number] 4 REFERENCE VALUE <20.0 (Negative) Test Performed by: [facility] [address] Customs Opener Verifier Packer: Rohan Peacock M.D. Ph.D.; CLIA# [id number] 5 REFERENCE VALUE <20.0 (Negative) 6 Please [...] possible) Procedures Date Code Description Status 05/30/2019 21274 Nerve Conduction 07-08 Studies Completed Medical Devices Description No Information Available Encounters Type Date Location Provider Dx Diagnosis Office Visit 09/11/2019 [facility] Adore Nichols G56.03 Carpal tunnel 3:00p at Anamaria Rey syndrome, bilateral upper limbs G56.23 Lesion of ulnar nerve, bilateral upper limbs Office Visit 08/28/2019 1:30p Feliz El M20.21 Hallux rigidus , Orthopedics at right foot [place] Office Visit 08/17/2019 2:15p Feliz Márquez M16.11 Unilateral Orthopedics at [place] primary [place] osteoarthritis, right hip Z96.652 Presence of left artificial knee joint Office Visit 08/07/2019 11:15a [facility] Jasiel Smith, R41.3 Other amnesia Services [facility] 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 syndrome, bilateral upper limbs G56.23 Lesion of ulnar nerve, bilateral upper limbs Office Visit 05/30/2019 Feliz Márquez, M17.11 Unilateral primary 11:00a Orthopedics at osteoarthritis, [place] right knee Z96.652 Presence of left artificial [...] D deficiency, unspecified Office Visit 04/27/2019 9:15a [facility] Sharon Duncan, G56.03 Carpal tunnel at [place] RPA-C syndrome, bilateral upper limbs G56.23 Lesion [...] 1:00 pm - Adore Nichols M.D. at [facility] at [id number]/14/2020 1:45 pm - Jasiel Smith MD at [place] [facility]10/21/2019 10:30 am - Jo Herrera MD at [facility]ology [facility] Of [facility]10/19/2019 10:20 am - Wesley Puckett M.D. at Rheumatology Services [facility]09/25/2019 - Adore Nichols M.D.G56.03 Carpal tunnel syndrome, bilateral upper limbsFollow up:3 [id number] Lesion of ulnar nerve, bilateral upper limbs Functional Status Description No Information Available Mental Status Description No Information Available Referrals Refer to Dr Reason for Referral Status Appt Date Ronnie Chirinos MD right hip OA looking for anterior hip Scheduled 2018 [address] [place] [address] [phone] Jo Herrera MD significant sleep apnea now with memory Created 00/00/ 0000 problems - you have seen before but has not tolerated cpap ? alternatives [address] [place] [address] [phone] Ming Bain MD please evaluate patient for screening colonoscopy Sent and to evaluate for GI causes of low iron saturation [address] [place] [address] [phone]
--- OUTSIDE RECORDS SUMMARY | 2019-11-05 00:24 | XMS REPORT | Continuity of Care Document ---
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 Diabetes & Metabolism Problems Active Problems Provider Date Dyssomnia Elizabeth Rivera DNP, RN, Onset: 03/31/2016 POOL ATTENDANT-BC Morbid obesity Elizabeth Rivera DNP, RN, Onset: 03/31/2016 POOL ATTENDANT-BC Periodic leg movements of sleep Elizabeth Rivera DNP, RN, Onset: 03/31/2016 POOL ATTENDANT-BC Disturbance in sleep behavior Elizabeth Rivera DNP, RN, Onset: 03/31/2016 POOL ATTENDANT-BC REM sleep behavior disorder Elizabeth Rivera DNP, RN, Onset: 06/08/2016 POOL ATTENDANT-BC Pain in right lower limb Tomi [...] Use Denies Drug Use Smoking Status Reviewed: 09/14/19 Patient has never smoked Exercise Type/Frequency Exercises regularly Allergies, Adverse Reactions, Alerts Active Allergies Reaction Severity Comments Date Sulfa Antibiotics 11/30/2013 Ba Juice 09/07/2018 Medications Active Medications SIG Qnty Indications Ordering Date Provider Gabapentin 1 capsule PO tid 90caps Jasiel [...] Available Vital Signs Date Vital Result Comment 09/14/2019 10:39am Height 67 inches 5'7" Weight 193.00 lb Heart Rate 96 /min BP Systolic 132 mmHg BP Diastolic 86 mmHg BMI (Body Mass Index) 30.2 kg/m2 09/11/2019 3:45pm Height 67 inches 5'7" Weight 190.00 lb Heart Rate 102 /min BP Systolic 128 mmHg BP Diastolic 88 mmHg Respiratory Rate 16 /min Pain Level 4 BMI (Body Mass Index) 29.8 kg/m2 Results Test Acquired Date Facility Test Result H/L Range Note Laboratory test 08/11/2019 [facility] Nuclear AB <1:[address] (Marguerite) By Ifa (Negative) [place] [address] Igg [phone] Ammonia 36 mcmol/L Normal 16-53 Ceruloplasmin 26.0 mg/dL 2 Copper, Serum 1.07 g/mL 0.75-1.45 3 Anti Gliadin Igg And Iga 08/11/2019 [facility] Gliadin IgG < 10.0 U [address] [place] [address] [phone] Gliadin IgA <10.0 U 5 Laboratory test 08/11/2019 [facility] Lyme Screen Negative Negative finding [address] W/ [place] [address] WB [phone] Rheumatoid Factor < 10 IU/mL Normal <15 Laboratory test 05/04/2019 [facility] Erythrocyte Sed 21 mm/Hr Normal 0-[address] [place] [address] [phone] C Reactive Protein < 1.00 mg/L Normal <8.01 7 TSH (Thyroid Stim Horm) 0.82 mcIU/mL Normal 0.34-5.60 8 CBC Auto 05/04/2019 [facility] White Blood 7.1 10^3/uL Normal 3.5-10.[address] [place] [address] [phone] Red Blood Count 5.15 10^6/uL High 3.70-4.87 [...] Blood Cells % 0.1 Comp Metabolic 05/04/2019 [facility] Sodium 140 mmol/L Normal 135-145 Panel [address] [place] [address] [phone] Potassium 4.4 mmol/L Normal 3.5-5.0 Chloride 107 [...] Egfr 93.2 >60 9 Laboratory test 05/04/2019 [facility] Magnesium 2.2 mg/dL Normal 1.9-2.7 10 [address] [place] [address] [phone] Iron & Iron 05/04/2019 [facility] Iron 62 g/dL Normal 50- 212 Binding Capacity [address] [place] [address] [phone] Unsaturated Iron Binding < 504 g/dL Total Iron Binding Capacity 519 g/dL High 250-450 Transferrin 371 mg/dL High 203-362 % Iron Saturation 12 % Low 15-55 Laboratory test 05/04/2019 [facility] Ferritin 12.4 ng/mL Normal 11-307 11 finding [address] [place] [address] [phone] Vitamin B12 And 05/04/2019 [facility] Vitamin B12 640 pg/mL Normal 180-914 12 Folate Serum [address] [place] [address] [phone] Folic Acid (Folate) > 20.00 ng/mL >3.99 13 Laboratory test 05/04/2019 [facility] Vitamin D 28.2 ng/mL Normal 20-50 [address] [place] [address] Total 25(Oh) [place] [address] [phone] 1 <1:80 (Negative) REFERENCE VALUE <1:80 (Negative) Test Performed by: [facility] [address] [place] [address] Compensation Manager: Rohan Peacock M.D. Ph.D.; CLIA# [id number] 2 REFERENCE VALUE 20.0 - 51.0 Test Performed by: [facility] - [address] [address] Compensation Manager: Rohan Peacock M.D. Ph.D.; CLIA# [id number] 3 ADDITIONAL INFORMATION This test was developed and its performance characteristics determined by [facility] in a manner consistent with CLIA requirements. This test has not been cleared or approved by the U.S. Food and Drug Administration. Test Performed by: [place] [address] Compensation Manager: Rohan Peacock M.D. Ph.D.; CLIA# [id number] 4 REFERENCE VALUE <20.0 (Negative) Test Performed by: [place] [address] Compensation Manager: Rohan Peacock M.D. Ph.D.; CLIA# [id number] 5 REFERENCE VALUE <20.0 (Negative) 6 Please [...] possible) Procedures Date Code Description Status 05/30/2019 64778 Nerve Conduction 07-08 Studies Completed Medical Devices Description No Information Available Encounters Type Date Location Provider Dx Diagnosis Office Visit 08/28/2019 [facility] Chavez El, M20.21 Hallux rigidus, 1:30p at [place] right foot Office Visit 08/17/2019 [facility] Tomi Márquez MD M16.11 Unilateral primary 2:15p at [place] osteoarthritis, right hip Z96.652 Presence of left artificial knee joint Office Visit 08/07/2019 11:15a [facility] Jasiel Smith, R41.3 Other amnesia [facility] 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 syndrome, bilateral upper limbs G56.23 Lesion of ulnar nerve, bilateral upper limbs Office Visit 05/30/2019 [facility] Tomi Márquez, M17.11 Unilateral primary 11:00a Orthopedics at osteoarthritis, [place] right knee Z96.652 Presence of left artificial knee joint Office Visit 05/24/2019 [facility] Jasiel Smith, G25.81 Restless legs 10:00a Clinic syndrome R20.0 Anesthesia of skin Office Visit 05/03/2019 [facility] Wesley M46.90 Unspecified 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 05/03/2019 Z79.899 [facility] [place] [facility]current[facility] drug therapy Wesley Puckett M.D. 05/03/2019 [...] Sharon Bitting, RPA-C Plan of Treatment Future Appointment(s):03/14/2020 1:45 pm - Jasiel Smith MD at [facility]10/21/2019 10:30 am - Jo Herrera MD at [facility]09/15/2019 3:30 pm - Adore Nichols M.D. at [facility]10/09/2019 1:45 pm - Adore Nichols M.D. at [facility] at [id number]/19/2019 10:20 am - Wesley Puckett M.D. at [facility]09/14/2019 - Jasiel Smith MDG51.0 John's vvrxbY00.84 Mild cognitive impairment, so statedComments:Memory significantly better with phytoestrogens - and will just follow clinically not frequently at this point and she will call for problems. Reviewed blood work and mri scan with her.Follow up:6 MONTHS Functional Status Description No Information Available Mental Status Description No Information Available Referrals Refer to Dr Reason for Referral Status Appt Date Ronnie Chirinos MD right hip OA looking for anterior hip Scheduled 2018 [address] [place] [address] [phone] Jo Herrera MD significant sleep apnea now with memory Created problems - you have seen before but has not tolerated cpap ? alternatives [address] [place] [address] [phone] Ming Bain MD please evaluate patient for screening colonoscopy Sent and to evaluate for GI causes of low iron saturation [address] [place] [address] [phone]
--- OUTSIDE RECORDS SUMMARY | 2019-11-05 00:24 | XMS REPORT | Continuity of Care Document ---
:1970 External Reference #:[id number] Author Name Adore Nichols M.D. 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 Onset: 05/16/2018 Acquired hallux rigidus Chavez lE MD Onset: 08/28/2019 Social History Type Date Description Comments Sex Unknown Smokeless Tobacco Never Used Smokeless Tobacco ETOH Use Never used alcohol Tobacco Use Start: Unknown Patient has never smoked Recreational Drug Use Denies Drug Use Smoking Status Reviewed: 09/11/19 Patient has never smoked Exercise Type/Frequency Exercises [...] A M.D. Day as Needed For Pain Slow Release Iron take one 30tabs Wesley Puckett, 05/07/2019 45mg capsule/tablet M.D. Tablets ER daily by mouth Cyclobenzaprine HCL Take 1 Tab By 90tabs Wesley Puckett, 04/25/2018 10mg Mouth 2-3 Times M.D. Tablets A Day as Needed Cymbalta daily Unknown 120mg Valerian Root 2 capsules as Unknown 100mg needed Capsules Pramipexole Take 1 Or 2 Unknown Dihydrochloride Tablets By Mouth 0.25mg AT Bedtime Tablets Quetiapine Fumarate Take 1 Tablet By Unknown 100mg Mouth Twice A Tablets Day History Medications Suprep Bowel Prep Kit take according to 354ml Ming Monzon 05/10/2019 - the instructions MD Odell 06/29/2019 17.5-3.13-1.6GM/177ML you received, the Solution afternoon before and morning of your procedure. Immunizations Description No Information Available Vital Signs Date Vital Result Comment 09/11/2019 3:45pm Height 67 inches 5'7" Weight 190.00 lb Heart Rate 102 /min BP Systolic 128 mmHg BP Diastolic 88 mmHg Respiratory Rate 16 /min Pain Level 4 BMI (Body Mass Index) 29.8 kg/m2 08/28/2019 1:42pm Height 67 inches 5'7" Weight 193.00 lb Heart Rate 101 /min BP Systolic 122 mmHg BP Diastolic 84 mmHg Body Temperature 98.4 F Pain Level 0 BMI (Body Mass Index) 30.2 kg/m2 Results Test Acquired Date Facility Test Result H/L Range Note Laboratory test 08/11/2019 [facility] Nuclear AB <1:[address] (Marguerite) By Ifa (Negative) [place] [address] Igg [phone] Ammonia 36 mcmol/L Normal 16-53 Ceruloplasmin 26.0 mg/dL 2 Copper, Serum 1.07 g/mL 0.75-1.45 3 Anti Gliadin Igg And Iga 08/11/2019 [facility] Gliadin IgG < 10.[address] [place] [address] [phone] Gliadin IgA <10.0 U 5 Laboratory test 08/11/2019 [facility] Lyme Screen Negative Negative finding DRIVE W/ [place] [address] WB [phone] Rheumatoid Factor < 10 IU/mL Normal <15 Laboratory test 05/04/2019 [facility] Erythrocyte Sed 21 mm/Hr Normal 0-[address] [place] [address] [phone] C Reactive Protein < 1.00 mg/L Normal <8.01 7 TSH (Thyroid Stim Horm) 0.82 mcIU/mL Normal 0.34-5.60 8 CBC Auto 05/04/2019 [facility] White Blood 7.1 10^3/uL Normal 3.5-10.[address] [place] [address] [phone] Red Blood Count 5.15 10^6/uL High 3.70-4.87 [...] Cells % 0.1 Comp Metabolic 05/04/2019 [facility] Sodium 140 mmol/L Normal 135-145 Panel [address] [place] [address] [phone] Potassium 4.4 mmol/L Normal 3.5-5.0 Chloride 107 [...] 93.2 >60 9 Laboratory test 05/04/2019 [facility] Magnesium 2.2 mg/dL Normal 1.9-2.7 10 finding [address] [place] [address] [phone] Iron & Iron 05/04/2019 [facility] Iron 62 g/dL Normal 50- 212 Binding Capacity [address] [place] [address] [phone] Unsaturated Iron Binding < 504 g/dL Total Iron Binding Capacity 519 g/dL High 250-450 Transferrin 371 mg/dL High 203-362 % Iron Saturation 12 % Low 15-55 Laboratory test 05/04/2019 [facility] Ferritin 12.4 ng/mL Normal 11-307 11 finding [address] [place] [address] [phone] Vitamin B12 And 05/04/2019 [facility] Vitamin B12 640 pg/mL Normal 180-914 12 Folate Serum [address] [place] [address] [phone] Folic Acid (Folate) > 20.00 ng/mL >3.99 13 Laboratory test 05/04/2019 [facility] Vitamin D 28.2 ng/mL Normal 20-50 [address] [place] [address] Total 25(Oh) [place] [address] [phone] 1 <1:80 (Negative) REFERENCE VALUE <1:80 (Negative) Test Performed by: [facility] [place] [address] Stumper Feller: Rohan Peacock M.D. Ph.D.; CLIA# [id number] 2 REFERENCE VALUE 20.0 - 51.0 Test Performed by: [facility] [place] [id number] Stumper Feller: Rohan Peacock M.D. Ph.D.; CLIA# [id number] 3 ADDITIONAL INFORMATION This test was developed and its performance characteristics determined by [facility] in a manner consistent with CLIA requirements. This test has not been cleared or approved by the U.S. Food and Drug Administration. Test Performed by: [place] [address] Stumper Feller: Rohan Peacock M.D. Ph.D.; CLIA# [id number] 4 REFERENCE VALUE <20.0 (Negative) Test Performed by: [facility] [address] [place] [address] Stumper Feller: Rohan Peacock M.D. 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, right hip Z96.652 Presence of left artificial knee joint Office Visit 08/07/2019 11:15a [facility] Jasiel Smith, R41.3 Other amnesia [facility] 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 G47.30 Sleep apnea, unspecified Office Visit 06/19/2019 11:15a [facility] Adore G56.03 Carpal tunnel at [place] Krissy Nichols syndrome, bilateral upper limbs 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 05/03/2019 G25.81 Restless legs syndrome Wesley Puckett M.D. 05/03/2019 D64.9 Anemia, unspecified Wesley Puckett M.D. 05/03/2019 E55.9 Vitamin D deficiency, unspecified Wesley Puckett M.D. 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 at [facility] at [id number]/19/2019 10:20 am - Wesley Puckett M.D. at [facility]09/14/2019 10:15 am - Jasiel Smith MD at [facility] [id number]/11/2019 - Adore Nichols M.D.G56.03 Carpal tunnel syndrome, bilateral upper limbsFollow up:Follow up: 9-10 days bkgatmY86.23 Lesion of ulnar nerve, bilateral upper limbs Functional Status Description No Information Available Mental Status Description No Information Available Referrals Refer to Reason for Referral Status Appt Date Ronnie Chirinos MD right hip OA looking for anterior hip Scheduled 2018 [address] [place] [address] [phone] Jo Herrera MD significant sleep apnea now with memory Created problems - you have seen before but has not tolerated cpap ? alternatives [address] [place] [address] [phone] Ming Bain MD please evaluate patient for screening colonoscopy Sent and to evaluate for GI causes of low iron saturation [address] [place] [address] [phone]
== END 2019-11-05 00:12 | disposition home or self-care (01) ==
LOC: ED 22:21
DX: R60.0 Localized edema (principal); I10 Essential (primary) hypertension; J45.909 Unspecified asthma, uncomplicated; M79.7 Fibromyalgia; F41.9 Anxiety disorder, unspecified; F32.9 Major depressive disorder, single episode, unspecified; Z87.891 Personal history of nicotine dependence; Z88.2 Allergy status to sulfonamides; Z88.8 Allergy status to other drugs, medicaments and biological substances
CPT/HCPCS: 36415; 80053; 85025; 85610; 99282

== ENCOUNTER 2022-08-20 11:28 | Inpatient (IN) ==
[2022-08-20] MEDS ORDERED: Acyclovir IV 800 MG in NS 0.9% 250 ml 250 ML IVPB ONE (14:14)
[2022-08-20 15:13] LABS: ABS Basophils 0.1 10^3/ul (0-0.2); ABS Eosinophils 0.1 10^3/ul (0-0.6); ABS Lymphocytes 1.4 10^3/ul (1.0-4.8); ABS Monocytes 0.8 10^3/ul (0-0.8); ABS Neutrophils 6.7 10^3/ul (1.5-7.7); Hematocrit 52 % (35-47); Hemoglobin 17.6 g/dL (12.0-16.0); Lymphocyte % 15.4 %; Mean Corpuscular HGB Conc 34 g/dL (31-36); Mean Corpuscular Hemoglobin 29 pg (27-31); Mean Corpuscular Volume 85 fL (80-97); Mean Platelet Volume 9.1 fL (7.4-10.4); Nucleated Red Blood Cells % 0.1; Platelet Count 310 10^3/uL (150-450); Red Blood Count 6.13 10^6 /uL (3.70-4.87); Red Cell Distribution Width 15 % (10-15); White Blood Count 9.1 10^3/uL (3.5-10.8)
[2022-08-20] MEDS ORDERED: Lactated Ringers 1000 ml BAG 1,000 ML IV ONE (15:20)
[2022-08-20] MEDS ORDERED: Midazolam 2 mg/2 ml VIAL 1 mg/ml 2 ml VIAL (2 mg) ONE (15:36)
[2022-08-20] MEDS ORDERED: fentaNYL 100 mcg/2 ml 50 MCG/ML VIAL ONE (15:36)
[2022-08-20 15:53] LABS: Albumin 4.6 g/dL (3.2-5.2); Anion Gap 12 mmol/L (2-11); CO2 Carbon Dioxide 23 mmol/L (22-32); Calcium 10.1 mg/dL (8.6-10.3); Chloride 103 mmol/L (101-111); Potassium 4.3 mmol/L (3.5-5.0); Sodium 138 mmol/L (135-145)
[2022-08-20 16:17] LABS: ALT 32 U/L (7-52); AST 47 U/L (13-39); Acetaminophen < 15 mcg/mL; Albumin/Globulin Ratio 1.4 (1-3); Alcohol, S < 13 mg/dL (<13); Alkaline Phosphatase 104 U/L (35-149); Blood Urea Nitrogen 15 mg/dL (6-24); Globulin 3.3 g/dL (2-4); Glucose 105 mg/dL (70-100); HCG Pregnancy 1.09 mIU/mL; Salicylate < 2.50 mg/dL (<30); Total Protein 7.9 g/dL (6.4-8.9); eGFR CKD-EPI 98.3 (>60)
[2022-08-20 16:26] LABS: TSH Ultra Thyroid Stim Horm 1.43 mcIU/mL (0.34-5.60)
[2022-08-20] MEDS ORDERED: Albuterol HFA INHALER 8 gm MDI INH PRN (16:58)
[2022-08-20] MEDS ORDERED: levETIRAcetam 1000MG IVPREMIX 1,000 MG/100 ML BAG IVPB ONE (17:01)
[2022-08-20 17:41] LABS: Body Fluid Source Cerebral Spinal
[2022-08-20 18:03] LABS: CSF Glucose 77 mg/dL (40-70)
[2022-08-20 18:36] LABS: Body Fluid Appearance Clear; Body Fluid Color Colorless; CSF Tube # 4
[2022-08-20 18:50] LABS: Body Fluid WBC 2 /mcL
[2022-08-20 19:28] LABS: Body Fluid Total Cells Counted 0
[2022-08-20] MEDS ORDERED: Gadoteridol (CONTRAST) 279.3 MG/ML 10 ML IV ONE (20:31)
[2022-08-20] MEDS: NF: Cariprazine 3 mg CAP (NF) PO SCH (20:47)
[2022-08-20] MEDS: Heparin 5000 UNITS/ML 1 mL VIAL SUBCUT SCH (21:53)
[2022-08-20] MEDS ORDERED: Ondansetron 4 mg VIAL 2 MG/ML 2 ml VIAL IV PRN (22:07)
[2022-08-21 06:35] LABS: Calcium 9.6 mg/dL (8.6-10.3); Magnesium 1.8 mg/dL (1.9-2.7)
[2022-08-21] MEDS ORDERED: CMCS: Solifenacin 5 mg TAB (NF) PO SCH (09:00)
[2022-08-21] MEDS: Heparin 5000 UNITS/ML 1 mL VIAL SUBCUT SCH (10:06)
[2022-08-21] MEDS: NF: Cariprazine 3 mg CAP (NF) PO SCH (10:07)
[2022-08-21] MEDS ORDERED: Calcium Carb (TUMS) 500 mg CHEW TAB PO ONE (11:32)
[2022-08-21 11:42] VITALS: BP 140/87
[2022-08-23 16:28] LABS: B. garinii/B. afzellii PCR Negative (Negative); Lyme Disease Source csf
[2022-08-24 14:57] LABS: CSF VDRL Negative (Negative)
[2022-08-27 10:13] LABS: AGNA-1, CSF Negative titer (<1:2); ANNA-1, CSF Negative titer (<1:2); ANNA-2, CSF Negative titer (<1:2); ANNA-3, CSF Negative titer (<1:2); Amphiphysin Ab, CSF Negative titer (<1:2); CRMP-5-IgG, CSF Negative titer (<1:2); PCA-1, CSF Negative titer (<1:2); PCA-2, CSF Negative titer (<1:2); PCA-Tr, CSF Negative titer (<1:2)
== END 2022-08-21 17:05 | disposition home or self-care (01) | DRG 72 ==
LOC: ED 11:28 → SUATTDRO 16:49 → EDHOLD 16:49 → MEDTELE 20:11
PROVIDERS: ADMIT Hospitalist; ATTEND Internal Medicine

== ENCOUNTER 2023-10-25 07:17 | Inpatient (IN) ==
[2023-10-25] MEDS ORDERED: LORazepam 2 mg VIAL 1 ml IV PUSH PRN ×5 (10:35→12:03)
[2023-10-25] MEDS ORDERED: Lorazepam PYXIS KEY PRN (10:35)
[2023-10-25] MEDS ORDERED: Ondansetron 4 mg VIAL 2 MG/ML 2 ml VIAL IV PRN (11:55)
[2023-10-25] MEDS: PTO:Cariprazine 3 mg CAP (NF) PO SCH (12:38)
[2023-10-25] MEDS: DULoxetine DR 20 mg CAP PO SCH (12:38)
[2023-10-25] MEDS: DULoxetine DR 60 mg CAP PO SCH (12:38)
[2023-10-26] MEDS: DULoxetine DR 60 mg CAP PO SCH (10:33)
[2023-10-26] MEDS: DULoxetine DR 20 mg CAP PO SCH (10:33)
[2023-10-26] MEDS: PTO:Cariprazine 3 mg CAP (NF) PO SCH (10:34)
[2023-10-27] MEDS: DULoxetine DR 20 mg CAP PO SCH (09:50)
[2023-10-27] MEDS: PTO:Cariprazine 3 mg CAP (NF) PO SCH (09:50)
[2023-10-27] MEDS: DULoxetine DR 60 mg CAP PO SCH (09:51)
[2023-10-28] MEDS: PTO:Cariprazine 3 mg CAP (NF) PO SCH (10:28)
[2023-10-28] MEDS: DULoxetine DR 60 mg CAP PO SCH (10:28)
[2023-10-28] MEDS: DULoxetine DR 20 mg CAP PO SCH (10:28)
[2023-10-29] MEDS: DULoxetine DR 20 mg CAP PO SCH (08:16)
[2023-10-29] MEDS: PTO:Cariprazine 3 mg CAP (NF) PO SCH (08:16)
[2023-10-29] MEDS: DULoxetine DR 60 mg CAP PO SCH (08:17)
[2023-10-29 11:25] VITALS: BP 137/82
== END 2023-10-29 11:09 | disposition home or self-care (01) | DRG 101 ==
LOC: MEDTELE 07:17
PROVIDERS: ADMIT Psychiatry & Neurology Neurology; ATTEND Psychiatry & Neurology Neurology